=== PATIENT | female | born 1990 | race Caucasian/White ===

== ENCOUNTER 2022-12-10 20:33 | Outpatient (REF) | payer BC, SELFPAY ==
[2022-12-14 09:08] LABS: Age Gdln ACOG Testing Note (.); HPV Aptima Negative (Negative); IGP, Aptima HPV, rfx 16/18,45 Note (.)
== END 2022-12-10 20:34 | disposition home or self-care (01) ==
LOC: LAB 20:33
PROVIDERS: Visit Provider Physician Assistant
DX: Z01.419 Encounter for gynecological examination (general) (routine) without abnormal findings (principal); Z11.51 Encounter for screening for human papillomavirus (HPV); Z12.72 Encounter for screening for malignant neoplasm of vagina
CPT/HCPCS: 87624; G0145

== ENCOUNTER 2023-12-25 21:58 | Outpatient (REF) | payer OTHER, SELFPAY | END 2023-12-25 21:59 | disposition home or self-care (01) | LOC: LAB 21:58 | PROVIDERS: Visit Provider Physician Assistant | DX: Z01.419 Encounter for gynecological examination (general) (routine) without abnormal findings (principal) | CPT/HCPCS: 87624; 88175 ==

== ENCOUNTER 2024-09-01 12:06 | Emergency (ER) | payer OTHER, SELFPAY ==
[2024-09-01 12:15] VITALS: BP 113/75; PULSE 90; TEMP 36.6; O2SAT 99; BMI 29.8
--- NOTE | 2024-09-01 12:33 | ED_ITS ---
HPI - Abdominal Pain General Chief Complaint: Abdominal Pain Stated Complaint: ABDOMIN PAIN CHEST PAINS Time Seen by Provider: 09/01/24 12:27 Source: patient Mode of arrival: walk-in Limitations: no limitations History of Present Illness HPI narrative: This 34-year-old female presents to the emergency department chief complaint of multiple episodes of vomiting since yesterday and accompanied with abdominal pain cramping. She denies diarrhea. She does not report recent alcohol intake and does not remember what she ate last before the onset of her symptoms. She is 0 and denies any possibility of . Patient is currently taking tirzepatide and her last dose was 2 days ago. She is up to 15 mg a dose. She went to an outlying emergency department yesterday with similar symptoms and was treated symptomatically. She has had problems such as this off-and-on in the last year and at that time she was on Ozempic. Related Data Home Medications ?Medication ?Instructions ?Recorded ?Confirmed fluoxetine 20 mg capsule mg 09/01/24 metoclopramide HCl 10 mg tablet mg 09/01/24 omeprazole 40 mg capsule,delayed mg 09/01/24 release ondansetron 4 mg disintegrating mg 09/01/24 tablet tirzepatide (weight loss) 12.5 mg subcut 09/01/24 mg/0.5 mL subcutaneous pen injector (Zepbound) Previous Rx's ?Medication ?Instructions ?Recorded promethazine 25 mg rectal 25 mg FL Q6H PRN nausea and 09/01/24 suppository vomiting #12 ea Allergies Allergy/AdvReac Type Severity Reaction Status Date / Time Penicillins Allergy Severe Rash Verified 09/01/24 12:18 Review of Systems ROS Status of ROS 10 or more systems reviewed and unremark able except as noted in history and below Exam Narrative Exam Narrative: Patient is ill-appearing and is actively vomiting. Her vital signs are stable. There is no pallor or icterus. H EENT exam is normal to inspection. Neck is supple. Lung sounds are clear to auscultation bilaterally. Heart has an irregular rhythm with a controlled rate. Abdomen is soft with diffuse tenderness but without peritoneal signs. Extremities are warm and dry. Speech and mentation are clear and intact. There is no facial asymmetry and she moves all extremities actively. Constitutional Vital Signs, click to edit/add: Last Vital Signs Temp 98 F 09/01/24 12:15 Pulse 90 09/01/24 12:15 Resp 20 09/01/24 12:15 BP 113/75 09/01/24 12:15 Pulse Ox 99 09/01/24 12:15 Course Vital Signs Vital signs: Vital Signs Temperature 98 F 09/01/24 12:15 Pulse Rate 90 09/01/24 12:15 Respiratory Rate 20 09/01/24 12:15 Blood Pressure 113/75 09/01/24 12:15 Pulse Oximetry 99 09/01/24 12:15 Temperature 98 F 09/01/24 12:15 Pulse Rate 90 09/01/24 12:15 Respiratory Rate 20 09/01/24 12:15 Blood Pressure 113/75 09/01/24 12:15 Pulse Oximetry 99 09/01/24 12:15 MDM - Abdominal Pain MDM Narrative Medical decision making narrative: Patient's twelve-lead EKG is interpreted by me and shows sinus arrhythmia but I am concerned about possible atrial fibrillation. No ischemic changes noted. A second EKG was obtained a couple hours later and shows atrial fibrillation with a controlled rate. Lab work is fairly nondiagnostic. Kidney function and electrolytes within normal limits. Liver functions were not abnormal. Troponin was within normal limits also. Patient was treated with IV fluids and because her potassium level was low at 3 she was treated with 20 mEq of IV potassium chloride infusion and was also given 2 g of magnesium sulfate infusion. Following the completion of these infusions the patient has reverted to sinus rhythm with sinus arrhythmia on the monitor. She has Reglan at home that she is encouraged to use for nausea and is also prescribed promethazine suppository for nausea and vomiting. I have advised that she stop using there is appetite which may be causing her nausea and vomiting. She is advised outpatient follow-up with PCP and mergers and acquisitions associate of choice. Lab Data Labs: Lab Results 09/01/24 09/01/24 Range/Units 12:52 14:12 WBC 9.0 (4.0-11.0) 10^3/uL RBC 4.70 (4.20-5.40) 10^6/uL Hgb 13.3 (12.0-16.0) g/dL Hct 39.7 (36.0-48.0) % MCV 84.5 (81.0-99.0) fL MCH 28.3 (26.7-34.0) pg MCHC 33.5 (29.9-35.2) g/dL RDW 14.3 (11.0-15.0) % Plt Count 256 (150-450) 10^3/uL MPV 11.8 (9.5-13.5) fL Neut % (Auto) 74.4 (43.0-75.0) % Lymph % (Auto) 18.4 L (20.5-60.0) % [place] % (Auto) 6.6 (1.7-12.0) % Eos % (Auto) 0.0 L (0.9-7.0) % Baso % (Auto) 0.2 (0.2-2.0) % Neut # (Auto) 6.7 H (1.4-6.5) 10^3/uL Lymph # (Auto) 1.7 (1.2-3.8) 10^3/uL [place] # (Auto) 0.6 (0.3-0.8) 10^3/uL Eos # (Auto) 0.0 (0.0-0.7) 10^3/uL Baso # (Auto) 0.0 (0.0-0.1) 10^3/uL Abs Immat Gran (auto) 0.04 H (0.00-0.03) 10^3/uL Imm/Tot Granulo (auto) 0.4 (0.0-0.5) % Sodium 142 (136-145) mmol/L Potassium 3.0 L (3.5-5.1) mmol/L Chloride 104 (98-107) mmol/L Carbon Dioxide 22.2 (21.0-32.0) mmol/L Anion Gap 18.8 BUN 12.0 (7.0-18.0) mg/dL Creatinine 0.99 (0.55-1.02) mg/dL Est GFR ( Amer) >60 (>=60 mL/min/1.73m^2) Est GFR (Non-Af Amer) >60 (>=60 mL/min/1.73m^2) BUN/Creatinine Ratio 12.1 Glucose 95 (74-106) mg/dL Lactate 1.4 (0.4-2.0) mmol/L Calcium 9.2 (8.5-10.1) mg/dL Magnesium 2.1 (1.8-2.4) mg/dL Total Bilirubin 0.7 (0.2-1.0) mg/dL Direct Bilirubin 0.1 (0.0-0.2) mg/dL AST 10 L (15-37) U/L ALT 22 (14-59) U/L Alkaline Phosphatase 47 (46-116) U/L Troponin I High Sens <4.0 L 5.5 (4.0-51.3) pg/mL Total Protein 7.7 (6.4-8.2) g/dL Albumin 4.0 (3.4-5.0) g/dL Globulin 3.7 g/dL Albumin/Globulin Ratio 1.1 Lipase 26.0 (16.0-77.0) U/L Serum HCG, Qual Negative (NEGATIVE) Discharge Plan Discharge Chief Complaint: Abdominal Pain Clinical Impression: Nausea & vomiting Qualifiers: Vomiting type: unspecified Qualified Code(s): R11.2 - Nausea with vomiting, unspecified Abdominal pain Qualifiers: Abdominal location: generalized Qualified Code(s): R10.84 - Generalized abdominal pain Patient Disposition: Home, Self-Care Time of Disposition Decision: 17:47 Condition: Fair Mode of Transportation: Private Vehicle Prescriptions / Home Meds: New promethazine 25 mg suppository 25 mg FL Q6H PRN (Reason: nausea and vomiting) Qty: 12 0RF No Action omeprazole 40 mg capsule,delayed release(DR/EC) ondansetron 4 mg tablet,disintegrating fluoxetine 20 mg capsule metoclopramide HCl 10 mg tablet Zepbound 12.5 mg/0.5 mL pen injector SUBCUT Print Language: Uzbek Instructions: Acute Nausea and Vomiting (ED), Abdominal Pain (ED) Additional Instructions: Stop using tirzepatide. Follow-up with PCP and mergers and acquisitions associate of choice within a week's time. Return for worsening symptoms. Referrals: Sarah Yeager RN [Primary Care Provider] - 1 week
[2024-09-01] MEDS: FENTANYL CITRATE/PF 100 MCG/2 ML VIAL 50 MCG IV (12:43)
[2024-09-01] MEDS: ONDANSETRON PF 4 MG/2 ML VIAL IV (12:44)
[2024-09-01] MEDS: 0.9 % SODIUM CHLORIDE 1,000 ML 999 ML IV (12:44)
[2024-09-01 13:03] LABS: Basophils Percent Auto 0.2 % (0.2-2.0); Hematocrit 39.7 % (36.0-48.0); Hemoglobin 13.3 g/dL (12.0-16.0); Immature Granulocytes Abs Auto 0.04 10^3/uL (0.00-0.03); Immature Granulocytes Pct Auto 0.4 % (0.0-0.5); Lymphocytes Absolute Auto 1.7 10^3/uL (1.2-3.8); Lymphocytes Percent Auto 18.4 % (20.5-60.0); Mean Corpuscular HGB Conc 33.5 g/dL (29.9-35.2); Mean Corpuscular Hemoglobin 28.3 pg (26.7-34.0); Mean Corpuscular Volume 84.5 fL (81.0-99.0); Mean Platelet Volume 11.8 fL (9.5-13.5); Monocytes Absolute Auto 0.6 10^3/uL (0.3-0.8); Monocytes Percent Auto 6.6 % (1.7-12.0); Neutrophils Absolute Auto 6.7 10^3/uL (1.4-6.5); Neutrophils Percent Auto 74.4 % (43.0-75.0); Platelet Count 256 10^3/uL (150-450); Red Cell Distribution Width 14.3 % (11.0-15.0)
[2024-09-01 13:23] LABS: HCG Qualitative NEGATIVE (NEGATIVE); Internal Control Within Normal Limits
[2024-09-01 13:24] LABS: Alanine Aminotransferase 22 U/L (14-59); Albumin Globulin Ratio 1.1; Alkaline Phosphatase 47 U/L (46-116); Anion Gap 18.8; Aspartate Amino Transferase 10 U/L (15-37); BUN Creatinine Ratio 12.1; Bilirubin Direct 0.1 mg/dL (0.0-0.2); Bilirubin Total 0.7 mg/dL (0.2-1.0); Calcium 9.2 mg/dL (8.5-10.1); Carbon Dioxide 22.2 mmol/L (21.0-32.0); Chloride 104 mmol/L (98-107); Estimated GFR (African America >60 (>=60 mL/min/1.73m^2); Estimated GFR (Non-African Ame >60 (>=60 mL/min/1.73m^2); Globulin 3.7 g/dL; Glucose 95 mg/dL (74-106); Sodium 142 mmol/L (136-145); Total Protein 7.7 g/dL (6.4-8.2); Troponin I High Sensitivity <4.0 pg/mL (4.0-51.3)
[2024-09-01 13:26] LABS: Lactate/Lactic Acid 1.4 mmol/L (0.4-2.0)
[2024-09-01] MEDS: DIPHENHYDRAMINE HCL 50 MG/ML VIAL 25 MG IVP (13:37)
[2024-09-01] MEDS: PROCHLORPERAZINE 10 MG/2 ML VIAL 5 MG IV (13:38)
[2024-09-01] MEDS: 0.9 % SODIUM CHLORIDE 1,000 ML 100 ML IV (13:58)
--- NOTE | 2024-09-01 14:01 | ECG_ITS ---
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 Measurements Intervals [place] Rate: 87 P: 2 SD: 120 QRS: 69 QRSD: 90 T: 53 QT: 356 QTc: 400 Interpretive Statements 1100 Sinus rhythm 1108 Marked sinus arrhythmia 4068 Nonspecific [place]ave abnormality Abnormal ECG No previous ECG available for comparison Electronically Signed On 09-01-2024 19:30:29 EDT by ALIZE GILLIAM M.D.
[2024-09-01] MEDS: FENTANYL CITRATE/PF 100 MCG/2 ML VIAL 25 MCG IV (14:10)
[2024-09-01] MEDS: POTASSIUM CHLORIDE IN WATER 10 MEQ/100 ML PREMIX 100 MEQ IV ×2 (14:11→15:05)
--- NOTE | 2024-09-01 14:25 | ECG_ITS ---
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 Measurements Intervals [place] Rate: 87 P: -[id number] AK: -[id number] QRS: 74 QRSD: 96 T: 12 QT: 386 QTc: 431 Interpretive Statements sinus rhythm with sinus arrhythmia Nonspecific Twave abnormality abnormal ECG Compared to ECG 09/01/2024 12:14:37 No significant changes Electronically Signed On 09-01-2024 19:33:32 EDT by ALIZE GILLIAM M.D.
[2024-09-01 14:32] LABS: Troponin I High Sensitivity 5.5 pg/mL (4.0-51.3)
[2024-09-01] MEDS: PANTOPRAZOLE SODIUM 40 MG VIAL IV (15:41)
[2024-09-01] MEDS: lidocaine HCL 15 ML, MAG HYDROX/ALUMINUM HYD/SIMETH 30 ML, HYOSCYAMINE SULFATE 0.25 MG PO (15:41)
[2024-09-01 15:59] LABS: Magnesium 2.1 mg/dL (1.8-2.4)
[2024-09-01] MEDS: 0.9 % SODIUM CHLORIDE 1,000 ML 125 ML IV (16:21)
[2024-09-01] MEDS: MAGNESIUM SULFATE IN WATER 2 GM/50 ML PREMIX IV (16:22)
== END 2024-09-01 18:02 | disposition home or self-care (01) ==
PROVIDERS: Emergency Provider Emergency Medicine
DX: R10.84 Generalized abdominal pain (principal); R11.2 Nausea with vomiting, unspecified
CPT/HCPCS: 36415; 74176; 80053; 80076; 80307; 81001; 83605; 83690; 83735; 84484; 84703; 85025; 93005; 96361; 96365; 96366; 96368; 96375; 96376; 99285; J0780; J1200; J2405; J3010; J3475; J3480

== ENCOUNTER 2024-09-30 19:36 | Outpatient (REF) | payer OTHER, SELFPAY ==
--- OUTSIDE RECORDS SUMMARY | 2024-09-30 19:44 | XMS_ITS | CCD ---
Author Organization [facility] CliniSymd Care Team Providers Care Clinical Program Manager Name Role Phone JAYNA, DR OSBORN Attending Unavailable JAYNA, DR OSBORN Consulting Unavailable JAYNA, DR OSBORN Admitting Unavailable Cair Marx Unavailable Christie Hua Unavailable Shannon OLVERA Primary Care Physician [phone] MD Shannon Olvera Primary Care Provider ALEXUS Marx Attending Provider Cari Marx Attending Unavailable Cari Marx Admitting Unavailable Shannon Olvera Primary Care Unavailable TYRA CID Attending Unavailable Sarah Yeager Primary Care Physician [phone] MICA SANABRIA Attending Unavailable WESLEY YANG Attending Unavailable WESLEY YANG Attending Unavailable Shannon Olvera MD Primary Care Provider [phone] Unavailable Primary Care Provider Unavailabl e Unavailable Primary Care Provider Unavailabl e [facility] Attending Unavailable CASSIE HINOJOSA Attending Unavailable Sarah Yeager Attending Unavailable Sarah Yeager Attending Unavailable Sarah Yeager Attending Unavailable Sarah Yeager Admitting Unavailable Toy, MSN, BIBLICAL LANGUAGES PROFESSOR-IT SECURITY PROJECT MANAGER Sarah Pena Attending U Martina Marquez Attending Unavailable Toy, MSN, BIBLICAL LANGUAGES PROFESSOR-IT SECURITY PROJECT MANAGER Sarah Pena Attending U jenaro Yeager, MSN, BIBLICAL LANGUAGES PROFESSOR-IT SECURITY PROJECT MANAGER Sarah Pena Attending U jenaro Yeager, MSN, BIBLICAL LANGUAGES PROFESSOR-IT SECURITY PROJECT MANAGER Sarah Pena Admitting U KHURRAM Moreau Attending Unavailable KHURRAM STEPHENS Attending Unavailable KHURRAM STEPHENS Attending Unavailable Toy, MSN, BIBLICAL LANGUAGES PROFESSOR-IT SECURITY PROJECT MANAGER Sarah Pena Attending Apurva Yeager, MSN, BIBLICAL LANGUAGES PROFESSOR-AFSANEH Pena Attending Apurva Yeager, MSN, ZAFAR Pena Attending U jenaro Allergies Allergy Classification Reported Allergen(s) Allergy Type Date of Onset Reaction(s) Facility Penicillins (antibiotic) (1 source) Penicillins; Translations: [penicillins] Drug Allergy Weal (disorder) [facility] (5 sources) Penicillin; Translations: [Penicillin] Drug Allergy hives, Weal (disorder) [facility] (20 sources) Penicillins; Translations: [penicillins] Drug allergy 8 Weal (disorder), Hives [facility] (7 sources) Penicillin G sodium Propensity to adverse reactions 3 [facility] Work Phone: (2 sources) metFORMIN; Translations: [metFORMIN] Drug Allergy [facility] Repository Medications Current Medications Medication Drug Class(es) Dates Sig (Normalized) Sig (Original) 0.25 MG, 0.5 MG Dose 3 ML semaglutide 0.68 MG/ML Pen Injector [Ozempic] (1 source) Ozempic (0.25 or 0.5 MG/DOSE) 2 MG/3ML Subcutaneous for 28 Days Active 0.5 ML tirzepatide 10 MG/ML Auto-Injector [Zepbound] (2 sources) Start: 12-06-2023 inject 5 mg by subcutaneous injection every week Zepbound 5 mg/0.5 mL subcutaneous solution 5 mg, SubCutaneous, qWeek, # 4 EA, Refills(s) 0 Start Date: 12/06/23 Status: Ordered 0.5 ML tirzepatide 10 MG/ML Injection [Zepbound] (2 sources) Start: 12-06-2023 inject 5 mg by subcutaneous injection every week Zepbound 5 mg/0.5 mL subcutaneous solution 5 mg, SubCutaneous, qWeek, # 4 EA, Refills(s) 0 Start Date: 12/06/23 Status: Ordered 0.5 ML tirzepatide 5 MG/ML Auto-Injector [Zepbound] (1 source) Start: 11-05-2023 inject 2.5 mg by subcutaneous injection every week Zepbound 2.5 mg/0.5 mL subcutaneous solution 2.5 mg, SubCutaneous, qWeek, rotate injection sites, # 4 EA, Refills(s) 0, Pharmacy: [facility], 170, cm, 11/05/23 14:44:00 EDT, Height/Length Dosing, 104.3, kg, 11/05/23 14:44:00 EDT, Weight Dosing Start Date: 11/05/23 Status: Ordered 3 ML semaglutide 2.68 MG/ML Pen Injector [Ozempic] (3 sources) Start: 06-05-2023 inject 2 mg by subcutaneous injection every week Ozempic 8 mg/3 mL (2 mg dose) subcutaneous solution 2 mg, SubCutaneous, qWeek, # 3 EA, Refills(s) 1, Pharmacy: [facility], 170, cm, 05/27/23 7:44:00 EST, Height/Length Dosing, 98.6, kg, 05/27/23 7:44:00 EST, Weight Dosing Start Date: 06/05/23 Status: Ordered Start: 02-06-2023 inject 2 mg by subcu taneous injection every week Ozempic 8 mg/3 mL (2 mg dose) subcutaneous solution 2 mg, SubCutaneous, qWeek, # 3 EA, Refills(s) 0, Pharmacy: [facility], 170, cm, 10/31/22 14:42:00 EDT, Height/Length Dosing, 112, kg, 10/31/22 14:42:00 EDT, Weight Dosing Start Date: 02/06/23 Status: Ordered azithromycin 250 mg oral tablet (1 source) Macrolide Antimicrobial Start: 06-24-2022 Azithromycin 250 MG 2 tablet on the first day, then 1 tablet daily for 4 days Orally Once a day for 5 day(s) Jun, Active cephalexin 500 mg oral capsule (4 sources) Cephalosporin Antibacterial Start: 09-30-2024 End: 10-07-2024 take 1 capsule by mouth in the morning, then take 1 capsule by mouth in the evening, then take 1 capsule by mouth at bedtime cephalexin (Keflex) 500 MG capsule Indications: Left genital labial abscess Take 1 capsule (500 mg) by mouth in the morning and 1 capsule (500 mg) in the evening and 1 capsule (500 mg) before bedtime. Do all this for 7 days. 21 capsule 09/30/2024 10/07/2024 Active Start: 08-06-2023 End: 08-16-2023 take 1 capsule by mouth every twelve hours cephalexin 500 mg Cap 500 mg = 1 cap(s), Oral, q12hr, X 10 day(s), # 20 cap(s), Refills(s) 0, Pharmacy: [facility], 170, cm, 08/06/23 11:38:00 EDT, Height/Length Dosing, 100.1, kg, 08/06/23 11:38:00 EDT, Weight Dosing Start Date: 08/06/23 Stop Date: 08/16/23 Status: Ordered dicyclomine hydrochloride 10 mg oral capsule (2 sources) Anticholinergic Start: 2024 End: 09-05-2024 take 1 capsule by mouth every six hours as needed for muscle spasms dicyclomine (BENTYL) 10 MG capsule Take 1 capsule by mouth every 6 hours as needed (Bowel spasms) 20 capsule 2024 09/05/2024 Active Start: 2024 inject 1 dose by int ramuscular injection once 20 mg, IntraMUSCular, ONCE, 1 dose, On Sat08/31/24 at 1245 famotidine 20 mg oral tablet (1 source) Histamine-2 Receptor Antagonist Start: 2024 take 1 tablet by mouth in the morning, then take 1 tablet by mouth at bedtime famotidine (PEPCID) 20 mg tablet Indications: Acute vomiting Take 1 tablet (20 mg total) by mouth in the morning and 1 tablet (20 mg total) before bedtime. 30 tablet 2024 Active Start: 2024 take 1 tablet by earnest th in the morning, then take 1 tablet by mouth at bedtime famotidine (PEPCID) 20 mg tablet Indications: Acute vomiting Take 1 tablet (20 mg total) by mouth in the morning and 1 tablet (20 mg total) before bedtime. 30 tablet 2024 Active ferrous sulfate 140 mg extended release oral tablet (16 sources) Start: 06-26-2021 take 1 tablet by mouth once daily ferrous sulfate (as elemental iron) 45 mg oral tablet, extended release 45 mg = 1 tab(s), Oral, Daily, # 30 tab(s), Refills(s) 0 Start Date: 06/26/21 Status: Ordered FLUoxetine 20 mg oral capsule (20 sources) Serotonin Reuptake Inhibitor Start: 08-03-2024 take 1 capsule by mouth in the morning FLUoxetine (PROzac) 20 mg capsule Take 1 capsule (20 mg total) by mouth in the morning. 08/03/2024 Active Start: 11-10-2019 take 1 capsule by mo [facility] in the morning FLUoxetine (PROzac) 40 MG capsule Take 40 mg by mouth in the morning. 11/10/2019 Active Fluoxetine Activ e levonorgestrel 0.365674 mg/hr intrauterine system (20 sources) Progestin, Progestin-containing Intrauterine Device Start: 01-08-2024 Intrauterine, Daily, First dose on Sat01/08/24 at 1615 Start: 01-08-2024 Levonorgestrel intrauterine device Start: 05-04-2021 Mirena 52 mg i ntrauteral device 52 mg = 1 EA, IntraUteral, Once, X 1 dose(s), # 1 EA, Refills(s) 0 Start Date: 05/04/21 Status: Ordered Start: 10-20-2020 Levonorgestrel (Mirena, 52 MG,) 20 MCG/DAY intrauterine device 10/20/2020 Active metFORMIN hydrochloride 500 mg oral tablet (20 sources) Biguanide Start: 09-10-2019 take 1 tablet by mouth at mealtime metFORMIN (Glucophage) 500 MG tablet Take 500 mg by mouth in the morning. Take with meals. 09/10/2019 Active Start: 09-10-2019 take 1 tablet by earnest once daily at breakfast metFORMIN (GLUCOPHAGE) 500 mg tablet Take 1 tablet (500 mg total) by mouth daily with breakfast. 03/09/2024 Active metFORMIN HCl Ac tive metoclopramide 10 mg oral tablet (2 sources) Dopamine-2 Receptor Antagonist Start: 2024 take 1 tablet by mouth every six hours as needed for nausea metoclopramide (REGLAN) 10 MG tablet Take 1 tablet by mouth every 6 hours as needed (Nausea) 20 tablet 2024 Active Start: 2024 10 mg, IntraVE Nous, ONCE, 1 dose, On Sat08/31/24 at 1245, IV Push: Max 10 mg over 1-2 minutes. Multivitamins and Minerals (16 sources) Start: 08-24-2020 take 1 tablet by mouth once daily Multivitamins and Minerals 1 tab(s), Oral, Daily, Refill(s) 0 Start Date: 08/24/20 Status: Ordered omeprazole 20 mg delayed release oral capsule (20 sources) Proton Pump Inhibitor Start: 2024 End: 09-30-2024 take 2 capsules by mouth once daily omeprazole (PRILOSEC) 20 MG delayed release capsule Take 2 capsules by mouth Daily 60 capsule 2024 09/30/2024 Active Start: 08-10-2019 take 1 capsule by mo uth before mealtime omeprazole (PriLOSEC) [address] capsule Take 40 mg by mouth in the morning. Take before meals. 08/10/2019 Active Omeprazole Activ e ondansetron 4 mg oral tablet (6 sources) Serotonin-3 Receptor Antagonist Start: 2024 take 1 tablet by mouth every six hours as needed for nausea ondansetron (ZOFRAN) 4 MG tablet Take 1 tablet by mouth every 6 hours as needed for Nausea or Vomiting 20 tablet 2024 Active Start: 2024 ondansetron OD T (ZOFRAN ODT) 4 mg disintegrating tablet Indications: Acute vomiting Dissolve 1 tablet (4 mg total) on tongue every 8 (eight) hours as needed for nausea or vomiting. 20 tablet 2024 Active Start: 2024 End: 2024 4 mg, IntraVENous, ONCE, 1 d ose, On Sat08/31/24 at 1045 Start: 2024 End: 2024 ondansetron ODT (ZOFRAN ODT) disintegrating tablet 4 mg Start: 2024 End: 2024 take 4 mg by mouth once 4 mg, oral, Once, On 08/18 at 0915, For 1 dose Start: 03-02-2023 End: 2024 take 1 tablet by mouth every six hours as needed for nausea ondansetron (ZOFRAN) 4 MG tablet Take 1 tablet by mouth every 6 hours as needed for Nausea or Vomiting 10 tablet 03/02/2023 2024 Discontinued phentermine hydrochloride 37.5 mg oral tablet (8 sources) Sympathomimetic Amine Anorectic Start: 07-25-2023 phentermine 37.5 mg Tab 37.5 mg = 1 tab(s), Oral, Daily, 30 day supply DX E66.09 BMI 32.65, # 30 tab(s), Refills(s) 0, Pharmacy: [facility], 170, cm, 06/24/23 18:03:00 EST, Height/Length Dosing, 96.5, kg, 06/24/23 18:03:00 EST, Weight Dosing Start Date: 07/25/23 Status: Ordered Start: 06-24-2023 phentermine 37 .5 mg Tab 37.5 mg = 1 tab(s), Oral, Daily, 30 day supply DX E66.09 BMI 33.36, # 30 tab(s), Refills(s) 0, Pharmacy: [facility], 170, cm, 06/24/23 18:03:00 EST, Height/Length Dosing, 96.5, kg, 06/24/23 18:03:00 EST, Weight Dosing Start Date: 06/24/23 Status: Ordered Start: 05-27-2023 phentermine 37 .5 mg Tab 37.5 mg = 1 tab(s), Oral, Daily, 30 day supply DX E66.09 BMI 34.1, # 30 tab(s), Refills(s) 0, Pharmacy: [facility], 170, cm, 05/27/23 7:44:00 EST, Height/Length Dosing, 98.6, kg, 05/27/23 7:44:00 EST, Weight Dosing Start Date: 05/27/23 Status: Ordered Start: 04-29-2023 take 1 tablet by earnest th once daily phentermine 37.5 mg Tab 37.5 mg = 1 tab(s), Oral, Daily, 30 day supply, # 30 tab(s), Refills(s) 0, Pharmacy: [facility], 170, cm, 04/29/23 18:18:00 EST, Height/Length Dosing, 104.3, kg, 04/29/23 18:18:00 EST, Weight Dosing Start Date: 04/29/23 Status: Ordered 1 mg dose 1.5 ml semaglutide 1.34 mg/ml pen injector (1 source) Start: 10-31-2022 inject 1 mg by subcutaneous injection every week Ozempic 2 mg/1.5 mL (1 mg dose) subcutaneous solution 1 mg, SubCutaneous, qWeek, 2 EA, Refill(s) 0, [facility]/pharmacy #[id number], 170, cm, 10/31/22 14:42:00 EDT, Height/Length Dosing, 112, kg, 10/31/22 14:42:00 EDT, Weight Dosing Start Date: 10/31/22 Status: Ordered sulfamethoxazole 800 mg / trimethoprim 160 mg oral tablet (2 sources) Dihydrofolate Reductase Inhibitor Antibacterial, Sulfonamide Antimicrobial Start: 09-30-2024 End: 10-10-2024 take 1 tablet by mouth once in the morning, then take 1 tablet by mouth once at bedtime sulfamethoxazole- trimethoprim (Bactrim DS) 800-160 MG per tablet Indications: Left genital labial abscess Take 1 tablet by mouth in the morning and 1 tablet before bedtime. Do all this for 10 days. 20 tablet 09/30/2024 10/10/2024 Active divalproex sodium 500 mg delayed release oral tablet (20 sources) Mood Stabilizer, Anti-epileptic Agent Start: 10-10-2007 take 1 tablet by mouth in the morning Depakote 500 MG EC tablet Take 500 mg by mouth in the morning and 500 mg before bedtime. 10/10/2007 Active Depakote Active Completed/Discontinued Medications Medication Drug Class(es) Dates Sig (Normalized) Sig (Original) aluminum hydroxide 40 mg/ml / magnesium hydroxide 40 mg/ml / simethicone 4 mg/ml oral suspension (1 source) Start: 2024 End: 2024 take 1 dose by mouth once 30 mL, Oral, ONCE PRN, 1 dose, Starting on Sat08/31/24 at 1212, Until Sat08/31/24 at 1223, Indigestion diazePAM 2 mg oral tablet (1 source) Benzodiazepine Start: 10-08-2017 End: 10-11-2017 take 1 tablet by mouth three times daily Diazepam (Valium) 2 mg tablet Discontinued 2 MG PO Three times daily 02 19October 08, 2017 12:00am October 11, 2017 12:01am 1 ml ketorolac tromethamine 30 mg/ml cartridge (1 source) Nonsteroidal Anti-inflammatory Drug, Cyclooxygenase Inhibitor Start: 2024 End: 2024 30 mg, IntraVENous, ONCE, 1 dose, On Sat08/31/24 at 1045, Do not administer for more than 5 days. 1000 ml sodium chloride 9 mg/ml injection (1 source) Start: 2024 End: 2024 1,000 mL (9.59 mL/kg), IntraVENous, at 2,000 mL/hr, Administer over 0.5 Hours, ONCE, On Sat08/31/24 at 1045, For 1 dose Problems Active Problems Problem Classification Problem Date Documented Date Episodic/Chronic Abdominal pain (3 sources) Epigastric pain; Translations: [Epigastric pain] Onset: 03-02-2023 2024 Episodic Acute and chronic tonsillitis (3 sources) Tonsillitis 09-14-2022 Episodic Administrative/socia l admission (3 sources) Patient encounter status; Translations: [Persons encountering health services in other specified circumstances] Onset: 11-03-2023 Episodic Anxiety disorders (20 sources) Generalized anxiety disorder; Translations: [Generalized anxiety disorder] Onset: 08-21-2022 Chronic Contraceptive and procreative management (3 sources) Contraception status; Translations: [Encounter for removal and reinsertion of intrauterine contraceptive device] 01-08-2024 Episodic Epilepsy; convulsions (20 sources) Generalized epilepsy; Translations: [Other generalized epilepsy and epileptic syndromes, not intractable, without status epilepticus] Onset: 08-21-2022 Chronic Epilepsy; convulsions (2 sources) Seizure disorder 07-31-2013 Episodic Esophageal disorders (18 sources) Gastroesophageal reflux disease; Translations: [Gastroesophageal reflux disease without esophagitis] Onset: 04-28-2023 07-28-2020 Chronic Immunizations and screening for infectious disease (2 sources) Encounter for screening for human papillomavirus (HPV); Translations: [Vaccination given] Onset: 10-12-2021 Episodic Inflammatory diseases of female pelvic organs (2 sources) Abscess of labia; Translations: [Abscess of vulva] 09-30-2024 Episodic Menstrual disorders (17 sources) Secondary oligomenorrhea; Translations: [Secondary oligomenorrhea] Onset: 06-22-2023 11-11-2019 Chronic Miscellaneous mental health disorders (16 sources) Bruxism (teeth grinding) 06-26-2021 Chronic Nausea and vomiting (6 sources) Acute vomiting; Translations: [Vomiting, unspecified] Onset: 2024 2024 Episodic Other endocrine disorders (8 sources) Hypoglycemia; Translations: [Other hypoglycemia] Onset: 08-21-2022 Chronic Other endocrine disorders (16 sources) Hyperinsulinism 07-20-2020 Chronic Other female genital disorders (2 sources) Labial cyst; Translations: [Vulvar cyst] 09-30-2024 Episodic Other hematologic conditions (16 sources) Microcytosis 06-26-2021 Episodic Other non-traumatic joint disorders (1 source) Pain in left knee Episodic Other nutritional; endocrine; and metabolic disorders (17 sources) Obesity; Translations: [Other obesity due to excess calories] Onset: 08-22-2022 Chronic Other nutritional; endocrine; and metabolic disorders (6 sources) Obese class II; Translations: [Body mass index (BMI) 39.0-39.9, adult] Onset: 08-22-2022 Chronic Other nutritional; endocrine; and metabolic disorders (16 sources) Body mass index 30+ - obesity 08-22-2022 Chronic Other nutritional; endocrine; and metabolic disorders (4 sources) Obese class I; Translations: [Body mass index (BMI) 33.0-33.9, adult] Onset: 06-24-2023 Chronic Other nutritional; endocrine; and metabolic disorders (12 sources) Obesity caused by energy imbalance 08-06-2023 Chronic Other screening for suspected conditions (not mental disorders or infectious disease) (4 sources) Encounter for screening for malignant neoplasm of cervix; Translations: [ENC SCREENING MALIG NEOPLASM CERV] Onset: 10-09-2021 Episodic Other skin disorders (1 source) Non-scarring alopecia; Translations: [Nonscarring hair loss, unspecified] Onset: 04-29-2023 Episodic Other skin disorders (13 sources) Loss of hair 04-29-2023 Episodic Other upper respiratory disease (2 sources) Allergic rhinitis; Translations: [Allergic rhinitis, unspecified] Chronic Other upper respiratory disease (1 source) Allergic rhinitis, unspecified Chronic Other upper respiratory infections (11 sources) Acute pharyngitis, unspecified; Translations: [Acute pharyngitis] Onset: 08-06-2023 Episodic Otitis media and related conditions (1 source) Otitis media, unspecified, right ear Episodic Superficial injury; contusion (3 sources) Contusion of left knee, initial encounter; Translations: [Contusion of knee] Onset: 10-31-2022 Episodic Unclassified (17 sources) Patient encounter status 04-07-2019 Unclassified (1 source) Pain in left knee; Translations: [Pain in left knee] Onset: 10-01-2022 Viral infection (16 sources) Verruca plantaris 05-04-2021 Episodic Past or Other Problems Problem Classification Problem Date Documented Da te Episodic/Chronic Unclassified (14 sources) Cancer cervix screening status 10-31-2022 Viral infection (16 sources) Disease caused by 2019-nCoV Resolved: 10-29-2021 10-29-2021 Results Test Name Value Interpretation Reference Range Facility Provider Letteron 09-24-2024 Provider Letter Provider Letter September 24, 2024 NATALY GARCIA [address] [address] : 1990 Dear Nataly Garcia , We have been trying to reach you with no success. It is important that you return our call regarding your referral upon receiving this letter. Also, at the time of your call, please provide us with your current information. Thank you for your prompt attention to this matter. Sincerely, [facility] [phone] [facility] Ambulatory Visit Summaryon 0 09-09-2024 Ambulatory Visit Summary Ambulatory Visit Summary NATALY GARCIA :1990 Visit Date:09/09/2024 Ambulatory Visit Instructions Your Diagnosis Gastroparesis Overweight BMI 29.0-29.9,adult Your Care Team Attending Physician - Toy MSN, BIBLICAL LANGUAGES PROFESSOR-Sarah SHELBY Primary Care Physician - Toy MSN, BIBLICAL LANGUAGES PROFESSOR-Sarah SHELBY This Is Your Medications List [facility] Prescription (pen needles 31G x 3/16 , 5mm) divalproex sodium (Depakote DR 500 mg Tab-EC) ferrous sulfate (ferrous sulfate (as elemental iron) 45 mg oral tablet, extended release) fluoxetine (FLUoxetine 20 mg Cap) levonorgestrel (Mirena 52 mg intrauteral device) metformin (metformin 500 mg Tab) metoclopramide (metoclopramide 10 mg Tab) multivitamin with minerals (Multivitamins and Minerals) omeprazole (omeprazole 40 mg Cap-DR) Procedures Performed Colonoscopy (08/19/2020), EGD (esophagogastroduode noscopy) gastric outlet reduction (08/19/2020). Discharge Vitals Heart Rate (Peripheral) 108 Respiratory Rate 16 Blood Pressure 98/64 Height 170 cm Height 67 in Weight 84.7 kg Weight 186.731 lb BMI 29.31 What to do next Scheduled Follow-Up Appointments Saturday 2:40 PM EDT With: Toy DOBBINS, Sarah STEPHEN Where: [facility] [address] [place] [address]- You Need to Schedule the Following Appointments Follow Up with Toy DOBBINS, ZAFAR, Sarah Pena When: Only if needed Comments: work excuse for August 31- return on September 14 Where: [address] [place] [address] Medications What How Much When Why Instructions Changed metoclopramide (metoclopramide 10 mg Tab) 1 Tablets By Mouth Every 6 hours as needed for Nausea/Vomiting Pickup at [facility]/pharmacy #[id number] Unchanged divalproex sodium (Depakote DR 500 mg Tab-EC) 1 Tablets By Mouth 2 times a day Unchanged ferrous sulfate (ferrous sulfate (as elemental iron) 45 mg oral tablet, extended release) 1 Tablets By Mouth Every day Unchanged fluoxetine (FLUoxetine 20 mg Cap) See instructions TAKE 1 CAPSULE BY MOUTH EVERY DAY Unchanged levonorgestrel (Mirena 52 mg intrauteral device) 1 Each Intrauteral Once Duration: 1 Doses Unchanged metformin (metformin 500 mg Tab) 1 Tablets By Mouth 2 times a day Unchanged [facility] Prescription (pen needles 31G x 3/ 16 , 5mm) 1 Subcutaneous Every 7 days Hyperinsulinemia for use with pen Unchanged multivitamin with minerals (Multivitamins and Minerals) 1 Tablets By Mouth Every day Unchanged omeprazole (omeprazole 40 mg Cap-DR) 1 Capsules By Mouth Every day Pharmacy Information [facility]/pharmacy #[id number]: [address], [place] [phone] Allergies penicillins (Hives) Problems Ongoing - Any problem that you are currently receiving treatment for. Bruxism Chronic GERD Gastroparesis Generalized anxiety disorder Hair loss Hyperinsulinemia Microcytosis Overweight Plantar wart, left foot Secondary oligomenorrhea Tonic-clonic seizures Historical - Any problem that you are no longer receiving treatment for. COVID-19 virus infection Screening for cervical cancer Patient Survey You may receive a survey via text or e-mail asking about your office visit. Please share your experience with us by completing your survey. We appreciate your feedback and thank you for choosing us for your care. Education Materials Gastroparesis Gastroparesis is a condition in which food takes longer than normal to empty from the stomach. This condition is also known as delayed gastric emptying. It is usually a long-term (chronic) condition. There is no cure, but there are treatments and things that you can do at home to help relieve symptoms. Treating the underlying condition that causes gastroparesis can also help relieve symptoms. What are the causes? In many cases, the cause of this condition is not known. Possible causes include: ??? A hormone (endocrine) disorder, such as hypothyroidism or diabetes. ??? A nervous system disease, such as Parkinson's disease or multiple sclerosis. ??? Cancer, infection, or surgery that affects the stomach or vagus nerve. The vagus nerve runs from your chest, through your neck, and to the lower part of your brain. ??? A connective tissue disorder, such as scleroderma. ??? Certain medicines. What increases the risk? You are more likely to develop this condition if: ??? You have certain disorders or diseases. These may include: ? An endocrine disorder. ? An eating disorder. ? Amyloidosis. ? Scleroderma. ? Parkinson's disease. ? Multiple sclerosis. ? Cancer or infection of the stomach or the vagus nerve. ??? You have had surgery on your stomach or vagus nerve. ??? You take certain medicines. ??? You are female. What are the signs or symptoms? Symptoms of this condition include: ??? Feeling full after eating very little or a loss of (more content not included)... Normal [facility] Family Medicine Office/Clini c Noteon 09-09-2024 Family Medicine Office/Clinic Note Family Medicine Office/Clinic Note Chief Complaint The patient presents with persistent vomiting and chest pain post-medication change. HPI Staff ER followup: Hospital: [facility] Visit date: 09-01-24 Symptoms the patient presented with: N/V, Gastroparesis Symptom onset/injury onset: N/V Current concerns: Patient has concerns with energy level History of Present Illness The patient is a 34-year-old female presenting with ER follow-up for gastroparesis. Staff HPI has been reviewed with the patient. Over the past week, she has experienced intense vomiting and chest pain, particularly following medication administration. These symptoms led to medical evaluations at two hospitals, where her medication was adjusted. Treatment has included Reglan and promethazine suppositories which have been beneficial. An electrolyte imbalance, exacerbated by dehydration from severe vomiting, likely contributed to an episode of atrial fibrillation while in the ER. She received potassium supplementation, bringing some symptom relief. The persistence of symptoms has significantly impacted her physical work ability, and she reports a restricted diet as a result of her condition. The ER physician did advise to hold her Zepbound and she is not currently taking it at this time. Review of Systems PHQ Score Initial Depression Screen Score: 0 SCORE - Gastrointestinal: Reports vomiting and dietary restrictions. - Cardiovascular: Reports prior episodes of atrial fibrillation. - Musculoskeletal: Denies musculoskeletal discomfort beyond the inability to sustain activity due to fatigue. Physical Exam Vitals & Measurements HR: 108(Peripheral) RR: 16 BP: 98/64 SpO2: 99% HT: 67 in HT: 170 cm WT: 186.731 lb WT: 84.7 kg BMI: 29.31 Constitutional: Well-groomed, well-nourished, no signs of acute distress. HEENT: Head normocephalic, sclera is clear. Cardiothoracic: Heart rate and rhythm is regular strong, normal S1 and S2. Respiratory: Lung sounds are clear throughout, respirations regular nonlabored. Abdomen/GI: Abdomen soft nondistended. Musculoskeletal: Gait is steady, full range of motion. Integument: No rashes or lesions noted to the exposed skin. Psychiatric: Alert and oriented x 3, pleasant, no mood changes. Assessment/Plan 1. Gastroparesis (K31.84: Gastroparesis) Management of gastroparesis included medication adjustments following significant symptom exacerbation. Symptomatic relief was sought through the usage of medications like Reglan and electrolyte therapies. The patient is advised to continue dietary modifications and remain vigilant for symptoms warranting further evaluation. Was advised by her employer to have provider fill out FMLA papers for intermittent leave due to symptoms. Will have these completed and faxed within the next several days 2. Overweight (E66.3: Overweight) Calorie restriction along with routine aerobic exercises discussed in order to avoid hypertension, osteoarthritis, metabolic syndrome and/or worsening of chronic underlying disease states. Encouraged to limit sugary drinks, foods high in sodium, as well as alcohol. 3. BMI 29.0-29.9,adult (Z68.29: Body mass index [BMI] 29.0-29.9, adult) see #2 Orders: metoclopramide, 10 mg = 1 tab(s), Oral, q6hr, PRN Nausea/Vomiting, # 28 tab(s), Refills(s) 0, Pharmacy: [facility]/pharmacy #[id number], 170, cm, 09/09/24 12:01:00 EDT, Height/Length Dosing, 84.7, kg, 09/09/24 12:01:00 EDT, Weight Dosing This note was created by the assist of a speech-recognition program although the intention is to generate a document that actually reflects the content of the visit, no guarantees can be provided that every mistake has been identified and corrected by editing. Follow-up With When Contact Information Toy DOBBINS, BIBLICAL LANGUAGES PROFESSOR-IT SECURITY PROJECT MANAGERSarah Only if needed [address] [place] [phone] Additional Instructions: work excuse for August 31- return on September 14 Patient Education Gastroparesis Problem List/Past Medical History Ongoing Bruxism Chronic GERD Gastroparesis Generalized anxiety disorder Hair loss Hyperinsulinemia Microcytosis Overweight Plantar wart, left foot Secondary oligomenorrhea Tonic-clonic seizures Historical COVID-19 virus infection Screening for cervical cancer Procedure/Surgical History Colonoscopy (08/19/2020), EGD (esophagogastroduode noscopy) gastric outlet reduction (08/19/2020). Medications Depakote DR 500 mg Tab-EC, 500 mg= 1 tab(s), Oral, BID, 4 refills ferrous sulfate (as elemental iron) 45 mg oral tablet, extended release, 45 mg= 1 tab(s), Oral, Daily FLUoxetine 20 mg Cap, See Instructions metformin 500 mg Tab, 500 mg= 1 tab(s), Oral, BID, 4 refills metoclopramide 10 mg Tab, 10 mg= 1 tab(s), Oral, q6hr, PRN Mirena 52 mg intrauteral device, 52 mg= 1 EA, IntraUteral, Once Multivitamins and Minerals, 1 tab(s), Oral, Daily omeprazole 40 mg Cap-DR, 40 mg= 1 cap(s), Oral, Daily, 1 refills pen needles 31G x 3/16 , 5mm (more content not included)... Normal [facility] Comment on above: Result Comment: Elec tronically Signed By: Toy MSN, BIBLICAL LANGUAGES PROFESSOR- IT SECURITY PROJECT MANAGER, Sarah Pena\.br\Date and Time Signed: 09/09/24 14:27 EDT Provider Letteron 09-09-2024 Provider Letter Provider Letter September 09, 2024 [address] G[address]IA [address] [place] [id number] : 1990 To Whom It May Concern, Please excuse above patient from work. Date of Illness: From: 2024 To: 09/11/2024 May Return to Work On: 09/14/2024 Sincerely, [place] [id number] Normal [facility] CBC with Auto Differentialon 2024 Basophils (Bld) [#/Vol] 0 10*3/uL [employer] Basophils/100 WBC (Bld) 0 % 0 - 2 % [employer] [email or web address] Eosinophils (Bld) [#/Vol] 0 10*3/uL [employer] [email or web address] Eosinophils/100 WBC (Bld) 0 % 0 - 4 % [employer] Erythrocyte distribution width (RBC) [Ratio] 15.2 % High 11.5 - 14.9 % [employer] Hematocrit (Bld) [Volume fraction] 41.1 % 36 - 46 % [employer] Hemoglobin (Bld) [Mass/Vol] 13.6 g/dL 12.0 - 16.0 g/dL [facility] [employer] Interpretation and review of laboratory results Abnormal [facility] Lymphocytes/100 WBC (Bld) 11 % Low 24 - 44 % [facility] Lymphocytes/100 WBC (Bld) 0.9 % Low [facility] MCH (RBC) [Entitic mass] 28.2 pg 26 - 34 pg [facility] MCHC (RBC) [Mass/Vol] 33 g/dL 31 - 37 g/dL B on [facility] MCV (RBC) [Entitic vol] 85.4 fL 80 - 100 fL [facility] Monocytes/100 WBC (Bld) 3 % 1 - 7 % [facility] Monocytes/100 WBC (Bld) 0.2 % [facility] Neutrophils/100 WBC (Bld) 86 % High 36 - 66 % [facility] Platelet mean volume (Bld) [Entitic vol] 9.7 fL 6.0 - 12.0 fL [facility] Platelets (Bld) [#/Vol] 224 10*3/uL [facility] RBC (Bld) [#/Vol] 4.82 10*6/uL 4.0 - 5.2 m/uL [facility] Segmented neutrophils/100 WBC (Bld) 7.1 % [facility] WBC other (Bld) [#/Vol] 8.2 [facility] CBC with Diffon 2024 Abs. Basophil 0.00 k/uL Normal 0.0-0.2 [facility] Comment on above: Performed By: #### C DP, FT4, CP, HCG, LIP, TSH #### [facility] [address] [facility] [place] [address] [employer]: Duane Pearl DO Abs.Neutrophil (Seg) 7.10 k/uL Normal 1.3-9.1 [facility] Comment on above: Performed By: #### C DP, FT4, CP, HCG, LIP, TSH #### [facility] [address] [facility] [place] [place] [address] [employer]: Duane Pearl DO Basophils/100 WBC (Bld) 0 % Normal 0-2 [facility] Comment on above: Performed By: #### C DP, FT4, CP, HCG, LIP, TSH #### [facility] [address] [place] [address] [employer]: Duane Pearl DO Eosinophils (Bld) [#/Vol] 0.00 10*3/uL Normal 0.0-0.4 [facility] Comment on above: Performed By: #### C DP, FT4, CP, HCG, LIP, TSH #### [facility] [place] [address] [employer]: Duane Pearl DO Eosinophils/100 WBC (Bld) 0 % Normal 0-4 [facility] Comment on above: Performed By: #### C DP, FT4, CP, HCG, LIP, TSH #### [facility] [address] [place] [id number] [employer]: Duane Pearl DO Erythrocyte distribution width (RBC) [Ratio] 15.2 % High 11.5-14.9 [facility] Comment on above: Performed By: #### C DP, FT4, CP, HCG, LIP, TSH #### [facility] [address] [place] [address] [employer]: Duane Pearl DO Hematocrit (Bld) [Volume fraction] 41.1 % Normal 36-46 [facility] Comment on above: Performed By: #### C DP, FT4, CP, HCG, LIP, TSH #### [facility] [address] [place] [address] [employer]: Duane Pearl DO Hemoglobin (Bld) [Mass/Vol] 13.6 g/dL Normal 12.0-16.0 [facility] Comment on above: Performed By: #### C DP, FT4, CP, HCG, LIP, TSH #### [facility] [address] [place] [address] [employer]: Duane Pearl DO Lymphocytes (Bld) [#/Vol] 0.90 10*3/uL Low 1.0-4.8 [facility] Comment on above: Performed By: #### C DP, FT4, CP, HCG, LIP, TSH #### [facility] [place] [address] [employer]: Duane Pearl DO Lymphocytes/100 WBC (Bld) 11 % Low 24-44 [facility] Comment on above: Performed By: #### C DP, FT4, CP, HCG, LIP, TSH #### [facility] [address] [place] [address]. [place] [address] [employer]: Duane Pearl DO MCH (RBC) [Entitic mass] 28.2 pg Normal 26-34 [facility] Comment on above: Performed By: #### C DP, FT4, CP, HCG, LIP, TSH #### [facility] [place] [address] [employer]: Duane Pearl DO MCHC (RBC) [Mass/Vol] 33.0 g/dL Normal 31-37 [facility] Comment on above: Performed By: #### C DP, FT4, CP, HCG, LIP, TSH #### [facility] [place] [address] [employer]: Duane Pearl DO MCV (RBC) [Entitic vol] 85.4 fL Normal 80-100 [facility] Comment on above: Performed By: #### C DP, FT4, CP, HCG, LIP, TSH #### [facility] [place] [address] [employer]: Duane Pearl DO Monocytes (Bld) [#/Vol] 0.20 10*3/uL Normal 0.1-1.3 [facility] Comment on above: Performed By: #### C DP, FT4, CP, HCG, LIP, TSH #### [facility] [address] [facility] [place] [address] [employer]: Duane Pearl DO Monocytes/100 WBC (Bld) 3 % Normal 1-7 [facility] Comment on above: Performed By: #### C DP, FT4, CP, HCG, LIP, TSH #### [facility] [place] [address] [employer]: Duane Pearl DO Neutrophil (Seg) 86 % High 36-66 [facility] Comment on above: Performed By: #### C DP, FT4, CP, HCG, LIP, TSH #### [facility] [address] [place] [address] [employer]: Duane Pearl DO Platelet mean volume (Bld) [Entitic vol] 9.7 fL Normal 6.0-12.0 [facility] Comment on above: Performed By: #### C DP, FT4, CP, HCG, LIP, TSH #### [facility] [address] [place] [address] [employer]: Duane Pearl DO Platelets (Bld) [#/Vol] 224 10*3/uL Normal 150-450 [facility] Comment on above: Performed By: #### C DP, FT4, CP, HCG, LIP, TSH #### [facility] [address] [place] [address] [employer]: Duane Pearl DO RBC (Bld) [#/Vol] 4.82 10*6/uL Normal 4.0-5.2 [facility] Comment on above: Performed By: #### C DP, FT4, CP, HCG, LIP, TSH #### [facility] [address] [facility] [place] [address] [employer]: Duane Pearl DO WBC (Bld) [#/Vol] 8.2 10*3/uL Normal 3.5-11.0 [facility] Comment on above: Performed By: #### C DP, FT4, CP, HCG, LIP, TSH #### [facility] [address] [place] [address] [employer]: Duane Pearl DO Comp Metabolic Profon 2024 Albumin [Mass/Vol] 4.7 g/dL Normal 3.5-5.2 [facility] Comment on above: Performed By: #### C DP, FT4, CP, HCG, LIP, TSH #### [facility] [address] [place] [address] [employer]: Duane Pearl DO Alkaline Phos 49 U/L Normal 35-104 [facility] Comment on above: Performed By: #### C DP, FT4, CP, HCG, LIP, TSH #### [facility] [place] [address] [employer]: Duane Pearl DO ALT [Catalytic activity/Vol] 12 U/L Normal 10-35 [facility] Comment on above: Performed By: #### C DP, FT4, CP, HCG, LIP, TSH #### [facility] [address] [place] [address] [employer]: Duane Pearl DO Anion gap [Moles/Vol] 13 mmol/L Normal 9-16 [facility] Comment on above: Performed By: #### C DP, FT4, CP, HCG, LIP, TSH #### [facility] [place] [address] [employer]: Duane Pearl DO AST [Catalytic activity/Vol] 14 U/L Normal 10-35 [facility] Comment on above: Performed By: #### C DP, FT4, CP, HCG, LIP, TSH #### [facility] [address] [place] [address] [employer]: Duane Pearl DO Bilirubin [Mass/Vol] 0.4 mg/dL Normal 0.0-1.2 [facility] Comment on above: Performed By: #### C DP, FT4, CP, HCG, LIP, TSH #### [facility] [address] [place] [address] [employer]: Duane Pearl DO Calcium [Mass/Vol] 9.5 mg/dL Normal 8.6-10.4 [facility] Comment on above: Performed By: #### C DP, FT4, CP, HCG, LIP, TSH #### [facility] [place] [address] [employer]: Duane Pearl DO Chloride [Moles/Vol] 100 mmol/L Normal 98-107 [facility] Comment on above: Performed By: #### C DP, FT4, CP, HCG, LIP, TSH #### [facility] [place] [address] [employer]: Duane Pearl DO CO2 [Moles/Vol] 23 mmol/L Normal 20-31 [facility] Comment on above: Performed By: #### C DP, FT4, CP, HCG, LIP, TSH #### [facility] [place] [address] [employer]: Duane Pearl DO Creatinine [Mass/Vol] 0.6 mg/dL Low 0.7-1.2 [facility] Comment on above: Performed By: #### C DP, FT4, CP, HCG, LIP, TSH #### [facility] [address] [facility] [place] [place] [address] [employer]: Duane Pearl DO GFR/1.73 sq M.predicted among non-blacks MDRD (S/P/Bld) [Vol rate/Area] mL/min/{1.73_m2} Normal >60 [facility] Comment on above: Result Comment: These results are not intended for use in patients <18 years of age. eGFR results are calculated without a race factor using the 2020 CKD-EPI equation. Careful clinical correlation is recommended, particularly when comparing to results calculated using previous equations. The CKD-EPI equation is less accurate in patients with extremes of muscle mass, extra-renal metabolism of creatine, excessive creatine ingestion, or following therapy that affects renal tubular secretion. Performed By: #### C DP, FT4, CP, HCG, LIP, TSH #### [facility] [address] [place] [address]. [place] [address] [employer]: Duane Pearl DO Glucose [Mass/Vol] 110 mg/dL High 74-99 [facility] Comment on above: Performed By: #### C DP, FT4, CP, HCG, LIP, TSH #### [facility] [address] [place] [address]. [place] [address] [employer]: Duane Pearl DO Potassium [Moles/Vol] 3.8 mmol/L Normal 3.7-5.3 [facility] Comment on above: Performed By: #### C DP, FT4, CP, HCG, LIP, TSH #### [facility] [place] [place] [address] [employer]: Duane Pearl DO Protein [Mass/Vol] 7.8 g/dL Normal 6.6-8.7 [facility] Comment on above: Performed By: #### C DP, FT4, CP, HCG, LIP, TSH #### [facility] [address] [place] [address]. [place] [address] [employer]: Duane Pearl DO Sodium [Moles/Vol] 136 mmol/L Normal 136-145 [facility] Comment on above: Performed By: #### C DP, FT4, CP, HCG, LIP, TSH #### [facility] [address] [place] [address] [employer]: Duane Pearl DO Urea nitrogen [Mass/Vol] 6 mg/dL Normal 6-20 [facility] Comment on above: Performed By: #### C DP, FT4, CP, HCG, LIP, TSH #### [facility] [address] [place] [address] [employer]: Duane Peral DO Comprehensive Metabolic Pane vernon 2024 Albumin [Mass/Vol] 4.7 g/dL 3.5 - 5.2 g/dL [facility] ALP [Catalytic activity/Vol] 49 U/L 35 - 104 U/L [facility] ALT [Catalytic activity/Vol] 12 U/L 10 - 35 U/L [facility] Anion gap [Moles/Vol] 13 mmol/L 9 - 16 mmol/L [facility] AST [Catalytic activity/Vol] 14 U/L 10 - 35 U/L [facility] Bilirubin [Mass/Vol] 0.4 mg/dL 0.0 - 1 .2 mg/dL [facility] Calcium [Mass/Vol] 9.5 mg/dL 8.6 - 10. 4 mg/dL [facility] Chloride [Moles/Vol] 100 mmol/L 98 - 10 7 mmol/L [facility] CO2 [Moles/Vol] 23 mmol/L 20 - 31 mmol/L [facility] Creatinine [Mass/Vol] 0.6 mg/dL Low 0.7 - 1.2 mg/dL [facility] Est, Glom Filt Rate - PINF [facility] Comment on above: These results are not intended for use in patients <18 years of age. eGFR results are calculated without a race factor using the 2020 CKD-EPI equation. Careful clinical correlation is recommended, particularly when comparing to results calculated using previous equations. The CKD-EPI equation is less accurate in patients with extremes of muscle mass, extra-renal metabolism of creatine, excessive creatine ingestion, or following therapy that affects renal tubular secretion. Glucose [Mass/Vol] 110 mg/dL High 74 - 99 mg/dL [facility] Interpretation and review of laboratory results Abnormal [facility] Potassium [Moles/Vol] 3.8 mmol/L 3.7 - 5.3 mmol/L [facility] Protein [Mass/Vol] 7.8 g/dL 6.6 - 8.7 g/dL [facility] Sodium [Moles/Vol] 136 mmol/L 136 - 145 mmol/L [facility] Urea nitrogen [Mass/Vol] 6 mg/dL 6 - 20 mg/dL [facility] HCG Qualitative, Serumon HCG ( test) Ql Negative NEGATIVE [facility] Comment on above: Specimens with hCG l evels near the threshold of the test (25 mIU/mL) may give a negative or indeterminate result. In such cases, another test should be performed with a new specimen in 48-72 hours. If early is suspected clinically in this setting, correlation with quantitative serum b-hCG level is suggested. [facility] HCG Screen, Bloodon 09-01-19 25 HCG Screen, Blood Negative Normal NEG [facility] Comment on above: Result Comment: Spec imens with hCG levels near the threshold of the test (25 mIU/mL) may give a negative or indeterminate result. In such cases, another test should be performed with a new specimen in 48-72 hours. If early is suspected clinically in this setting, correlation with quantitative serum b-hCG level is suggested. Performed By: #### C DP, FT4, CP, HCG, LIP, TSH #### [facility] [address] [place] [address] [employer]: Duane Pearl DO Lipaseon 2024 Lipase [Catalytic activity/Vol] 26 U/L 13 - 60 U/L [facility] Lipase [Catalytic activity/Vol] 26 U/L Normal 13-60 [facility] Comment on above: Performed By: #### C DP, FT4, CP, HCG, LIP, TSH #### [facility] [address] [place] [address] [employer]: Duane Pearl DO No Panel Informationon 08-31 [facility] T4, Freeon 2024 Free T4 [Mass/Vol] 1.1 ng/dL 0.9 - 1.7 ng/dL [facility] TSHon 2024 TSH Qn 1.79 m[IU]/L [facility] Thyroid Stim. Horm.on 2024 Thyroid Stim. Horm. 1.79 uIU/mL Normal 0.27-4.20 [facility] Comment on above: Performed By: #### C DP, FT4, CP, HCG, LIP, TSH #### [facility] [address] [place] [address] [employer]: Duane Pearl DO Thyroxine, Freeon 2024 Thyroxine, Free 1.1 ng/dL Normal 0.9-1.7 [facility] Comment on above: Performed By: #### C DP, FT4, CP, HCG, LIP, TSH #### [facility] [address] [place] [address] [employer]: Duane Pearl DO US GALLBLADDER RUQon 025 US GALLBLADDER RUQ EXAMINATION: RIGHT UPPER QUADRANT ULTRASOUND 2024 11:04 am COMPARISON: None. HISTORY: ORDERING SYSTEM PROVIDED HISTORY: Pain TECHNOLOGIST PROVIDED HISTORY: Pain FINDINGS: LIVER: The liver is normal in size and echotexture. There is no ductal dilatation or mass. BILIARY SYSTEM: The gallbladder is within normal limits without evidence of cholelithiases. The gallbladder wall is within normal limits. The common bile duct measures 3 mm. RIGHT KIDNEY: The right kidney is unremarkable measuring 13.3 cm. There is no renal mass or hydronephrosis. PANCREAS: Visualized portions of the pancreas are unremarkable. OTHER: No evidence of right upper quadrant ascites. IMPRESSION: 1. No acute abnormality. Interpreted by: Tahir Donis MD Signed by: Tahir Donis MD 08/31/24 Final result Normal [facility] US Gallbladderon 2024 1. No acute abnormality. [facility] CONSOLIDATED EXAMINATION: RIGHT UPPER QUADRANT ULTRASOUND 2024 11:04 am COMPARISON: None. HISTORY: ORDERING SYSTEM PROVIDED HISTORY: Pain TECHNOLOGIST PROVIDED HISTORY: Pain FINDINGS: LIVER: The liver is normal in size and echotexture. There is no ductal dilatation or mass. BILIARY SYSTEM: The gallbladder is within normal limits without evidence of cholelithiases. The gallbladder wall is within normal limits. The common bile duct measures 3 mm. RIGHT KIDNEY: The right kidney is unremarkable measuring 13.3 cm. There is no renal mass or hydronephrosis. PANCREAS: Visualized portions of the pancreas are unremarkable. OTHER: No evidence of right upper quadrant ascites. [facility] CONSOL[facility] Tahir Donis MD - 2024 EXAMINATION: RIGHT UPPER QUADRANT ULTRASOUND 2024 11:04 am COMPARISON: None. HISTORY: ORDERING SYSTEM PROVIDED HISTORY: Pain TECHNOLOGIST PROVIDED HISTORY: Pain FINDINGS: LIVER: The liver is normal in size and echotexture. There is no ductal dilatation or mass. BILIARY SYSTEM: The gallbladder is within normal limits without evidence of cholelithiases. The gallbladder wall is within normal limits. The common bile duct measures 3 mm. RIGHT KIDNEY: The right kidney is unremarkable measuring 13.3 cm. There is no renal mass or hydronephrosis. PANCREAS: Visualized portions of the pancreas are unremarkable. OTHER: No evidence of right upper quadrant ascites. IMPRESSION: 1. No acute abnormality. [facility] Radiology Study observation (narrative) [facility] US GallbladderOrdered By: Maximus Donis on 2024 [facility] Work Phone: Ambulatory Visit Summaryon 0 06-05-2024 Ambulatory Visit Summary Ambulatory Visit Summary NATALY GARCIA :1990 Visit Date:06/05/2024 Ambulatory Visit Instructions Your Diagnosis Tonic-clonic seizures Generalized anxiety disorder Class 1 obesity due to excess calories in adult BMI 34.0-34.9,adult Your Care Team Attending Physician - Toy DOBBINS, Sarah STEPHEN Primary Care Physician - ZAFAR Zuleta Tammy L. This Is Your Medications List Contact prescribing physician if questions or concerns Misc Prescription (pen needles 31G x 3/16 , 5mm) divalproex sodium (Depakote DR 500 mg Tab-EC) ferrous sulfate (ferrous sulfate (as elemental iron) 45 mg oral tablet, extended release) levonorgestrel (Mirena 52 mg intrauteral device) metformin (metformin 500 mg Tab) multivitamin with minerals (Multivitamins and Minerals) omeprazole (omeprazole 40 mg Cap-DR) tirzepatide (Zepbound 5 mg/0.5 mL subcutaneous solution) Procedures Performed Colonoscopy (08/19/2020), EGD (esophagogastroduode noscopy) gastric outlet reduction (08/19/2020). Discharge Vitals Temperature (Temporal Artery) 36.4 ???C Heart Rate (Peripheral) 92 Respiratory Rate 18 Blood Pressure 104/68 Height 170 cm Height 67 in Weight 100.7 kg Weight 222.005 lb BMI 34.84 What to do next Scheduled Follow-Up Appointments Saturday 2:40 PM EDT With: Toy DOBBINS, Sarah STEPHEN Where: [facility] [address] [place] [address]- You Need to Schedule the Following Appointments Follow Up with ZAFAR Zuleta Tammy L. When: In 6 months Comments: chronic care Where: [address] [place] [id number] Medications What How Much When Why Instructions Unchanged divalproex sodium (Depakote DR 500 mg Tab-EC) 1 Tablets By Mouth 2 times a day Contact prescribing physician if questions or concerns Unchanged ferrous sulfate (ferrous sulfate (as elemental iron) 45 mg oral tablet, extended release) 1 Tablets By Mouth Every day Contact prescribing physician if questions or concerns Unchanged levonorgestrel (Mirena 52 mg intrauteral device) 1 Each Intrauteral Once Duration: 1 Doses Contact prescribing physician if questions or concerns Unchanged metformin (metformin 500 mg Tab) 1 Tablets By Mouth 2 times a day Contact prescribing physician if questions or concerns Unchanged Misc Prescription (pen needles 31G x 3/ 16 , 5mm) 1 Subcutaneous Every 7 days Hyperinsulinemia for use with pen Contact prescribing physician if questions or concerns Unchanged multivitamin with minerals (Multivitamins and Minerals) 1 Tablets By Mouth Every day Contact prescribing physician if questions or concerns Unchanged omeprazole (omeprazole 40 mg Cap-DR) 1 Capsules By Mouth Every day Contact prescribing physician if questions or concerns Unchanged tirzepatide (Zepbound 5 mg/ 0.5 mL subcutaneous solution) 5 Milligram Subcutaneous Every week Hyperinsulinemia Class 2 obesity due to excess calories in adult Contact prescribing physician if questions or concerns Allergies penicillins (Hives) Problems Ongoing - Any problem that you are currently receiving treatment for. BMI 34.0-34.9,adult Bruxism Chronic GERD Class 1 obesity due to excess calories in adult Generalized anxiety disorder Hair loss Hyperinsulinemia Microcytosis Plantar wart, left foot Secondary oligomenorrhea Tonic-clonic seizures Historical - Any problem that you are no longer receiving treatment for. COVID-19 virus infection Screening for cervical cancer Patient Survey You may receive a survey via text or e-mail asking about your office visit. Please share your experience with us by completing your survey. We appreciate your feedback and thank you for choosing us for your care. Education Materials Managing Anxiety, Adult After being diagnosed with anxiety, you may be relieved to know why you have felt or behaved a certain way. You may also feel overwhelmed about the treatment ahead and what it will mean for your life. With care and support, you can manage your anxiety. How to manage lifestyle changes Understanding the difference between stress and anxiety Although stress can play a role in anxiety, it is not the same as anxiety. Stress is your body's reaction to life changes and events, both good and bad. Stress is often caused by something external, such as a deadline, test, or competition. It normally goes away after the event has ended and will last just a few hours. But, stress can be ongoing and can lead to more than just stress. Anxiety is caused by something internal, such as imagining a terrible outcome or worrying that something will go wrong that will greatly upset you. Anxiety often does not go away even after the event is over, and it can become a long-term (chronic) worry. Lowering stress and anxiety Talk with your health care provider or a counselor to learn more ab (more content not included)... Normal [facility] CBC w/ Auto Diffon 5 Basophils/100 WBC (Bld) 0.4 % Normal 0.0-2.0 [facility] Comment on above: Performed By: #### 2 [id number] #### [facility] [address] [place] [id number] Basophils/Leukocytes Auto (Bld) [Pure # fraction] 0.0 E9/L Normal 0.0-0.2 [facility] Comment on above: Performed By: #### 2 [id number] #### [facility] [address] [place] [address] Eosinophils (Bld) [#/Vol] 0.2 E9/L Normal 0.0-0.5 [facility] Comment on above: Performed By: #### 2 [id number] #### [facility] [address] [place] [address] Eosinophils/100 WBC (Bld) 1.9 % Normal 0.0-8.0 [facility] Comment on above: Performed By: #### 2 [id number] #### [facility] [address] [place] [address] Erythrocyte distribution width (RBC) [Ratio] 15.3 % High 10.9-14.2 [facility] Comment on above: Performed By: #### 2 [id number] #### [facility] [address] [place] [address] Hematocrit (Bld) [Volume fraction] 37.5 % Normal 34.0-46.0 [facility] Comment on above: Performed By: #### 2 [id number] #### [facility] [address] [place] [address] Hemoglobin (Bld) [Mass/Vol] 12.5 g/dL Normal 12.0-16.0 [facility] Comment on above: Performed By: #### 2 [id number] #### [facility] [address] [place] [address] Lymphocytes (Bld) [#/Vol] 2.9 E9/L Normal 1.0-4.0 [facility] Comment on above: Performed By: #### 2 [id number] #### [facility] [address] [place] [address] Lymphocytes/100 WBC (Bld) 27.7 % Normal 14.0-50.0 [facility] Comment on above: Performed By: #### 2 [id number] #### [facility] [address] [place] [address] MCH (RBC) [Entitic mass] 28.1 pg Normal 27.0-34.0 [facility] Comment on above: Performed By: #### 2 [id number] #### [facility] [address] [place] [address] MCHC (RBC) [Mass/Vol] 33.4 g/dL Normal 31.4-36.0 [facility] Comment on above: Performed By: #### 2 [id number] #### [facility] [address] [place] [address] MCV (RBC) [Entitic vol] 84.0 fL Normal 80.0-100.0 [facility] Comment on above: Performed By: #### 2 [id number] #### [facility] [address] [place] [address] Monocytes (Bld) [#/Vol] 0.7 E9/L Normal 0.2-1.0 [facility] Comment on above: Performed By: #### 2 [id number] #### [facility] [address] [place] [address] Neutrophils (Bld) [#/Vol] 6.6 E9/L Normal 2.0-7.5 [facility] Comment on above: Performed By: #### 2 [id number] #### [facility] [address] [place] [address] Neutrophils/100 WBC (Bld) 63.5 % Normal 36.0-75.0 [facility] Comment on above: Performed By: #### 2 [id number] #### [facility] [address] [place] [address] Platelet mean volume (Bld) [Entitic vol] 10.0 fL Normal 6.4-10.8 [facility] Comment on above: Performed By: #### 2 [id number] #### [facility] [address] [place] [address] Platelets (Bld) [#/Vol] 257.0 E9/L Normal 150.0-500.0 [facility] Comment on above: Performed By: #### 2 [id number] #### [facility] [address] [place] [address] RBC (Bld) [#/Vol] 4.5 E12/L Normal 4.3-5.9 [facility] Comment on above: Performed By: #### 2 [id number] #### [facility] [address] [place] [address] WBC corrected for nucl RBC Auto (Bld) [#/Vol] 10.3 E9/L Normal 4.0-11.0 [facility] Comment on above: Performed By: #### 2 [id number] #### [facility] [address] [place] [address] CHEMISTRYOrdered By: SYSTEM SYSTEM on 06-05-2024 25-hydroxyvitamin D3 [Mass/Vol] 26.9 ng/mL Low 30.0 - 100.0 ng/mL [facility] Albumin [Mass/Vol] 4.6 g/dL Normal 3.3 - 5.0 gm/dL [facility] Albumin/Globulin [Mass ratio] 1.6 {ratio} Normal 1.1 - 2.2 [facility] ALP [Catalytic activity/Vol] 44 [iU]/d Normal 21 - 98 Int._Unit/L [facility] ALT No additional P-5'-P [Catalytic activity/Vol] 11 [iU]/d Normal 6 - 46 Int._Unit/L [facility] Anion gap [Moles/Vol] 11 mmol/L Normal 6 - 16 mEq/L R [facility] AST [Catalytic activity/Vol] 13 [iU]/d Normal 5 - 43 Int._Unit/L [facility] Bilirubin [Mass/Vol] 0.4 mg/dL Normal 0.0 - 1 .1 mg/dL [facility] Calcium [Mass/Vol] 9.6 mg/dL Normal 8.9 - 11. 1 mg/dL [facility] Chloride [Moles/Vol] 101 mmol/L Normal 101 - 1 11 mmol/L [facility] Cholesterol [Mass/Vol] 126 mg/dL Normal 120 - 200 mg/dL [facility] Cholesterol in HDL [Mass/Vol] 46 mg/dL Invalid Interpretation Code [facility] Comment on above: Result Comment: '>= 60 LOW RISK' '<= 40 HIGH RISK' Cholesterol in LDL [Mass/Vol] 76 mg/dL Normal <=129mg/dL [facility] Cholesterol in VLDL [Mass/Vol] 15 mg/dL Normal 7 - 40 mg/dL [facility] CO2 [Moles/Vol] 27 mmol/L Normal 21 - 31 mmol/L [facility] Creatinine [Mass/Vol] 0.6 mg/dL Normal 0.5 - 1.3 mg/dL [facility] eGFR 119 mL/min/1.73 m2 Normal >=59mL/mi n/1 .73 m2 [facility] Globulin (S) [Mass/Vol] 2.8 g/dL Normal 1.4 - 4.0 gm/dL [facility] Glucose [Mass/Vol] 82 mg/dL Normal 55 - 199 mg/dL [facility] Potassium [Moles/Vol] 3.6 mmol/L Normal 3.5 - 5.3 mmol/L [facility] Protein [Mass/Vol] 7.4 g/dL Normal 6.0 - 7.8 gm/dL [facility] Sodium [Moles/Vol] 135 mmol/L Normal 135 - 145 mmol/L [facility] Triglyceride [Mass/Vol] 73 mg/dL Normal <=149mg/dL [facility] Urea nitrogen [Mass/Vol] 8 mg/dL Normal 5 - 21 mg/dL [facility] Urea nitrogen/Creatinine [Mass ratio] 13 mg/mg Normal 10 - 20 [facility] Valpro Acid Lvl 50 microgram/mL Normal 50 - 99 mcg/mL [facility] CMPon 06-05-2024 Albumin [Mass/Vol] 4.6 g/dL Normal 3.3-5.0 [facility] Comment on above: Performed By: #### 2 [id number] #### [facility] [address] [place] [address] Albumin/Globulin (S) [Mass conc ratio] 1.6 Normal 1.1-2.2 [facility] Comment on above: Performed By: #### 2 [id number] #### [facility] [address] [place] [address] ALP [Catalytic activity/Vol] 44 Int._Unit/L Normal 21-98 [facility] Comment on above: Performed By: #### 2 [id number] #### [facility] [address] [place] [address] ALT No additional P-5'-P [Catalytic activity/Vol] 11 Int._Unit/L Normal 6-46 [facility] Comment on above: Performed By: #### 2 [id number] #### [facility] [address] [place] [address] Anion gap [Moles/Vol] 11 mmol/L Normal 6-16 [facility] Comment on above: Performed By: #### 2 [id number] #### [facility] [address] [place] [address] AST [Catalytic activity/Vol] 13 Int._Unit/L Normal 5-43 [facility] Comment on above: Performed By: #### 2 [id number] #### [facility] [address] [place] [address] Bilirubin [Mass/Vol] 0.4 mg/dL Normal 0.0-1.1 [facility] Comment on above: Performed By: #### 2 [id number] #### [facility] [address] [place] [address] Calcium [Mass/Vol] 9.6 mg/dL Normal 8.9-11.1 [facility] Comment on above: Performed By: #### 2 [id number] #### [facility] [address] [place] [address] Chloride [Moles/Vol] 101 mmol/L Normal 101-111 [facility] Comment on above: Performed By: #### 2 [id number] #### [facility] [address] [place] [address] CO2 [Moles/Vol] 27 mmol/L Normal 21-31 [facility] Comment on above: Performed By: #### 2 [id number] #### [facility] [address] [place] [address] Creatinine [Mass/Vol] 0.6 mg/dL Normal 0.5-1.3 [facility] Comment on above: Performed By: #### 2 [id number] #### [facility] [address] [place] [address] Globulin (S) [Mass/Vol] 2.8 g/dL Normal 1.4-4.0 [facility] Comment on above: Performed By: #### 2 [id number] #### [facility] [address] [place] [address] Glucose [Mass/Vol] 82 mg/dL Normal 55-199 [facility] Comment on above: Performed By: #### 2 [id number] #### [facility] [address] [place] [address] Potassium [Moles/Vol] 3.6 mmol/L Normal 3.5-5.3 [facility] Comment on above: Performed By: #### 2 [id number] #### [facility] [address] [place] [address] Protein [Mass/Vol] 7.4 g/dL Normal 6.0-7.8 [facility] Comment on above: Performed By: #### 2 [id number] #### [facility] [address] [place] [address] Sodium [Moles/Vol] 135 mmol/L Normal 135-145 [facility] Comment on above: Performed By: #### 2 [id number] #### [facility] [address] [place] [address] Urea nitrogen [Mass/Vol] 8 mg/dL Normal 5-21 [facility] Comment on above: Performed By: #### 2 [id number] #### [facility] [address] [place] [address] Urea nitrogen/Creatinine [Mass ratio] 13 No Units Normal - [facility] Comment on above: Performed By: #### 2 [id number] #### [facility] [address] [place] [address] Family Medicine Office/Clini c Noteon 06-05-2024 Family Medicine Office/Clinic Note Family Medicine Office/Clinic Note Chief Complaint Management of tonic-clonic seizures and generalized anxiety. HPI Staff C/O: frequent illnesses Symptoms: has been sick 15-20 days every month since December 2023 OTC: IV fluids, immunity gummy bid, elderberry History of Present Illness 33 Years old Female here for HPI staff / Chief Complaint confirmed with the patient Screening: Colon Cancer screenin08/19/2020 with a _ year f/u recommended; this patient does NOT have family history of colon cancer Breast cancer screening: _ ; this patient does NOT have a family history of breast cancer Pap smear: _ DEXA: NA Labs: 05/27/2023 List of Providers weight management: Desirae Rosales [facility] Cr/eGFR: eGFR: >60 (05/27/23 16:13:00) Creatinine: 0.7 mg/dL (05/27/23 16:13:00) A1c: Hgb A1C %: 5.3 % (08/23/22 10:26:00) TSH: TSH: 2.26 mcIU/mL (05/27/23 16:13:00) Vit D: No qualifying data available. LDL: LDL Direct: 73 mg/dL (08/23/22 10:26:00) Lipids: Chol: 145 mg/dL (08/23/22 10:26:00) HDL: 46 mg/dL (08/23/22 10:26:00) LDL Direct: 73 mg/dL (08/23/22 10:26:00) Tri mg/dL (08/23/22 10:26:00) VLDL: 28 mg/dL (08/23/22 10:26:00) She reported taking her prescribed medications including Depakote, iron supplements, Metformin, and Omeprazole as directed. The patient confirmed cessation of fluoxetine after consulting with her mother, a nurse, and claims no current need for antidepressant therapy as she feels stable. The seizures are controlled at the current medication dosage without any recent breakthrough events. A comprehensive check of her medication levels and possible anemia was discussed during bloodwork assessments. The patient has been experiencing heightened stress levels, but she assures that adjustments at her new job and her supportive network have contributed positively. There was no indication of worsening in her psychiatric symptoms since stopping fluoxetine. Review of Systems PHQ Score Initial Depression Screen Score: 0 SCORE - General: Reports feeling exhausted. - Respiratory: Denies difficulty breathing. - Ear, Nose, Mouth, Throat: none, nasal congestion - Gastrointestinal: denies nausea and vomiting - Neurological: Reports no breakthrough seizures. Physical Exam Vitals & Measurements T: 36.4 ???C(Temporal Artery) HR: 92(Peripheral) RR: 18 BP: 104/68 SpO2: 98% HT: 67 in HT: 170 cm WT: 100.7 kg WT: 222.005 lb BMI: 34.84 Constitutional: Well-groomed, well-nourished, no signs of acute distress. HEENT: Head normocephalic, sclera is clear. Cardiothoracic: Heart rate and rhythm is regular strong, normal S1 and S2. No murmurs, rubs, or bruits auscultated. Respiratory: Lung sounds are clear throughout, respirations regular nonlabored Abdomen/GI: Abdomen soft nondistended. Musculoskeletal: Gait is steady, full range of motion. Integument: No rashes or lesions noted to the exposed skin. Psychiatric: Alert and oriented x 3, pleasant, no mood changes. Assessment/Plan 1. Tonic-clonic seizures (G40.409: Other generalized epilepsy and epileptic syndromes, not intractable, without status epilepticus) Seizures are well-managed on the current dose of Depakote with no breakthrough occurrences. Recommended ongoing adherence to medication. Blood levels will be periodically checked to ensure therapeutic levels are maintained. Educated on seizure safety precautions and care. Ordered: Lab Specimen Collect [id number] 2. Generalized anxiety disorder (F41.1: Generalized anxiety disorder) Discussed cessation of fluoxetine, noted stable mood without current occurrences of excessive anxiety. Emphasized the importance of stress management strategies and potential follow-up for medication reassessment if symptoms recur. Ordered: Lab Specimen Collect [id number] 3. Class 1 obesity due to excess calories in adult (E66.09: Other obesity due to excess calories) Calorie restriction along with routine aerobic exercises discussed in order to avoid hypertension, osteoarthritis, metabolic syndrome and/or worsening of chronic underlying disease states. Encouraged to limit sugary drinks, foods high in sodium, as well as alcohol. 4. BMI 34.0-34.9,adult (Z68.34: Body mass index [BMI] 34.0-34.9, adult) see #3 Orders: fluoxetine, 40 mg = 1 cap(s), Oral, Daily, # 90 cap(s), Refills(s) 4, Pharmacy: [facility], 170, cm, 12/24/23 11:58:00 EDT, Height/Length Dosing, 104.6, kg, 12/24/23 11:58:00 EDT, Weight Dosing This note was created by the assist of a speech-recognition program although the intention is to generate a document that actually reflects the content of the visit, no guarantees can be provided that every mistake has been identified and corrected by editing. Follow-up With When Contact Information Toy DOBBINS, Sarah STEPHEN In [address] [place] [phone] Additional Instructions: chronic care Patient Education Managing Anxiety, Adult Seizure, Adult Problem List/Past Medic (more content not included)... Normal [facility] Comment on above: Result Comment: Elec tronically Signed By: Toy DOBBINS, Sarah CHANDLER CNP\.br\Date and Time Signed: 06/05/24 15:42 EST HEMATOLOGYOrdered By: SYSTEM SYSTEM on 06-05-2024 Basophils/100 WBC (Bld) 0.4 % Normal 0.0 - 2.0 % [facility] Basophils/Leukocytes Auto (Bld) [Pure # fraction] 0.0 E9/L Normal 0.0 - 0.2 E9/L [facility] Eosinophils (Bld) [#/Vol] 0.2 E9/L Normal 0.0 - 0.5 E9/L [facility] Eosinophils/100 WBC (Bld) 1.9 % Normal 0.0 - 8.0 % [facility] Erythrocyte distribution width (RBC) [Ratio] 15.3 % High 10.9 - 14.2 % [facility] Hematocrit (Bld) [Volume fraction] 37.5 % Normal 34.0 - 46.0 % [facility] Hemoglobin (Bld) [Mass/Vol] 12.5 g/dL Normal 12.0 - 16.0 gm/dL [facility] Lymphocytes (Bld) [#/Vol] 2.9 E9/L Normal 1.0 - 4.0 E9/L [facility] Lymphocytes/100 WBC (Bld) 27.7 % Normal 14.0 - 50.0 % [facility] MCH (RBC) [Entitic mass] 28.1 pg Normal 27.0 - 34.0 pg [facility] MCHC (RBC) [Mass/Vol] 33.4 g/dL Normal 31.4 - 36.0 gm/dL [facility] MCV (RBC) [Entitic vol] 84.0 fL Normal 80.0 - 100.0 fL [facility] Monocytes (Bld) [#/Vol] 0.7 E9/L Normal 0.2 - 1.0 E9/L [facility] Monocytes/100 WBC (Bld) 6.5 % Normal 4.0 - 14.0 % [facility] Neutrophils (Bld) [#/Vol] 6.6 E9/L Normal 2.0 - 7.5 E9/L [facility] Neutrophils/100 WBC (Bld) 63.5 % Normal 36.0 - 75.0 % [facility] Platelet mean volume (Bld) [Entitic vol] 10.0 fL Normal 6.4 - 10.8 fL [facility] Platelets (Bld) [#/Vol] 257.0 E9/L Normal 150.0 - 500.0 E9/L [facility] RBC (Bld) [#/Vol] 4.5 E12/L Normal 4.3 - 5.9 E12/L [facility] WBC corrected for nucl RBC Auto (Bld) [#/Vol] 10.3 E9/L Normal 4.0 - 11.0 E9/L [facility] Lipid Panelon 06-05-2024 Cholesterol [Mass/Vol] 126 mg/dL Normal 120-200 [facility] Comment on above: Performed By: #### 2 [id number] #### [facility] [address] [place] [address] Cholesterol in HDL [Mass/Vol] 46 mg/dL Invalid Interpretation Code [facility] Comment on above: Result Comment: '>= 60 LOW RISK' '<= 40 HIGH RISK' Performed By: #### 2 [id number] #### [facility] [address] [place] [address] Cholesterol in LDL [Mass/Vol] 76 mg/dL Normal <=129 [facility] Comment on above: Performed By: #### 2 [id number] #### [facility] [address] [place] [address] Cholesterol in VLDL [Mass/Vol] 15 mg/dL Normal 7-40 [facility] Comment on above: Performed By: #### 2 [id number] #### [facility] [address] [place] [address] Triglyceride [Mass/Vol] 73 mg/dL Normal <=149 [facility] Comment on above: Performed By: #### 2 [id number] #### [facility] [address] [place] [address] Valproic Acidon 06-05-2024 Valpro Acid Lvl 50 microgram/mL Normal 50-99 [facility] Comment on above: Performed By: #### [id number] #### [facility] [address] [place] [address] Vitamin D 25 Hydroxyon 06-05 25-hydroxyvitamin D3 [Mass/Vol] 26.9 ng/mL Low 30.0-100.0 [facility] Comment on above: Performed By: #### [id number] #### [facility] [address] [place] [address] eGFRon 06-05-2024 eGFR 119 mL/min/1.73 m2 Normal >=59 [facility] Comment on above: Performed By: #### 1 [id number] #### [facility] [address] [place] [address] Ambulatory Visit Summaryon 05-31-2023 Ambulatory Visit Summary Ambulatory Visit Summary NATALY GARCIA :1990 Visit Date:03/31/2024 Ambulatory Visit Instructions Your Diagnosis CAP (community acquired pneumonia) Non-smoker BMI 35.0-35.9,adult Exogenous obesity Your Care Team Attending Physician - KHURRAM STEPHENS CNP Primary Care Physician - Toy MSN, BIBLICAL LANGUAGES PROFESSOR-IT SECURITY PROJECT MANAGER, Sarah Pena This Is Your Medications List Misc Prescription (pen needles 31G x 3/16 , 5mm) divalproex sodium (Depakote DR 500 mg Tab-EC) doxycycline (doxycycline hyclate 100 mg Tab) ferrous sulfate (ferrous sulfate (as elemental iron) 45 mg oral tablet, extended release) fluoxetine (FLUoxetine 40 mg Cap) levonorgestrel (Mirena 52 mg intrauteral device) metformin (metformin 500 mg Tab) multivitamin with minerals (Multivitamins and Minerals) omeprazole (omeprazole 40 mg Cap-DR) tirzepatide (Zepbound 5 mg/0.5 mL subcutaneous solution) Procedures Performed Colonoscopy (08/19/2020), EGD (esophagogastroduode noscopy) gastric outlet reduction (08/19/2020). Discharge Vitals Temperature (Oral) 36.7 ???C Heart Rate (Peripheral) 88 Respiratory Rate 20 Blood Pressure 118/76 Height 170.0 cm Height 67 in Weight 101.8 kg Weight 224.43 lb BMI 35.22 Medications What How Much When Why Instructions New doxycycline (doxycycline hyclate 100 mg Tab) 1 Tablets By Mouth Every 12 hours CAP (community acquired pneumonia) Duration: 10 Days Pickup at [facility]/pharmacy #[id number] Unchanged divalproex sodium (Depakote DR 500 mg Tab-EC) 1 Tablets By Mouth 2 times a day Unchanged ferrous sulfate (ferrous sulfate (as elemental iron) 45 mg oral tablet, extended release) 1 Tablets By Mouth Every day Unchanged fluoxetine (FLUoxetine 40 mg Cap) 1 Capsules By Mouth Every day Unchanged levonorgestrel (Mirena 52 mg intrauteral device) 1 Each Intrauteral Once Duration: 1 Doses Unchanged metformin (metformin 500 mg Tab) 1 Tablets By Mouth 2 times a day Unchanged Misc Prescription (pen needles 31G x 3/ 16 , 5mm) 1 Subcutaneous Every 7 days Hyperinsulinemia for use with pen Unchanged multivitamin with minerals (Multivitamins and Minerals) 1 Tablets By Mouth Every day Unchanged omeprazole (omeprazole 40 mg Cap-DR) 1 Capsules By Mouth Every day Unchanged tirzepatide (Zepbound 5 mg/ 0.5 mL subcutaneous solution) 5 Milligram Subcutaneous Every week Hyperinsulinemia Class 2 obesity due to excess calories in adult Pharmacy Information [facility]/pharmacy #[id number]: [address], [place] [id number] [phone] Medications and Immunizations Administered Given human papillomavirus vaccine, influenza, unspecified formulation, SARSCoV2 mRNA(tozinamer-franco- sucros) vac, Allergies penicillins (Hives) Problems Ongoing - Any problem that you are currently receiving treatment for. Bruxism Chronic GERD Class 2 obesity due to excess calories in adult Encounter for weight management Generalized anxiety disorder Hair loss Hyperinsulinemia Medication monitoring encounter Microcytosis Plantar wart, left foot Secondary oligomenorrhea Tonic-clonic seizures Historical - Any problem that you are no longer receiving treatment for. COVID-19 virus infection Screening for cervical cancer Patient Survey You may receive a survey via text or e-mail asking about your office visit. Please share your experience with us by completing your survey. We appreciate your feedback and thank you for choosing us for your care. 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 History of Present Illness 33 year old patient of Shanti Yeager CNP presents today for an acute visit for wet cough, body aches, shortness of breath, and sweats since last . 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 She reports she has been taking OTC delsym with no effect. She reports she started coughing up yellow- green mucus today. She denies headache, nasal congestion, ear pain, and sore throat. Review of Systems PHQ Score Initial Depression Screen Score: 0 SCORE Constitutional: no fever, no chills, no sweats, no weakness Skin: no Jaundice, no rash, no lesions, nopetechiae ENMT: no ear pain, no sore throat, no congestion, no hoarseness Respiratory: no shortness of breath, moderate cough, no orthopnea, no wheezing Cardiovascular: no chest pain, no palpitations, no edema Musculoskeletal: no back pain, no trauma Neurologic: no headache, no dizziness, no numbness, no weakness Psychiatric: no sleeping problems, no irritability, no mood swings/depression. Additional ROS info: Except as noted in the above Review of Systems and in the History of Present Illness all other systems have been reviewed and are negative or noncontributory. Physical Exam Vitals & Measurements T: 36.7 ???C(Oral) HR: 88(Peripheral) RR: 20 BP: 118/76 SpO2: 100% HT: 67 in HT: 170.0 cm WT: 101.8 kg WT: 224.43 lb BMI: 35.22 General: alert, no acute distress ENMT: TM's clear, oral mucosa moist, no pharyngeal erythema or exudate Cardiovascular: regular rate and rhythm, normal peripheral perfusion Respiratory: Lungs Diminished in the posterior bases, respirations non labored Extremities: no deformity, no trauma Neurological: oriented x 4, LOC appropriate for age speech normal Assessment/Plan 1. CAP (community acquired pneumonia) (J18.9: Pneumonia, unspecified organism) POC COVID & Influenza - negative in the office. Increase fluids Note completed for employer to RTW on Start doxycycline 100 mg one tablet po BID x 10 days Ordered: benzonatate, 100 mg = 1 cap(s), Oral, TID, X 10 day(s), # 30 cap(s), Refills(s) 0, Pharmacy: [facility]/pharmacy #[id number], 170, cm, 03/31/24 13:52:00 EST, Height/Length Dosing, 101.8, kg, 03/31/24 13:52:00 EST, Weight Dosing doxycycline, 100 mg = 1 tab(s), Oral, q12hr, X 10 day(s), # 20 tab(s), Refills(s) 0, Pharmacy: [facility]/pharmacy #[id number], 170, cm, 03/31/24 13:52:00 EST, Height/Length Dosing, 101.8, kg, 03/31/24 13:52:00 EST, Weight Dosing 2. Non-smoker (Z78.9: Other specified health status) Encouraged to continue is a non-smoker 3. BMI 35.0-35.9,adult (Z68.35: Body mass index [BMI] 35.0-35.9, adult) The standard range for ages 18 and older is >=18.5 and < 25 kg/m2. Your BMI today was above this range, this falls in the overweight to obese category and there are medical benefits to weight loss. We can offer counselling, referral, and/or medical support in addressing this problem. Your BMI and weight management will be followed at subsequent visits. 4. Exogenous obesity (E66.09: Other obesity due to excess calories) The standard range for ages 18 and older is >=18.5 and < 25 kg/m2. Your BMI today was above this range, this falls in the overweight to obese category and there are medical benefits to weight loss. We can offer counselling, referral, and/or medical support in addressing this problem. Your BMI and weight management will be followed at subsequent visits. Follow-up No qualifying data available Problem List/Past Medical History Ongoing Bruxism Chronic GERD Class 2 obesity due to excess calories in adult Encounter for weight management Generalized anxiety disorder Hair loss Hyperinsulinemia Medication monitoring encounter Microcytosis Plantar wart, left foot Secondary oligomenorrhea Tonic-clonic seizures Historical COVID-19 virus infection Screening for cervical cancer Procedure/Surgical History Colonoscopy (08/19/2020), EGD (esophagogastroduode noscopy) gastric outlet reduction (08/19/2020). Medications Depakote DR 500 mg Tab-EC, 500 mg= 1 tab(s), Oral, BID, 4 refills doxycycline hyclate 100 mg Tab, 100 mg= 1 tab(s), Oral, q12hr ferrous sulfate (as elemental iron) 45 mg oral tablet, extended release, 45 mg= 1 tab(s), Oral, Daily FLUoxetine 40 mg Cap, 40 mg= 1 cap(s), Oral, Daily, 4 refills metformin 500 (more content not included)... Normal [facility] Comment on above: Result Comment: Elec tronically Signed By: KHURRAM STEPHENS CNP\Date and Time Signed: 03/31/24 14:18 EST Provider Letteron 03-31-2024 Provider Letter Provider Letter March 31, 2024 NATALY GARCIA [address] [place] [address] : 1990 To Whom It May Concern, Please excuse above patient from work due to medical Date of Illness: From: _03-31-24 To: _04-01-24 May Return to Work On: 04-02-24 Restrictions: _ Comments: _ Sincerely, [facility] [address] [place] [address] [facility] HCG ( test) Ql (U)O rdered By: Laurie Simmons on 01-08-2024 Interpretation and review of laboratory results Normal [facility] Healthcare Preg Test, Ur Negative [facility] Health care [facility] IUD Insertionon 01-08-2024 Vianney Valverde LPN 01/08/2024 4:41 PM IUD Insertion Date/Time: 01/08/2024 4:32 PM Performed by: Wesley Yang DO Authorized by: Wesley Yang DO Consent: Consent obtained: Written Consent given by: Patient Procedure risks and benefits discussed: yes Patient questions answered: yes Patient agrees, verbalizes understanding, and wants to proceed: yes Educational handouts given: yes Instructions and paperwork completed: yes [place] protocol: Patient states understanding of procedure being performed: yes Relevant documents present and verified: yes Test results available and properly labeled: yes Imaging studies available: yes Required blood products, implants, devices, and special equipment available: yes Procedure: Pelvic exam performed: yes Negative GC/chlamydia test: no Negative urine test: yes Negative serum test: no Cervix cleaned and prepped: yes Speculum placed in vagina: yes Tenaculum applied to cervix: yes Uterus sounded: yes IUD inserted with no complications: yes IUD type: Mirena Strings trimmed: yes Post-procedure: Patient tolerated procedure well: yes Patient will follow up after next period: no Comments: IUD Insertion: Patient presents today for an IUD Insertion. Patient is having a Mirena placed and written consent was obtained. Patient was placed in the dorsal lithotomy position with feet in stirrups. A sterile speculum ws placed into the vagina and the cervix was visualized. Cervix was cleansed with betadine and the anterior lip was grasped with ring forceps. Uterus was then gently sounded. New IUD device was gently advanced through the endocervix, toward te uterine fundus. The IUD was then deployed as device was gently removed from the uterus. The IUD strings were cut to the length from external os. All instruments were removed from the vagina. Post-procedure instructions given. All of patients questions were answered and she expressed understanding. Advised to call interim with any questions or concerns. Follow Up: Patient is to return to the office in 4 weeks for a string check. [facility] IUD Removalon 01-08-2024 Vianney Valverde LPN 01/08/2024 4:41 PM IUD Removal Date/Time: 01/08/2024 4:32 PM Performed by: Wesley Yang DO Authorized by: Wesley Yang DO Consent: Consent obtained: Written Consent given by: Patient Procedure risks and benefits discussed: yes Patient questions answered: yes Patient agrees, verbalizes understanding, and wants to proceed: yes Educational handouts given: yes Instructions and paperwork completed: yes [place] protocol: Patient states understanding of procedure being performed: yes Relevant documents present and verified: yes Test results available and properly labeled: yes Imaging studies available: yes Required blood products, implants, devices, and special equipment available: yes Site marked: yes Procedure: Removed with no complications: yes Removal due to mechanical complications of IUD: no Removal due to infection and inflammatory reaction: no Comments: IUD Removal: Patient presents today for removal of IUD. Written consent was obtained and patient was placed in dorsal lithotomy position with feet in stirrups. A sterile speculum was inserted into the vagina and the cervix was visualized. The IUD strings were grasped gently with forceps and the IUD was removed in its entirety without difficulty. The IUD was shown to the patient then properly discarded. 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 Per chart review, no documentation of discussion of concerns related to PHQ9. Patient answered several days when asked if she had thoughts that she would be better off or hurting herself. This has been referred on to [facility] for most appropriate follow up due to the severity of thoughts. Normal [facility] Ambulatory Visit Summaryon 0 12-24-2023 Ambulatory Visit Summary Ambulatory Visit Summary NATALY GARCIA :1990 Visit Date:12/24/2023 Ambulatory Visit Instructions Your Diagnosis Vomiting in adult BMI 36.0-36.9,adult Class 1 obesity due to excess calories in adult Nonsmoker Your Care Team Attending Physician - KHURRAM STEPHENS CNP Primary Care Physician - Toy DOBBINS, Sarah STEPHEN This Is Your Medications List [facility] Prescription (pen needles 31G x 3/16 , 5mm) divalproex sodium (Depakote DR 500 mg Tab-EC) ferrous sulfate (ferrous sulfate (as elemental iron) 45 mg oral tablet, extended release) fluoxetine (FLUoxetine 40 mg Cap) levonorgestrel (Mirena 52 mg intrauteral device) metformin (metformin 500 mg Tab) multivitamin with minerals (Multivitamins and Minerals) omeprazole (omeprazole 40 mg Cap-DR) tirzepatide (Zepbound 5 mg/0.5 mL subcutaneous solution) Procedures Performed Colonoscopy (08/19/2020), EGD (esophagogastroduode noscopy) gastric outlet reduction (08/19/2020). Discharge Vitals Temperature (Oral) 36.8 ?C Heart Rate (Peripheral) 86 Respiratory Rate 16 Blood Pressure 124/80 Height 170 cm Height 67 in Weight 104.6 kg Weight 230.12 lb BMI 36.19 What to do next Scheduled Follow-Up Appointments Saturday 5:40 PM EDT With: Toy DOBBINS, Sarah STEPHEN Where: [place] [address] [place] [address] 2023 3:20 PM EDT With: KHURRAM STEPHENS CNP Where: [facility] Medicine [place] [id number]- Medications What How Much When Why Instructions Unchanged divalproex sodium (Depakote DR 500 mg Tab-EC) 1 Tablets By Mouth 2 times a day Unchanged ferrous sulfate (ferrous sulfate (as elemental iron) 45 mg oral tablet, extended release) 1 Tablets By Mouth Every day Unchanged fluoxetine (FLUoxetine 40 mg Cap) 1 Capsules By Mouth Every day Unchanged levonorgestrel (Mirena 52 mg intrauteral device) 1 Each Intrauteral Once Duration: 1 Doses Unchanged metformin (metformin 500 mg Tab) 1 Tablets By Mouth 2 times a day Unchanged Misc Prescription (pen needles 31G x 3/ 16 , 5mm) 1 Subcutaneous Every 7 days Hyperinsulinemia for use with pen Unchanged multivitamin with minerals (Multivitamins and Minerals) 1 Tablets By Mouth Every day Unchanged omeprazole (omeprazole 40 mg Cap-DR) 1 Capsules By Mouth Every day Unchanged tirzepatide (Zepbound 5 mg/ 0.5 mL subcutaneous solution) 5 Milligram Subcutaneous Every week Hyperinsulinemia Class 2 obesity due to excess calories in adult Allergies penicillins (Hives) Problems Ongoing - Any problem that you are currently receiving treatment for. Bruxism Chronic GERD Class 2 obesity due to excess calories in adult Encounter for weight management Generalized anxiety disorder Hair loss Hyperinsulinemia Medication monitoring encounter Microcytosis Plantar wart, left foot Secondary oligomenorrhea Tonic-clonic seizures Historical - Any problem that you are no longer receiving treatment for. COVID-19 virus infection Screening for cervical cancer Patient Survey You may receive a survey via text or e-mail asking about your office visit. Please share your experience with us by completing your survey. We appreciate your feedback and thank you for choosing us for your care. Normal [facility] Family Medicine Office/Clini c Noteon 12-24-2023 Family Medicine Office/Clinic Note Family Medicine Office/Clinic Note HPI Staff Nataly is a 33 year old female presenting with throwing up and chills Having a lot more stress at work and bad anxiety to where she's having attacks the fluoxetine is not working for her. Darion: 18 phq: 4 phq9: 13 C/O: Duration: early saturday Body aches: no Chills: yes Fatigue: yes Cough: no Sore throat: no Fever: yes yesterday Headache: no Nasal congestion: no Loss of taste: no Loss of smell: no Eye itching/watering: no Sneezing: no SOB: no Known Exposure: no I have reviewed and verified the staff HPI to be accurate for this encounter. History of Present Illness 33 year old patient of AFSANEH Fernandez, presents today for an acute visit for evaluation of chills & vomiting x 2 days. She is afebrile today at 36.8 C. She reports she has not eaten anything since yesterday morning and it was a bowl of oatmeal. She states the only thing she has had today is water and yes she has been able to keep that down. She states she vomited three times yesterday. She reports she ate [place] food on Saturday and she is not sure if she got food poisoning or not. She has tried Pepto Bismol and that did not help yesterday. She called off work yesterday and today and her employer requires a note for her to RTW. Review of Systems PHQ Score Initial Depression Screen Score: 4 SCORE Detailed Depression Screen Score: 9 Total Depression Screen Score: 13 Constitutional: no fever, no chills, no sweats, no weakness Skin: no Jaundice, no rash, no lesions, nopetechiae Respiratory: no shortness of breath, no cough, no orthopnea, no wheezing Cardiovascular: no chest pain, no palpitations, no edema Gastrointestinal: no nausea, mild vomiting, no diarrhea, no GI bleeding Musculoskeletal: no back pain, no trauma Neurologic: no headache, no dizziness, no numbness, no weakness Psychiatric: no sleeping problems, no irritability, no mood swings/depression. Additional ROS info: Except as noted in the above Review of Systems and in the History of Present Illness all other systems have been reviewed and are negative or noncontributory. Physical Exam Vitals & Measurements T: 36.8 ?C(Oral) HR: 86(Peripheral) RR: 16 BP: 124/80 SpO2: 100% HT: 67 in HT: 170 cm WT: 104.6 kg WT: 230.12 lb BMI: 36.19 General: alert, no acute distress Skin: warm, dry Head: no trauma, normocephalic Neck: Trachea midline, no adenopathy, no tenderness Eye: normal conjunctiva, sclera clear Cardiovascular: regular rate and rhythm, normal peripheral perfusion Respiratory: Lungs CTA, respirations non labored Gastrointestinal: soft, non distended, no tenderness, no guarding. Neurological: oriented x 4, LOC appropriate for age speech normal Psychiatric: cooperative, affect appropriate for age, normal judgement, normal psychiatric thoughts. Assessment/Plan 1. Vomiting in adult (R11.10: Vomiting, unspecified) Discussed with patient vomiting is a symptom and not a diagnosis Explained to patient to start with soft foods Encouraged to maintain hydration f/u if no improvement in 24 hours Ordered: ondansetron, 4 mg = 1 tab(s), Oral, q8hr, PRN Nausea/Vomiting, X 3 day(s), # 9 tab(s), Refills(s) 0, Pharmacy: [facility]/pharmacy #[id number], 170, cm, 12/24/23 11:58:00 EDT, Height/Length Dosing, 104.6, kg, 12/24/23 11:58:00 EDT, Weight Dosing 2. BMI 36.0-36.9,adult (Z68.36: Body mass index [BMI] 36.0-36.9, adult) The standard range for ages 18 and older is >=18.5 and < 25 kg/m2. Your BMI today was above this range, this falls in the overweight to obese category and there are medical benefits to weight loss. We can offer counselling, referral, and/or medical support in addressing this problem. Your BMI and weight management will be followed at subsequent visits. 3. Class 1 obesity due to excess calories in adult (E66.09: Other obesity due to excess calories) The standard range for ages 18 and older is >=18.5 and < 25 kg/m2. Your BMI today was above this range, this falls in the overweight to obese category and there are medical benefits to weight loss. We can offer counselling, referral, and/or medical support in addressing this problem. Your BMI and weight management will be followed at subsequent visits. 4. Nonsmoker (Z78.9: Other specified health status) Encouraged to continue as a non-smoker Encouraged patient to f/u with provider regarding anxiety and stress Follow-up No qualifying data available Patient Education Nausea and Vomiting, Adult, [id number]-hp-[id number] Problem List/Past Medical History Ongoing Bruxism Chronic GERD Class 2 obesity due to excess calories in adult Encounter for weight management Generalized anxiety disorder Hair loss Hyperinsulinemia Medication monitoring encounter Microcytosis Plantar wart, left foot Secondary oligomenorrhea Tonic-clonic seizures Historical COVID-19 virus infection Screening for cervical cancer Procedure/Surgical History Colonoscopy (08/19/2020), EGD ( (more content not included)... [facility] Comment on above: Result Comment: Elec tronically Signed By: KHURRAM STEPHENS CNP\vini\Date and Time Signed: 12/24/23 15:04 EDT Provider Letteron 12-24-2023 Provider Letter Provider Letter December 24, 2023 NATALY GARCIA [address] [place] [id number] : 1990 To Whom It May Concern, Please excuse above patient from work, due to medical Date of Illness: From: 12-23-23 To: 12-25-23 May Return to Work On:12-26-23 Restrictions: _ Comments: _NONE Sincerely, [facility] [address] [place] [address] [facility] Family Medicine Office/Clini c Noteon 12-08-2023 Family Medicine Office/Clinic Note Family Medicine Office/Clinic Note HPI Staff Presents today for weight management. Initial Previous weight: 229.46 lb Today weight: 234.74 lb Medication: Zepbound Diet: Making healthier choices Exercise: No changesnot as much as she was Appetite Changes? Sleeping well:Yes, 6-8 hours Chest pain: Denies Tremors: Denies Headaches: Denies Heart fluttering: Denies Blurred Vision: Denies Concerns/ Issues: none Follow up for Mental Health: want to discuss increasing Fluoxetine Time of diagnosis: Years Psychology or FM managed: Family Medicine Counseling: No Depression: Yes Anxiety: Yes Sleeping pattern: 6 Mood swings: yes Generally feeling happy: no Medication adherence: yes takes medication as prescribed Side effects: None Suicidal Thoughts: None History of Present Illness a 33-year-old female presenting today for weight loss. Age of onset of wt gain? 11 years old Highest wt ever? 278 Lowest wt? 150 Rate of wt gain (years, months)? years Stress present (marriage, , job)? job What have you tried in the past to help you lose wt? diet programs, excessive exercise, fad dieting, diet pills (OTC) What motivates you now? want to feel better about myself, and have the energy What is your goal weight? under 200 Family history of obesity/thyroid cancer? obesity yes Nutrition Dietary recall in 24 hours? steak 6 oz, sweet potato, protein shake, chicken teriyaki, Braydon, oat milk latte sugar free syrup Food quality? mix of home cook and fast food Influences of others? No Designated eating area? No DO you eat in front of the TV? yes Patterns defined, mealtimes, snack vs grazing? snack or graze Physical activity Any in the past? running, elliptical, weight training, yoga, Current level of activity, sedentary? Low Favorite past time activity? walking Activities able to stick to? elliptical, weight training Barriers? hip and knee pain Social Smoking? No Alcohol consumption? rarely Illicit Drugs? 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 No Sleep #of hours? 6 Schedule? 11-12a to 4-5a Interruptions? No History of BERYL/snoring? No Daytime somnolence? yes Nocturnal eating? No She is concerned about her weight gain. She has gained 5.28 pounds on measurement. She is interested in trying all treatment measures to manage her weight. She is currently using 2.5 mg of Zepbound with no side effects. She reports experiencing significant stress due to work-related stress. She notes that her emotional state is characterized by several factors. Her emotional state fluctuates, with good and bad days being more challenging than others. Review of Systems PHQ Score Initial Depression Screen Score: 2 SCORE Negative as stated in the HPI. Physical Exam Vitals & Measurements T: 36.2 ?C(Temporal Artery) HR: 94(Peripheral) RR: 14 BP: 100/66 SpO2: 97% HT: 67 in HT: 170 cm WT: 106.7 kg WT: 234.74 lb BMI: 36.92 Constitutional: Well-groomed, well-nourished, no signs of acute distress. HEENT: Head normocephalic, sclera is clear. Cardiothoracic: Heart rate and rhythm is regular strong, normal S1 and S2. No murmurs, rubs, or bruits auscultated. No peripheral edema, peripheral pulses +2 Respiratory: Lung sounds are clear throughout, respirations regular nonlabored. Abdomen/GI: Abdomen soft nondistended. Musculoskeletal: Gait is steady, full range of motion. Integument: No rashes or lesions noted to the exposed skin. Psychiatric: Alert and oriented x 3, pleasant, no mood changes. Waist circumference measures 110 cm. Assessment/Plan 1. Generalized anxiety disorder (F41.1: Generalized anxiety disorder) We did review her fluoxetine. She did have concerns she is at the max dose, and was experiencing some increase anxiety. DARION score at this visit was at 12, but she has got a lot of stressors going on right now. We did discuss about her stress with her job. We are hoping that letting her get back into the swing of things with work would hopefully that would actually help with the anxiety. Counseling was discussed, but declined at this time. 2. Hyperinsulinemia (E16.1: Other hypoglycemia) She has a known history of hyperinsulinemia. She has been on metformin just once a day. We are going to trial twice a day 500 mg to see if that would help even with the weight loss. 3. Encounter for weight management (Z76.89: Persons encountering health services in other specified circumstances) She is concerned about her weight gain. She has gained 5.28 pounds on measurement. I have waist circumference of 110 cm and she was 118.5 at the last visit. We did discuss the importance of nutrition and the nutrition packet was given to her based on the food measurements, portion control label reading, healthier eating habits, healthier food substitutions and cravings as well as pamphlet on foods high in fiber protein and good carbs. We are going to increase the Zepbound to 5 mg. I gave her a paper prescri (more content not included)... Normal [facility] Comment on above: Result Comment: Elec tronically Signed By: Toy DOBBINS, BIBLICAL LANGUAGES PROFESSOR- Sarah SHELBY\.br\Date and Time Signed: 12/08/23 11:03 EDT\.br\Electronically Co-Signed By: Sofía Davalos\.br\Date and Time Co-Signed: 12/06/23 19:27 EDT Ambulatory Visit Summaryon 0 12-06-2023 Ambulatory Visit Summary Ambulatory Visit Summary NATALY GARCIA :1990 Visit Date:12/06/2023 Ambulatory Visit Instructions Your Diagnosis Generalized anxiety disorder Hyperinsulinemia Encounter for weight management Class 2 obesity due to excess calories in adult BMI 36.0-36.9,adult Your Care Team Attending Physician - ZAFAR Zuleta Tammy L. Primary Care Physician - Toy DOBBINS, Sarah STEPHEN This Is Your Medications List metformin (metformin 500 mg Tab) tirzepatide (Zepbound 5 mg/0.5 mL subcutaneous solution) Contact prescribing physician if questions or concerns Misc Prescription (pen needles 31G x 3/16 , 5mm) divalproex sodium (Depakote DR 500 mg Tab-EC) ferrous sulfate (ferrous sulfate (as elemental iron) 45 mg oral tablet, extended release) fluoxetine (FLUoxetine 40 mg Cap) levonorgestrel (Mirena 52 mg intrauteral device) multivitamin with minerals (Multivitamins and Minerals) omeprazole (omeprazole 40 mg Cap-DR) Procedures Performed Colonoscopy (08/19/2020), EGD (esophagogastroduode noscopy) gastric outlet reduction (08/19/2020). Discharge Vitals Temperature (Temporal Artery) 36.2 ?C Heart Rate (Peripheral) 94 Respiratory Rate 14 Blood Pressure 100/66 Height 170 cm Height 67 in Weight 106.7 kg Weight 234.74 lb BMI 36.92 What to do next Scheduled Follow-Up Appointments Saturday 5:40 PM EDT With: Toy DOBBINS, Sarah STEPHEN Where: [facility] [place] Normal [facility] Ambulatory Visit Summaryon 0 11-05-2023 Ambulatory Visit Summary NATALY GARCIA :1990 Visit Date:11/05/2023 Ambulatory Visit Instructions Your Diagnosis Encounter for weight management Hyperinsulinemia Class 2 obesity due to excess calories in adult BMI 36.0-36.9,adult Your Care Team Attending Physician - Toy DOBBINS, Sarah STEPHEN Primary Care Physician - Toy MSN, Sarah STPEHEN L. This Is Your Medications List Contact prescribing physician if questions or concerns Misc Prescription (pen needles 31G x 3/16 , 5mm) divalproex sodium (Depakote DR 500 mg Tab-EC) ferrous sulfate (ferrous sulfate (as elemental iron) 45 mg oral tablet, extended release) fluoxetine (FLUoxetine 40 mg Cap) levonorgestrel (Mirena 52 mg intrauteral device) metformin (metformin 500 mg Tab) multivitamin with minerals (Multivitamins and Minerals) omeprazole (omeprazole 40 mg Cap-DR) Procedures Performed Colonoscopy (08/19/2020), EGD (esophagogastroduode noscopy) gastric outlet reduction (08/19/2020). Discharge Vitals Temperature (Temporal Artery) 36.6 ?C Heart Rate (Peripheral) 98 Respiratory Rate 14 Blood Pressure 112/70 Height 170 cm Height 67 in Weight 104.3 kg Weight 229.46 lb BMI 36.09 What to do next Scheduled Follow-Up Appointments Saturday 3:00 PM EDT With: Toy DOBBINS, BIBLICAL LANGUAGES PROFESSOR-IT SECURITY PROJECT MANAGERSarah Where: [facility] [place] Normal [facility] Family Medicine Office/Clini c Noteon 11-05-2023 Family Medicine Office/Clinic Note HPI Staff wants to discuss Zepbound for weight loss will need a PA History of Present Illness a 33-year-old female presenting today questioning Zepbound for weight loss. The patient expresses interest in initiating Zepbound for weight loss management and she believes it can also help with her type 2 diabetes issues. She discontinued Ozempic on 05/2023 because her insurance does not cover this medication. She lost 50 pounds prior to initiating any medication. She talked to her insurance company regarding Zepbound and she requests a prior authorization for weight loss. She reports experiencing insulin-related issues. She monitors her waist circumference and maintains a regular exercise routine, attending the gym 4 to 5 days a week. She denies experiencing chest pain or palpitations. Review of Systems Negative as stated in the HPI. Physical Exam Vitals & Measurements T: 36.6 ?C(Temporal Artery) HR: 98(Peripheral) RR: 14 BP: 112/70 SpO2: 99% HT: 67 in HT: 170 cm WT: 104.3 kg WT: 229.46 lb BMI: 36.09 Vitals: The waist circumference is 119.5 cm. Constitutional: Well-groomed, well-nourished, no signs of acute distress. HEENT: Head normocephalic, sclera is clear. Cardiothoracic: Heart rate and rhythm is regular strong, normal S1 and S2. No murmurs, rubs, or bruits auscultated. No peripheral edema, peripheral pulses +2 Respiratory: Lung sounds are clear throughout, respirations regular nonlabored. Abdomen/GI: Abdomen soft nondistended. Musculoskeletal: Gait is steady, full range of motion. Integument: No rashes or lesions noted to the exposed skin. Psychiatric: Alert and oriented x 3, pleasant, no mood changes. Assessment/Plan 1. Encounter for weight management (Z76.89: Persons encountering health services in other specified circumstances) She has already talked to her insurance company if they will cover Zepbound with a prior authorization for weight loss, we will send that through. If approved, we will go ahead and send in the medication. We remind her that this is her responsibility, and we cannot do this for her. She has already started her weight loss journey on her own. She has been exercising and monitoring her nutrition. She is working with her mother as well and they are working together. Education was provided on root causes, weight control, portion size, setting up the goals as well as getting back to the basics. Will follow up in 1 month 2. Hyperinsulinemia (E16.1: Other hypoglycemia) She is currently on metformin. She is also hoping that the Zepbound will help with this. 3. Class 2 obesity due to excess calories in adult (E66.09: Other obesity due to excess calories) Calorie restriction along with routine aerobic exercises discussed in order to avoid hypertension, osteoarthritis, metabolic syndrome and/or worsening of chronic underlying disease states. Encouraged to limit sugary drinks, foods high in sodium, as well as alcohol. Ordered: tirzepatide, 2.5 mg, SubCutaneous, qWeek, rotate injection sites, # 4 EA, Refills(s) 0, Pharmacy: [facility], 170, cm, 11/05/23 14:44:00 EDT, Height/Length Dosing, 104.3, kg, 11/05/23 14:44:00 EDT, Weight Dosing 4. BMI 36.0-36.9,adult (Z68.36: Body mass index [BMI] 36.0-36.9, adult) See number 3. Ordered: tirzepatide, 2.5 mg, SubCutaneous, qWeek, rotate injection sites, # 4 EA, Refills(s) 0, Pharmacy: [facility], 170, cm, 11/05/23 14:44:00 EDT, Height/Length Dosing, 104.3, kg, 11/05/23 14:44:00 EDT, Weight Dosing Documentation services were performed after the patient or guardian consented to allow [employer] to record this visit. PAM copy center specialist and provider reviewed before signing. PAM: Madhu Zaldivar. This note was created by the assist of a speech-recognition program although the intention is to generate a document that actually reflects the content of the visit, no guarantees can be provided that every mistake has been identified and corrected by editing. Portions of this record may have been created with voice recognition artificial intelligence software, specifically [employer], [employer] and or [employer]. Substitutions may have occurred due to the inherent limitations of voice recognition and artificial intelligence software. Follow-up With When Contact Information Toy DOBBINS, Sarah STEPHEN In [address] [place] [phone] Additional Instructions: weight loss, 40 minute initial Patient Education Exercising to Lose Weight Mediterranean Diet Problem List/Past Medical History Ongoing BMI 36.0-36.9,adult Bruxism Chronic GERD Class 2 obesity due to excess calories in adult Encounter for weight management Generalized anxiety disorder Hair loss Hyperinsulinemia Medication monitoring encounter Microcytosis Plantar wart, left foot Secondary oligomenorrhea Tonic-clonic seizures Historical COVID-19 virus infection Screening for cervical can (more content not included)... Normal [facility] Comment on above: Result Comment: Elec tronically Signed By: Toy DOBBINS, Sarah CHANDLER CNP\.br\Date and Time Signed: 11/05/23 19:45 EDT\.br\Electronically Co-Signed By: Gera Landers\.br\Date and Time Co-Signed: 11/05/23 16:51 EDT Patient Educationon 11-05-19 24 Patient Education Nutrition Mediterranean Diet A Mediterranean diet refers to food and lifestyle choices that are based on the traditions of countries located on the [place] Sea. It focuses on eating more fruits, vegetables, whole grains, beans, nuts, seeds, and heart-healthy fats, and eating less dairy, meat, eggs, and processed foods with added sugar, salt, and fat. This way of eating has been shown to help prevent certain conditions and improve outcomes for people who have chronic diseases, like kidney disease and heart disease. What are tips for following this plan? Reading food labels ? Check the serving size of packaged foods. For foods such as rice and pasta, the serving size refers to the amount of cooked product, not dry. ? Check the total fat in packaged foods. Avoid foods that have saturated fat or trans fats. ? Check the ingredient list for added sugars, such as corn syrup. Shopping ? Buy a variety of foods that offer a balanced diet, including: ? Fresh fruits and vegetables (produce). ? Grains, beans, nuts, and seeds. Some of these may be available in unpackaged forms or large amounts (in bulk). ? Fresh seafood. ? Poultry and eggs. ? Low-fat dairy products. ? Buy whole ingredients instead of prepackaged foods. ? Buy fresh fruits and vegetables in-season from local farmers markets. ? Buy plain frozen fruits and vegetables. ? If you do not have access to quality fresh seafood, buy precooked frozen shrimp or canned fish, such as tuna, salmon, or sardines. ? Stock your pantry so you always have certain foods on hand, such as olive oil, canned tuna, canned tomatoes, rice, pasta, and beans. Cooking ? Cook foods with extra-virgin olive oil instead of using butter or other vegetable oils. ? Have meat as a side dish, and have vegetables or grains as your main dish. This means having meat in small portions or adding small amounts of meat to foods like pasta or stew. ? Use beans or vegetables instead of meat in common dishes like chili or lasagna. ? [place] with different cooking methods. Try roasting, broiling, steaming, and saut?ing vegetables. ? Add frozen vegetables to soups, stews, pasta, or rice. ? Add nuts or seeds for added healthy fats and plant protein at each meal. You can add these to yogurt, salads, or vegetable dishes. ? Marinate fish or vegetables using olive oil, lemon juice, garlic, and fresh herbs. Meal planning ? Plan to eat one vegetarian meal one day each week. Try to work up to two vegetarian meals, if possible. ? Eat seafood two or more times a week. ? Have healthy snacks readily available, such as: ? Vegetable sticks with hummus. ? Azerbaijani yogurt. ? Fruit and nut trail mix. ? Eat balanced meals throughout the week. This includes: ? Fruit: 2?3 servings a day. ? Vegetables: 4?5 servings a day. ? Low-fat dairy: 2 servings a day. ? Fish, poultry, or lean meat: 1 serving a day. ? Beans and legumes: 2 or more servings a week. ? Nuts and seeds: 1?2 servings a day. ? Whole grains: 6?8 servings a day. ? Extra-virgin olive oil: 3?4 servings a day. ? Limit red meat and sweets to only a few servings a month. Lifestyle ? Cook and eat meals together with your family, when possible. ? Drink enough fluid to keep your urine pale yellow. ? Be physically active every day. This includes: ? Aerobic exercise like running or swimming. ? Leisure activities like gardening, walking, or housework. ? Get 7?8 hours of sleep each night. ? If recommended by your health care provider, drink red wine in moderation. This means 1 glass a day for non women and 2 glasses a day for men. A glass of wine equals 5 oz (150 mL). What foods should I eat? Fruits Apples. Apricots. Avocado. Berries. Bananas. Cherries. Dates. Figs. Grapes. Adams. Melon. Oranges. Peaches. Plums. Pomegranate. Vegetables Artichokes. Beets. Broccoli. Cabbage. Carrots. Eggplant. Green beans. Chard. Kale. Spinach. Onions. Leeks. Peas. Squash. Tomatoes. Peppers. Radishes. Grains Whole-grain pasta. Brown rice. Bulgur wheat. Polenta. Couscous. Whole-wheat bread. Oatmeal. Quinoa. Meats and other proteins Beans. Almonds. [place] seeds. [place] nuts. Peanuts. Cod. [place]. Scallops. Shrimp. Tuna. Tilapia. Clams. Oysters. Eggs. Poultry without skin. Dairy Low-fat milk. Cheese. Azerbaijani yogurt. Fats and oils Extra-virgin olive oil. Avocado oil. Grapeseed oil. Beverages Water. Red wine. Herbal tea. Sweets and desserts Azerbaijani yogurt with honey. Baked apples. Poached pears. [place]by mix. Seasonings and condiments Basil. Cilantro. Coriander. Cumin. Mint. Parsley. Willy. Dunia. Tarragon. Garlic. Oregano. Thyme. Pepper. Balsamic vinegar. Tahini. Hummus. Tomato sauce. Olives. Mushrooms. The items listed above may not be a complete list of foods and beverages you can eat. Contact a dietitian for more information. What foods should I limit? This is a list o (more content not included)... Normal [facility] Family Medicine Office/Clini c Noteon 11-04-2023 Family Medicine Office/Clinic Note Chief Complaint C/o cyst on mid back, painful HPI Staff C/O: abscess Onset: x1 week Location: mid back Symptoms: painful OTC: acne carbon lamp cleaner History of Present Illness I have reviewed staff HPI and it is correct. Nataly Garcia is a 33-year-old female here for concerns regarding a cyst on her back that is painful, has been there for approximately 1 week. The patient has been using acne cleanser with minimal relief. The patient denies any systemic symptoms such as fever, nausea, vomiting, chills, or diarrhea. She also denies any known allergy to latex. The patient experiences recurrent lesions on the inner aspect of her labia, particularly near the clitoris, approximately once a month. These lesions are not associated with her menstrual cycle. She utilizes a large packet of gauze pads for symptomatic relief. A few days ago, she underwent a shave procedure, during which the lesion has significantly reduced in size. Patient has no questions or concerns at this time. Review of Systems PHQ Score Initial Depression Screen Score: 0 SCORE All negative except as noted in the HPI. Physical Exam Vitals & Measurements T: 36.6 ?C(Oral) HR: 78(Peripheral) RR: 18 BP: 116/64 SpO2: 99% HT: 67 in HT: 170 cm WT: 102.7 kg WT: 225.94 lb BMI: 35.54 General: obese female, well hydrated, in no acute distress Lungs: Normal respiratory effort and clear to auscultation Cardio: Regular rate and rhythm, normal S1 and S2, no murmur, no rub Neurologic: Grossly normal Lymph Nodes: No cervical adenopathy, nodes normal Mental Status: Alert and oriented x3. Normal mood and affect Skin: quarter sized raised area on the posterior thorax. Warm, fluctuant, tender to palpation. No open areas or active drainage Pelvic Exam: Vulva: normal appearance, normal hair distribution, small 3 mm mass on the right labia majora, no erythema to the skin or tenderness to palpation Urethra: normal, no masses, non-tender, no discharge. Bladder: normal, non-tender, non-distended. Procedure I&D Onset of lesion? 1 week Indication? infected lesion Consent signed? yes Site: posterior thorax Size: quarter Procedure: I&D Instrument used: # 11 blade Anesthesia: 1% lidocaine with epinephrine , 1.5 mL Wound prep: Iodine Wound dressing: non-stick telfa Follow up if needed Additional Comments or Instructions: Keep area covered for the next 48 hours. Area will continue to drain. Encouraged to change dressing every 12-24 hours. Wash area gently. Encouraged to contact office if area does not improve. Assessment/Plan 1. Abscess of back, except buttock (L02.212: Cutaneous abscess of back [any part, except buttock]) Educated on wound care. 2. Furuncle of labia majora (N76.4: Abscess of vulva) The patient was informed that the presence of sebaceous glands on the inner labia could potentially lead to folliculitis due to shaving or waxing in the area. Encouraged warm compresses 3. Dysesthesia (R20.8: Other disturbances of skin sensation) Indication for procedure 4. BMI 35.0-35.9,adult (Z68.35: Body mass index [BMI] 35.0-35.9, adult) The standard range for ages 18 and older is >=18.5 and < 25 kg/m2. Your BMI today was above this range, this falls in the overweight to obese category and there are medical benefits to weight loss. We can offer counselling, referral, and/or medical support in addressing this problem. Your BMI and weight management will be followed at subsequent visits. 5. Class 2 obesity due to excess calories in adult (E66.09: Other obesity due to excess calories) See above Patient verbalized understanding and is agreeable to plan and course of treatment. This documentation was completed by voice-activated device and software. Inaccuracies compared to the original dictation of this provider are possible although this document has been overread and corrected. Portions of this record may have been created with voice recognition artificial intelligence software, specifically [employer], [employer] and or [employer]. Substitutions may have occurred due to the inherent limitations of voice recognition and artificial intelligence software. ATTESTATION: This note has been generated by [employer] and edited by Deanne Che/Pasted by: Michael Johnson, Quality Systems Program Manager. Follow-up With When Contact Information Martina Harrison PA-C Only if needed [address] [place] [phone] Additional Instructions: Only if needed Problem List/Past Medical History Ongoing Acute URI BMI 34.0-34.9,adult BMI 35.0-35.9,adult Bruxism Chronic GERD Class 1 obesity due to excess calories in adult Class 2 obesity due to excess calories in adult Generalized anxiety disorder Hair loss Hyperinsulinemia Medication monitoring encounter Microcytosis Plantar wart, left foot Secondary oligomenorrhea Tonic-clonic seizures Historical COVID-19 virus infection Screening for cervical cancer Procedure/Mejia (more content not included)... Normal [facility] Comment on above: Result Comment: Elec tronically Signed By: Martina Harrison PA-C\.br\Date and Time Signed: 11/04/23 08:54 EDT\.br\Electronically Co-Signed By: Michael Johnson\.br\Date and Time Co-Signed: 10/22/23 18:11 EDT Consent for Procedure/Surger yon 10-23-2023 Consent for Procedure/Surgery [id number] #[id number] [facility] Ambulatory Visit Summaryon 0 6-04-2024 Ambulatory Visit Summary NATALY GARCIA :1990 Visit Date:10/22/2023 Ambulatory Visit Instructions Your Diagnosis BMI 35.0-35.9,adult Class 2 obesity due to excess calories in adult Your Care Team Attending Physician - Hunter LANDAVERDE, Martina Lopes Primary Care Physician - Toy MSN, BIBLICAL LANGUAGES PROFESSOR-IT SECURITY PROJECT MANAGER, Sarah Pena This Is Your Medications List Misc Prescription (pen needles 31G x 3/16 , 5mm) divalproex sodium (Depakote DR 500 mg Tab-EC) ferrous sulfate (ferrous sulfate (as elemental iron) 45 mg oral tablet, extended release) fluoxetine (FLUoxetine 40 mg Cap) levonorgestrel (Mirena 52 mg intrauteral device) metformin (metformin 500 mg Tab) multivitamin with minerals (Multivitamins and Minerals) omeprazole (omeprazole 40 mg Cap-DR) phentermine (phentermine 37.5 mg Tab) Procedures Performed Colonoscopy (08/19/2020), EGD (esophagogastroduode noscopy) gastric outlet reduction (08/19/2020). Discharge Vitals Temperature (Oral) 36.6 ?C Heart Rate (Peripheral) 78 Respiratory Rate 18 Blood Pressure 116/64 Height 170 cm Height 67 in Weight 102.7 kg Weight 225.94 lb BMI 35.54 Medications What How Much When Why Instructions Unchanged divalproex sodium (Depakote DR 500 mg Tab-EC) 1 Tablets By Mouth 2 times a day Unchanged ferrous sulfate (ferrous sulfate (as elemental iron) 45 mg oral tablet, extended release) 1 Tablets By Mouth Every day Unchanged fluoxetine (FLUoxetine 40 mg Cap) 1 Capsules By Mouth Every day Unchanged levonorgestrel (Mirena 52 mg intrauteral device) 1 Each Intrauteral Once Duration: 1 Doses Unchanged metformin (metformin 500 mg Tab) 1 Tablets By Mouth Every day Unchanged Misc Prescription (pen needles 31G x 3/ 16 , 5mm) 1 Subcutaneous Every 7 days Hyperinsulinemia for use with pen Unchanged multivitamin with minerals (Multivitamins and Minerals) 1 Tablets By Mouth Every day Unchanged omeprazole (omeprazole 40 mg Cap-DR) 1 Capsules By Mouth Every day Unchanged phentermine (phentermine 37.5 mg Tab) 1 Tablets By Mouth Every day BMI 32.0-32.9,adult 30 day supply DX E66.09 BMI 32.65 Allergies penicillins (Hives) Problems Ongoing - Any problem that you are currently receiving treatment for. Acute URI BMI 34.0-34.9,adult BMI 35.0-35.9,adult Bruxism Chronic GERD Class 1 obesity due to excess calories in adult Class 2 obesity due to excess calories in adult Generalized anxiety disorder Hair loss Hyperinsulinemia Medication monitoring encounter Microcytosis Plantar wart, left foot Secondary oligomenorrhea Tonic-clonic seizures Historical - Any problem that you are no longer receiving treatment for. COVID-19 virus infection Screening for cervical cancer Patient Survey You may receive a survey via text or e-mail asking about your office visit. Please share your experience with us by completing your survey. We appreciate your feedback and thank you for choosing us for your care. Normal [facility] CHEMISTRYOrdered By: SYSTEM SYSTEM on 05-27-2023 Albumin [Mass/Vol] 4.0 g/dL Normal 3.3 - 5.0 gm/dL [facility] Albumin/Globulin [Mass ratio] 1.4 {ratio} Normal 1.1 - 2.2 [facility] Alk Phos 45 [iU]/d Normal 21 - 98 Int._Unit/L [facility] ALT 11 [iU]/d Normal 6 - 46 Int._Unit/L [facility] Anion gap [Moles/Vol] 11 mmol/L Normal 6 - 16 mEq/L R emisol Chem AST 10 [iU]/d Normal 5 - 43 Int._Unit/L [facility] Bili Total 0.4 mg/dL Normal 0.0 - 1.1 mg/dL [facility] Calcium [Mass/Vol] 9.2 mg/dL Normal 8.9 - 11. 1 mg/dL [facility] Chloride [Moles/Vol] 103 mmol/L Normal 101 - 1 11 mmol/L [facility] CO2 [Moles/Vol] 26 mmol/L Normal 21 - 31 mmol/L [facility] Creatinine [Mass/Vol] 0.7 mg/dL Normal 0.5 - 1.3 mg/dL [facility] eGFR mL/min/1.73 m2 Normal >=59mL/min/1 .73 m2 [facility] Globulin (S) [Mass/Vol] 2.9 g/dL Normal 1.4 - 4.0 gm/dL [facility] Glucose [Mass/Vol] 83 mg/dL Normal 55 - 199 mg/dL [facility] Potassium [Moles/Vol] 3.8 mmol/L Normal 3.5 - 5.3 mmol/L [facility] Protein [Mass/Vol] 6.9 g/dL Normal 6.0 - 7.8 gm/dL [facility] Sodium [Moles/Vol] 136 mmol/L Normal 135 - 145 mmol/L [facility] TSH Qn 2.26 m[IU]/L Normal 0.34 - 5.60 mcIU/mL [facility] Urea nitrogen [Mass/Vol] 5 mg/dL Normal 5 - 21 mg/dL [facility] Urea nitrogen/Creatinine [Mass ratio] 7 mg/mg Low 10 - 20 [facility] Valpro Acid Lvl 51 microgram/mL Normal 50 - 99 mcg/mL [facility] HEMATOLOGYOrdered By: SYSTEM SYSTEM on 05-27-2023 Basophils/100 WBC (Bld) 0.4 % Normal 0.0 - 2.0 % [facility] Basophils/Leukocytes Auto (Bld) [Pure # fraction] 0.0 E9/L Normal 0.0 - 0.2 E9/L [facility] Eosinophils/100 WBC (Bld) 1.0 % Normal 0.0 - 8.0 % [facility] Eosinophils/Leukocyte s Auto (Bld) [Pure # fraction] 0.1 E9/L Normal 0.0 - 0.5 E9/L [facility] Lymphocytes/100 WBC (Bld) 25.0 % Normal 14.0 - 50.0 % [facility] Lymphocytes/Leukocyte s Auto (Bld) [Pure # fraction] 2.6 E9/L Normal 1.0 - 4.0 E9/L [facility] Monocytes/100 WBC (Bld) 6.4 % Normal 4.0 - 14.0 % [facility] Monocytes/Leukocytes Auto (Bld) [Pure # fraction] 0.7 E9/L Normal 0.2 - 1.0 E9/L [facility] Neutrophils/100 WBC (Bld) 67.2 % Normal 36.0 - 75.0 % [facility] Neutrophils/Leukocyte s Auto (Bld) [Pure # fraction] 6.9 E9/L Normal 2.0 - 7.5 E9/L [facility] HEMATOLOGYOrdered By: Jennifer Gaines on 05-27-2023 Erythrocyte distribution width (RBC) [Ratio] 16.6 % High 10.9 - 14.2 % [facility] Hematocrit (Bld) [Volume fraction] 37.4 % Normal 34.0 - 46.0 % [facility] Hemoglobin (Bld) [Mass/Vol] 12.4 g/dL Normal 12.0 - 16.0 gm/dL [facility] MCH (RBC) [Entitic mass] 26.6 pg Low 27.0 - 34.0 pg [facility] MCHC (RBC) [Mass/Vol] 33.1 g/dL Normal 31.4 - 36.0 gm/dL [facility] MCV (RBC) [Entitic vol] 80.4 fL Normal 80.0 - 100.0 fL [facility] Platelet mean volume (Bld) [Entitic vol] 9.2 fL Normal 6.4 - 10.8 fL [facility] Platelets (Bld) [#/Vol] 262.0 E9/L Normal 150.0 - 500.0 E9/L [facility] RBC (Bld) [#/Vol] 4.6 E12/L Normal 4.3 - 5.9 E12/L [facility] WBC corrected for nucl RBC Auto (Bld) [#/Vol] 10.3 E9/L Normal 4.0 - 11.0 E9/L [facility] Basic Metabolic Profon 03-02 Anion gap [Moles/Vol] 12 mmol/L Normal 9-17 [facility] Comment on above: Performed By: #### C DP, HCG, LIVP, LIP, BMP #### [facility] [address] [place] [address] [employer]: Rolando Burns MD Calcium [Mass/Vol] 9.8 mg/dL Normal 8.6-10.4 [facility] Comment on above: Performed By: #### C DP, HCG, LIVP, LIP, BMP #### [facility] [address] [place] [address] [employer]: Rolando Burns MD Chloride [Moles/Vol] 101 mmol/L Normal 98-107 [facility] Comment on above: Performed By: #### C DP, HCG, LIVP, LIP, BMP #### [facility] [address] [place] [address] [employer]: Rolando Burns MD CO2 [Moles/Vol] 25 mmol/L Normal 20-31 [facility] Comment on above: Performed By: #### C DP, HCG, LIVP, LIP, BMP #### [facility] [address] [place] [address] [employer]: Rolando Burns MD Creatinine [Mass/Vol] 0.5 mg/dL Normal 0.5-0.9 [facility] Comment on above: Performed By: #### C DP, HCG, LIVP, LIP, BMP #### [facility] [address] [place] [address] [employer]: Rolando Burns MD GFR/1.73 sq M.predicted among non-blacks MDRD (S/P/Bld) [Vol rate/Area] mL/min/{1.73_m2} Normal >60 [facility] Comment on above: Result Comment: These results are not intended for use in patients <18 years of age. eGFR results are calculated without a race factor using the 2020 CKD-EPI equation. Careful clinical correlation is recommended, particularly when comparing to results calculated using previous equations. The CKD-EPI equation is less accurate in patients with extremes of muscle mass, extra-renal metabolism of creatine, excessive creatine ingestion, or following therapy that affects renal tubular secretion. Performed By: #### C DP, HCG, LIVP, LIP, BMP #### [facility] [address] [place] [address] [id number] [employer]: Rolando Burns MD Glucose [Mass/Vol] 113 mg/dL High 70-99 [facility] Comment on above: Performed By: #### C DP, HCG, LIVP, LIP, BMP #### [facility] [address] [place] [address] [employer]: Rolando Burns MD Potassium [Moles/Vol] 3.8 mmol/L Normal 3.7-5.3 [facility] Comment on above: Performed By: #### C DP, HCG, LIVP, LIP, BMP #### [facility] [address] [place] [address] [employer]: Rolando Burns MD Sodium [Moles/Vol] 138 mmol/L Normal 135-144 [facility] Comment on above: Performed By: #### C DP, HCG, LIVP, LIP, BMP #### [facility] [address] [place] [address] [employer]: Rolando Burns MD Urea nitrogen [Mass/Vol] 8 mg/dL Normal 6-20 [facility] Comment on above: Performed By: #### C DP, HCG, LIVP, LIP, BMP #### [facility] [address] [place] [address] [employer]: Rolando Burns MD CBC with Diffon 03-02-2023 Abs. Basophil 0.00 k/uL Normal 0.0-0.2 [facility] Comment on above: Performed By: #### C DP, HCG, LIVP, LIP, BMP #### [facility] [address] [place] [address] [employer]: Rolando Burns MD Abs.Neutrophil (Seg) 11.50 k/uL High 1.8-7.7 [facility] Comment on above: Performed By: #### C DP, HCG, LIVP, LIP, BMP #### [facility] [address] [place] [address] [employer]: Rolando Burns MD Basophils/100 WBC (Bld) 0 % Normal 0-2 [facility] Comment on above: Performed By: #### C DP, HCG, LIVP, LIP, BMP #### [facility] [address] [place] [address] [employer]: Rolando Burns MD Eosinophils (Bld) [#/Vol] 0.00 10*3/uL Normal 0.0-0.4 [facility] Comment on above: Performed By: #### C DP, HCG, LIVP, LIP, BMP #### [facility] [address] [place] [address] [employer]: Rolando Burns MD Eosinophils/100 WBC (Bld) 0 % Low 1-4 [facility] Comment on above: Performed By: #### C DP, HCG, LIVP, LIP, BMP #### [facility] [address] [place] [address] [employer]: Rolando Burns MD Erythrocyte distribution width (RBC) [Ratio] 16.3 % High 12.5-15.4 [facility] Comment on above: Performed By: #### C DP, HCG, LIVP, LIP, BMP #### [facility] [address] [place] [address] [employer]: Rolando Burns MD Hematocrit (Bld) [Volume fraction] 39.0 % Normal 36-46 [facility] Comment on above: Performed By: #### C DP, HCG, LIVP, LIP, BMP #### [facility] [address] [place] [address] [employer]: Rolando Burns MD Hemoglobin (Bld) [Mass/Vol] 13.0 g/dL Normal 12.0-16.0 [facility] Comment on above: Performed By: #### C DP, HCG, LIVP, LIP, BMP #### [facility] [address] [place] [address] [employer]: Rolando Burns MD Lymphocytes (Bld) [#/Vol] 1.40 10*3/uL Normal 1.0-4.8 [facility] Comment on above: Performed By: #### C DP, HCG, LIVP, LIP, BMP #### [facility] [address] [place] [address] [employer]: Rolando Burns MD Lymphocytes/100 WBC (Bld) 11 % Low 24-44 [facility] Comment on above: Performed By: #### C DP, HCG, LIVP, LIP, BMP #### [facility] [address] [place] [address] [employer]: Rolando Burns MD MCH (RBC) [Entitic mass] 26.6 pg Normal 26-34 [facility] Comment on above: Performed By: #### C DP, HCG, LIVP, LIP, BMP #### [facility] [address] [place] [address] [employer]: Rolando Burns MD MCHC (RBC) [Mass/Vol] 33.3 g/dL Normal 31-37 [facility] Comment on above: Performed By: #### C DP, HCG, LIVP, LIP, BMP #### [facility] [address] [place] [address] [employer]: Rolando Burns MD MCV (RBC) [Entitic vol] 80.1 fL Normal 80-100 [facility] Comment on above: Performed By: #### C DP, HCG, LIVP, LIP, BMP #### [facility] [address] [place] [address] [employer]: Rolando Burns MD Monocytes (Bld) [#/Vol] 0.40 10*3/uL Normal 0.1-1.2 [facility] Comment on above: Performed By: #### C DP, HCG, LIVP, LIP, BMP #### [facility] [address] [place] [address] [employer]: Rolando Burns MD Monocytes/100 WBC (Bld) 3 % Normal 2-11 [facility] Comment on above: Performed By: #### C DP, HCG, LIVP, LIP, BMP #### [facility] [address] [place] [address] [employer]: Rolando Burns MD Neutrophil (Seg) 86 % High 36-66 [facility] Comment on above: Performed By: #### C DP, HCG, LIVP, LIP, BMP #### [facility] [address] [place] [address] [employer]: Rolando Burns MD Platelet mean volume (Bld) [Entitic vol] 8.5 fL Normal 6.0-12.0 [facility] Comment on above: Performed By: #### C DP, HCG, LIVP, LIP, BMP #### [facility] [address] [place] [address] [employer]: Rolando Burns MD Platelets (Bld) [#/Vol] 308 10*3/uL Normal 140-450 [facility] Comment on above: Performed By: #### C DP, HCG, LIVP, LIP, BMP #### [facility] [address] [place] [address] [employer]: Rolando Burns MD RBC (Bld) [#/Vol] 4.86 10*6/uL Normal 4.0-5.2 [facility] Comment on above: Performed By: #### C DP, HCG, LIVP, LIP, BMP #### [facility] [address] [place] [address] [employer]: Rolando Burns MD WBC (Bld) [#/Vol] 13.4 10*3/uL High 3.5-11.0 [facility] Comment on above: Performed By: #### C DP, HCG, LIVP, LIP, BMP #### [facility] [address] [place] [address] [employer]: Rolando Burns MD CT ABDOMEN PELVIS WO CONTRAS Ton 03-02-2023 CT ABDOMEN PELVIS WO CONTRAST EXAMINATION: CT OF THE ABDOMEN AND PELVIS WITHOUT CONTRAST 03/02/2023 3:36 pm TECHNIQUE: CT of the abdomen and pelvis was performed without the administration of intravenous contrast. Multiplanar reformatted images are provided for review. Automated exposure control, iterative reconstruction, and/or weight based adjustment of the mA/kV was utilized to reduce the radiation dose to as low as reasonably achievable. COMPARISON: None. HISTORY: ORDERING SYSTEM PROVIDED HISTORY: upper abd pain TECHNOLOGIST PROVIDED HISTORY: upper abd pain Decision Support Exception - unselect if not a suspected or confirmed emergency medical condition->Emergency Medical Condition (MA) Is the patient ?->No Reason for Exam: Pt c/o upper abdominal pain since midnight. No acute trauma, no surgery. FINDINGS: Lower Chest: No acute abnormality. Liver: Normal. Gallbladder and Bile Ducts: Normal. Spleen: Normal. Adrenal Glands: Normal. Pancreas: Normal. Genitourinary: No acute abnormality. No urinary stones or hydronephrosis. Appropriately positioned IUD in the fundal endometrium. Lobulated posterior uterine contour may relate to underlying fibroid Bowel: Normal caliber bowel. Normal appendix. No significant diverticular disease. Vasculature: Normal. Bones and Soft Tissues: No acute abnormality. Retroperitoneum/Mese ntery: No intraperitoneal free air, ascites or fluid collection. No lymphadenopathy in the abdomen or pelvis. IMPRESSION: No acute abnormality in the abdomen or pelvis. Interpreted by: Dileep Frias DO Signed by: Dileep Frias DO 03/02/23 Final result Normal [facility] Drug Scr, Abuse, Uron 2022 Fentanyl, Urine Negative Normal NEG [facility] Comment on above: Result Comment: (Positive cutoff 5 ng/ml) Performed By: #### D AU #### [email or web address] [address] [place] [id number] [employer]: Steve Malloy MD [facility] [address] [place], [place] [id number] [employer]: Rolando Burns MD Amphetamine(s),Ur Negative Normal NEG [facility] Comment on above: Result Comment: (Positive cutoff 1000 ng/mL) Performed By: #### D AU #### [email or web address] [address] [place] [address] [employer]: Steve Malloy MD [facility] [address] [place] [address] [employer]: Rolando Burns MD Barbiturate(s),Ur Negative Normal NEG [facility] Comment on above: Result Comment: (Positive cutoff 200 ng/mL) Performed By: #### D AU #### [email or web address] [address] [place] [address] [employer]: Steve Malloy MD [facility] [address] [place] [address] [employer]: Rolando Burns MD Benzodiazepine(s) Negative Normal NEG [facility] Comment on above: Result Comment: (Positive cutoff 200 ng/mL) Performed By: #### D AU #### [email or web address] [address] [place] [id number] [employer]: Steve Malloy MD [facility] [address] [place] [address] [employer]: Rolando Burns MD Cannabinoid(s),Ur Negative Normal NEG [facility] Comment on above: Result Comment: (Positive cutoff 50 ng/mL) Performed By: #### D AU #### [facility] [address] [place] [address] [employer]: Steve Malloy MD [facility] [address] [place] [address] [employer]: Rolando Burns MD Cocaine Metabolite Negative Normal NEG [facility] Comment on above: Result Comment: (Positive cutoff 300 ng/mL) Performed By: #### D AU #### [facility] [employer] [address] [place] [address] [employer]: Steve Malloy MD [facility] [address] [place] [address] [employer]: Rolando Burns MD Interpretive Info Assay provides medical screening only. The absence of expected drug(s) and/or Normal [facility] Comment on above: Result Comment: meta bolite(s) may indicate diluted or adulterated urine, limitations of testing or timing of collection. Testing for legal purposes should be confirmed by another method. To request confirmation of test result, please call the lab within 7 days of sample submission. Performed By: #### D AU #### [facility] [employer] [address] [place] [address] [employer]: Steve Malloy MD [facility] [address] [place] [address] [employer]: Rolando Burns MD Methadone Ql (U) Negative Normal NEG [facility] Comment on above: Result Comment: (Positive cutoff 300 ng/mL) Performed By: #### D AU #### [facility] [employer] [address] [place] [address] [employer]: Steve Malloy MD [facility] [address] [place] [address] [phone] [employer]: Rolando Burns MD Opiate(s), Ur Negative Normal NEG [facility] Comment on above: Result Comment: (Positive cutoff 300 ng/mL) Performed By: #### D AU #### [facility] [id number] [place] [address] [employer]: Steve Malloy MD [facility] [address] [place] [address] [employer]: Rolando Burns MD Oxycodone, Urine Negative Normal NEG [facility] Comment on above: Result Comment: (Positive cutoff 100 ng/mL) Performed By: #### D AU #### [address] [address] [employer]: Steve Malloy MD [facility] [address] [place] [address] [employer]: Rolando Burns MD Phencyclidine, Ur Negative Normal NEG [facility] Comment on above: Result Comment: (Positive cutoff 25 ng/mL) Performed By: #### D AU #### [address] [address] [employer]: Steve Malloy MD [facility] [address] [place] [address] [employer]: Rolando Burns MD HCG Screen, Bloodon 03-02-20 23 HCG Screen, Blood Negative Normal NEG [facility] Comment on above: Result Comment: Spec imens with hCG levels near the threshold of the test (25 mIU/mL) may give a negative or indeterminate result. In such cases, another test should be performed with a new specimen in 48-72 hours. If early is suspected clinically in this setting, correlation with quantitative serum b-hCG level is suggested. [email or web address] has confirmed the use of plasma for this test. This has not been cleared or approved by the U.S. Food and Drug Administration. The FDA has determined that such clearance is not necessary. Performed By: #### C DP, HCG, LIVP, LIP, BMP #### [facility] [address] [place] [address] [employer]: Rolando Burns MD Lipaseon 03-02-2023 Lipase [Catalytic activity/Vol] 67 U/L High 13-60 [facility] Comment on above: Performed By: #### C DP, HCG, LIVP, LIP, BMP #### [facility] [address] [place] [address] [employer]: Rolando Burns MD Liver Profileon 03-02-2023 Albumin [Mass/Vol] 4.7 g/dL Normal 3.5-5.2 [facility] Comment on above: Performed By: #### C DP, HCG, LIVP, LIP, BMP #### [facility] [address] [place] [address] [employer]: Rolando Burns MD Albumin/Glob Ratio 1.4 Normal 1.0-2.5 [facility] Comment on above: Performed By: #### C DP, HCG, LIVP, LIP, BMP #### [facility] [address] [place] [address] [employer]: Rolando Burns MD Alkaline Phos 69 U/L Normal 35-104 [facility] Comment on above: Performed By: #### C DP, HCG, LIVP, LIP, BMP #### [facility] [address] [place] [address] [employer]: Rolando Burns MD ALT [Catalytic activity/Vol] 13 U/L Normal 5-33 [facility] Comment on above: Performed By: #### C DP, HCG, LIVP, LIP, BMP #### [facility] [address] [place] [address] [employer]: Rolando Burns MD AST [Catalytic activity/Vol] 11 U/L Normal <32 [facility] Comment on above: Performed By: #### C DP, HCG, LIVP, LIP, BMP #### [facility] [address] [place] [address] [employer]: Rolando Burns MD Bilirubin [Mass/Vol] 0.5 mg/dL Normal 0.3-1.2 [facility] Comment on above: Performed By: #### C DP, HCG, LIVP, LIP, BMP #### [facility] [address] [place] [address] [employer]: Rolando Burns MD Bilirubin, Indirect 0.4 mg/dL Normal 0.0-1.0 [facility] Comment on above: Performed By: #### C DP, HCG, LIVP, LIP, BMP #### [facility] [address] [place] [address] [employer]: Rolando Burns MD Bilirubin.indirect [Mass/Vol] 0.1 mg/dL Normal <0.3 [facility] Comment on above: Performed By: #### C DP, HCG, LIVP, LIP, BMP #### [facility] [address] [place] [address] [employer]: Rolando Burns MD Protein [Mass/Vol] 8.1 g/dL Normal 6.4-8.3 [facility] Comment on above: Performed By: #### C DP, HCG, LIVP, LIP, BMP #### [facility] [address] [place] [address] [employer]: Rolando Burns MD Urinalysis, Routineon 2022 Bilirubin, SemiQt,Ur Negative Normal NEG [facility] Comment on above: Performed By: #### Apurva SCOTT UA #### [facility] [address] [place] [address] [employer]: Rolando Burns MD Blood, Urine Negative Normal NEG [facility] Comment on above: Performed By: #### U MICAO, UA #### [facility] [address] [place] [address] [employer]: Rolando Burns MD Clarity (U) Clear Normal CLEAR [facility] Comment on above: Performed By: #### U ANDREIO, UA #### [facility] [address] [place] [address] [employer]: Rolando Burns MD Color (U) Yellow Normal YEL [facility] Comment on above: Performed By: #### U ANDREIO, UA #### [facility] [address] [place] [address] [employer]: Rolando Burns MD Glucose Ql (U) Negative Normal NEG [facility] Comment on above: Performed By: #### U TYLER, UA #### [facility] [address] [place] [address] [employer]: Rolando Burns MD Ketones Ql (U) LARGE Abnormal NEG [facility] Comment on above: Performed By: #### U TYLER, UA #### [facility] [address] [place] [address] [employer]: Rolando Burns MD Leukocyte esterase Test strip Ql (U) Negative Normal NEG [facility] Comment on above: Performed By: #### U TYLER, UA #### [facility] [address] [place] [address] [employer]: Rolando Burns MD Nitrite,Ur Negative Normal NEG [facility] Comment on above: Performed By: #### U TYLER, UA #### [facility] [address] [place] [id number] [employer]: Rolando Burns MD PH,Ur >=9.0 Normal 5.0-8.0 [facility] Comment on above: Performed By: #### U ANDREIO, UA #### [facility] [address] [place] [address] [employer]: Rolando Burns MD Protein Ql (U) Negative Abnormal NEG [facility] Comment on above: Performed By: #### U ANDREIO, UA #### [facility] [address] [place] [address] [employer]: Rolando Burns MD Spec. [place],Ur 1.020 Normal 1.005-1.030 [facility] Comment on above: Performed By: #### U TYLER, UA #### [facility] [address] [place] [address] [employer]: Rolando Burns MD Urobilinogen,Ur Normal Normal 0.0-1.0 [facility] Comment on above: Performed By: #### U TYLER, UA #### [facility] [address] [place] [address] [employer]: Rolando Burns MD Urinalysis,Microon 3 Bacteria None Normal NONE [facility] Comment on above: Performed By: #### U TYLER, UA #### [facility] [address] [place] [address] [employer]: Rolando Burns MD Epithelial cells LM Ql (Urine sed) 2 TO 5 Normal 0-5 [facility] Comment on above: Performed By: #### U ANDREIO, UA #### [facility] [address] [place] [address] [employer]: Rolando Burns MD Mucus Strands 2+ Normal [facility] Comment on above: Performed By: #### U ANDREIO, UA #### [facility] [address] [place] [address] [employer]: Rolando Burns MD Other Observations Utilizing a urinalysis as the only screening method to exclude a potential Abnormal NREQ [facility] Comment on above: Result Comment: urop athogen can be unreliable in many patient populations. Rapid screening tests are less sensitive than culture and if UTI is a clinical possibility, culture should be considered despite a negative urinalysis. Performed By: #### U MICAO, UA #### [facility] [address] [place], [place] [id number] [employer]: Rolando Burns MD Urine RBC's 0 TO 2 Normal 0-2 [facility] Comment on above: Performed By: #### U MICAO, UA #### [facility] [address] [place], [place] [id number] [employer]: Rolando Burns MD Urine WBC's 2 TO 5 Normal 0-5 [facility] Comment on above: Performed By: #### U MICAO, UA #### [facility] [address] [place], [place] [id number] [employer]: Rolando Burns MD XR knee LT 4V*on 10-01-2022 XR knee LT 4V* [facility] [place] [address] XRay Report Signed Patient: Nataly Garcia MR#: [id number] : 1990 Acct:[id number] Age/Sex: 32 / F ADM Date: 10/01/22 Loc: XDUCLY Room: Type: [facility] Attending Dr: Cari VAUGHAN Copies to: ALEXUS Castellanos Ordering Provider: ALEXUS Castellanos Date of Service: 10/01/22 XR/XR knee LT 4V*: Acute pain of left knee 4 views left knee plain film COMPARISON: None HISTORY: Acute left knee pain ACUTE FINDINGS: None DEGENERATIVE CHANGE: Unremarkable SOFT TISSUE FINDINGS: Unremarkable JOINT EFFUSION: None POSTOP CHANGES: None BONE MINERALIZATION: Adequate XR/XR knee LT 4V* IMPRESSION: Unremarkable exam Impression dictated by: Ilia Crandall M.D.10/01/2022 5:59 PM Dictation Location: [place] [address] Transcribed By: [facility] 10/01/221758 Dictated By: Ilia Crandall DO 10/01/221708 Signed By: 10/01/221758 Normal [facility] XR knee LT 4V* [facility] [employer] Other XR knee LT 4V* [facility] [employer] Other XR knee LT 4V* [address] [place] [address] [employer] Other XR knee LT 4V* [place] [address] No [facility] [employer] Other XR knee LT 4V* XRay Report [employer] Other XR knee LT 4V* Signed [employer] Other XR knee LT 4V* Patient: Nataly Garcia MR#: [id number] [place] [employer] Other XR knee LT 4V* : 1990 Acct:[id number] [employer] Other XR knee LT 4V* Age/Sex: 32 / F ADM Date: 10/01/22 [employer] Other XR knee LT 4V* Loc: XDUCLY [facility]: [facility] [employer] Other XR knee LT 4V* Attending Dr: Cari VAUGHAN [employer] Other XR knee LT 4V* Copies to: ALEXUS Castellanos [employer] Other XR knee LT 4V* Ordering Provider: ALEXUS Castellanos [employer] Other XR knee LT 4V* Date of Service: 10/01/22 [employer] Other XR knee LT 4V* XR/XR knee LT 4V*: Acute pain of left knee [employer] Other XR knee LT 4V* 4 views left knee plain film [employer] Other XR knee LT 4V* COMPARISON: None [facility] [employer] Other XR knee LT 4V* HISTORY: Acute left knee pain [employer] Other XR knee LT 4V* ACUTE FINDINGS: None [employer] Other XR knee LT 4V* DEGENERATIVE CHANGE: Unremarkable [employer] Other XR knee LT 4V* SOFT TISSUE FINDINGS: Unremarkable [employer] Other XR knee LT 4V* JOINT EFFUSION: None [employer] Other XR knee LT 4V* POSTOP CHANGES: None [employer] Other XR knee LT 4V* BONE MINERALIZATION: Adequate [employer] Other XR knee LT 4V* XR/XR knee LT 4V* [employer] Other XR knee LT 4V* IMPRESSION: Unremarkable exam [employer] Other XR knee LT 4V* Impression dictated by: Ilia Crandall M.D.10/01/2022 5:59 PM [employer] Other XR knee LT 4V* Dictation Location: [place] [address] [employer] Other XR knee LT 4V* Transcribed By: YASIR 10/01/22 1759 [employer] Other XR knee LT 4V* Dictated By: Ilia Crandall DO 10/01/22 1709 [employer] Other XR knee LT 4V* Signed By: [employer] Other XR knee LT 4V* 10/01/22 3630 [employer] Other CHEMISTRYOrdered By: SYSTEM SYSTEM on 08-23-2022 Albumin [Mass/Vol] 3.9 g/dL Normal 3.3 - 5.0 gm/dL [facility] Albumin/Globulin [Mass ratio] 1.0 {ratio} Low 1.1 - 2.2 [facility] ALP [Catalytic activity/Vol] 58 [iU]/d Normal 21 - 98 Int._Unit/L [facility] ALT No additional P-5'-P [Catalytic activity/Vol] 17 [iU]/d Normal 6 - 46 Int._Unit/L [facility] Anion gap [Moles/Vol] 13 mmol/L Normal 6 - 16 mEq/L [facility] AST [Catalytic activity/Vol] 15 [iU]/d Normal 5 - 43 Int._Unit/L [facility] Bilirubin [Mass/Vol] 0.7 mg/dL Normal 0.0 - 1 .1 mg/dL [facility] Calcium [Mass/Vol] 9.2 mg/dL Normal 8.9 - 11. 1 mg/dL [facility] Chloride [Moles/Vol] 100 mmol/L Low 101 - 1 11 mmol/L [facility] Cholesterol [Mass/Vol] 145 mg/dL Normal 120 - 200 mg/dL [facility] Cholesterol in HDL [Mass/Vol] 46 mg/dL Invalid Interpretation Code [facility] Cholesterol in LDL [Mass/Vol] 73 mg/dL Normal <=129mg/dL [facility] Cholesterol in VLDL [Mass/Vol] 28 mg/dL Normal 7 - 40 mg/dL [facility] CO2 [Moles/Vol] 25 mmol/L Normal 21 - 31 mmol/L [facility] Cobalamin (Vitamin B12) [Mass/Vol] 418 pg/mL Normal 50 - 1500 pg/mL [facility] Creatinine [Mass/Vol] 0.7 mg/dL Normal 0.5 - 1.3 mg/dL [facility] GFR/1.73 sq M.predicted among blacks MDRD (S/P/Bld) [Vol rate/Area] mL/min/1.73 m2 Normal >=59mL/min/1 .73 m2 [facility] Chem S GFR/1.73 sq M.predicted among non-blacks MDRD (S/P/Bld) [Vol rate/Area] mL/min/1.73 m2 Normal >=59mL/min/1 .73 m2 [facility] S Globulin (S) [Mass/Vol] 3.7 g/dL Normal 1.4 - 4.0 gm/dL [facility] Glucose [Mass/Vol] 97 mg/dL Normal 55 - 199 mg/dL [facility] Magnesium [Mass/Vol] 2.0 mg/dL Normal 1.3 - 2 .4 mg/dL [facility] Potassium [Moles/Vol] 4.4 mmol/L Normal 3.5 - 5.3 mmol/L [facility] Protein [Mass/Vol] 7.6 g/dL Normal 6.0 - 7.8 gm/dL [facility] Sodium [Moles/Vol] 134 mmol/L Low 135 - 145 mmol/L [facility] Triglyceride [Mass/Vol] 141 mg/dL Normal <=149mg/dL [facility] Urea nitrogen [Mass/Vol] 7 mg/dL Normal 5 - 21 mg/dL [facility] Urea nitrogen/Creatinine [Mass ratio] 10 mg/mg Normal 10 - 20 [facility] Valproate [Moles/Vol] 49 microgram/mL Low 50 - 99 mcg/mL [facility] CHEMISTRYOrdered By: Salo Wolfe on 08-23-2022 HbA1c (Bld) [Mass fraction] 5.3 % Normal <=5.9% [facility] HEMATOLOGYOrdered By: Quinton Hughes on 08-23-2022 Erythrocyte distribution width (RBC) [Ratio] 16.5 % High 10.9 - 14.2 % [facility] Hematocrit (Bld) [Volume fraction] 36.6 % Normal 34.0 - 46.0 % [facility] Hemoglobin (Bld) [Mass/Vol] 12.1 g/dL Normal 12.0 - 16.0 gm/dL [facility] MCH (RBC) [Entitic mass] 25.9 pg Low 27.0 - 34.0 pg [facility] MCHC (RBC) [Mass/Vol] 33.0 g/dL Normal 31.4 - 36.0 gm/dL [facility] MCV (RBC) [Entitic vol] 78.6 fL Low 80.0 - 100.0 fL [facility] Platelet mean volume (Bld) [Entitic vol] 9.4 fL Normal 6.4 - 10.8 fL [facility] Platelets (Bld) [#/Vol] 287.0 E9/L Normal 150.0 - 500.0 E9/L [facility] RBC (Bld) [#/Vol] 4.7 E12/L Normal 4.3 - 5.9 E12/L [facility] WBC corrected for nucl RBC Auto (Bld) [#/Vol] 11.3 E9/L High 4.0 - 11.0 E9/L [facility] [employer] 08-10-2022 S. pyogenes Org specific cx Ql (Throat) Negative [employer] Other Quick Strep [employer] Other Quick Strepon 06-24-2022 S. pyogenes Org specific cx Ql (Throat) Negative [employer] Other [place] Strep [employer] Other PAP ACOG PANEL 2: 30 to 65on 10-13-2021 . . Normal [facility] Comment on above: Result Comment: Perf ormed at: BA Performed By: #### [id number] #### [facility] [address] [place] [address] Dr. Juanita Leone Age Gdln ACOG Testing 30-65 Normal [facility] Comment on above: Performed By: #### [id number] #### [facility] [address] [place] [address] [address] Juanita Leone DIAGNOSIS: Comment Normal [facility] Comment on above: Result Comment: NEGA TIVE FOR INTRAEPITHELIAL LESION OR MALIGNANCY. Performed at: BA Performed By: #### [id number] #### [facility] [address] [place] [address] Dr. Juanita Leone HPV Aptima Negative Normal Negative [facility] Comment on above: Result Comment: This nucleic acid amplification test detects fourteen high-risk HPV types (16,18,31,33,35,39,45,51,52,56,58,59,66,68) without differentiation. Performed at: =G Performed By: #### [id number] #### [facility] [address] [place] [address] Dr. Juanita Leone Methodology: Comment Normal [facility] Comment on above: Result Comment: This liquid based ThinPrep(R) pap test was screened with the use of an image guided system. Performed at: WB Performed By: #### [id number] #### [facility] [address] [place] [address] Dr. Juanita Leone Note: Comment Normal [facility] Comment on above: Result Comment: The Pap smear is a screening test designed to aid in the detection of premalignant and malignant conditions of the uterine cervix. It is not a diagnostic procedure and should not be used as the sole means of detecting cervical cancer. Both false-positive and false-negative reports do occur. . Performed at: WB Performed By: #### [id number] #### [facility] [address] [place] [address] Dr. Juanita Leone Performed by: Comment Normal [facility] Comment on above: Result Comment: Mallika Mckeon, Senior Client Advisor (ASCP) Performed at: BA Performed By: #### [id number] #### [facility] [address] [place] [address] Dr. Juanita Leone Specimen adequacy: Comment Normal [facility] Comment on above: Result Comment: Sati sfactory for evaluation. Endocervical and/or squamous metaplastic cells (endocervical component) are present. Performed at: BA Performed By: #### [id number] #### [facility] [address] [place] [address] Dr. Juanita Leone Vital Signs Date Time Vital Sign Value Performing Clinician Facility 09-30-2024 15:02-0400 Body height 170.2 cm Rosa Sauceda NP Work Phone: [facility] 09-30-2024 15:02-0400 Body mass index (BMI) [Ratio] 31.95 kg/m2 Rosa Marsly WINDOW TRIMMER Work Phone: [facility] 09-30-2024 15:02-0400 Body weight 92.53 kg Rosa Marsly WINDOW TRIMMER Work Phone: [facility] 09-30-2024 15:02-0400 Diastolic blood pressure 76 mm[Hg] Rosa Marsly WINDOW TRIMMER Work Phone: [facility] 09-30-2024 15:02-0400 Systolic blood pressure 118 mm[Hg] Rosa Johnsonerly WINDOW TRIMMER Work Phone: [facility] 2024 10:05-0400 Body height 170.2 cm [facility] 2024 10:05-0400 Body mass index (BMI) [Ratio] 36.02 kg/m2 Cassie Hinojosa MD [facility] 2024 10:05-0400 Body temperature 97.3 [degF] Cassie Hinojosa MD [facility] 2024 10:05-0400 Body weight 104.33 kg Cassie Hinojosa MD [facility] 2024 10:05-0400 Diastolic blood pressure 56 mm[Hg] Cassie Hinojosa MD [facility] 2024 10:05-0400 Heart rate 104 /min Cassie Hinojosa MD [facility] 2024 10:05-0400 Respiratory rate 20 /min Cassie [facility]inojosa MD [email or web address] 2024 10:05-0400 SaO2% (BldA) [Mass fraction] 100 % Cassie Hinojosa MD Work Phone: [facility] 2024 10:05-0400 Systolic blood pressure 104 mm[Hg] Cassie Hinojosa MD Work Phone: [facility] 2024 08:55-0400 Body temperature 97.5 [degF] Ascencion Bruss PA-C [facility]24 08:55-0400 Diastolic blood pressure 69 mm[Hg] Ascencion Bruss PA-C [facility] 2024 08:55-0400 Heart rate 105 /min Ascencion Bruss PA-C [facility] 2024 08:55-0400 Respiratory rate 18 /min Ascencion Bruss PA-C Work Phone: [facility] [employer] 2024 08:55-0400 SaO2% (BldA) [Mass fraction] 100 % Ascencion Bruss PA-C Work Phone[facility] 2024 08:55-0400 Systolic blood pressure 119 mm[Hg] Ascencion Bruss PA-C Work Phone: [facility] [employer] 06-05-2024 14:37-0500 Blood Pressure Location Sarah Yeager [facility] 06-05-2024 14:37-0500 Body temperature 97.52 [degF] Sarah Yeager [facility] 06-05-2024 14:37-0500 Diastolic blood pressure 68 mm[Hg] Sarah Yeager [facility] 06-05-2024 14:37-0500 Heart rate 92 /min Sarah Contrerasant [facility] 06-05-2024 14:37-0500 Respiratory rate 18 /min Sarah Yeager [facility] 06-05-2024 14:37-0500 SaO2% (BldA) [Mass fraction] 98 % Sarah Yeager [facility] 06-05-2024 14:37-0500 Systolic blood pressure 104 mm[Hg] Sarah Yeager [facility] 02-05-2024 15:18-0400 Body mass index (BMI) [Ratio] 36.67 kg/m2 Wesley Celia DO Work Phone: [facility] 02-05-2024 15:18-0400 Body weight 106.2 kg Wesley Celia DO Work Phone: [facility] 02-05-2024 15:18-0400 Diastolic blood pressure 64 mm[Hg] Wesley Celia DO Work Phone: [facility] 02-05-2024 15:18-0400 Systolic blood pressure 110 mm[Hg] Wesley Celia DO Work Phone: [facility] 01-08-2024 16:02-0400 Body height 170.2 cm Wesley Celia DO Work Phone: [facility] 01-08-2024 16:02-0400 Body mass index (BMI) [Ratio] 37.75 kg/m2 Wesley Celia DO Work Phone: [facility] 01-08-2024 16:02-0400 Body weight 109.32 kg Wesley Celia DO Work Phone: [facility] 01-08-2024 16:02-0400 Diastolic blood pressure 72 mm[Hg] Wesley Celia DO Work Phone: [facility] 01-08-2024 16:02-0400 Systolic blood pressure 118 mm[Hg] Wesley Celia DO Work Phone: [facility] 12-06-2023 15:01-0400 Body temperature 97.16 [degF] Sarah Toy [facility] 12-06-2023 15:01-0400 Diastolic blood pressure 66 mm[Hg] Sarah Toy [facility] 12-06-2023 15:01-0400 Heart rate 94 /min Sarah Toy [facility] 12-06-2023 15:01-0400 Respiratory rate 14 /min Sarah Toy [facility] 12-06-2023 15:01-0400 SaO2% (BldA) [Mass fraction] 97 % Sarah Toy [facility] 12-06-2023 15:01-0400 Systolic blood pressure 100 mm[Hg] Sarah Toy [facility] 11-05-2023 14:37-0400 Blood Pressure Location Sarah Toy [facility] 11-05-2023 14:37-0400 Body temperature 97.88 [degF] Sarah Toy [facility] 11-05-2023 14:37-0400 Diastolic blood pressure 70 mm[Hg] Sarah Toy [facility] 11-05-2023 14:37-0400 Heart rate 98 /min Sarah Toy [facility] 11-05-2023 14:37-0400 Respiratory rate 14 /min Sarah Toy [facility] 11-05-2023 14:37-0400 SaO2% (BldA) [Mass fraction] 99 % Sarah Toy [facility] 11-05-2023 14:37-0400 Systolic blood pressure 112 mm[Hg] Sarah Toy [facility] 10-22-2023 15:05-0400 Blood Pressure Location Martinaapril MedinaHarrison [facility] 10-22-2023 15:05-0400 Body temperature 97.88 [degF] Martina Harrison [facility] 10-22-2023 15:05-0400 Diastolic blood pressure 64 mm[Hg] Martina Harrison [facility] 10-22-2023 15:05-0400 Heart rate 78 /min Martina Harrison [facility] 10-22-2023 15:05-0400 Respiratory rate 18 /min Martina Harrison [facility] 10-22-2023 15:05-0400 SaO2% (BldA) [Mass fraction] 99 % Martinaapril MedinaHarrison [facility] 10-22-2023 15:05-0400 Systolic blood pressure 116 mm[Hg] Martina Harrison [facility] 08-06-2023 11:57-0400 Body temperature 98.06 [degF] Sarah Toy [facility] 08-06-2023 11:32-0400 Diastolic blood pressure 70 mm[Hg] Sarah Toy [facility] 08-06-2023 11:32-0400 Heart rate 110 /min Sarah Toy [facility] 08-06-2023 11:32-0400 SaO2% (BldA) [Mass fraction] 100 % Sarah Toy [facility] 08-06-2023 11:32-0400 Systolic blood pressure 110 mm[Hg] Sarah Toy [facility] 06-24-2023 17:57-0500 Blood Pressure Location Christopher BROWN [facility] 06-24-2023 17:57-0500 Diastolic blood pressure 74 mm[Hg] Christopher BROWN [facility] 06-24-2023 17:57-0500 Heart rate 96 /min Christopher BROWN [facility] 06-24-2023 17:57-0500 Respiratory rate 16 /min Christopher BROWN [facility] 06-24-2023 17:57-0500 SaO2% (BldA) [Mass fraction] 99 % Christopher BROWN [facility] 06-24-2023 17:57-0500 Systolic blood pressure 112 mm[Hg] Christopher BROWN [facility] 04-29-2023 18:12-0500 Blood Pressure Location Shannon BROWN [facility] 04-29-2023 18:12-0500 Diastolic blood pressure 60 mm[Hg] Shannon BROWN [facility] 04-29-2023 18:12-0500 Heart rate 98 /min Shannon BROWN [facility] 04-29-2023 18:12-0500 Respiratory rate 16 /min ShannonMirametrix [facility] 04-29-2023 18:12-0500 SaO2% (BldA) [Mass fraction] 98 % ShannonMirametrix [facility] 04-29-2023 18:12-0500 Systolic blood pressure 100 mm[Hg] Shannon Flumes [facility] 10-31-2022 14:37-0400 Blood Pressure Location [employer] [facility] 10-31-2022 14:37-0400 Body temperature 97.7 [degF] [employer] [facility] 10-31-2022 14:37-0400 Diastolic blood pressure 72 mm[Hg] ShannonMirametrix [facility] 10-31-2022 14:37-0400 Heart rate 98 /min ShannonMirametrix [facility] 10-31-2022 14:37-0400 Respiratory rate 16 /min [employer] [facility] 10-31-2022 14:37-0400 SaO2% (BldA) [Mass fraction] 95 % [employer]Mir[employer] [facility] 10-31-2022 14:37-0400 Systolic blood pressure 126 mm[Hg] [employer] [facility] 10-01-2022 17:15-0400 Body height 170.18 cm Cari Marx Other [employer] Other 10-01-2022 17:15-0400 Body mass index (BMI) [Ratio] 39.78 kg/m2 Cari Marx Other [employer] Other 10-01-2022 17:15-0400 Body temperature 98.3 [degF] Cari Marx Other [employer] Other 10-01-2022 17:15-0400 Body weight 115.21 kg Cari Marx Other [employer] Other 10-01-2022 17:15-0400 Respiratory rate 18 /min Cari Marx Other [employer] Other 10-01-2022 17:15-0400 SaO2% (BldA) [Mass fraction] 97 % Cari Marx Other [employer] Other 08-22-2022 15:37-0400 Blood Pressure Location [employer] [facility] 08-22-2022 15:37-0400 Body temperature 96.98 [degF] [employer] [facility] 08-22-2022 15:37-0400 Diastolic blood pressure 78 mm[Hg] [employer] [facility] 08-22-2022 15:37-0400 Heart rate 69 /min [employer] [facility] 08-22-2022 15:37-0400 Respiratory rate 16 /min [employer] 08-22-2022 15:37-0400 SaO2% (BldA) [Mass fraction] 97 % [employer] [facility] 08-22-2022 15:37-0400 Systolic blood pressure 108 mm[Hg] Shannon OLVERA [facility] 08-10-2022 10:05-0400 Body height 170.18 cm Christie Hua Other [employer] Other 08-10-2022 10:05-0400 Body mass index (BMI) [Ratio] 38.84 kg/m2 Christie Hua Other [employer] Other 08-10-2022 10:05-0400 Body temperature 96.6 [degF] Christie Hua Other [employer] Other 08-10-2022 10:05-0400 Body weight 112.49 kg Christie Hua Other [employer] Other 08-10-2022 10:05-0400 Respiratory rate 18 /min Christie Hua Other [employer] Other 08-10-2022 10:05-0400 SaO2% (BldA) [Mass fraction] 98 % Christie Hua Other [employer] Other 06-24-2022 14:50-0500 Body height 170.18 cm Cari Marx Other [employer] Other 06-24-2022 14:50-0500 Body mass index (BMI) [Ratio] 39.62 kg/m2 Cari Marx Other [employer] Other 06-24-2022 14:50-0500 Body temperature 98.1 [degF] Cari Marx Other [employer] Other 06-24-2022 14:50-0500 Body weight 114.76 kg Cari Marx Other [employer] Other 06-24-2022 14:50-0500 Respiratory rate 18 /min Cari Marx Other [employer] Other 06-24-2022 14:50-0500 SaO2% (BldA) [Mass fraction] 95 % Cari Marx Other [employer] Other Encounters Encounter Date Encounter Type Care Provider Facility Start: 11-23-2024 ambulatory MU, [employer] PROFESSOR-[employer] SECURITY PROJECT MANAGER Sarah Yeager Facility: [facility] Start: 09-30-2024 End: 09-30-2024 Office outpatient visit 25 minutes Rosa Sauceda NP Work Phone: [facility] Comment on above: Left genital labial abscess (Primary Dx); Labial cyst Start: 09-30-2024 End: 09-30-2024 Bamboo flowsheet Rosa Sauceda WINDOW TRIMMER Work Phone: [facility] Start: 09-30-2024 End: 09-30-2024 Bamboo flowsheet Rosa Sauceda WINDOW TRIMMER Work Phone: [facility] Start: 09-09-2024 End: 09-09-2024 ambulatory [facility] Start: 09-08-2024 ambulatory Sarah Yeager Facilit y: [facility] Start: 2024 End: 2024 Emergency department patient visit Cassie Hinojosa MD Work Phone: [facility] Comment on above: Abdominal pain, epig astric (Primary Dx); Nausea and vomiting, unspecified vomiting type Start: 2024 End: 2024 Patient encounter procedure Ascencion Escobedo PA-C Work Phone: [facility] Comment on above: Acute vomiting (Prim torin Dx) Start: 2024 End: 2024 ambulatory [facility] Start: 06-05-2024 End: 06-05-2024 Lab Drop off Sarah Yeager [facility] Start: 06-05-2024 End: 06-05-2024 ambulatory Sarah Yeager Facility:[facility] Start: 06-05-2024 End: 06-05-2024 Patient encounter procedure Sarah Yeager [facility] [place] Start: 03-31-2024 End: 03-31-2024 ambulatory KHURRAM STEPHENS [facility] Start: 02-05-2024 End: 02-05-2024 Office outpatient visit 10 minutes Wesley Celia DO Work Phone: [facility] Comment on above: Encounter for routin e checking of intrauterine contraceptive device (IUD) Start: 02-05-2024 End: 02-05-2024 ambulatory WESLEY CELIA Not Available Start: 02-05-2024 End: 02-05-2024 Bamboo flowsheet Wesley Celia DO Work Phone: [facility] Start: 02-05-2024 End: 02-05-2024 Bamboo flowsheet Wesley Celia DO Work Phone: [facility] Start: 01-08-2024 End: 01-08-2024 ambulatory WESLEY CELIA Not Available Start: 01-08-2024 End: 01-08-2024 flow sheet Wesley Celia DO Work Phone: [facility] Comment on above: Encounter for IUD re moval and reinsertion Start: 01-02-2024 ambulatory KHURRAM STEPHENS Facili ty:[facility] [place] Start: 01-01-2024 End: 01-01-2024 ambulatory MSN, BIBLICAL LANGUAGES PROFESSOR-IT SECURITY PROJECT MANAGER Sarah Yeager Facility: [facility] Start: 01-01-2024 End: 01-01-2024 Patient encounter procedure Sraah Yeager [facility] [place] Start: 12-25-2023 End: 12-25-2023 ambulatory MICA SANABRIA Not Available Start: 12-24-2023 End: 12-24-2023 ambulatory KHURRAMCassia STEPHENS Facility:[facility] Start: 12-23-2023 ambulatory MSN, BIBL[employer] LANGUAGES PROFESSOR-IT SECURITY PROJECT MANAGER Sarah Yeager Facility:[facility] Start: 12-06-2023 End: 12-06-2023 ambulatory MSN, B[employer]ANGU[employer] PROFESSOR-IT SECURITY PROJECT MANAGER Sarah Yeager Facility: [facility] Start: 12-06-2023 End: 12-06-2023 Patient encounter procedure Sarah Yeager [facility] Start: 11-05-2023 End: 11-05-2023 ambulatory MSN, B[employer]ANG[employer] PROFESSOR-IT SECURITY PROJECT MANAGER Sarah Yeager Facility: [facility] Start: 11-05-2023 End: 11-05-2023 Patient encounter procedure Sarah Yeager [facility] [place] Start: 10-22-2023 End: 10-22-2023 ambulatory Martina Harrison Facility: [facility] Start: 10-22-2023 End: 10-22-2023 Patient encounter procedure Martina Harrison [facility] Start: 09-11-2023 End: 09-11-2023 Patient encounter procedure Sarah Yeager [facility] [place] Start: 08-14-2023 End: 08-14-2023 Patient encounter procedure Sarah Yeager [facility] Start: 08-06-2023 End: 08-06-2023 Patient encounter procedure Sarah Becky Yeager [facility] Start: 06-24-2023 End: 06-24-2023 Patient encounter procedure Arvin OLVERA [facility] Start: 05-27-2023 End: 05-27-2023 Patient encounter procedure Shannon OLVERA [facility] Start: 04-29-2023 End: 04-29-2023 Patient encounter procedure Shannon OLVERA [facility] Start: 03-02-2023 End: 03-02-2023 [facility] Start: 10-31-2022 End: 10-31-2022 Patient encounter procedure Shannon OLVERA [facility] Start: 10-01-2022 End: 10-01-2022 ambulatory Cari Marx Facility:[facility] Start: 10-01-2022 End: 10-01-2022 Patient encounter procedure MD Shannon Olvera Work Phone: [facility] Work Phone: Start: 10-01-2022 End: 10-01-2022 ambulatory MD Shannon Olvera Work Phone: [facility] Work Phone: Start: 10-01-2022 Office outpatient vi sit 15 minutes Cari Marx [facility] Start: 08-23-2022 End: 08-23-2022 Patient encounter procedure Shannon OLVERA [facility] Start: 08-22-2022 End: 08-22-2022 Patient encounter procedure Shannon OLVERA [facility] [place] Start: 08-10-2022 End: 08-10-2022 ambulatory Christie Hua Other [employer] Other Start: 08-10-2022 Office outpatient vi sit 25 minutes Christie Hua [facility] Start: 06-24-2022 End: 06-24-2022 ambulatory Cari Araseli Other [employer] Other Start: 06-24-2022 Office outpatient ne w 20 minutes Caribailey Marx [facility] Start: 10-09-2021 End: 10-09-[address] IRENA DORANTES Facility: Procedures Date Procedure Procedure Detail Performing Clinician Start: 2024 Comprehensive metabolic panel Cassie pozo MD Work Phone: Start: 2024 Us abdominal real time w/image limited Cassie Hinojosa MD Work Phone: Start: 01-08-2024 IUD INSERTION Wesley Celia DO Work Phone: Start: 01-08-2024 IUD REMOVAL Wesley Celia DO Work Phone: Start: 01-08-2024 Urine test visual color cmprsn meths Wesley Celia DO Work Phone: Start: 12-25-2023 Microscopic observation [Identifier] in Cervix by Cyto stain Rosa Sauceda NP Work Phone: Start: 12-25-2023 Cytp cerv/vag auto thin layer prep mnl screen Mica CHANG Work Phone: Start: 10-01-2022 Radiologic examination of knee MD Shannon Olvera Work Phone: Start: 08-19-2020 Colonoscopy Shannon OLVERA Start: 08-19-2020 Esophagogastroduodenoscopy gastric outlet reduction Shannon OLVERA Plan of Treatment Date Care Activity Detail Author Start: 12-24-2028 Screening for malign ant neoplasm of cervix [facility] Start: 01-18-2025 Influenza vaccination Influenza Vacc ine [facility] Start: 12-29-2024 End: 12-29-2024 Patient encounter procedure 12/29/2024 8:30 AM EDT Office Visit [facility] [address] [place] [phone] Wesley Yang DO [address] [place] [address] [facility] Start: 09-30-2024 End: 09-30-2024 Patient encounter procedure 09/30/2024 3:00 PM EDT Office Visit [facility] [address] [place] [phone] Rosa Sauceda, WINDOW TRIMMER [address] [place] [phone] Arrived [facility] Comment on above: Arrived Start: 09-30-2024 End: 09-30-2025 Aerobic culture Aerobic culture Microbiology Routine Labial cyst Expected: 09/30/2024 (Approximate), Expires: 09/30/2025 [facility] Work Phone: Comment on above: Expected: 09/30/2024 (Approximate), Expires: 09/30/2025 Start: 09-30-2024 End: 09-30-2025 Anaerobic culture Anaerobic culture Microbiology Routine Labial cyst Expected: 09/30/2024 (Approximate), Expires: 09/30/2025 [facility] Comment on above: Expected: 09/30/2024 (Approximate), Expires: 09/30/2025 Start: 07-19-2024 HPV vaccine (3 - 3-d ose SCDM series) HPV vaccine (3 - 3-dose SCDM series) [facility] Start: 02-05-2024 End: 02-05-2024 Patient encounter procedure [facility] Comment on above: Arrived Start: 01-19-2024 Influenza vaccination Influenza Vacc ine (#1) [facility] Start: 09-01-2023 Diabetes screen Diabetes screen [facility] Start: 12-24-2021 DTaP,Tdap and Td Vaccines (6 - Td or Tdap) DTaP,Tdap and Td Vaccines (6 - Td or Tdap) [facility] Start: 12-24-2021 DTaP/Tdap/Td vaccine (6 - Td or Tdap) DTaP/Tdap/Td vaccine (6 - Td or Tdap) [facility] Start: 2018 Screening for malign ant neoplasm of cervix [facility] Start: 2009 Screening for malign ant neoplasm of cervix Pap Smear [facility] Start: 2006 Adult BMI Screening Adult BMI Screen ing [facility] Start: 2006 Hepatitis C screening Hepatitis C sc reen [facility] Start: 09-01-2003 HIV screening HIV screen [facility] Start: 2001 Varicella vaccine (1 of 2 - 13+ 2-dose series) Varicella vaccine (1 of 2 - 13+ 2-dose series) [facility] Start: 2000 Depression Screen Depression Screen [facility] Start: 2000 Depression Screening Depression Scre ening [facility] Start: 2000 Tobacco Screening Tobacco Screening [facility] Start: 1992 Polio vaccine (4 of 4 - 4-dose series) Polio vaccine (4 of 4 - 4-dose series) [facility] End: 2024 Urinalysis with Reflex to Culture Urinalysis with Reflex to Culture Lab Routine One Time for 1 Occurrences starting 2024 until 2024 [facility] Comment on above: One Time for 1 Occur rences starting 2024 until 2024 Immunizations Immunization Date Immunization Notes Care Provider Angelique garza 04-15-2024 HPV, unspecified formulation Sarahyimi Yeager [facility] 01-20-2024 HPV, unspecified formulation Sarah Yeager [facility] 01-20-2024 SARS-CoV-2 mRNA (inytmnjkxrs-iczo-fqsi ose) vaccine Sarah Yeager [facility] 01-20-2024 influenza virus vaccine, unspecified formulation Wesleycassia Yang Work Phone: [facility] 04-12-2023 canakinumab Shannon Flumes [facility] Comment on above: Result Comment: Covi d-19, mRNA, LNP-S, PF, franco-sucrose, 30mcg/0.3 [facility] 03-22-2023 influenza virus vaccine, unspecified formulation So Protect Me [facility] 03-22-2023 influenza, unspecifi ed formulation Sarah Yeager [facility] 08-22-2022 COVID-19, mRNA, LNP- S, bivalent, PF, 50 mcg/0.5 mL dose So Protect Me [facility] 04-08-2021 SARS-CoV-2 (COVID-19 ) mRNA BNT-162b2 vax So Protect Me [facility] Comment on above: Result Comment: [facility] 03-28-2021 influenza virus vaccine, unspecified formulation So Protect Me [facility] Comment on above: Result Comment: [facility] 10-05-2020 SARS-CoV-2 (COVID-19 ) mRNA-1273 vaccine So Protect Me [facility] 08-26-2020 SARS-CoV-2 (COVID-19 ) mRNA BNT-162b2 vax So Protect Me [facility] 04-14-2014 influenza virus vaccine, unspecified formulation So [facility] Me [facility] 04-30-2013 influenza virus vaccine, unspecified formulation [facility] 12-25-2011 tetanus toxoid, reduced diphtheria toxoid, and acellular pertussis vaccine, adsorbed So Protect Me [facility] Comment on above: Early/Late Reason: N Med Order 02-06-2001 hepatitis B vaccine, pediatric or pediatric/adolescent dosage [employer] [facility] 10-03-2000 hepatitis B vaccine, pediatric or pediatric/adolescent dosage [employer] [facility] 07-30-2000 hepatitis B vaccine, pediatric or pediatric/adolescent dosage [employer] [facility] 07-30-2000 measles, mumps and rubella virus vaccine [employer] [facility] 07-23-1990 DTaP, unspecified formulation [employer] [facility] 07-23-1990 poliovirus vaccine, unspecified formulation [employer] [facility] 12-18-1989 Hib, unspecified formulation [employer] [facility] 12-18-1989 measles, mumps and rubella virus vaccine [employer] [facility] 01-23-1989 poliovirus vaccine, unspecified formulation Shannon OLVERA [facility] 1990 poliovirus vaccine, unspecified formulation Shannon OLVERA [facility] Christoph Joy NEGATED: Highlighted row has not occurred!07-20-2020 influenza virus vaccine, unspecified formulation Shannon OLVERA [facility] Payers Date Payer Category Payer Managed Care Other (unspecified) [facility] [id number] 2023 Private Health Insurance [id number] 2023 Unknown [id number] 2022 [employer] [id number] 2022 Self-pay [id number] 1988 Unknown [id number] 2.16.840.1.294674.3.579. 2.593 1988 Unknown [id number] 2.16.840.1.118567.3.579. 2.177 1988 Unknown [id number] 2.16.840.1.344224.3.579. 2.1259 1988 Unknown [id number] 2.16.840.1.774909.3.579. 2.1259 1988 Unknown [id number] 2.16.840.1.627839.3.579. 2.1259 1988 Unknown [id number] 2.16.840.1.497604.3.579. 2.1286 1988 Unknown [id number] 2.16.840.1.968712.3.579. 2.176 1988 Unknown [id number] 2.16.840.1.750648.3.579. 2.727 1988 Unknown [id number] 2.16.840.1.877182.3.579. 2. 1988 Unknown [id number] 2.16.840.1.568401.3.579. 2 1988 Unknown [id number] 2.16.840.1.968831.3.579. 2 1988 Unknown [id number] 2.16.840.1.091620.3.579. 2.72 1988 Unknown [id number] 2.16.840.1.121990.3.579. 2 1988 Unknown [id number] 2.16.840.1.112550.3.579. 2.727 1988 Unknown [id number] 2.16840.1.377913.3.579. 2 1988 Unknown [id number] 2.16.840.1.501643.3.579. 2.72 1988 Unknown [id number] 2.16.840.1.709883.3.579. 2.72 1988 Unknown [id number] 2.16.840.1.389116.3.579. 272 1988 Unknown [id number] 2.16.840.1.975681.3.579. 2.72 1988 Unknown [id number] 2.16.840.1.750598.3.579. 2.727 1961 Medicare [id number] Unknown Regular Auto/Liability [id number] Unknown [id number] 2.16.840.1.086018.3.579. 2.531 Social History Date Type Detail Facility Start: 12-25-2023 End: 2024 Sex Assigned At [facility] Start: 08-22-2022 End: 10-13-2022 Tobacco smoking status Never smoked tobacco (finding) [facility] Tobacco smoking status Never [facility] Start: 1990 Sex Assigned At Female F [facility] Start: 10-13-2022 End: 03-02-2023 Tobacco use and exposure Smokeless tobacco non-user [facility] Start: 01-08-2024 End: 09-30-2024 Alcoholic beverage intake Current drinker of alcohol (finding) [facility] Start: 12-25-2023 End: 2024 History of Social function [employer] Start: 12-07-2022 Alcohol Comment 1-2 drinks les s than monthly in the past year [facility] Start: 12-09-2022 Gender identity Identifies as female gender (finding) [facility] Start: 12-25-2023 Sexual orientation Bisexual (finding ) [facility] Tobacco smoking stat [facility] Tobacco smoking consumption unknown [facility] Start: 1988 Sex assigned at Not on file P [facility] Start: 03-02-2023 End: 2024 Sex Female (finding) [facility] Start: 03-02-2023 Alcoholic beverage intake Ex-drinker (finding) [employer] How often to you hav e a drink containing alcohol? Never [employer] Medical Equipment Procedure Code Equipment Code Equipment Origin al Text Equipment Identifier Dates pen needles 31G x 3/16 , 5mm, 1, SubCutaneous, q7day, 50 EA, 1, for use with pen, [id number], Supply, 170, cm, 08/22/22 15:42:00 EDT, Height/Length Dosing, 113, kg, 08/22/22 15:42:00 EDT, Weight Dosing Start: 08-24-2022 pen needles 31G x 3/16 , 5mm, 1, SubCutaneous, q7day, 50 EA, 1, for use with pen, [id number], Supply, 170, cm, 08/22/22 15:42:00 EDT, Height/Length Dosing, 113, kg, 08/22/22 15:42:00 EDT, Weight Dosing Start: 08-24-2022 pen needles 31G x 3/16 , 5mm, 1, SubCutaneous, q7day, 50 EA, 1, for use with pen, [id number], Supply, 170, cm, 08/22/22 15:42:00 EDT, Height/Length Dosing, 113, kg, 08/22/22 15:42:00 EDT, Weight Dosing Start: 08-24-2022 pen needles 31G x 3/16 , 5mm, 1, SubCutaneous, q7day, 50 EA, 1, for use with pen, [id number], Supply, 170, cm, 08/22/22 15:42:00 EDT, Height/Length Dosing, 113, kg, 08/22/22 15:42:00 EDT, Weight Dosing Start: 08-24-2022 pen needles 31G x 3/16 , 5mm, 1, SubCutaneous, q7day, 50 EA, 1, for use with pen, [id number], Supply, 170, cm, 08/22/22 15:42:00 EDT, Height/Length Dosing, 113, kg, 08/22/22 15:42:00 EDT, Weight Dosing Start: 08-24-2022 pen needles 31G x 3/16 , 5mm, 1, SubCutaneous, q7day, 50 EA, 1, for use with pen, [id number], Supply, 170, cm, 08/22/22 15:42:00 EDT, Height/Length Dosing, 113, kg, 08/22/22 15:42:00 EDT, Weight Dosing Start: 08-24-2022 pen needles 31G x 3/16 , 5mm, 1, SubCutaneous, q7day, 50 EA, 1, for use with pen, [id number], Supply, 170, cm, 08/22/22 15:42:00 EDT, Height/Length Dosing, 113, kg, 08/22/22 15:42:00 EDT, Weight Dosing Start: 08-24-2022 pen needles 31G x 3/16 , 5mm, 1, SubCutaneous, q7day, 50 EA, 1, for use with pen, [id number], Supply, 170, cm, 08/22/22 15:42:00 EDT, Height/Length Dosing, 113, kg, 08/22/22 15:42:00 EDT, Weight Dosing Start: 08-24-2022 pen needles 31G x 3/16 , 5mm, 1, SubCutaneous, q7day, 50 EA, 1, for use with pen, [id number], Supply, 170, cm, 08/22/22 15:42:00 EDT, Height/Length Dosing, 113, kg, 08/22/22 15:42:00 EDT, Weight Dosing Start: 08-24-2022 pen needles 31G x 3/16 , 5mm, 1, SubCutaneous, q7day, 50 EA, 1, for use with pen, [id number], Supply, 170, cm, 08/22/22 15:42:00 EDT, Height/Length Dosing, 113, kg, 08/22/22 15:42:00 EDT, Weight Dosing Start: 08-24-2022 pen needles 31G x 3/16 , 5mm, 1, SubCutaneous, q7day, 50 EA, 1, for use with pen, [id number], Supply, 170, cm, 08/22/22 15:42:00 EDT, Height/Length Dosing, 113, kg, 08/22/22 15:42:00 EDT, Weight Dosing Start: 08-24-2022 pen needles 31G x 3/16 , 5mm, 1, SubCutaneous, q7day, 50 EA, 1, for use with pen, [id number], Supply, 170, cm, 08/22/22 15:42:00 EDT, Height/Length Dosing, 113, kg, 08/22/22 15:42:00 EDT, Weight Dosing Start: 08-24-2022 pen needles 31G x 3/16 , 5mm, 1, SubCutaneous, q7day, 50 EA, 1, for use with pen, [id number], Supply, 170, cm, 08/22/22 15:42:00 EDT, Height/Length Dosing, 113, kg, 08/22/22 15:42:00 EDT, Weight Dosing Start: 08-24-2022 pen needles 31G x 3/16 , 5mm, 1, SubCutaneous, q7day, 50 EA, 1, for use with pen, [id number], Supply, 170, cm, 08/22/22 15:42:00 EDT, Height/Length Dosing, 113, kg, 08/22/22 15:42:00 EDT, Weight Dosing Start: 08-24-2022 Functional Status Date Assessment Result Facility 06-05-2024 Functional Status N/A [facility] 12-06-2023 Functional Status N/A [facility] 11-05-2023 Functional Status N/A [facility] 10-22-2023 Functional Status N/A [facility] 08-06-2023 Functional Status N/A [facility] 06-24-2023 Functional Status N/A [facility] 04-29-2023 Functional Status N/A [facility] 10-31-2022 Functional Status N/A [facility] 08-22-2022 Functional Status N/A [facility] [place] Clinical Notes 06-24-2022 to 09-30-2024 Rosa Sauceda NP - 09/30/2024 3:00 PM Constantin Escobedo PA-C - 2024 8:50 AM Valentino Valverde LPN - 02/05/2024 3:10 PM Valentino Valverde LPN - 01/08/2024 3:30 PM EDT Note Date & Type Note Facility 09-30-2024 History of Present illness Narrative Images from the original note were not included. Reason for Appointment: Patient ID: Nataly Garcia is a 34 y.o. female who presents for Cyst (Cyst on left inside part of patients inner labia. Patient states cyst has been there for 5 weeks. ) Patient presents today for Acute Visit. MEDICATIONS Current Outpatient Medications Medication Instructions Depakote 500 mg, Oral, 2 times daily FLUoxetine (PROZAC) 40 mg, Oral, Daily Levonorgestrel (Mirena, 52 MG,) 20 MCG/DAY intrauterine device metFORMIN (GLUCOPHAGE) 500 mg, Oral, Daily with breakfast omeprazole (PRILOSEC) 40 mg, Oral, Daily before breakfast ALLERGIES Allergies Allergen Reactions Penicillin G Sodium Penicillins Hives Other Reaction(s): Hives, Unknown Other Reaction(s): Hives PROBLEMS Active Ambulatory Problems Diagnosis Date Noted No Active Ambulatory Problems Resolved Ambulatory Problems Diagnosis Date Noted No Resolved Ambulatory Problems Past Medical History: Diagnosis Date Epilepsy Manic depression (CMS/HCC) Pre-diabetes Seizure (CMS/HCC) HISTORY PAST MEDICAL HISTORY SOCIAL HISTORY Past Medical History: Diagnosis Date Epilepsy Manic depression (CMS/HCC) Pre-diabetes Seizure (CMS/HCC) Social History Tobacco Use Smoking status: Never Smokeless tobacco: Never Substance Use Topics Alcohol use: Yes Comment: 1-2 drinks less than monthly in the past year Drug use: Not on file FAMILY HISTORY Family History Problem Relation Name Age of Onset Mental illness Mother Hypertension Father Diabetes Father SURGICAL HISTORY Past Surgical History: Procedure Laterality Date PAP SMEAR 09/08/2020 normal REVIEW OF SYSTEMS Review of Systems: Review of Systems Constitutional: Negative. HENT: Negative. Eyes: Negative. Respiratory: Negative. Cardiovascular: Negative. Gastrointestinal: Negative. Genitourinary: Negative. Musculoskeletal: Negative. Skin: Negative. Complaints of left labial cyst. Reports history of abscess that have drained in the past on her own. Neurological: Negative. All other systems reviewed and are negative. Hematological: Negative. Endocrine: Negative. Allergic/Immunologic: Negative. OBJECTIVE Objective: Physical Exam Constitutional: Appearance: Normal appearance. She is well-developed. Genitourinary: Genitourinary Comments: Left labial abscess 1 cm x 0.5 cm. Area anesthetized with 1% lidocaine and patient tolerated well. Using an 11 blade scalpel a small incision is made and copious amount of purulent discharge is noted. Culture was obtained. Cardiovascular: Rate and Rhythm: Normal rate and regular rhythm. Pulmonary: Effort: Pulmonary effort is normal. Breath sounds: Normal breath sounds. Abdominal: General: Bowel sounds are normal. There is no distension. Palpations: Abdomen is soft. Tenderness: There is no abdominal tenderness. There is no guarding or rebound. Musculoskeletal: General: No swelling. Normal range of motion. Right lower leg: No edema. Left lower leg: No edema. Neurological: Mental Status: She is alert and oriented to person, place, and time. Skin: General: Skin is warm and dry. Psychiatric: Mood and Affect: Mood normal. Behavior: Behavior normal. Vitals and nursing note reviewed. Exam conducted with a tack coverer present. Vitals: Estimated body mass index is 31.95 kg/m as calculated from the following: Height as of this encounter: 5' 7 . Weight as of this encounter: 204 lb. BP: 118/76 No LMP recorded. Patient has had an implant. ASSESSMENT & PLAN ICD-10-CM 1. Labial cyst N90.7 Aerobic culture Anaerobic culture Aerobic culture Anaerobic culture Patient presents with left labial abscess that was incised and drained today without incident. Patient states relief she will continue with Epsom salt soaks twice per day and will start on Bactrim Keflex. She will notify our office with any further symptoms or concerns. Documented by Rosa Sauceda NP on behalf of: Rosa Sauceda NP documented in this encounter [facility] 09-09-2024 Note Patient Education Gastroenterology Gastroparesis Gastroparesis is a condition in which food takes longer than normal to empty from the stomach. This condition is also known as delayed gastric emptying. It is usually a long-term (chronic) condition. There is no cure, but there are treatments and things that you can do at home to help relieve symptoms. Treating the underlying condition that causes gastroparesis can also help relieve symptoms. What are the causes? In many cases, the cause of this condition is not known. Possible causes include: ??? A hormone (endocrine) disorder, such as hypothyroidism or diabetes. ??? A nervous system disease, such as Parkinson's disease or multiple sclerosis. ??? Cancer, infection, or surgery that affects the stomach or vagus nerve. The vagus nerve runs from your chest, through your neck, and to the lower part of your brain. ??? A connective tissue disorder, such as scleroderma. ??? Certain medicines. What increases the risk? You are more likely to develop this condition if: ??? You have certain disorders or diseases. These may include: ? An endocrine disorder. ? An eating disorder. ? Amyloidosis. ? Scleroderma. ? Parkinson's disease. ? Multiple sclerosis. ? Cancer or infection of the stomach or the vagus nerve. ??? You have had surgery on your stomach or vagus nerve. ??? You take certain medicines. ??? You are female. What are the signs or symptoms? Symptoms of this condition include: ??? Feeling full after eating very little or a loss of appetite. ??? Nausea, vomiting, or heartburn. ??? Bloating of your abdomen. ??? Inconsistent blood sugar (glucose) levels on blood tests. ??? Unexplained weight loss. ??? Acid from the stomach coming up into the esophagus (gastroesophageal reflux). ??? Sudden tightening (spasm) of the stomach, which can be painful. Symptoms may come and go. Some people may not notice any symptoms. How is this diagnosed? This condition is diagnosed with tests, such as: ??? Tests that check how long it takes food to move through the stomach and intestines. These tests include: ? Upper gastrointestinal (GI) series. For this test, you drink a liquid that shows up well on X-rays, and then X-rays are taken of your intestines. ? Gastric emptying scintigraphy. For this test, you eat food that contains a small amount of radioactive material, and then scans are taken. ? Wireless capsule GI monitoring system. For this test, you swallow a pill (capsule) that records information about how foods and fluid move through your stomach. ??? Gastric manometry. For this test, a tube is passed down your throat and into your stomach to measure electrical and muscular activity. ??? Endoscopy. For this test, a long, thin tube with a camera and light on the end is passed down your throat and into your stomach to check for problems in your stomach lining. ??? Ultrasound. This test uses sound waves to create images of the inside of your body. This can help rule out gallbladder disease or pancreatitis as a cause of your symptoms. How is this treated? There is no cure for this condition, but treatment and home care may relieve symptoms. Treatment may include: ??? Treating the underlying cause. ??? Managing your symptoms by making changes to your diet and exercise habits. ??? Taking medicines to control nausea and vomiting and to stimulate stomach muscles. ??? Getting food through a feeding tube in the hospital. This may be done in severe cases. ??? Having surgery to insert a device called a gastric electrical stimulator into your body. This device helps improve stomach emptying and control nausea and vomiting. Follow these instructions at home: ??? Take vxar-ygv-hcerrsf and prescription medicines only as told by your health care provider. ??? Follow instructions from your health care provider about eating or drinking restrictions. Your health care provider may recommend that you: ? Eat smaller meals more often. ? Eat low-fat foods. ? Eat low-fiber forms of high-fiber foods. For example, eat cooked vegetables instead of raw vegetables. ? Have only liquid foods instead of solid foods. Liquid foods are easier to digest. ??? Drink enough fluid to keep your urine pale yellow. ??? Exercise as often as told by your health care provider. ??? Keep all follow-up visits. This is important. Contact a health care provider if you: ??? Notice that your symptoms do not improve with treatment. ??? Have new symptoms. Get help right away if you: ??? Have severe pain in your abdomen that does not improve with treatment. ??? Have nausea that is severe or does not go away. ??? Vomit every time you drink fluids. Summary ??? Gastroparesis is a long-term (chronic) condition in which food takes longer than normal to empty from the stomach. ??? Symptoms include nausea, vomiting, heartburn, bloating of your abdomen, and loss of appetite. (more content not included)... [facility] 2024 History of Present illness Narrative Subjective: Patient ID: Nataly Garcia is a 34 y.o. female. Chief Complaint Patient presents with Vomiting Sx started last night. 34-year-old female presents with 1 day history of epigastric pain, nausea, vomiting. Patient states the pain is persistent located just above the belly button, states pain does not radiate through to the back, reports pain 8/10. Patient denies any known chronic GI conditions other than GERD for which she used to take omeprazole, states she has not take this in 6 months. Denies any fever, sweats, chills. Denies any blood in the vomit, denies any change in bowel habits The following portions of the patient's history were reviewed and updated as appropriate: allergies, current medications, past family history, past medical history, past social history, past surgical history and problem list. Review of Systems Constitutional: Negative for chills and fever. Respiratory: Negative for cough and shortness of breath. Cardiovascular: Negative for chest pain. Gastrointestinal: Positive for abdominal pain, nausea and vomiting. Negative for diarrhea. Psychiatric/Behavioral: Negative. No past medical history on file. No past surgical history on file. No family history on file. Allergies Allergen Reactions Penicillins Current Outpatient Medications on File Prior to Visit Medication Sig Dispense Refill divalproex (DEPAKOTE) 500 mg EC tablet Take 1 tablet (500 mg total) by mouth in the morning and 1 tablet (500 mg total) before bedtime. FLUoxetine (PROzac) 20 mg capsule Take 1 capsule (20 mg total) by mouth in the morning. levonorgestreL (MIRENA) 21 mcg/24hr (up to 8 yrs) 52 mg IUD 1 each by intrauterine route in the morning. metFORMIN (GLUCOPHAGE) 500 mg tablet Take 1 tablet (500 mg total) by mouth daily with breakfast. omeprazole (PriLOSEC) 40 mg capsule Take 1 capsule (40 mg total) by mouth every morning before breakfast. No current facility-administered medications on file prior to visit. Objective: Vitals: 08/31/24 0855 BP: 119/69 Pulse: 105 Resp: 18 Temp: 36.4 C (97.5 F) TempSrc: Temporal SpO2: 100% Patient's last menstrual period was 08/18/2024 (within days). The patient was not asked if she was . There is no height or weight on file to calculate BMI. No height and weight on file for this encounter. Physical Exam Vitals reviewed. Constitutional: General: She is not in acute distress. Appearance: She is not ill-appearing, toxic-appearing or diaphoretic. Comments: Uncomfortable appearing, laying on inside HENT: Nose: Nose normal. Mouth/Throat: Mouth: Mucous membranes are moist. Comments: No trismus, handling secretions well. Eyes: Pupils: Pupils are equal, round, and reactive to light. Cardiovascular: Rate and Rhythm: Normal rate and regular rhythm. Pulses: Normal pulses. Heart sounds: Normal heart sounds. Pulmonary: Effort: Pulmonary effort is normal. No respiratory distress. Breath sounds: Normal breath sounds. No stridor. No wheezing or rhonchi. Comments: No adventitious lung sounds noted, moving air well in all lung burdick, speaking in complete sentences, no signs of consolidation or respiratory distress. Abdominal: Tenderness: There is abdominal tenderness in the epigastric area. Comments: Mild tenderness to epigastric region, no focal peritoneal signs otherwise. Musculoskeletal: General: Normal range of motion. Cervical back: Neck supple. Lymphadenopathy: Cervical: No cervical adenopathy. Skin: General: Skin is warm. Capillary Refill: Capillary refill takes less than 2 seconds. Neurological: General: No focal deficit present. Mental Status: She is alert. Psychiatric: Mood and Affect: Mood normal. Assessment/Plan: Given sudden onset of persistent epigastric pain and vomiting recommended that patient proceed to emergency department for further evaluation/treatment, patient aware we can not definitively rule out acute process here in the urgent care given limited diagnostic capabilities. Patient verbalized understanding and agreed, declined need for emergency transport, left with steady gait stable vitals. Risks of not pursuing immediate emergency room care discussed. Labs for this visit: No results found for any previous visit. There are no diagnoses linked to this encounter. Orders Placed or Reconciled This Encounter Medications divalproex (DEPAKOTE) 500 mg EC tablet Sig: Take 1 tablet (500 mg total) by mouth in the morning and 1 tablet (500 mg total) before bedtime. FLUoxetine (PROzac) 20 mg capsule Sig: Take 1 capsule (20 mg total) by mouth in the morning. levonorgestreL (MIRENA) 21 mcg/24hr (up to 8 yrs) 52 mg IUD Si each by intrauterine route in the morning. metFORMIN (GLUCOPHAGE) 500 mg tablet Sig: Take 1 tablet (500 mg total) by mouth daily with breakfast. omeprazole (PriLOSEC) 40 mg capsule Sig: Take 1 capsule (40 mg total) by mouth every morning before breakfast. There are no Patient Instructions on file for this visit. This note is dictated with the use of M*Modal.Please note that this dictation was completed with computer voice recognition software. Quite often unanticipated grammatical, syntax, homophones, and other interpretive errors are inadvertently transcribed by the computer software. Please disregard these errors. Please excuse any errors that have escaped final proofreading. I personally discussed test results with patient/parent. Education handout and discharge papers given. Paperwork explained. Denies questions or concerns. Discussed that follow up care is usually required after a visit to the Urgent care. It is your responsibility to contact your primary care provider for follow up. If symptoms are not improving, worsening, or concerning symptoms of illness develop, follow up with your primary care provider or go to the nearest Emergency Department for further care immediately. Ascencion Escobedo PA-C 08/31/24 0958 documented in this encounter [facility] [employer] 06-05-2024 Hospital Discharge instructions Patient Education 06/05/2024 06:34:58 Managing Anxiety, Adult Managing Anxiety, Adult After being diagnosed with anxiety, you may be relieved to know why you have felt or behaved a certain way. You may also feel overwhelmed about the treatment ahead and what it will mean for your life. With care and support, you can manage your anxiety. How to manage lifestyle changes Understanding the difference between stress and anxiety Although stress can play a role in anxiety, it is not the same as anxiety. Stress is your body's reaction to life changes and events, both good and bad. Stress is often caused by something external, such as a deadline, test, or competition. It normally goes away after the event has ended and will last just a few hours. But, stress can be ongoing and can lead to more than just stress. Anxiety is caused by something internal, such as imagining a terrible outcome or worrying that something will go wrong that will greatly upset you. Anxiety often does not go away even after the event is over, and it can become a long-term (chronic) worry. Lowering stress and anxiety Talk with your health care provider or a counselor to learn more about lowering anxiety and stress. They may suggest tension-reduction techniques, such as: Music. Spend time creating or listening to music that you enjoy and that inspires you. Mindfulness-based meditation. Practice being aware of your normal breaths while not trying to control your breathing. It can be done while sitting or walking. Centering prayer. Focus on a word, phrase, or sacred image that means something to you and brings you peace. Deep breathing. Expand your stomach and inhale slowly through your nose. Hold your breath for 3 5 seconds. Then breathe out slowly, letting your stomach muscles relax. Self-talk. Learn to notice and spot thought patterns that lead to anxiety reactions. Change those patterns to thoughts that feel peaceful. Muscle relaxation. Take time to tense muscles and then relax them. Choose a tension-reduction technique that fits your lifestyle and personality. These techniques take time and practice. Set aside 5 15 minutes a day to do them. Specialized therapists can offer counseling and training in these techniques. The training to help with anxiety may be covered by some insurance plans. Other things you can do to manage stress and anxiety include: Keeping a stress diary. This can help you learn what triggers your reaction and then learn ways to manage your response. Thinking about how you react to certain situations. You may not be able to control everything, but you can control your response. Making time for activities that help you relax and not feeling guilty about spending your time in this way. Doing visual imagery. This involves imagining or creating mental pictures to help you relax. Practicing yoga. Through yoga poses, you can lower tension and relax. Medicines Medicines for anxiety include: Antidepressant medicines. These are usually prescribed for long-term daily control. Anti-anxiety medicines. These may be added in severe cases, especially when panic attacks occur. When used together, medicines, psychotherapy, and tension-reduction techniques may be the most effective treatment. Relationships Relationships can play a big part in helping you recover. Spend more time connecting with trusted friends and family members. Think about going to couples counseling if you have a partner, taking family education classes, or going to family therapy. Therapy can help you and others better understand your anxiety. How to recognize changes in your anxiety Everyone responds differently to treatment for anxiety. Recovery from anxiety happens when symptoms lessen and stop interfering with your daily life at home or work. This may mean that you will start to: Have better concentration and focus. Worry will interfere less in your daily thinking. Sleep better. Be less irritable. Have more energy. Have improved memory. Try to recognize when your condition is getting worse. Contact your provider if your symptoms interfere with home or work and you feel like your condition is not improving. Follow these instructions at home: Activity Exercise. Adults should: ?Exercise for at least 150 minutes each week. The exercise should increase your heart rate and make you sweat (moderate-intensity exercise). ?Do strengthening exercises at least twice a week. Get the right amount and quality of sleep. Most adults need 7 9 hours of sleep each night. Lifestyle Eat a healthy diet that includes plenty of vegetables, fruits, whole grains, low-fat dairy products, and lean protein. ?Do not eat a lot of foods that are high in fats, added sugars, or salt (sodium). Make choices that simplify your life. Do not use any products that contain nicotine or tobacco. These products include cigarettes, chewing tobacco, and vaping devices, such as e-cigarettes. If you need help quitting, ask your provider. Avoid caffeine, alcohol, and certain jzjh-kpz-oisbilm cold medicines. These may make you feel worse. Ask your pharmacist which medicines to avoid. General instructions Take pprq-slv-roauigy and prescription medicines only as told by your provider. Keep all follow-up visits. This is to make sure you are managing your anxiety well or if you need more support. Where to find support You can get help and support from: Self-help groups. Online and community organizations. A trusted spiritual leader. Couples counseling. Family education classes. Family therapy. Where to find more information You may find that joining a support group helps you deal with your anxiety. The following sources can help you find counselors or support groups near you: Mental Health [place]: mentalhealth[place].net Anxiety and Depression Association of [place] (ADAA): adaa.org National [employer] [employer] Mental [employer]ness (MICHELLE): michelle.org Contact a health care provider if: You have a hard time staying focused or finishing tasks. You spend many hours a day feeling worried about everyday life. You are very tired because you cannot stop worrying. You start to have headaches or often feel tense. You have chronic nausea or diarrhea. Get help right away if: Your heart feels like it is racing. You have shortness of breath. You have thoughts of hurting yourself or others. Get help right away if you feel like you may hurt yourself or others, or have thoughts about taking your own life. Go to your nearest emergency room or: Call 911. Call the National Suicide Prevention Lifeline at or 485. This is open 24 hours a day. Text the Crisis Text Line at 500029. This information is not intended to replace advice given to you by your health care provider. Make sure you discuss any questions you have with your health care provider. Document Revised: 02/12/2023 Document Reviewed: 08/27/2021 [employer] Patient Education 2023 [employer]. 06/05/2024 06:34:57 Seizure, Adult Seizure, Adult A seizure is a sudden burst of abnormal electrical and chemical activity in the brain. Seizures usually last from 30 seconds to 2 minutes. The abnormal activity temporarily interrupts normal brain function. Many types of seizures can affect adults. A seizure can cause many different symptoms depending on where in the brain it starts. What are the causes? Common causes of this condition include: Fever or infection. Brain injury, head trauma, bleeding in the brain, or a brain tumor. Low levels of blood sugar or salt (sodium). Kidney problems or liver problems. Metabolic disorders or other conditions that are passed from parent to child (are inherited). Reaction to a substance, such as a drug or a medicine, or suddenly stopping the use of a substance (withdrawal). A stroke. Developmental disorders such as autism spectrum disorder or cerebral palsy. In some cases, the cause of a seizure may not be known. Some people who have a seizure never have another one. A person who has repeated seizures over time without a clear cause has a condition called epilepsy. What increases the risk? You are more likely to develop this condition if: You have a family history of epilepsy. You have had a tonic clonic seizure before. This type of seizure causes tightening (contraction) of the muscles of the whole body and loss of consciousness. You have a history of head trauma, lack of oxygen at , or strokes. What are the signs or symptoms? There are many different types of seizures. The symptoms vary depending on the type of seizure you have. Symptoms occur during the seizure. They may also occur before a seizure (aura) and after a seizure (postictal). Symptoms may include the following: Symptoms during a seizure Uncontrollable shaking (convulsions) with fast, jerky movements of muscles. Stiffening of the body. Breathing problems. Confusion, staring, or unresponsiveness. Head nodding, eye blinking or fluttering, or rapid eye movements. Drooling, grunting, or making clicking sounds with your mouth. Loss of bladder control and bowel control. Symptoms before a seizure Fear or anxiety. Nausea. Vertigo. This is a feeling like: ?You are moving when you are not. ?Your surroundings are moving when they are not. Caity camejo. This is a feeling of having seen or heard something before. Odd tastes or smells. Changes in vision, such as seeing flashing lights or spots. Symptoms after a seizure Confusion. Sleepiness. Headache. Sore muscles. How is this diagnosed? This condition may be diagnosed based on: A description of your symptoms. Video of your seizures can be helpful. Your medical history. A physical exam. You may also have tests, including: Blood tests. CT scan. MRI. Electroencephalogram (EEG). This test measures electrical activity in the brain. An EEG can predict whether seizures will return. A spinal tap, also called a lumbar puncture. This is the removal and testing of fluid that surrounds the brain and spinal cord. How is this treated? Most seizures will stop on their own in less than 5 minutes, and no treatment is needed. Seizures that last longer than 5 minutes will usually need treatment. Seizures may be treated with: Medicines given through an IV. Avoiding known triggers, such as medicines that you take for another condition. Medicines to control seizures or prevent future seizures (antiepileptics), if epilepsy caused your seizures. Medical devices to prevent and control seizures. Surgery to stop seizures or to reduce how often seizures happen, if you have epilepsy that does not respond to medicines. A diet low in carbohydrates and high in fat (ketogenic diet). Follow these instructions at home: Medicines Take znsv-svr-wcgjqrl and prescription medicines only as told by your health care provider. Avoid any substances that may prevent your medicine from working properly, such as alcohol. Activity Follow instructions about activities, such as driving or swimming, that would be dangerous if you had another seizure. Wait until your health care provider says it is safe to do them. If you live in the [place] check with your local department of motor vehicles (DMV) to find out about local driving laws. Each state has specific rules about when you can legally drive again. Get enough rest. Lack of sleep can make seizures more likely to occur. Educating others Teach friends and family what to do if you have a seizure. They should: ?Help you get down to the ground, to prevent a fall. ?Cushion your head and move items away from your body. ?Loosen any tight clothing around your neck. ?Turn you on your side. If you vomit, this helps keep your airway clear. ?Know whether or not you need emergency care. ?Stay with you until you recover. Also, tell them what not to do if you have a seizure. Tell them: ?They should not hold you down. Holding you down will not stop the seizure. ?They should not put anything in your mouth. General instructions Avoid anything that has ever triggered a seizure for you. Keep a seizure diary. Record what you remember about each seizure, especially anything that might have triggered it. Keep all follow-up visits. This is important. Contact a health care provider if: You have another seizure or seizures. Call each time you have a seizure. Your seizure pattern changes. You continue to have seizures with treatment. You have symptoms of an infection or illness. Either of these might increase your risk of having a seizure. You are unable to take your medicine. Get help right away if: You have: ?A seizure that does not stop after 5 minutes. ?Several seizures in a row without a complete recovery between seizures. ?A seizure that makes it harder to breathe. ?A seizure that leaves you unable to speak or use a part of your body. You do not wake up right away after a seizure. You injure yourself during a seizure. You have confusion or pain right after a seizure. These symptoms may represent a serious problem that is an emergency. Do not wait to see if the symptoms will go away. Get medical help right away. Call your local emergency services (911 in the [place] Do not drive yourself to the hospital. Summary Seizures are caused by abnormal electrical and chemical activity in the brain. The activity disrupts normal brain function and can cause various symptoms. Seizures have many causes, including illness, head injuries, low levels of blood sugar or salt, and certain conditions. Most seizures will stop on their own in less than 5 minutes. Seizures that last longer than 5 minutes are a medical emergency and need treatment right away. Many medicines are used to treat seizures. Take gcwb-ica-zvlalvq and prescription medicines only as told by your health care provider. This information is not intended to replace advice given to you by your health care provider. Make sure you discuss any questions you have with your health care provider. Document Revised: 11/11/2020 Document Reviewed: 11/11/2020 Stream[employer] Patient Education 2022 [employer]. Follow Up Care 05/10/2024 13:51:39 With:Toy DOBBINS, BIBLICAL LANGUAGES PROFESSOR-IT SECURITY PROJECT MANAGER, Sarah Pena Address: [address] [place] [id number] When:Within 6 Month(s) Comments:chronic care [facility] [place] 06-05-2024 Note Patient Education Mental and Behavioral Health Managing Anxiety, Adult After being diagnosed with anxiety, you may be relieved to know why you have felt or behaved a certain way. You may also feel overwhelmed about the treatment ahead and what it will mean for your life. With care and support, you can manage your anxiety. How to manage lifestyle changes Understanding the difference between stress and anxiety Although stress can play a role in anxiety, it is not the same as anxiety. Stress is your body's reaction to life changes and events, both good and bad. Stress is often caused by something external, such as a deadline, test, or competition. It normally goes away after the event has ended and will last just a few hours. But, stress can be ongoing and can lead to more than just stress. Anxiety is caused by something internal, such as imagining a terrible outcome or worrying that something will go wrong that will greatly upset you. Anxiety often does not go away even after the event is over, and it can become a long-term (chronic) worry. Lowering stress and anxiety Talk with your health care provider or a counselor to learn more about lowering anxiety and stress. They may suggest tension-reduction techniques, such as: ??? Music. Spend time creating or listening to music that you enjoy and that inspires you. ??? Mindfulness-based meditation. Practice being aware of your normal breaths while not trying to control your breathing. It can be done while sitting or walking. ??? Centering prayer. Focus on a word, phrase, or sacred image that means something to you and brings you peace. ??? Deep breathing. Expand your stomach and inhale slowly through your nose. Hold your breath for 3?5 seconds. Then breathe out slowly, letting your stomach muscles relax. ??? Self-talk. Learn to notice and spot thought patterns that lead to anxiety reactions. Change those patterns to thoughts that feel peaceful. ??? Muscle relaxation. Take time to tense muscles and then relax them. Choose a tension-reduction technique that fits your lifestyle and personality. These techniques take time and practice. Set aside 5?15 minutes a day to do them. Specialized therapists can offer counseling and training in these techniques. The training to help with anxiety may be covered by some insurance plans. Other things you can do to manage stress and anxiety include: ??? Keeping a stress diary. This can help you learn what triggers your reaction and then learn ways to manage your response. ??? Thinking about how you react to certain situations. You may not be able to control everything, but you can control your response. ??? Making time for activities that help you relax and not feeling guilty about spending your time in this way. ??? Doing visual imagery. This involves imagining or creating mental pictures to help you relax. ??? Practicing yoga. Through yoga poses, you can lower tension and relax. Medicines Medicines for anxiety include: ??? Antidepressant medicines. These are usually prescribed for long-term daily control. ??? Anti-anxiety medicines. These may be added in severe cases, especially when panic attacks occur. When used together, medicines, psychotherapy, and tension-reduction techniques may be the most effective treatment. Relationships Relationships can play a big part in helping you recover. Spend more time connecting with trusted friends and family members. Think about going to couples counseling if you have a partner, taking family education classes, or going to family therapy. Therapy can help you and others better understand your anxiety. How to recognize changes in your anxiety Everyone responds differently to treatment for anxiety. Recovery from anxiety happens when symptoms lessen and stop interfering with your daily life at home or work. This may mean that you will start to: ??? Have better concentration and focus. Worry will interfere less in your daily thinking. ??? Sleep better. ??? Be less irritable. ??? Have more energy. ??? Have improved memory. Try to recognize when your condition is getting worse. Contact your provider if your symptoms interfere with home or work and you feel like your condition is not improving. Follow these instructions at home: Activity ??? Exercise. Adults should: ? Exercise for at least 150 minutes each week. The exercise should increase your heart rate and make you sweat (moderate-intensity exercise). ? Do strengthening exercises at least twice a week. ??? Get the right amount and quality of sleep. Most adults need 7?9 hours of sleep each night. Lifestyle ??? Eat a healthy diet that includes plenty of vegetables, fruits, whole grains, low-fat dairy products, and lean protein. ? Do not eat a lot of foods that are high in fats, added sugars, or salt (sodium). ??? Make choices that simplify your life. ??? Do not use any products (more content not included)... [facility] 02-05-2024 History of Present illness Narrative Reason for Appointment: Patient ID: Nataly Garcia is a 33 y.o. female who presents for Contraception (String check) Patient presents today for String Check Follow Up appointment. MEDICATIONS Current Outpatient Medications Medication Instructions Depakote 500 mg, Oral, 2 times daily FLUoxetine (PROZAC) 40 mg, Oral, Daily Levonorgestrel (Mirena, 52 MG,) 20 MCG/DAY intrauterine device metFORMIN (GLUCOPHAGE) 500 mg, Oral, Daily with breakfast omeprazole (PRILOSEC) 40 mg, Oral, Daily before breakfast ALLERGIES Allergies Allergen Reactions Penicillin G Sodium Penicillins Other Reaction(s): Hives, Unknown PROBLEMS Active Ambulatory Problems Diagnosis Date Noted No Active Ambulatory Problems Resolved Ambulatory Problems Diagnosis Date Noted No Resolved Ambulatory Problems Past Medical History: Diagnosis Date Epilepsy (CMS/HCC) Manic depression (CMS/HCC) Pre-diabetes Seizure (CMS/HCC) HISTORY PAST MEDICAL HISTORY SOCIAL HISTORY Past Medical History: Diagnosis Date Epilepsy (CMS/HCC) Manic depression (CMS/HCC) Pre-diabetes Seizure (CMS/HCC) Social History Tobacco Use Smoking status: Never Smokeless tobacco: Never Substance Use Topics Alcohol use: Yes Comment: 1-2 drinks less than monthly in the past year Drug use: Not on file FAMILY HISTORY Family History Problem Relation Name Age of Onset Mental illness Mother Hypertension Father Diabetes Father SURGICAL HISTORY Past Surgical History: Procedure Laterality Date PAP SMEAR 09/08/2020 normal REVIEW OF SYSTEMS Review of Systems: Review of Systems Constitutional: Negative. HENT: Negative. Eyes: Negative. Respiratory: Negative. Cardiovascular: Negative. Gastrointestinal: Negative. Genitourinary: Negative. Musculoskeletal: Negative. Skin: Negative. Neurological: Negative. All other systems reviewed and are negative. Hematological: Negative. Endocrine: Negative. Allergic/Immunologic: Negative. OBJECTIVE Objective: Physical Exam Constitutional: Appearance: Normal appearance. She is well-developed. Genitourinary: Vulva normal. Cardiovascular: Rate and Rhythm: Normal rate and regular rhythm. Pulmonary: Effort: Pulmonary effort is normal. Breath sounds: Normal breath sounds. Abdominal: General: Bowel sounds are normal. There is no distension. Palpations: Abdomen is soft. Tenderness: There is no abdominal tenderness. There is no guarding or rebound. Musculoskeletal: General: No swelling. Normal range of motion. Right lower leg: No edema. Left lower leg: No edema. Neurological: Mental Status: She is alert and oriented to person, place, and time. Skin: General: Skin is warm and dry. Psychiatric: Mood and Affect: Mood normal. Behavior: Behavior normal. Vitals and nursing note reviewed. Exam conducted with a tack coverer present. Vitals: Estimated body mass index is 36.67 kg/m as calculated from the following: Height as of 01/08/24: 5' 7 . Weight as of this encounter: 234 lb 1.9 oz. BP: 110/64 Patient's last menstrual period was 02/05/2024. ASSESSMENT & PLAN ICD-10-CM 1. Encounter for routine checking of intrauterine contraceptive device (IUD) Z30.431 IUD String Check: Patient is doing well but has some complaints of bleeding and cramping following IUD placement. Patient presents today for IUD string check. Strings were visualized and are noted to be intact. Follow Up: Patient is to return to the office for annual exam unless needed otherwise. Documented by Vianney Valverde LPN on behalf of: Wesley Yang DO documented in this encounter [facility] 01-08-2024 History of Present illness Narrative Associated Order(s): IUD Removal; IUD Insertion Post-Procedure Diagnose(s): Encounter for IUD removal and reinsertion Reason for Appointment: Patient ID: Nataly Garcia is a 33 y.o. female who presents for Contraception Patient presents today for a IUD Insertion and IUD Removal appointment. MEDICATIONS Current Outpatient Medications Medication Instructions Depakote 500 mg, Oral, 2 times daily FLUoxetine (PROZAC) 40 mg, Oral, Daily Levonorgestrel (Mirena, 52 MG,) 20 MCG/DAY intrauterine device metFORMIN (GLUCOPHAGE) 500 mg, Oral, Daily with breakfast omeprazole (PRILOSEC) 40 mg, Oral, Daily before breakfast ALLERGIES Allergies Allergen Reactions Penicillin G Sodium Penicillins Other Reaction(s): Hives, Unknown SURGICAL HISTORY Past Surgical History: Procedure Laterality Date PAP SMEAR 09/08/2020 normal REVIEW OF SYSTEMS Review of Systems: Review of Systems Constitutional: Negative. HENT: Negative. Eyes: Negative. Respiratory: Negative. Cardiovascular: Negative. Gastrointestinal: Negative. Genitourinary: Negative. Musculoskeletal: Negative. Skin: Negative. Neurological: Negative. All other systems reviewed and are negative. Hematological: Negative. Endocrine: Negative. Allergic/Immunologic: Negative. OBJECTIVE Objective: Physical Exam Constitutional: Appearance: Normal appearance. She is well-developed. Genitourinary: Vulva normal. Cardiovascular: Rate and Rhythm: Normal rate and regular rhythm. Pulmonary: Effort: Pulmonary effort is normal. Breath sounds: Normal breath sounds. Abdominal: General: Bowel sounds are normal. There is no distension. Palpations: Abdomen is soft. Tenderness: There is no abdominal tenderness. There is no guarding or rebound. Musculoskeletal: General: No swelling. Normal range of motion. Right lower leg: No edema. Left lower leg: No edema. Neurological: Mental Status: She is alert and oriented to person, place, and time. Skin: General: Skin is warm and dry. Psychiatric: Mood and Affect: Mood normal. Behavior: Behavior normal. Vitals and nursing note reviewed. Exam conducted with a tack coverer present. Vitals: Estimated body mass index is 37.75 kg/m as calculated from the following: Height as of this encounter: 5' 7 . Weight as of this encounter: 241 lb. BP: 118/72 No LMP recorded. Patient has had an implant. ASSESSMENT & PLAN Assessment/Plan Encounter Diagnosis: ICD-10-CM 1. Encounter for IUD removal and reinsertion Z30.433 Levonorgestrel intrauterine device POC , urine IUD Removal Date/Time: 01/08/2024 4:32 PM Performed by: Wesley Yang DO Authorized by: Wesley Yang DO Consent: Consent obtained: Written Consent given by: Patient Procedure risks and benefits discussed: yes Patient questions answered: yes Patient agrees, verbalizes understanding, and wants to proceed: yes Educational handouts given: yes Instructions and paperwork completed: yes [place] protocol: Patient states understanding of procedure being performed: yes Relevant documents present and verified: yes Test results available and properly labeled: yes Imaging studies available: yes Required blood products, implants, devices, and special equipment available: yes Site marked: yes Procedure: Removed with no complications: yes Removal due to mechanical complications of IUD: no Removal due to infection and inflammatory reaction: no Comments: IUD Removal: Patient presents today for removal of IUD. Written consent was obtained and patient was placed in dorsal lithotomy position with feet in stirrups. A sterile speculum was inserted into the vagina and the cervix was visualized. The IUD strings were grasped gently with forceps and the IUD was removed in its entirety without difficulty. The IUD was shown to the patient then properly discarded. Follow Up: Patient is to return to the office for annual exam unless needed otherwise IUD Insertion Date/Time: 01/08/2024 4:32 PM Performed by: Wesley Yang DO Authorized by: Wesley Yang DO Consent: Consent obtained: Written Consent given by: Patient Procedure risks and benefits discussed: yes Patient questions answered: yes Patient agrees, verbalizes understanding, and wants to proceed: yes Educational handouts given: yes Instructions and paperwork completed: yes [place] protocol: Patient states understanding of procedure being performed: yes Relevant documents present and verified: yes Test results available and properly labeled: yes Imaging studies available: yes Required blood products, implants, devices, and special equipment available: yes Procedure: Pelvic exam performed: yes Negative GC/chlamydia test: no Negative urine test: yes Negative serum test: no Cervix cleaned and prepped: yes Speculum placed in vagina: yes Tenaculum applied to cervix: yes Uterus sounded: yes IUD inserted with no complications: yes IUD type: Mirena Strings trimmed: yes Post-procedure: Patient tolerated procedure well: yes Patient will follow up after next period: no Comments: IUD Insertion: Patient presents today for an IUD Insertion. Patient is having a Mirena placed and written consent was obtained. Patient was placed in the dorsal lithotomy position with feet in stirrups. A sterile speculum ws placed into the vagina and the cervix was visualized. Cervix was cleansed with betadine and the anterior lip was grasped with ring forceps. Uterus was then gently sounded. New IUD device was gently advanced through the endocervix, toward te uterine fundus. The IUD was then deployed as device was gently removed from the uterus. The IUD strings were cut to the length from external os. All instruments were removed from the vagina. Post-procedure instructions given. All of patients questions were answered and she expressed understanding. Advised to call interim with any questions or concerns. Follow Up: Patient is to return to the office in 4 weeks for a string check. Documented by Vianney Valverde LPN on behalf of: Wesley Yang DO documented in this encounter [facility] 12-24-2023 Note Patient Education Gastroenterology Nausea and Vomiting, Adult Nausea is feeling that you have an upset stomach and that you are about to vomit. Vomiting is when food in your stomach forcefully comes out of your mouth. Vomiting can make you feel weak. If you vomit, or if you are not able to drink enough fluids, you may not have enough water in your body (get dehydrated). If you do not have enough water in your body, you may: ? Feel tired. ? Feel thirsty. ? Have a dry mouth. ? Have cracked lips. ? Pee (urinate) less often. Older adults and people with other diseases or a weak body defense system (immune system) are at higher risk for not having enough water in the body. If you feel like you may vomit or you vomit, it is important to follow instructions from your doctor about how to take care of yourself. Follow these instructions at home: Watch your symptoms for any changes. Tell your doctor about them. Eating and drinking ? Take an ORS (oral rehydration solution). This is a drink that is sold at pharmacies and stores. ? Drink clear fluids in small amounts as you are able, such as: ? Water. ? Ice chips. ? Fruit juice that has water added (diluted fruit juice). ? Low-calorie sports drinks. ? Eat bland, mkfz-qu-jxwxed foods in small amounts as you are able, such as: ? Bananas. ? Applesauce. ? Rice. ? Low-fat (lean) meats. ? [place]. ? Crackers. ? Avoid drinking fluids that have a lot of sugar or caffeine in them. This includes energy drinks, sports drinks, and soda. ? Avoid alcohol. ? Avoid spicy or fatty foods. General instructions ? Take darv-pez-eqgbucx and prescription medicines only as told by your doctor. ? Drink enough fluid to keep your pee (urine) pale yellow. ? Wash your hands often with soap and water for at least 20 seconds. If you cannot use soap and water, use hand marketing consultant. ? Make sure that everyone in your home washes their hands well and often. ? Rest at home until you feel better. ? Watch your condition for any changes. ? Take slow and deep breaths when you feel like you may vomit. ? Keep all follow-up visits. Contact a doctor if: ? Your symptoms get worse. ? You have new symptoms. ? You have a fever. ? You cannot drink fluids without vomiting. ? You feel like you may vomit for more than 2 days. ? You feel light-headed or dizzy. ? You have a headache. ? You have muscle cramps. ? You have a rash. ? You have pain while peeing. Get help right away if: ? You have pain in your chest, neck, arm, or jaw. ? You feel very weak or you faint. ? You vomit again and again. ? You have vomit that is bright red or looks like black coffee grounds. ? You have bloody or black poop (stools) or poop that looks like tar. ? You have a very bad headache, a stiff neck, or both. ? You have very bad pain, cramping, or bloating in your belly (abdomen). ? You have trouble breathing. ? You are breathing very quickly. ? Your heart is beating very quickly. ? Your skin feels cold and clammy. ? You feel confused. ? You have signs of losing too much water in your body, such as: ? Dark pee, very little pee, or no pee. ? Cracked lips. ? Dry mouth. ? Sunken eyes. ? Sleepiness. ? Weakness. These symptoms may be an emergency. Get help right away. Call 911. ? Do not wait to see if the symptoms will go away. ? Do not drive yourself to the hospital. Summary ? Nausea is feeling that you have an upset stomach and that you are about to vomit. Vomiting is when food in your stomach comes out of your mouth. ? Follow instructions from your doctor about eating and drinking. ? Take zasx-ncd-hotwgze and prescription medicines only as told by your doctor. ? Contact your doctor if your symptoms get worse or you have new symptoms. ? Keep all follow-up visits. This information is not intended to replace advice given to you by your health care provider. Make sure you discuss any questions you have with your health care provider. Document Revised: 11/10/2021 Document Reviewed: 11/10/2021 Stream[employer] Patient Education ? 2022 [employer]. [facility] 12-04-2023 Hospital Discharge instructions Patient Education 12/04/2023 18:33:18 Managing Anxiety, Adult Managing Anxiety, Adult After being diagnosed with anxiety, you may be relieved to know why you have felt or behaved a certain way. You may also feel overwhelmed about the treatment ahead and what it will mean for your life. With care and support, you can manage this condition. How to manage lifestyle changes Managing stress and anxiety Stress is your body's reaction to life changes and events, both good and bad. Most stress will last just a few hours, but stress can be ongoing and can lead to more than just stress. Although stress can play a major role in anxiety, it is not the same as anxiety. Stress is usually caused by something external, such as a deadline, test, or competition. Stress normally passes after the triggering event has ended. Anxiety is caused by something internal, such as imagining a terrible outcome or worrying that something will go wrong that will devastate you. Anxiety often does not go away even after the triggering event is over, and it can become long-term (chronic) worry. It is important to understand the differences between stress and anxiety and to manage your stress effectively so that it does not lead to an anxious response. Talk with your health care provider or a counselor to learn more about reducing anxiety and stress. He or she may suggest tension reduction techniques, such as: Music therapy. Spend time creating or listening to music that you enjoy and that inspires you. Mindfulness-based meditation. Practice being aware of your normal breaths while not trying to control your breathing. It can be done while sitting or walking. Centering prayer. This involves focusing on a word, phrase, or sacred image that means something to you and brings you peace. Deep breathing. To do this, expand your stomach and inhale slowly through your nose. Hold your breath for 3 5 seconds. Then exhale slowly, letting your stomach muscles relax. Self-talk. Learn to notice and identify thought patterns that lead to anxiety reactions and change those patterns to thoughts that feel peaceful. Muscle relaxation. Taking time to tense muscles and then relax them. Choose a tension reduction technique that fits your lifestyle and personality. These techniques take time and practice. Set aside 5 15 minutes a day to do them. Therapists can offer counseling and training in these techniques. The training to help with anxiety may be covered by some insurance plans. Other things you can do to manage stress and anxiety include: Keeping a stress diary. This can help you learn what triggers your reaction and then learn ways to manage your response. Thinking about how you react to certain situations. You may not be able to control everything, but you can control your response. Making time for activities that help you relax and not feeling guilty about spending your time in this way. Doing visual imagery. This involves imagining or creating mental pictures to help you relax. Practicing yoga. Through yoga poses, you can lower tension and promote relaxation. Medicines Medicines can help ease symptoms. Medicines for anxiety include: Antidepressant medicines. These are usually prescribed for long-term daily control. Anti-anxiety medicines. These may be added in severe cases, especially when panic attacks occur. Medicines will be prescribed by a health care provider. When used together, medicines, psychotherapy, and tension reduction techniques may be the most effective treatment. Relationships Relationships can play a big part in helping you recover. Try to spend more time connecting with trusted friends and family members. Consider going to couples counseling if you have a partner, taking family education classes, or going to family therapy. Therapy can help you and others better understand your condition. How to recognize changes in your anxiety Everyone responds differently to treatment for anxiety. Recovery from anxiety happens when symptoms decrease and stop interfering with your daily activities at home or work. This may mean that you will start to: Have better concentration and focus. Worry will interfere less in your daily thinking. Sleep better. Be less irritable. Have more energy. Have improved memory. It is also important to recognize when your condition is getting worse. Contact your health care provider if your symptoms interfere with home or work and you feel like your condition is not improving. Follow these instructions at home: Activity Exercise. Adults should do the following: ?Exercise for at least 150 minutes each week. The exercise should increase your heart rate and make you sweat (moderate-intensity exercise). ?Strengthening exercises at least twice a week. Get the right amount and quality of sleep. Most adults need 7 9 hours of sleep each night. Lifestyle Eat a healthy diet that includes plenty of vegetables, fruits, whole grains, low-fat dairy products, and lean protein. ?Do not eat a lot of foods that are high in fats, added sugars, or salt (sodium). Make choices that simplify your life. Do not use any products that contain nicotine or tobacco. These products include cigarettes, chewing tobacco, and vaping devices, such as e-cigarettes. If you need help quitting, ask your health care provider. Avoid caffeine, alcohol, and certain cyhs-hvx-dlcoelb cold medicines. These may make you feel worse. Ask your pharmacist which medicines to avoid. General instructions Take vdsu-gmq-waduwof and prescription medicines only as told by your health care provider. Keep all follow-up visits. This is important. Where to find support You can get help and support from these sources: Self-help groups. Online and community organizations. A trusted spiritual leader. Couples counseling. Family education classes. Family therapy. Where to find more information You may find that joining a support group helps you deal with your anxiety. The following sources can help you locate counselors or support groups near you: Mental Health [place]: www.mentalhealthamerica.net Anxiety and Depression Association of [place] (ADAA): www.adaa.org National [place] on Mental Illness (MICHELLE): www.michelle.org Contact a health care provider if: You have a hard time staying focused or finishing daily tasks. You spend many hours a day feeling worried about everyday life. You become exhausted by worry. You start to have headaches or frequently feel tense. You develop chronic nausea or diarrhea. Get help right away if: You have a racing heart and shortness of breath. You have thoughts of hurting yourself or others. If you ever feel like you may hurt yourself or others, or have thoughts about taking your own life, get help right away. Go to your nearest emergency department or: Call your local emergency services (889 in the [place] Call a suicide crisis helpline, such as the National Suicide Prevention Lifeline at or 497 in the [place] This is open 24 hours a day in the [place] Text the Crisis Text Line at 973058 (in the [place] Summary Taking steps to learn and use tension reduction techniques can help calm you and help prevent triggering an anxiety reaction. When used together, medicines, psychotherapy, and tension reduction techniques may be the most effective treatment. Family, friends, and partners can play a big part in supporting you. This information is not intended to replace advice given to you by your health care provider. Make sure you discuss any questions you have with your health care provider. Document Revised: 11/29/2021 Document Reviewed: 08/27/2021 Stream[employer] Patient Education 2022 [employer]. 12/04/2023 18:33:16 Exercising to Lose Weight Exercising to Lose Weight Getting regular exercise is important for everyone. It is especially important if you are overweight. Being overweight increases your risk of heart disease, stroke, diabetes, high blood pressure, and several types of cancer. Exercising, and reducing the calories you consume, can help you lose weight and improve fitness and health. Exercise can be moderate or vigorous intensity. To lose weight, most people need to do a certain amount of moderate or vigorous-intensity exercise each week. How can exercise affect me? You lose weight when you exercise enough to burn more calories than you eat. Exercise also reduces body fat and builds muscle. The more muscle you have, the more calories you burn. Exercise also: Improves mood. Reduces stress and tension. Improves your overall fitness, flexibility, and endurance. Increases bone strength. Moderate-intensity exercise Moderate-intensity exercise is any activity that gets you moving enough to burn at least three times more energy (calories) than if you were sitting. Examples of moderate exercise include: Walking a mile in 15 minutes. Doing light yard work. Biking at an easy pace. Most people should get at least 150 minutes of moderate-intensity exercise a week to maintain their body weight. Vigorous-intensity exercise Vigorous-intensity exercise is any activity that gets you moving enough to burn at least six times more calories than if you were sitting. When you exercise at this intensity, you should be working hard enough that you are not able to carry on a conversation. Examples of vigorous exercise include: Running. Playing a team sport, such as football, basketball, and soccer. Jumping rope. Most people should get at least 75 minutes a week of vigorous exercise to maintain their body weight. What actions can I take to lose weight? The amount of exercise you need to lose weight depends on: Your age. The type of exercise. Any health conditions you have. Your overall physical ability. Talk to your health care provider about how much exercise you need and what types of activities are safe for you. Nutrition Make changes to your diet as told by your health care provider or diet and dairy nutritionist (dietitian). This may include: ?Eating fewer calories. ?Eating more protein. ?Eating less unhealthy fats. ?Eating a diet that includes fresh fruits and vegetables, whole grains, low-fat dairy products, and lean protein. ?Avoiding foods with added fat, salt, and sugar. Drink plenty of water while you exercise to prevent dehydration or heat stroke. Activity Choose an activity that you enjoy and set realistic goals. Your health care provider can help you make an exercise plan that works for you. Exercise at a moderate or vigorous intensity most days of the week. ?The intensity of exercise may vary from person to person. You can tell how intense a workout is for you by paying attention to your breathing and heartbeat. Most people will notice their breathing and heartbeat get faster with more intense exercise. Do resistance training twice each week, such as: ?Push-ups. ?Sit-ups. ?Lifting weights. ?Using resistance bands. Getting short amounts of exercise can be just as helpful as long, structured periods of exercise. If you have trouble finding time to exercise, try doing these things as part of your daily routine: ?Get up, stretch, and walk around every 30 minutes throughout the day. ?Go for a walk during your lunch break. ?Park your car farther away from your destination. ?If you take public transportation, get off one stop early and walk the rest of the way. ?Make phone calls while standing up and walking around. ?Take the stairs instead of elevators or escalators. Wear comfortable clothes and shoes with good support. Do not exercise so much that you hurt yourself, feel dizzy, or get very short of breath. Where to find more information [place]. Department of Health and Human Services: www.hhs.gov Centers for Disease Control and Prevention: www.cdc.gov Contact a health care provider: Before starting a new exercise program. If you have questions or concerns about your weight. If you have a medical problem that keeps you from exercising. Get help right away if: You have any of the following while exercising: ?Injury. ?Dizziness. ?Difficulty breathing or shortness of breath that does not go away when you stop exercising. ?Chest pain. ?Rapid heartbeat. These symptoms may represent a serious problem that is an emergency. Do not wait to see if the symptoms will go away. Get medical help right away. Call your local emergency services (911 in the [place] Do not drive yourself to the hospital. Summary Getting regular exercise is especially important if you are overweight. Being overweight increases your risk of heart disease, stroke, diabetes, high blood pressure, and several types of cancer. Losing weight happens when you burn more calories than you eat. Reducing the amount of calories you eat, and getting regular moderate or vigorous exercise each week, helps you lose weight. This information is not intended to replace advice given to you by your health care provider. Make sure you discuss any questions you have with your health care provider. Document Revised: 07/02/2021 Document Reviewed: 07/02/2021 Stream5 Patient Education 2022 [employer]. 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 You may also feel overwhelmed about the treatment ahead and what it will mean for your life. With care and support, you can manage this condition. How to manage lifestyle changes Managing stress and anxiety Stress is your body's reaction to life changes and events, both good and bad. Most stress will last just a few hours, but stress can be ongoing and can lead to more than just stress. Although stress can play a major role in anxiety, it is not the same as anxiety. Stress is usually caused by something external, such as a deadline, test, or competition. Stress normally passes after the triggering event has ended. Anxiety is caused by something internal, such as imagining a terrible outcome or worrying that something will go wrong that will devastate you. Anxiety often does not go away even after the triggering event is over, and it can become long-term (chronic) worry. It is important to understand the differences between stress and anxiety and to manage your stress effectively so that it does not lead to an anxious response. Talk with your health care provider or a counselor to learn more about reducing anxiety and stress. He or she may suggest tension reduction techniques, such as: ? Music therapy. Spend time creating or listening to music that you enjoy and that inspires you. ? Mindfulness-based meditation. Practice being aware of your normal breaths while not trying to control your breathing. It can be done while sitting or walking. ? Centering prayer. This involves focusing on a word, phrase, or sacred image that means something to you and brings you peace. ? Deep breathing. To do this, expand your stomach and inhale slowly through your nose. Hold your breath for 3?5 seconds. Then exhale slowly, letting your stomach muscles relax. ? Self-talk. Learn to notice and identify thought patterns that lead to anxiety reactions and change those patterns to thoughts that feel peaceful. ? Muscle relaxation. Taking time to tense muscles and then relax them. Choose a tension reduction technique that fits your lifestyle and personality. These techniques take time and practice. Set aside 5?15 minutes a day to do them. Therapists can offer counseling and training in these techniques. The training to help with anxiety may be covered by some insurance plans. Other things you can do to manage stress and anxiety include: ? Keeping a stress diary. This can help you learn what triggers your reaction and then learn ways to manage your response. ? Thinking about how you react to certain situations. You may not be able to control everything, but you can control your response. ? Making time for activities that help you relax and not feeling guilty about spending your time in this way. ? Doing visual imagery. This involves imagining or creating mental pictures to help you relax. ? Practicing yoga. Through yoga poses, you can lower tension and promote relaxation. Medicines Medicines can help ease symptoms. Medicines for anxiety include: ? Antidepressant medicines. These are usually prescribed for long-term daily control. ? Anti-anxiety medicines. These may be added in severe cases, especially when panic attacks occur. Medicines will be prescribed by a health care provider. When used together, medicines, psychotherapy, and tension reduction techniques may be the most effective treatment. Relationships Relationships can play a big part in helping you recover. Try to spend more time connecting with trusted friends and family members. ? Consider going to couples counseling if you have a partner, taking family education classes, or going to family therapy. ? Therapy can help you and others better understand your condition. How to recognize changes in your anxiety Everyone responds differently to treatment for anxiety. Recovery from anxiety happens when symptoms decrease and stop interfering with your daily activities at home or work. This may mean that you will start to: ? Have better concentration and focus. Worry will interfere less in your daily thinking. ? Sleep better. ? Be less irritable. ? Have more energy. ? Have improved memory. It is also important to recognize when your condition is getting worse. Contact your health care provider if your symptoms interfere with home or work and you feel like your condition is not improving. Follow these instructions at home: Activity ? Exercise. Adults should do the following: ? Exercise for at least 150 minutes each week. The exercise should increase your heart rate and make you sweat (moderate-intensity exercise). ? Strengthening exercises at least twice a week. ? Get the right amount and quality of sleep. Most adults need 7?9 hours of sleep each night. Lifestyle (Inserted Image. Michelle (more content not included)... [facility] 11-05-2023 Hospital Discharge instructions Patient Education 11/05/2023 15:02:08 Exercising to Lose Weight Exercising to Lose Weight Getting regular exercise is important for everyone. It is especially important if you are overweight. Being overweight increases your risk of heart disease, stroke, diabetes, high blood pressure, and several types of cancer. Exercising, and reducing the calories you consume, can help you lose weight and improve fitness and health. Exercise can be moderate or vigorous intensity. To lose weight, most people need to do a certain amount of moderate or vigorous-intensity exercise each week. How can exercise affect me? You lose weight when you exercise enough to burn more calories than you eat. Exercise also reduces body fat and builds muscle. The more muscle you have, the more calories you burn. Exercise also: Improves mood. Reduces stress and tension. Improves your overall fitness, flexibility, and endurance. Increases bone strength. Moderate-intensity exercise Moderate-intensity exercise is any activity that gets you moving enough to burn at least three times more energy (calories) than if you were sitting. Examples of moderate exercise include: Walking a mile in 15 minutes. Doing light yard work. Biking at an easy pace. Most people should get at least 150 minutes of moderate-intensity exercise a week to maintain their body weight. Vigorous-intensity exercise Vigorous-intensity exercise is any activity that gets you moving enough to burn at least six times more calories than if you were sitting. When you exercise at this intensity, you should be working hard enough that you are not able to carry on a conversation. Examples of vigorous exercise include: Running. Playing a team sport, such as football, basketball, and soccer. Jumping rope. Most people should get at least 75 minutes a week of vigorous exercise to maintain their body weight. What actions can I take to lose weight? The amount of exercise you need to lose weight depends on: Your age. The type of exercise. Any health conditions you have. Your overall physical ability. Talk to your health care provider about how much exercise you need and what types of activities are safe for you. Nutrition Make changes to your diet as told by your health care provider or diet and dairy nutritionist (dietitian). This may include: ?Eating fewer calories. ?Eating more protein. ?Eating less unhealthy fats. ?Eating a diet that includes fresh fruits and vegetables, whole grains, low-fat dairy products, and lean protein. ?Avoiding foods with added fat, salt, and sugar. Drink plenty of water while you exercise to prevent dehydration or heat stroke. Activity Choose an activity that you enjoy and set realistic goals. Your health care provider can help you make an exercise plan that works for you. Exercise at a moderate or vigorous intensity most days of the week. ?The intensity of exercise may vary from person to person. You can tell how intense a workout is for you by paying attention to your breathing and heartbeat. Most people will notice their breathing and heartbeat get faster with more intense exercise. Do resistance training twice each week, such as: ?Push-ups. ?Sit-ups. ?Lifting weights. ?Using resistance bands. Getting short amounts of exercise can be just as helpful as long, structured periods of exercise. If you have trouble finding time to exercise, try doing these things as part of your daily routine: ?Get up, stretch, and walk around every 30 minutes throughout the day. ?Go for a walk during your lunch break. ?Park your car farther away from your destination. ?If you take public transportation, get off one stop early and walk the rest of the way. ?Make phone calls while standing up and walking around. ?Take the stairs instead of elevators or escalators. Wear comfortable clothes and shoes with good support. Do not exercise so much that you hurt yourself, feel dizzy, or get very short of breath. Where to find more information U.S. Department of Health and Human Services: www.hhs.gov Centers for Disease Control and Prevention: www.cdc.gov Contact a health care provider: Before starting a new exercise program. If you have questions or concerns about your weight. If you have a medical problem that keeps you from exercising. Get help right away if: You have any of the following while exercising: ?Injury. ?Dizziness. ?Difficulty breathing or shortness of breath that does not go away when you stop exercising. ?Chest pain. ?Rapid heartbeat. These symptoms may represent a serious problem that is an emergency. Do not wait to see if the symptoms will go away. Get medical help right away. Call your local emergency services (911 in the [place] Do not drive yourself to the hospital. Summary Getting regular exercise is especially important if you are overweight. Being overweight increases your risk of heart disease, stroke, diabetes, high blood pressure, and several types of cancer. Losing weight happens when you burn more calories than you eat. Reducing the amount of calories you eat, and getting regular moderate or vigorous exercise each week, helps you lose weight. This information is not intended to replace advice given to you by your health care provider. Make sure you discuss any questions you have with your health care provider. Document Revised: 07/02/2021 Document Reviewed: 07/02/2021 Stream5 Patient Education 2022 [employer]. 11/05/2023 15:02:07 Mediterranean Diet Mediterranean Diet A Mediterranean diet refers to food and lifestyle choices that are based on the traditions of countries located on the [place] Sea. It focuses on eating more fruits, vegetables, whole grains, beans, nuts, seeds, and heart-healthy fats, and eating less dairy, meat, eggs, and processed foods with added sugar, salt, and fat. This way of eating has been shown to help prevent certain conditions and improve outcomes for people who have chronic diseases, like kidney disease and heart disease. What are tips for following this plan? Reading food labels Check the serving size of packaged foods. For foods such as rice and pasta, the serving size refers to the amount of cooked product, not dry. Check the total fat in packaged foods. Avoid foods that have saturated fat or trans fats. Check the ingredient list for added sugars, such as corn syrup. Shopping Buy a variety of foods that offer a balanced diet, including: ?Fresh fruits and vegetables (produce). ?Grains, beans, nuts, and seeds. Some of these may be available in unpackaged forms or large amounts (in bulk). ?Fresh seafood. ?Poultry and eggs. ?Low-fat dairy products. Buy whole ingredients instead of prepackaged foods. Buy fresh fruits and vegetables in-season from local farmers markets. Buy plain frozen fruits and vegetables. If you do not have access to quality fresh seafood, buy precooked frozen shrimp or canned fish, such as tuna, salmon, or sardines. Stock your pantry so you always have certain foods on hand, such as olive oil, canned tuna, canned tomatoes, rice, pasta, and beans. Cooking Cook foods with extra-virgin olive oil instead of using butter or other vegetable oils. Have meat as a side dish, and have vegetables or grains as your main dish. This means having meat in small portions or adding small amounts of meat to foods like pasta or stew. Use beans or vegetables instead of meat in common dishes like chili or lasagna. [place] with different cooking methods. Try roasting, broiling, steaming, and saut ing vegetables. Add frozen vegetables to soups, stews, pasta, or rice. Add nuts or seeds for added healthy fats and plant protein at each meal. You can add these to yogurt, salads, or vegetable dishes. Marinate fish or vegetables using olive oil, lemon juice, garlic, and fresh herbs. Meal planning Plan to eat one vegetarian meal one day each week. Try to work up to two vegetarian meals, if possible. Eat seafood two or more times a week. Have healthy snacks readily available, such as: ?Vegetable sticks with hummus. ?[place]ijani yogurt. ?Fruit and nut trail mix. Eat balanced meals throughout the week. This includes: ?Fruit: 2 3 servings a day. ?Vegetables: 4 5 servings a day. ?Low-fat dairy: 2 servings a day. ?Fish, poultry, or lean meat: 1 serving a day. ?Beans and legumes: 2 or more servings a week. ?Nuts and seeds: 1 2 servings a day. ?Whole grains: 6 8 servings a day. ?Extra-virgin olive oil: 3 4 servings a day. Limit red meat and sweets to only a few servings a month. Lifestyle Cook and eat meals together with your family, when possible. Drink enough fluid to keep your urine pale yellow. Be physically active every day. This includes: ?Aerobic exercise like running or swimming. ?Leisure activities like gardening, walking, or housework. Get 7 8 hours of sleep each night. If recommended by your health care provider, drink red wine in moderation. This means 1 glass a day for non women and 2 glasses a day for men. A glass of wine equals 5 oz (150 mL). What foods should I eat? Fruits Apples. Apricots. Avocado. Berries. Bananas. Cherries. Dates. Figs. Grapes. Adams. Melon. Oranges. Peaches. Plums. Pomegranate. Vegetables Artichokes. Beets. Broccoli. Cabbage. Carrots. Eggplant. Green beans. Chard. Kale. Spinach. Onions. Leeks. Peas. Squash. Tomatoes. Peppers. Radishes. Grains Whole-grain pasta. Brown rice. Bulgur wheat. Polenta. Couscous. Whole-wheat bread. Oatmeal. Quinoa. Meats and other proteins Beans. Almonds. [place] seeds. [place] nuts. Peanuts. Cod. [place]. Scallops. Shrimp. Tuna. Tilapia. Clams. Oysters. Eggs. Poultry without skin. Dairy Low-fat milk. Cheese. [place]ijani yogurt. Fats and oils Extra-virgin olive oil. Avocado oil. Grapeseed oil. Beverages Water. Red wine. Herbal tea. Sweets and desserts [place]ani yogurt with honey. Baked apples. Poached pears. [place] mix. Seasonings and condiments Basil. Cilantro. Coriander. Cumin. Mint. Parsley. Willy. Dunia. Tarragon. Garlic. Oregano. Thyme. Pepper. Balsamic vinegar. Tahini. Hummus. Tomato sauce. Olives. Mushrooms. The items listed above may not be a complete list of foods and beverages you can eat. Contact a dietitian for more information. What foods should I limit? This is a list of foods that should be eaten rarely or only on special occasions. Fruits Fruit canned in syrup. Vegetables Deep-fried potatoes (azeri fries). Grains Prepackaged pasta or rice dishes. Prepackaged cereal with added sugar. Prepackaged snacks with added sugar. Meats and other proteins Beef. Pork. [place]. Poultry with skin. Hot dogs. Dub[place]. Dairy Ice cream. Sour cream. Whole milk. Fats and oils Butter. Canola oil. Vegetable oil. Beef fat (tallow). Lard. Beverages Juice. Sugar-sweetened soft drinks. Beer. Liquor and spirits. Sweets and desserts Cookies. Cakes. Pies. Candy. Seasonings and condiments Mayonnaise. Pre-made sauces and marinades. The items listed above may not be a complete list of foods and beverages you should limit. Contact a dietitian for more information. Summary The Mediterranean diet includes both food and lifestyle choices. Eat a variety of fresh fruits and vegetables, beans, nuts, seeds, and whole grains. Limit the amount of red meat and sweets that you eat. If recommended by your health care provider, drink red wine in moderation. This means 1 glass a day for non women and 2 glasses a day for men. A glass of wine equals 5 oz (150 mL). This information is not intended to replace advice given to you by your health care provider. Make sure you discuss any questions you have with your health care provider. Document Revised: 06/10/2020 Document Reviewed: 04/07/2020 [employer] Patient Education 2022 [employer]. Follow Up Care 10/30/2023 12:05:25 With:Toy DOBBINS, BIBLICAL LANGUAGES PROFESSOR-AFSANEH, Sarah Pena Address: [address] [place] [phone] When:Within 1 Month(s) Comments:weight loss, 40 minute initial [facility] [place] 08-06-2023 Hospital Discharge instructions Patient Education 08/06/2023 20:49:59 Pharyngitis Pharyngitis Pharyngitis is inflammation of the throat (pharynx). It is a very common cause of sore throat. Pharyngitis can be caused by a bacteria, but it is usually caused by a virus. Most cases of pharyngitis get better on their own without treatment. What are the causes? This condition may be caused by: Infection by viruses (viral). Viral pharyngitis spreads easily from person to person (is contagious) through coughing, sneezing, and sharing of personal items or utensils such as cups, forks, spoons, and toothbrushes. Infection by bacteria (bacterial). Bacterial pharyngitis may be spread by touching the nose or face after coming in contact with the bacteria, or through close contact, such as kissing. Allergies. Allergies can cause buildup of mucus in the throat (post-nasal drip), leading to inflammation and irritation. Allergies can also cause blocked nasal passages, forcing breathing through the mouth, which dries and irritates the throat. What increases the risk? You are more likely to develop this condition if: You are 5 24 years old. You are exposed to crowded environments such as daycare, school, or dormitory living. You live in a cold climate. You have a weakened disease-fighting (immune) system. What are the signs or symptoms? Symptoms of this condition vary by the cause. Common symptoms of this condition include: Sore throat. Fatigue. Low-grade fever. Stuffy nose (nasal congestion) and cough. Headache. Other symptoms may include: Glands in the neck (lymph nodes) that are swollen. Skin rashes. Plaque-like film on the throat or tonsils. This is often a symptom of bacterial pharyngitis. Vomiting. Red, itchy eyes (conjunctivitis). Loss of appetite. Joint pain and muscle aches. Enlarged tonsils. How is this diagnosed? This condition may be diagnosed based on your medical history and a physical exam. Your health care provider will ask you questions about your illness and your symptoms. A swab of your throat may be done to check for bacteria (rapid strep test). Other lab tests may also be done, depending on the suspected cause, but these are rare. How is this treated? Many times, treatment is not needed for this condition. Pharyngitis usually gets better in 3 4 days without treatment. Bacterial pharyngitis may be treated with antibiotic medicines. Follow these instructions at home: Medicines Take pbxy-zya-zcwttlp and prescription medicines only as told by your health care provider. If you were prescribed an antibiotic medicine, take it as told by your health care provider. Do not stop taking the antibiotic even if you start to feel better. Use throat sprays to soothe your throat as told by your health care provider. Children can get pharyngitis. Do not give your child aspirin because of the association with Gianluca's syndrome. Managing pain To help with pain, try: Sipping warm liquids, such as broth, herbal tea, or warm water. Eating or drinking cold or frozen liquids, such as frozen ice pops. Gargling with a mixture of salt and water 3 4 times a day or as needed. To make salt water, completely dissolve 1 tsp (3 6 g) of salt in 1 cup (237 mL) of warm water. Sucking on hard candy or throat lozenges. Putting a cool-mist humidifier in your bedroom at night to moisten the air. Sitting in the bathroom with the door closed for 5 10 minutes while you run hot water in the shower. General instructions Do not use any products that contain nicotine or tobacco. These products include cigarettes, chewing tobacco, and vaping devices, such as e-cigarettes. If you need help quitting, ask your health care provider. Rest as told by your health care provider. Drink enough fluid to keep your urine pale yellow. How is this prevented? To help prevent becoming infected or spreading infection: Wash your hands often with soap and water for at least 20 seconds. If soap and water are not available, use hand marketing consultant. Do not touch your eyes, nose, or mouth with unwashed hands, and wash hands after touching these areas. Do not share cups or eating utensils. Avoid close contact with people who are sick. Contact a health care provider if: You have large, tender lumps in your neck. You have a rash. You cough up green, yellow-brown, or bloody mucus. Get help right away if: Your neck becomes stiff. You drool or are unable to swallow liquids. You cannot drink or take medicines without vomiting. You have severe pain that does not go away, even after you take medicine. You have trouble breathing, and it is not caused by a stuffy nose. You have new pain and swelling in your joints such as the knees, ankles, wrists, or elbows. These symptoms may represent a serious problem that is an emergency. Do not wait to see if the symptoms will go away. Get medical help right away. Call your local emergency services (911 in the [place] Do not drive yourself to the hospital. Summary Pharyngitis is redness, pain, and swelling (inflammation) of the throat (pharynx). While pharyngitis can be caused by a bacteria, the most common causes are viral. Most cases of pharyngitis get better on their own without treatment. Bacterial pharyngitis is treated with antibiotic medicines. This information is not intended to replace advice given to you by your health care provider. Make sure you discuss any questions you have with your health care provider. Document Revised: 08/02/2021 Document Reviewed: 08/02/2021 [employer] Patient Education 2022 [employer] 08/06/2023 20:49:53 Upper Respiratory Infection, Adult Upper Respiratory Infection, Adult An upper respiratory infection (URI) is a common viral infection of the nose, throat, and upper air passages that lead to the lungs. The most common type of URI is the common cold. URIs usually get better on their own, without medical treatment. What are the causes? A URI is caused by a virus. You may catch a virus by: Breathing in droplets from an infected person's cough or sneeze. Touching something that has been exposed to the virus (is contaminated) and then touching your mouth, nose, or eyes. What increases the risk? You are more likely to get a URI if: You are very young or very old. You have close contact with others, such as at work, school, or a health care facility. You smoke. You have long-term (chronic) heart or lung disease. You have a weakened disease-fighting system (immune system). You have nasal allergies or asthma. You are experiencing a lot of stress. You have poor nutrition. What are the signs or symptoms? A URI usually involves some of the following symptoms: Runny or stuffy (congested) nose. Cough. Sneezing. Sore throat. Headache. Fatigue. Fever. Loss of appetite. Pain in your forehead, behind your eyes, and over your cheekbones (sinus pain). Muscle aches. Redness or irritation of the eyes. Pressure in the ears or face. How is this diagnosed? This condition may be diagnosed based on your medical history and symptoms, and a physical exam. Your health care provider may use a swab to take a mucus sample from your nose (nasal swab). This sample can be tested to determine what virus is causing the illness. How is this treated? URIs usually get better on their own within 7 10 days. Medicines cannot cure URIs, but your health care provider may recommend certain medicines to help relieve symptoms, such as: Zwrj-fdx-gqpprwk cold medicines. Cough suppressants. Coughing is a type of defense against infection that helps to clear the respiratory system, so take these medicines only as recommended by your health care provider. Fever-reducing medicines. Follow these instructions at home: Activity Rest as needed. If you have a fever, stay home from work or school until your fever is gone or until your health care provider says your URI cannot spread to other people (is no longer contagious). Your health care provider may have you wear a face mask to prevent your infection from spreading. Relieving symptoms Gargle with a mixture of salt and water 3 4 times a day or as needed. To make salt water, completely dissolve 1 tsp (3 6 g) of salt in 1 cup (237 mL) of warm water. Use a cool-mist humidifier to add moisture to the air. This can help you breathe more easily. Eating and drinking Drink enough fluid to keep your urine pale yellow. Eat soups and other clear broths. General instructions Take rltm-jha-kayzxgd and prescription medicines only as told by your health care provider. These include cold medicines, fever reducers, and cough suppressants. Do not use any products that contain nicotine or tobacco. These products include cigarettes, chewing tobacco, and vaping devices, such as e-cigarettes. If you need help quitting, ask your health care provider. Stay away from secondhand smoke. Stay up to date on all immunizations, including the yearly (annual) flu vaccine. Keep all follow-up visits. This is important. How to prevent the spread of infection to others URIs can be contagious. To prevent the infection from spreading: Wash your hands with soap and water for at least 20 seconds. If soap and water are not available, use hand marketing consultant. Avoid touching your mouth, face, eyes, or nose. Cough or sneeze into a tissue or your sleeve or elbow instead of into your hand or into the air. Contact a health care provider if: You are getting worse instead of better. You have a fever or chills. Your mucus is brown or red. You have yellow or brown discharge coming from your nose. You have pain in your face, especially when you bend forward. You have swollen neck glands. You have pain while swallowing. You have white areas in the back of your throat. Get help right away if: You have shortness of breath that gets worse. You have severe or persistent: ?Headache. ?Ear pain. ?Sinus pain. ?Chest pain. You have chronic lung disease along with any of the following: ?Making high-pitched whistling sounds when you breathe, most often when you breathe out (wheezing). ?Prolonged cough (more than 14 days). ?Coughing up blood. ?A change in your usual mucus. You have a stiff neck. You have changes in your: ?Vision. ?Hearing. ?Thinking. ?Mood. These symptoms may be an emergency. Get help right away. Call 911. Do not wait to see if the symptoms will go away. Do not drive yourself to the hospital. Summary An upper respiratory infection (URI) is a common infection of the nose, throat, and upper air passages that lead to the lungs. A URI is caused by a virus. URIs usually get better on their own within 7 10 days. Medicines cannot cure URIs, but your health care provider may recommend certain medicines to help relieve symptoms. This information is not intended to replace advice given to you by your health care provider. Make sure you discuss any questions you have with your health care provider. Document Revised: 12/06/2021 Document Reviewed: 12/06/2021 [employer] Patient Education 2022 [employer]. Follow Up Care 08/06/2023 09:11:55 With:Toy DOBBINS, BIBLICAL LANGUAGES PROFESSOR-IT SECURITY PROJECT MANAGER, Sarah Pena Address: [address] [place] [id number] When: only if needed Comments[facility] Discharge instructions Patient Education 06/22/2023 13:54:58 Epilepsy Epilepsy Epilepsy is a condition in which a person has repeated seizures over time. A seizure is a sudden burst of abnormal electrical and chemical activity in the brain. Seizures can cause a change in attention, behavior, or ability to remain awake and alert (altered mental status). Epilepsy increases a person's risk of falls, accidents, and injury. It can also lead to: Depression. Poor memory. Sudden unexplained in epilepsy (SUDEP). This is rare, and its cause is not known. Most people with epilepsy lead normal lives. What are the causes? This condition may be caused by: A head injury or injury that happens at . A high fever during childhood. A stroke. Bleeding into or around the brain. Certain medicines and drugs. Having too little oxygen for a long period of time. Abnormal brain development. Certain conditions. These may include: ?Brain infection. ?Brain tumor. ?Conditions that are passed from parent to child (are hereditary). Many times, the cause of this condition is not known. What are the signs or symptoms? Symptoms of a seizure vary greatly from person to person. They may include: Uncontrollable shaking (convulsions) with fast, jerking movements of the arms or legs. Stiffening of the body. Breathing problems. Confusion, staring, or unresponsiveness. Head nodding, eye blinking or fluttering, or rapid eye movements. Drooling, grunting, or making clicking sounds with your mouth. Loss of bladder control and bowel control. Some people have symptoms right before a seizure happens (aura) and right after a seizure happens. Symptoms of an aura include: Fear or anxiety. Nausea. Vertigo. This is a feeling like: ?You are moving when you are not. ?Your surroundings are moving when they are not. Caity camejo. This is a feeling of having seen or heard something before. Odd tastes or smells. Changes in vision, such as seeing flashing lights or spots. Symptoms that follow a seizure include: Confusion. Sleepiness. Headache. Sore muscles. How is this diagnosed? This condition is diagnosed based on: Your symptoms. Your medical history. A physical exam. A neurological exam. This includes checking your strength, reflexes, coordination, and sensations. Tests. These may include: ?A painless test that records your brain waves (electroencephalogram, orEEG). ?MRI. ?CT scan. ?A test of your spinal fluid (lumbar puncture, or spinal tap). ?Blood tests to check for signs of infection or abnormal blood chemistry. How is this treated? Treatment can control seizures. Some types of epilepsy will need lifelong treatment, and some types go away in time. This condition may be treated with: Medicines to control seizures and prevent future seizures. A vagus nerve stimulator. This is a device that is implanted in the chest. The device sends electrical impulses to the vagus nerve and to the brain to prevent seizures. This treatment may be recommended if medicines do not help. Brain surgery. There are several kinds of surgeries that may be done to stop seizures from happening or to reduce how often seizures happen. Blood tests. You may need to have blood tests regularly to check that you are getting the right amount of medicine. The ketogenic diet. This diet involves foods that are low in carbohydrates and high in fat. When this condition has been diagnosed, it is important to begin treatment as soon as possible. For some people, epilepsy goes away in time. Follow these instructions at home: Medicines Take vlhj-kgf-yngjaaf and prescription medicines only as told by your health care provider. Avoid any substances that may prevent your medicine from working properly, such as alcohol. Activity Get enough rest. Lack of sleep can make seizures more likely to happen. Follow instructions from your health care provider about driving, swimming, and doing any other activities that would be dangerous if you had a seizure. If you live in the [place] check with your local department of [employer] ([employer]) to find out about local driving laws. Each state has specific rules about when you can legally start driving again. Educating others Teach friends and family what to do if you have a seizure. They should: ?Help you get down to the ground to prevent a fall. ?Cushion your head and body. ?Loosen any tight clothing around your neck. ?Turn you on your side. If vomiting occurs, this helps keep your airway clear. ?Not hold you down. Holding you down will not stop the seizure. ?Not put anything in your mouth. ?Stay with you until you recover. ?Know whether or not you need emergency care. General instructions Avoid anything that has ever triggered a seizure for you. Keep a seizure diary. Record what you remember about each seizure, especially anything that might have triggered the seizure. Keep all follow-up visits. This is important. Where to find more information Epilepsy Foundation: epilepsy.com International League Against Epilepsy: ilae.org Contact a health care provider if: Your seizure pattern changes. You continue to have seizures with treatment. You have symptoms of an infection or illness. Either of these might increase your risk of having a seizure. You are unable to take your medicine. Get help right away if: You have: ?A seizure that does not stop after 5 minutes. ?Several seizures in a row without a complete recovery between seizures. ?A seizure that makes it harder to breathe. ?A seizure that leaves you unable to speak or use a part of your body. You did not wake up right away after a seizure. You injure yourself during a seizure. You have confusion or pain right after a seizure. These symptoms may represent a serious problem that is an emergency. Do not wait to see if the symptoms will go away. Get medical help right away. Call your local emergency services (500 in the [place] Do not drive yourself to the hospital. If you ever feel like you may hurt yourself or others, or have thoughts about taking your own life, get help right away. Go to your nearest emergency department or: Call your local emergency services (834 in the [place] Call a suicide crisis helpline, such as the National Suicide Prevention Lifeline at or 283 in the [place] This is open 24 hours a day in the [place] Text the Crisis Text Line at 965574 (in the [place] Summary Epilepsy is a condition in which a person has repeated seizures over time. Some types of epilepsy will need lifelong treatment, and some types go away in time. Seizures can cause many symptoms, such as brief staring and uncontrollable shaking or fast movements of the arms or legs. Treatment can control seizures. Take xiun-ssl-uismknh and prescription medicines only as told by your health care provider. Follow instructions from your health care provider about driving, swimming, and doing any other activities that would be dangerous if you had a seizure. Teach friends and family what to do if you have a seizure. This information is not intended to replace advice given to you by your health care provider. Make sure you discuss any questions you have with your health care provider. Document Revised: 11/29/2021 Document Reviewed: 11/07/2020 [employer] Patient Education 2022 [employer] Follow Up Care 05/27/2023 11:49:32 With:Arvin OLVERA MD, FAM Address: When: only if needed [facility] [place] 04-29-2023 Hospital Discharge instructions Patient Education 04/29/2023 21:56:03 Preventing Hypoglycemia Preventing Hypoglycemia Hypoglycemia occurs when the level of sugar (glucose) in the blood is too low. Hypoglycemia can happen in people who do or do not have diabetes (diabetes mellitus). It can develop quickly, and it can be a medical emergency. For most people with diabetes, a blood glucose level below 70 mg/dL (3.9 mmol/L) is considered hypoglycemia. Glucose is a type of sugar that provides the body's main source of energy. Certain hormones (insulin and glucagon) control the level of glucose in the blood. Insulin lowers blood glucose, and glucagon increases blood glucose. Hypoglycemia can result from having too much insulin in the bloodstream, or from not eating enough food that contains glucose. Your risk for hypoglycemia is higher: If you take insulin or diabetes medicines to help lower your blood glucose or to help your body make more insulin. If you skip or delay a meal or snack. If you are ill. During and after exercise. You can prevent hypoglycemia by working with your health care provider to adjust your meal plan as needed and by taking other precautions. How can hypoglycemia affect me? Mild symptoms Mild hypoglycemia may not cause any symptoms. If you do have symptoms, they may include: Hunger. Sweating and feeling clammy. Dizziness or feeling light-headed. Sleepiness or restless sleep. Nausea. Increased heart rate. Headache. Blurry vision. Mood changes, including irritability or anxiety. Tingling or numbness around the mouth, lips, or tongue. If mild hypoglycemia is not recognized and treated, it can quickly become moderate or severe hypoglycemia. Moderate symptoms Moderate hypoglycemia can cause: Confusion and poor judgment. Behavior changes. Weakness. Irregular heartbeat. A change in coordination. Severe symptoms Severe hypoglycemia is a medical emergency. It can cause: Fainting. Seizures. Loss of consciousness (coma). . What nutrition changes can be made? Work with your health care provider or dietitian to make a healthy meal plan that is right for you. Follow your meal plan carefully. Eat meals at regular times. If recommended by your health care provider, have snacks between meals. Donot skip or delay meals or snacks. You can be at risk for hypoglycemia if you are not getting enough carbohydrates. What lifestyle changes can be made? Work closely with your health care provider to manage your blood glucose. Make sure you know: ?Your goal blood glucose levels. ?How and when to check your blood glucose. ?The symptoms of hypoglycemia. It is important to treat hypoglycemia right away to keep it from becoming severe. Do not drink alcohol on an empty stomach. When you are ill, check your blood glucose more often than usual. Make a sick day plan in advance with your health care provider. Follow this plan whenever you cannot eat or drink normally. Always check your blood glucose before, during, and after exercise. How is this treated? This condition can often be treated by immediately eating or drinking something that contains sugar with 15 grams of fast-acting carbohydrate, such as: 4 oz (120 mL) of fruit juice. 4 oz (120 mL) of regular soda (not diet soda). Several pieces of hard candy. Check food labels to find out how many pieces to eat for 15 grams. 1 Tbsp (15 mL) of sugar or honey. 4 glucose tablets. 1 tube of glucose gel. Treating hypoglycemia if you have diabetes If you are alert and able to swallow safely, follow the 15:15 rule: Take 15 grams of a fast-acting carbohydrate. Talk with your health care provider about how much you should take. Fast-acting options include: ?Glucose tablets (take 4 tablets). ?Several pieces of hard candy. Check food labels to find out how many pieces to eat for 15 grams. ?4 oz (120 mL) of fruit juice. ?4 oz (120 mL) of regular soda (not diet soda). ?1 Tbsp (15 mL) of sugar or honey. ?1 tube of glucose gel. Check your blood glucose 15 minutes after you take the carbohydrate. If the repeat blood glucose level is still at or below 70 mg/dL (3.9 mmol/L), take 15 grams of a carbohydrate again. If your blood glucose level does not increase above 70 mg/dL (3.9 mmol/L) after 3 tries, seek emergency medical care. After your blood glucose level returns to normal, eat a meal or a snack within 1 hour. Treating severe hypoglycemia Severe hypoglycemia is when your blood glucose level is below 54 mg/dL (3 mmol/L). Severe hypoglycemia is a medical emergency. Get medical help right away. If you have severe hypoglycemia and you cannot eat or drink, you may need glucagon. A family member or close friend should learn how to check your blood glucose and how to give you glucagon. Ask your health care provider if you need to have an emergency glucagon kit available. Severe hypoglycemia may need to be treated in a hospital. The treatment may include getting glucose through an IV. You may also need treatment for the cause of your hypoglycemia. Where to find more information [employer]: www.diabetes.org National [place] of Diabetes and Digestive and Kidney Diseases: www.niddk.nih.gov Association of Diabetes Care & Education Specialists: www.diabeteseducator.org Contact a health care provider if: You have problems keeping your blood glucose in your target range. You have frequent episodes of hypoglycemia. Get help right away if: You continue to have hypoglycemia symptoms after eating or drinking something containing glucose. Your blood glucose level is below 54 mg/dL (3 mmol/L). You faint. You have a seizure. These symptoms may represent a serious problem that is an emergency. Do not wait to see if the symptoms will go away. Get medical help right away. Call your local emergency services (911 in the [place] Do not drive yourself to the hospital. Summary Know the symptoms of hypoglycemia and when you are at risk for it, such as during exercise or when you are sick. Check your blood glucose often when you are at risk for hypoglycemia. Hypoglycemia can develop quickly, and it can be dangerous if it is not treated right away. If you have a history of severe hypoglycemia, make sure your family or a close friend knows how to use your glucagon kit. Make sure you know how to treat hypoglycemia. Keep a fast-acting carbohydrate option available when you may be at risk for hypoglycemia. This information is not intended to replace advice given to you by your health care provider. Make sure you discuss any questions you have with your health care provider. Document Revised: 04/06/2021 Document Reviewed: 04/06/2021 Stream[employer] Patient Education 2022 [employer]. Follow Up Care 10/31/2022 15:27:38 With:ROSELYN RUIZ FAAFP, GILBERT Pedraza Address: When: Unknown Comments:see provider darrel [facility] [place] 10-31-2022 Hospital Discharge instructions Patient Education 10/31/2022 15:28:49 Contusion Contusion A contusion is a deep bruise. Contusions are the result of a blunt injury to tissues and muscle fibers under the skin. The injury causes bleeding under the skin. The skin overlying the contusion may turn blue, purple, or yellow. Minor injuries will give you a painless contusion, but more severe injuries cause contusions that may stay painful and swollen for a few weeks. Follow these instructions at home: Pay attention to any changes in your symptoms. Let your health care provider know about them. Take these actions to relieve your pain. Managing pain, stiffness, and swelling Use resting, icing, applying pressure (compression), and raising (elevating) the injured area. This is often called the RICE strategy. ?Rest the injured area. Return to your normal activities as told by your health care provider. Ask your health care provider what activities are safe for you. ?If directed, put ice on the injured area: ?Put ice in a plastic bag. ?Place a towel between your skin and the bag. ?Leave the ice on for 20 minutes, 2 3 times per day. ?If directed, apply light compression to the injured area using an elastic bandage. Make sure the bandage is not wrapped too tightly. Remove and reapply the bandage as directed by your health care provider. ?If possible, raise (elevate) the injured area above the level of your heart while you are sitting or lying down. General instructions Take jwfw-twc-nboocad and prescription medicines only as told by your health care provider. Keep all follow-up visits as told by your health care provider. This is important. Contact a health care provider if: Your symptoms do not improve after several days of treatment. Your symptoms get worse. You have difficulty moving the injured area. Get help right away if: You have severe pain. You have numbness in a hand or foot. Your hand or foot turns pale or cold. Summary A contusion is a deep bruise. Contusions are the result of a blunt injury to tissues and muscle fibers under the skin. It is treated with rest, ice, compression, and elevation. You may be given tohx-rab-shgzwrv medicines for pain. Contact a health care provider if your symptoms do not improve, or get worse. Get help right away if you have severe pain, have numbness, or the area turns pale or cold. This information is not intended to replace advice given to you by your health care provider. Make sure you discuss any questions you have with your health care provider. Document Revised: 03/20/2022 Document Reviewed: 03/01/2022 Stream[employer] Patient Education 2022 [employer]. Follow Up Care 10/25/2022 11:37:19 With:ROSELYN RUIZ FAAFP, GILBERT Pedraza Address: When: Unknown Comments:see o [facility] [place] 10-01-2022 Evaluation note Encounter Date Diagnosis Assessment Notes September, Acute pain of left knee (ICD-10 - M25.562) September, Contusion of left knee, initial encounter (ICD-10 - S80.02XA) Drink plenty fluids, get plenty of rest. Wear your knee brace for comfort and compression. Ice and elevate your knee 2-3 times a day. Take Tylenol or ibuprofen as needed for pain and swelling. Follow-up with your family physician if no improvement in 5 to 7 days September, Other Contusion material was printed [employer] Other 04-06-2023 Evaluation + Plan note Diagnostic Tests Pending * Insulin Level Total 08/23/22 [facility]04-05-2023 Hospital Discharge instructions Patient Education 08/22/2022 16:25:08 Hypoglycemia Hypoglycemia Hypoglycemia occurs when the level of sugar (glucose) in the blood is too low. Hypoglycemia can happen in people who do or do not have diabetes. It can develop quickly, and it can be a medical emergency. For most people with diabetes, a blood glucose level below 70 mg/dL (3.9 mmol/L) is considered hypoglycemia. Glucose is a type of sugar that provides the body's main source of energy. Certain hormones (insulin and glucagon) control the level of glucose in the blood. Insulin lowers blood glucose, and glucagon raises blood glucose. Hypoglycemia can result from having too much insulin in the bloodstream, or from not eating enough food that contains glucose. You may also have reactive hypoglycemia, which happens within 4 hours after eating a meal. What are the causes? Hypoglycemia occurs most often in people who have diabetes and may be caused by: Diabetes medicine. Not eating enough, or not eating often enough. Increased physical activity. Drinking alcohol on an empty stomach. If you do not have diabetes, hypoglycemia may be caused by: A tumor in the pancreas. Not eating enough, or not eating for long periods at a time (fasting). A severe infection or illness. Certain medicines. What increases the risk? Hypoglycemia is more likely to develop in: People who have diabetes and take medicines to lower blood glucose. People who abuse alcohol. People who have a severe illness. What are the signs or symptoms? Mild symptoms Mild hypoglycemia may not cause any symptoms. If you do have symptoms, they may include: Hunger. Anxiety. Sweating and feeling clammy. Dizziness or feeling light-headed. Sleepiness. Nausea. Increased heart rate. Headache. Blurry vision. Irritability. Tingling or numbness around the mouth, lips, or tongue. A change in coordination. Restless sleep. Moderate symptoms Moderate hypoglycemia can cause: Mental confusion and poor judgment. Behavior changes. Weakness. Irregular heartbeat. Severe symptoms Severe hypoglycemia is a medical emergency. It can cause: Fainting. Seizures. Loss of consciousness (coma). . How is this diagnosed? Hypoglycemia is diagnosed with a blood test to measure your blood glucose level. This blood test isdone while you are having symptoms. Your health care provider may also do a physical exam and review your medical history. How is this treated? This condition can often be treated by immediately eating or drinking something that contains sugar, such as: Fruit juice, 4 6 oz (120 150 mL). Regular soda (not diet soda), 4 6 oz (120 150 mL). Low-fat milk, 4 oz (120 mL). Several pieces of hard candy. Sugar or honey, 1 Tbsp (15 mL). Treating hypoglycemia if you have diabetes If you are alert and able to swallow safely, follow the 15:15 rule: Take 15 grams of a rapid-acting carbohydrate. Talk with your health care provider about how much you should take. Rapid-acting options include: ?Glucose pills (take 15 grams). ?6 8 pieces of hard candy. ?4 6 oz (120 150 mL) of fruit juice. ?4 6 oz (120 150 mL) of regular (not diet) soda. ?1 Tbsp (15 mL) honey or sugar. Check your blood glucose 15 minutes after you take the carbohydrate. If the repeat blood glucose level is still at or below 70 mg/dL (3.9 mmol/L), take 15 grams of a carbohydrate again. If your blood glucose level does not increase above 70 mg/dL (3.9 mmol/L) after 3 tries, seek emergency medical care. After your blood glucose level returns to normal, eat a meal or a snack within 1 hour. Treating severe hypoglycemia Severe hypoglycemia is when your blood glucose level is at or below 54 mg/dL (3 mmol/L). Severe hypoglycemia is a medical emergency. Get medical help right away. If you have severe hypoglycemia and you cannot eat or drink, you may need an injection of glucagon.A family member or close friend should learn how to check your blood glucose and how to give you a glucagon injection. Ask your health care provider if you need to have an emergency glucagon injection kit available. Severe hypoglycemia may need to be treated in a hospital. The treatment may include getting glucosethrough an IV. You may also need treatment for the cause of your hypoglycemia. Follow these instructions at home: General instructions Take tytg-swj-kzeeitk and prescription medicines only as told by your health care provider. Monitor your blood glucose as told by your health care provider. Limit alcohol intake to no more than 1 drink a day for non women and 2 drinks a day for men. One drink equals 12 oz of beer (355 mL), 5 oz of wine (148 mL), or 1 oz of hard liquor (44 mL). Keep all follow-up visits as told by your health care provider. This is important. If you have diabetes: Always have a rapid-acting carbohydrate snack with you to treat low blood glucose. Follow your diabetes management plan as directed. Make sure you: ?Know the symptoms of hypoglycemia. It is important to treat it right away to prevent it from becoming severe. ?Take your medicines as directed. ?Follow your exercise plan. ?Follow your meal plan. Eat on time, and do not skip meals. ?Check your blood glucose as often as directed. Always check before and after exercise. ?Follow your sick day plan whenever you cannot eat or drink normally. Make this plan in advance with your health care provider. Share your diabetes management plan with people in your workplace, school, and household. Check your urine for ketones when you are ill and as told by your health care provider. Carry a medical alert card or wear medical alert jewelry. Contact a health care provider if: You have problems keeping your blood glucose in your target range. You have frequent episodes of hypoglycemia. Get help right away if: You continue to have hypoglycemia symptoms after eating or drinking something containing glucose. Your blood glucose is at or below 54 mg/dL (3 mmol/L). You have a seizure. You faint. These symptoms may represent a serious problem that is an emergency. Do not wait to see if the symptoms will go away. Get medical help right away. Call your local emergency services (911 in the [place] Summary Hypoglycemia occurs when the level of sugar (glucose) in the blood is too low. Hypoglycemia can happen in people who do or do not have diabetes. It can develop quickly, and it can be a medical emergency. Make sure you know the symptoms of hypoglycemia and how to treat it. Always have a rapid-acting carbohydrate snack with you to treat low blood sugar. This information is not intended to replace advice given to you by your health care provider. Make sure you discuss any questions you have with your health care provider. Document Released: 05/06/2006 Document Revised: 10/27/2018 Document Reviewed: 06/08/2016 Stream5 Patient Education 2020 [employer]. Follow Up Care 08/01/2022 11:27:21 With:ROSELYN PARDOFP, Shannon J, FAM Address: When: Unknown Comments:telephone result to patient [facility] [place] 04-05-2023 Evaluation + Plan note Future Scheduled Tests Laboratory* HgbA1c 08/22/22 * Insulin Level Total 08/22/22 * CBC w/ Indices 08/22/22 * Comprehensive Metabolic Panel 08/22/22 * Lipid Panel 08/22/22 * Magnesium Level 08/22/22 * Valproic Acid Level 08/22/22 * Vitamin B12 Level 08/22/22 [facility] [place] 03-24-2023 Evaluation note* Encounter Date Diagnosis Assessment Notes Treatment Notes Treatment Clinical Notes Jul, Sore throat (ICD-10 - J02.9) Jul, Allergic rhinitis, unspecified seasonality, unspecified trigger (ICD-10 - J30.9) Rapid Strep test negative today in office. Discussed diagnosis with patient. Advised to use OTC Flonase and Cetirizine as directed. Supportive care as directed, increase fluids and rest, Tylenol/Motrin as directed, cool mist humidifier, throat lozenges. Patient to follow up with PCP if symptoms persist or worsen despite treatment. Immediate eval for SOB, difficulty, chest pain, fevers that do not break with antipyretic or any other concerning symptoms as reviewed on patient education handout. Patient verbalizes understanding and is agreeable to treatment plan. Patient left in stable condition [employer] Other 02-05-2023 Evaluation note* Encounter Date Diagnosis Assessment Notes Treatment Notes Treatment Clinical Notes Jun, Sore throat (ICD-10 - J02.9) Jun, Right otitis media, unspecified otitis media type (ICD-10 - H66.91) Middle ear infection: adult home care material was printed Drink plenty fluids, get plenty of rest. Take Tylenol or Motrin as needed for aches pains or fevers. Take the Zithromax as prescribed until gone. Follow-up with your family physician if no improvement in 2 to 3 days. [employer] Other Evaluation + Plan note Future Appointments Appointment Date:04/29/2023 06:20:00 PM Scheduled Provider:Shannon OLVERA MD, FAAFP Location:[facility] Appointment Type:[facility] [place] Evaluation + Plan note Future Appointments Appointment Date:08/14/2023 06:00:00 PM Scheduled Provider:ZAFAR Zuleta Tammy L. Location:[facility] Appointment Type: Open Diagnostic Tests Pending * Insulin Level Total 04/29/23 * Comprehensive Metabolic Panel 04/29/23 * TSH With T4fr Reflex 04/29/23 * CBC w/ Auto Diff 04/29/23 * Valproic Acid Level 04/29/23 [facility] [place] Evaluation + Plan note Future Appointments Appointment Date:06/25/2023 06:00:00 PM Scheduled Provider:Arvin OLVERA MD Location:[facility] Appointment Type: Open Appointment Date:08/14/2023 06:00:00 PM Scheduled Provider:ZAFAR Zuleta Tammy L. Location:[facility] Appointment Type: Open Diagnostic Tests Pending * Insulin Level Total [facility]23 [facility] Future Appointments Appointment Date:08/14/2023 06:00:00 PM Scheduled Provider:ZAFAR Zuleta Tammy L. Location:[facility] Appointment Type:[facility] [place] Evaluation + Plan note Future Appointments Appointment Date:12/06/2023 03:00:00 PM Scheduled Provider:ZAFAR Zuleta Tammy L. Location:[facility] Appointment Type:[facility] [place] Evaluation + Plan note Future Appointments Appointment Date:01/01/2024 05:40:00 PM Scheduled Provider:ZAFAR Zuleta Tammy L. Location:[facility] Appointment Type:[facility] [place] Evaluation + Plan note Future Appointments Appointment Date:11/23/2024 02:40:00 PM Scheduled Provider:Toy DOBBINS, NATACHA-AFSANEH, Sarah Pena Location:[facility] [place] Appointment Type: Open [facility] [place] Evalugupvz noteNo assessment information available [facility] Work Phone: Evaluation note* Diagnosis Encounter for IUD removal and reinsertion documented in this encounter [facility]* Diagnosis Encounter for routine checking of intrauterine contraceptive device (IUD) documented in this encounter [facility] HealthcareEvaluation [facility]* Diagnosis Acute vomiting- Primary [facility] Diagnosis Abdominal pain, epigastric- Primary Nausea and vomiting, unspecified vomiting type documented in this encounter [facility] [facility] Diagnosis Left genital labial abscess- Primary Labial cyst Other specified noninflammatory disorder of vulva and perineum documented in this encounter [facility] Narrative - Reported* Type Description Date Medical History Esophageal reflux Medical History epilepsy Medical History Depression Medical History anxiety [employer] Other Hospital course Narrative No data available for this section [facility] [place] [facility] Discharge instructions No [facility] for this [facility] Attachments The following attachments cannot be sent through Care Everywhere. * Nausea and Vomiting (German) * Abdominal Pain (German) documented in this encounterBon [employer] [facility]ructions[facility] note No data available for this section [facility] [place] Summary Purpose Family History No Family History Records FoundNo Family History Records FoundNo Family History Records Found No data available for this section No data available for this section No data available for this section No data available for this section No data available for this section No data available for this section No data available for this section No data available for this section No data available for this section No data available for this section No data available for this section No Family History Records Found No data available for this section No data available for this section No Family History Records FoundNo Family History Records FoundNo Family History Records FoundNo Family History Records FoundNo Family History Records FoundNo Family History Records FoundNo Family History Records FoundNo Family History Records FoundNo Family History Records Found Advance Directives Advance Directive Response Recorded Date/ Time Advance Directives No October 08 8 4:56pm Additional Source Comments INFORMATION SOURCE (unrecogn ized section and content) DATE CREATED AUTHOR 10/13/2021 [facility] DATE CREATED AUTHOR AUTHOR'S ORGANIZ ATION 12/27/2022 [facility] DATE CREATED AUTHOR AUTHOR'S ORGANIZ ATION 03/04/2023 [facility] DATE CREATED AUTHOR AUTHOR'S ORGANIZ ATION 02/08/2024 [facility] EPIC DATE CREATED AUTHOR AUTHOR'S ORGANIZ ATION 06/08/2024 [facility] DATE CREATED AUTHOR AUTHOR'S ORGANIZ ATION 2024 [facility] DATE CREATED AUTHOR AUTHOR'S ORGANIZ ATION 2024 [facility] DATE CREATED AUTHOR AUTHOR'S ORGANIZ ATION 09/11/2024 [facility] DATE CREATED AUTHOR AUTHOR'S ORGANIZ ATION 09/26/2024 [facility] REASON FOR VISIT (unrecogniz ed section and content) Reason Comments Contraception Reason Comments Contraception String check Reason Comments Vomiting Sx started last nigh t. Reason Comments Abdominal Pain Vomiting Reason Comments Cyst Cyst on left inside part of patients inner labia. Patient states cyst has been there for 5 weeks. Patient Care team informatio n (unrecognized section and content) Team Status: Active Member Role Status Dates Shannon Olvera MD Primary Care Provider Active Team Status: Inactive Member Role Status Dates Shannon Olvera MD Primary Care Provider Active Cari Marx NP-C Attending Provider Active Clinical Program Manager Relationship Specialty Start Date End Date Shannon Olvera MD [address] [place] [address] PCP - General 12/09/22 Clinical Program Manager Relationship Specialty Start Date End Date Shannon Olvera MD [address] [place] [address] PCP - General 12/09/22 Clinical Program Manager Relationship Specialty Start Date End Date Shannon Olvera MD [address] [place] [address] PCP - General 12/09/22 Clinical Program Manager Relationship Specialty Start Date End Date Shannon Olvera MD [address] [place] [address] PCP - General 12/09/22 Goals (unrecognized section and content) Goals may be documented in a n alternate section Ordered Prescriptions (unrec ognized section and content) Prescription Sig Dispense Quantity Refills Last Filled Start Date End Date ondansetron (ZOFRAN) 4 MG tablet Take 1 tablet by mouth every 6 hours as needed for Nausea or Vomiting 20 tablet 2024 omeprazole (PRILOSEC) 20 MG delayed release capsule Take 2 capsules by mouth Daily 60 capsule 2024 metoclopramide (REGLAN) 10 MG tablet Take 1 tablet by mouth every 6 hours as needed (Nausea) 20 tablet 2024 dicyclomine (BENTYL) 10 MG capsule Take 1 capsule by mouth every 6 hours as needed (Bowel spasms) 20 capsule 2024 5 Scheduled Active and Recently Administ ered Medications (unrecognized section and content) Medication Order 08/29/2024 08/30/2024 2024 dicyclomine (BENTYL) injection 20 mg (COMPLETED) 20 mg, IntraMUSCular, ONCE, 1 dose, On Sat08/31/24 at 1245 1244 (Given - Provid er: Rosy Galo RN) ketorolac (TORADOL) injection 30 mg (COMPLETED) 30 mg, IntraVENous, ONCE, 1 dose, On Sat08/31/24 at 1045, Do not administer for more than 5 days. 1139 (Given - Provid er: Katrina Hay RN) metoclopramide (REGLAN) injection 10 mg (COMPLETED) 10 mg, IntraVENous, ONCE, 1 dose, On Sat08/31/24 at 1245, IV Push: Max 10 mg over 1-2 minutes. 1245 (Given - Provid er: Rosy Galo RN) ondansetron (ZOFRAN) injection 4 mg (COMPLETED) 4 mg, IntraVENous, ONCE, 1 dose, On Sat08/31/24 at 1045 1139 (Given - Provid er: Katrina Hay RN) sodium chloride 0.9 % bolus 1,000 mL (COMPLETED) 1,000 mL (9.59 mL/kg), IntraVENous, at 2,000 mL/hr, Administer over 0.5 Hours, ONCE, On Sat08/31/24 at 1045, For 1 dose 1138 (New Bag - Prov ider: Katrina Hay RN)1239 (Stopped - Provider: Katrina Hay RN) PRN Medication Order 08/29/2024 08/30/2024 2024 aluminum & magnesium hydroxide-simethicone (MAALOX PLUS) 200-200-20 MG/5ML suspension 30 mL (COMPLETED) 30 mL, Oral, ONCE PRN, 1 dose, Starting on Sat08/31/24 at 1212, Until Sat08/31/24 at 1223, Indigestion 1223 (Given - Provid er: Katrina Hay RN) FOR RECORDS PERTAINING TO PATIENTS WHO ARE OR HAVE BEEN ENROLLED IN A CHEMICAL DEPENDENCY/SUBSTANCEABUSE PROGRAM, SOME INFORMATION MAY BE OMITTED. This clinical summary was aggregated from multiple sources. Caution should be exercised in using it in the provision of clinical care. This summary normalizes information from multiple sources, and as a consequence, information in this document may materially change the coding, format and clinical context of patient data. In addition, data may be omitted in some cases. CLINICAL DECISIONS SHOULD BE BASED ON THE PRIMARY CLINICAL RECORDS. [employer] provides no warranty or guarantee of the accuracy or completeness of information in this document.
== END 2024-09-30 19:37 | disposition home or self-care (01) ==
LOC: LAB 19:36
PROVIDERS: Visit Provider Nurse Practitioner Family
DX: N90.7 Vulvar cyst (principal)
CPT/HCPCS: 87070; 87075

== ENCOUNTER 2024-12-29 11:46 | Outpatient (REF) | payer OTHER, SELFPAY ==
--- OUTSIDE RECORDS SUMMARY | 2024-12-29 08:30 | XMS_ITS | Encounter Summary ---
Author Organization [facility] Address [address] [place] [address] Care Team Providers Care Electrical Maintenance Engineer Name Role Phone Shannon Olvera MD Primary Care Provider Reason for Visit * Reason Comments Gynecologic Exam Encounter Details Date Type Department Care Team ([facility] st Contact Info) Description 12/29/2024 8:30 AM EDT Office Visit [facility] [address] [facility] [place] [phone] Wesley Yang DO [address] [facility] [place] [address] Well woman exam with routine gynecological exam Social History Tobacco Use Types Packs/Day Years Used Date Smoking Tobacco: Never Smokeless Tobacco: Never Tobacco Cessation:Counseling Given: Not Answered Alcohol Use Standard Drinks/Week Comments Yes 0 (1 standard drink = 0.6 oz pure alcohol) 1-2 drinks less than monthly in the past year Comments No Sex and Gender Information Value Date Recorded Sex Assigned at Female 12/09/2022 5:58 PM EDT Legal Sex Female 8:24 PM EDT Gender Identity Female 12/09/2022 5:58 PM EDT Sexual Orientation Bisexual 12/25/2023 2: 04 PM EDT documented as of this encounter Last Filed Vital Signs Vital Sign Reading Time Taken Comments Blood Pressure 98/68 12/29/2024 8:38 AM EDT Pulse - - Temperature - - Respiratory Rate - - Oxygen Saturation - - Inhaled Oxygen Concentration - - Weight 97.5 kg (215 lb) 12/29/2024 8:38 AM EDT Height 170.2 cm (5' 7 ) 12/29/2024 8:38 AM EDT Body Mass Index 33.67 12/29/2024 8:38 AM EDT documented in this encounter Plan of Treatment Upcoming Encounters Date Type Department Care Team (Late st Contact Info) Description 01/05/2026 4:00 PM EDT Procedure Visit [facility] [address] [facility] [place] [phone] Wesley Yang DO [address] [facility] [place] [address] Scheduled Orders Name Type Priority Associated Diagnoses Orde r Schedule Pap Smear Pathology and Cytology Routine Well woman exam with routine gynecological exam Ordered: 12/29/2024 HPV DNA probe, amplified Microbiology Routine Well woman exam with routine gynecological exam Ordered: 12/29/2024 documented as of this encounter Visit Diagnoses Diagnosis Well woman exam with routine gynecological exam Routine gynecological examination documented in this encounter Care Teams Electrical Maintenance Engineer Relationship Specialty Start Date End Date Shannon Olvera MD [address] [place], [place] [phone] PCP - General 12/09/22 documented as of this encounter
--- OUTSIDE RECORDS SUMMARY | 2024-12-29 11:50 | XMS_ITS | Encounter Summary ---
Author Organization [facility] Address [address] [facility] [place] [address] Care Team Providers Care Seasonal Retail Merchandiser Name Role Phone Shannon Olvera MD Primary Care Provider [phone] Encounter Details Date Type Department Care Team (Late Contact Info) Description 10/13/2022 Abstract [facility] [address] [place] [address] [place] [address] [address] Jose Gore MD [address] [facility] [place] [address] Social History Tobacco Use Types Packs/Day Years Used Date Smoking Tobacco: Never Smokeless Tobacco: Never Tobacco Cessation:Counseling Given: Not Answered Alcohol Use Standard Drinks/Week Comments Yes 0 (1 standard drink = 0.6 oz pur e alcohol) Comments Unknown Sex and Gender Information Value Date Recorded Sex Assigned at Female 12/09/2022 5:58 PM EDT Legal Sex Female 8:24 PM EDT Gender Identity Female 12/09/2022 5:58 PM EDT Sexual Orientation Bisexual 12/25/2023 2: 04 PM EDT documented as of this encounter Plan of Treatment Upcoming Encounters Date Type Department Care Team (Late Contact Info) Description 01/05/2026 4:00 PM EDT Procedure Visit [facility] [address] [facility] [place] [phone] Wesley Yang DO [address] [facility] [place] [address] documented as of this encounter Visit Diagnoses Not on filedocumented in this encounter Care Teams Seasonal Retail Merchandiser Relationship Specialty Start Date End Date Shannon Olvera MD [address] [place] [address] PCP - General 12/09/22 documented as of this encounter
--- OUTSIDE RECORDS SUMMARY | 2024-12-29 11:50 | XMS_ITS | Clinical Summary ---
Author Organization [facility] tem Address [id number] [address] [place] [address] Care Team Providers Care Electrical Line Mechanic Name Role Phone Unavailable Primary Care Provider Unavailabl e Allergies Active Allergy Reactions Criticality Noted Date Comments Penicillins 2024 Medications divalproex (DEPAKOTE) 500 mg EC tablet Take 1 tablet (500 mg total) by mouth in the morning and 1 tablet (500 mg total) before bedtime. 03/12/20 24 Active FLUoxetine (PROzac) 20 mg capsule Take 1 capsule (20 mg total) by mouth in the morning. 08/04/19 Active levonorgestreL (MIRENA) 21 mcg/24hr (up to 8 yrs) 52 mg IUD 1 each by intrauterine route in the morning. 01/08/20 24 Active metFORMIN (GLUCOPHAGE) 500 mg tablet Take 1 tablet (500 mg total) by mouth daily with breakfast. 03/09/20 24 Active omeprazole (PriLOSEC) 40 mg capsule Take 1 capsule (40 mg total) by mouth every morning before breakfast. 03/05/20 24 Active ondansetron ODT (ZOFRAN ODT) 4 mg disintegrating tabletIndications: Acute vomiting Dissolve 1 tablet (4 mg total) on tongue every 8 (eight) hours as needed for nausea or vomiting. 20 tablet 09/01/19 25 Active famotidine (PEPCID) 20 mg tabletIndications: Acute vomiting Take 1 tablet (20 mg total) by mouth in the morning and 1 tablet (20 mg total) before bedtime. 30 tablet 09/01/19 25 Active Social History Tobacco Use Types Packs/Day Years Used Date Smoking Tobacco: Never Assessed Comments No Sex and Gender Information Value Date Recorded Sex Assigned at Not on file Legal Sex Female 8:36 AM EDT Gender Identity Not on file Sexual Orientation Not on file Last Filed Vital Signs Vital Sign Reading Time Taken Comments Blood Pressure 119/69 2024 8:55 AM EDT Pulse 105 2024 8:55 AM EDT Temperature 36.4 C (97.5 F) 2024 8:55 AM EDT Respiratory Rate 18 2024 8:55 AM EDT Oxygen Saturation 100% 2024 8:55 AM EDT Inhaled Oxygen Concentration - - Weight - - Height - - Body Mass Index - - Plan of Treatment Health Maintenance Due Date Last Done Comments Depression Screening 2000 Tobacco Screening 2000 Adult BMI Screening 2006 Pap Smear 2009 DTaP,Tdap and Td Vaccines (6 - Td or Tdap) 12/24/2021 12/25/2011, 07/23/1990, 04/10/1989, Additional history exists Influenza Vaccine 01/18/2025 01/20/2024, , 03/28/2021, Additional history exists COVID-19 Vaccine Completed 01/20/2024, , 08/22/2022, Additional history exists Medical Devices Not on file [place] [address] [place] [address]
--- OUTSIDE RECORDS SUMMARY | 2024-12-29 11:50 | XMS_ITS | Encounter Summary ---
Author Organization [facility] Address [address] [facility] [place] [address] Care Team Providers Care Human Factors Specialist Name Role Phone Shannon Olvera MD Primary Care Provider [phone] Encounter Details Date Type Department Care Team (Late Contact Info) Description 12/07/2022 Abstract [facility] [address] [facility] [place] [phone] Mica Mei PA [address] [facility] [address] [place], [facility] Social History Tobacco Use Types Packs/Day Years Used Date Smoking Tobacco: Never Smokeless Tobacco: Never Tobacco Cessation:Counseling Given: Not Answered Alcohol Use Standard Drinks/Week Comments Yes 0 (1 standard drink = 0.6 oz pure alcohol) 1-2 drinks less than monthly in the past year Comments Unknown Sex and Gender Information Value Date Recorded Sex Assigned at Female 12/09/2022 5:58 PM EDT Legal Sex Female 8:24 PM EDT Gender Identity Female 12/09/2022 5:58 PM EDT Sexual Orientation Bisexual 12/25/2023 2: 04 PM EDT COVID-19 Exposure Response Date Recorded In the last 10 days, have yo u been in contact with someone who was confirmed or suspected to have Coronavirus/COVID-19? No / Unsure 12/09/2022 6:15 PM EDT documented as of this encounter Plan of Treatment Upcoming Encounters Date Type Department Care Team ([facility] Contact Info) Description 01/05/2026 4:00 PM EDT Procedure Visit [facility] [address] [place] [address] Wesley Yang, [address] [facility] [place] [address] documented as of this encounter Visit Diagnoses Not on filedocumented in this encounter Care Teams Human Factors Specialist Relationship Specialty Start Date End Date Shannon Olvera MD [address] [place] [address] PCP - General 12/09/22 documented as of this encounter
--- OUTSIDE RECORDS SUMMARY | 2024-12-29 11:50 | XMS_ITS | Encounter Summary ---
Author Organization [facility] Address [address] [place] [address] Care Team Providers Care Client Delivery Specialist Name Role Phone Shannon Olvera MD Primary Care Provider [phone] Encounter Details Date Type Department Care Team (Latest Contact Info) Description 12/22/2024 Travel Social History Tobacco Use Types Packs/Day Years Used Date Smoking Tobacco: Never Smokeless Tobacco: Never Alcohol Use Standard Drinks/Week Comments Yes 0 [...] 01/05/2026 4:00 PM EDT Procedure Visit [facility] [address] [place] [phone] Wesley Yang DO [address] [facility] [place] [address] documented as of this encounter Visit Diagnoses Not on filedocumented in this encounter Care Teams Client Delivery Specialist Relationship Specialty Start Date End Date Shannon Olvera MD [address] [place] [address] PCP - General 12/09/22 documented as of this encounter
--- OUTSIDE RECORDS SUMMARY | 2024-12-29 11:50 | XMS_ITS | Encounter Summary ---
Author Organization [facility] Address [address] [facility] [place] [id number] Care Team Providers Care Bead Machine Operator Name Role Phone Shannon Olvera MD Primary Care Provider Encounter Details Date Type Department Care Team (Late Contact Info) Description 01/09/2024 Abstract [facility] [address] [facility] [place] [address] Wesley Yang DO [address] [place], [facility]11 Social History Tobacco Use Types Packs/Day Years [...] PM EDT Procedure Visit [facility] CASTILLO [address] [place] [address] Wesley Yang DO [address] [place], [place] [id number] documented as of this encounter Visit Diagnoses Not on filedocumented in this encounter Care Teams Bead Machine Operator Relationship Specialty Start Date End Date Shannon Olvera MD [address] [place] [address] PCP - General 12/09/22 documented as of this encounter
--- OUTSIDE RECORDS SUMMARY | 2024-12-29 11:50 | XMS_ITS | Clinical Summary ---
Author Organization [facility] Address [address] [facility], [address] [place] [address] Care Team Providers Care Jackscrew Worker Name Role Phone Unavailable Primary Care Provider Unavailabl e Allergies Active Allergy Reactions Criticality Noted Date Comments Penicillins 03/02/2023 Medications dicyclomine (BENTYL) 10 MG capsule Take 1 capsule by mouth every 6 hours as needed (Bowel spasms) 20 capsule 2024 Active metoclopramide (REGLAN) 10 MG tablet Take 1 tablet by mouth every 6 hours as needed (Nausea) 20 tablet 2024 Active omeprazole (PRILOSEC) 20 MG delayed release capsule Take 2 capsules by mouth Daily 60 capsule 2024 Active ondansetron (ZOFRAN) 4 MG tablet Take 1 tablet by mouth every 6 hours as needed for Nausea or Vomiting 20 tablet 2024 Active Social History Tobacco Use Types Packs/Day Years Used Date Smoking Tobacco: Never Smokeless Tobacco: Never Tobacco Cessation:Counseling Given: Not Answered Alcohol Use Standard Drinks/Week Comments Not Currently 0 (1 standard drink = 0.6 oz pur e alcohol) AUDIT-C Answer Date Recorded Q1: How often do you have a drink containing alcohol? Never 2024 Q2: How many drinks containi ng alcohol do you have on a typical day when you are drinking? Patient does not drink Q3: How often do you have si x or more drinks on one occasion? Never 2024 Interpersonal Safety Domain Source: IP Abuse Scr eening Answer Date Recorded Physical abuse Denies 2024 Verbal abuse Denies 2024 Emotional abuse Denies 2024 Financial abuse Not on file 2024 Sexual abuse Not on file 2024 Comments No Sex and Gender Information Value Date Recorded Sex Assigned at Not on file Legal Sex Female 2:36 PM EDT Gender Identity Not on file Sexual Orientation Not on file Last Filed Vital Signs Vital Sign Reading Time Taken Comments Blood Pressure 104/56 2024 10:05 AM EDT Pulse 104 2024 10:05 AM EDT Temperature 36.3 C (97.3 F) 2024 10:05 AM EDT Respiratory Rate 20 2024 10:05 AM EDT Oxygen Saturation 100% 2024 10:05 AM EDT Inhaled Oxygen Concentration - - Weight 104.3 kg (230 lb) 2024 10:05 AM EDT Height 170.2 cm (5' 7 ) 2024 10:05 AM EDT Body Mass Index 36.02 2024 10:05 AM EDT Plan of Treatment Health Maintenance Due Date Last Done Comments Polio vaccine (4 of 4 - 4-dose series) 1992 07/23/1990, 01/23/1989, 1988 Depression Screen 2000 Varicella vaccine (1 of 2 - 13+ 2-dose series) 2001 HIV screen 09/01/2003 Hepatitis C screen 2006 Pap smear 2009 Cervical cancer screen 2018 HPV (without or with Pap) 2018 DTaP/Tdap/Td vaccine (6 - Td or Tdap) 12/24/2021 12/25/2011, 07/23/1990, 04/10/1989, Additional history exists Diabetes screen 09/01/2023 Flu vaccine (#1) 12/18/2024 01/20/2024, 07/2022, 03/28/2021, Additional history exists Hib vaccine Completed 12/18/1989 Hepatitis B vaccine Completed 02/06/2001, 10/03/2000, 07/30/2000 Meningococcal (ACWY) vaccine Aged Out 01/22/2007 No longer eligible based on patient's age to complete this topic COVID-19 Vaccine Completed 01/20/2024, , 08/22/2022, Additional history exists HPV vaccine Completed 04/15/2024, 06/2023, 01/20/2024 Hepatitis A vaccine Aged Out No longe r eligible based on patient's age to complete this topic Meningococcal B vaccine Aged Out No l onger eligible based on patient's age to complete this topic Pneumococcal 0-49 years Vaccine Aged Out No longer eligible based on patient's age to complete this topic Insurance [facility]
--- OUTSIDE RECORDS SUMMARY | 2024-12-29 11:50 | XMS_ITS | Clinical Summary ---
Author Organization [facility] Address [address] [place] [address] Care Team Providers Care Clinical Applications Specialist Name Role Phone Shannon Olvera MD Primary Care Provider [phone] Allergies Active Allergy Reactions Criticality Noted Date Comments Penicillin G Sodium 12/06/2022 Penicillins Hives 10/08/2017 Other Reaction(s): Hives, Unknown Other Reaction(s): Hives Medications Depakote 500 MG EC tablet Take 500 mg by mouth in the morning and 500 mg before bedtime. 8 Active FLUoxetine (PROzac) 40 MG capsule Take 40 mg by mouth in the morning. 0 Active metFORMIN (Glucophage) 500 MG tablet Take 500 mg by mouth in the morning and 500 mg before bedtime. 0 Active Levonorgestrel (Mirena, 52 MG,) 20 MCG/DAY intrauterine device 1 Active omeprazole (PriLOSEC) [address] capsule Take 40 mg by mouth in the morning. Take before meals. 0 Active Hospital, Clinic, or Other Facility Administered Medication Ordered Dose Route Frequency Start Date End Date Status Levonorgestrel intrauterine deviceIndications:Encounter for IUD removal and reinsertion IU Daily 01/08/2024 Active Encounters Date Type Department Care Team Description 12/29/2024 8:30 AM EDT Office Visit [facility]IME CASTILLO [address] [facility] [place] [address] Wesley Yang, DO Well woman exam with routine gynecological exam 12/29/2024 Bamboo flowsheet [facility] [address] [place] [address] [place] [phone] Wesley Yang DO 12/22/2024 Travel 09/30/2024 3:00 PM EDT Office Visit [facility] CASTILL[facility] [address] [place] [address] [place] [address] Rosa Sauceda NP Left genital labial abscess (Primary Dx); Labial cyst 09/30/2024 Bamboo flowsheet [facility] [address] [place] [address] [place] [address] Rosa Sauceda, SILVINA from Last 3 Months Family History Medical History Relation Name Comments Diabetes Father Hypertension Father Mental illness Mother Relation Name Status Comments Father Alive Mother Alive Social History Tobacco Use Types Packs/Day Years [...] Orientation Bisexual 12/25/2023 2: 04 PM EDT Last Filed Vital Signs Vital Sign Reading Time Taken Comments Blood Pressure 98/68 12/29/2024 8:38 AM EDT Pulse - - Temperature - - Respiratory Rate - - Oxygen Saturation - - Inhaled Oxygen Concentration - - Weight 97.5 kg (215 lb) 12/29/2024 8:38 AM EDT Height 170.2 cm (5' 7 ) 12/29/2024 8:38 AM EDT Body Mass Index 33.67 12/29/2024 8:38 AM EDT Plan of Treatment Upcoming Encounters Date Type Department Care Team (Late st Contact Info) Description 01/05/2026 4:00 PM EDT Procedure Visit [facility] CASTILLO [address] [place] [address] [place] [phone] Wesley Yang, DO [address] [place] [address] [place] [address] Health Maintenance Due Date Last Done Comments Influenza Vaccine (#1) 2025 4, 03/22/2023, 03/28/2021, Additional history exists Cervical Cancer Screening 12/24/2028 HPV/Cotest 12/24/2028 Pap Smear 12/24/2028 12/25/2023 Procedures Procedure Name Priority Date/Time Associated Diagnosis Comments PAP SMEAR Routine 12/25/2023 12:00 AM EDT from Last 3 Months or Most Recently Relevant to Health Maintenance Results * (ABNORMAL) Pap Smear (12/25/2023 12:00 AM EDT) Swab Cervical swab / Unknown us [facility]TOLOGY ORDERABLES Final Re sult EXTERNAL LAB from Last 3 Months or Most Recently Relevant to Health Maintenance Insurance [facility] Care Teams Clinical Applications Specialist Relationship Specialty Start Date End Date Shannon Olvera MD [address] [place] [address] PCP - General 12/09/22
--- OUTSIDE RECORDS SUMMARY | 2024-12-29 11:50 | XMS_ITS | Encounter Summary ---
Author Organization [facility] Address [address] [place] [facility] [place] [id number] Care Team Providers Care Stamp Classifier Name Role Phone Shannon Olvera MD Primary Care Provider [phone] Encounter Details Date Type Department Care Team (Late Contact Info) Description 12/29/2024 Bamboo flowsheet N[facility] CASTILLO [address] [place] [address] Wesley Yang DO [address] [place], [place] [address] Social History Tobacco Use Types Packs/Day Years [...] PM EDT Procedure Visit N[facility]ligio CASTILLO [address] [place] [address] Wesley Yang DO [address] [place], [facility]11 documented as of this encounter Visit Diagnoses Not on filedocumented in this encounter Care Teams Stamp Classifier Relationship Specialty Start Date End Date Shannon Olevra MD [address] [place], [place] [phone] PCP - General 12/09/22 documented as of this encounter
== END 2024-12-29 11:47 | disposition home or self-care (01) ==
LOC: LAB 11:46
PROVIDERS: Visit Provider Obstetrics & Gynecology
DX: Z01.419 Encounter for gynecological examination (general) (routine) without abnormal findings (principal)
CPT/HCPCS: 87624; 88175

== ENCOUNTER 2025-02-11 21:39 | Emergency (ER) | payer OTHER, SELFPAY ==
--- OUTSIDE RECORDS SUMMARY | 2025-02-11 21:47 | XMS_ITS | Clinical Summary ---
Author Organization [facility] tem Address [id number] [address] [place] [address] Care Team Providers Care Lead Pourer Name Role Phone Unavailable Primary Care Provider [...] exists Medical Devices Not on file Insurance [place] [address]
--- OUTSIDE RECORDS SUMMARY | 2025-02-11 21:48 | XMS_ITS | CCD ---
Author Organization [facility] Care Team Providers Care Ticket Marker Name Role Phone DR IRENA DORANTES Attending Unavailable JAYNA, DR OSBORN Consulting Unavailable JAYNA, DR OSBORN Admitting Unavailable Cari Marx Unavailable Christie Hua Unavailable Shannon OLVERA Primary Care Physician MD Shannon Olvera Primary Care Provider [phone] ALEXUS Marx Attending Provider Cari Marx Attending Unavailable Cari Marx Admitting Unavailable Shannon Olvera Primary Care Unavailable TYRA CID Attending Unavailable Toy, Sarah L. Primary Care Physician [phone] Shannon Olvera MD Primary Care Provider Unavailable Primary Care Provider Unavailabl e Unavailable Primary Care Provider Unavailabl ASCENCION Ford Attending Unavailable CASSIE HINOJOSA Attending Unavailable Toy Sarah LSang Attending Unavailable Toy Sarah LSang Attending Unavailable Toy, Sarah LSang Attending Unavailable Toy, Sarah L. Admitting Unavailable ANGELOAFSANEH KHURRAM A Attending Unavailabl e ANGELO COLLAR SETTER KHURRAM A Attending Unavailabl e ANGELO COLLAR SETTER KHURRAM A Attending Unavailabl e Toy, Sarah L. Attending Unavailable Toy, Sarah L. Attending Unavailable Toy, Sarah L. Attending Unavailable Toy, Sarah L. Attending Unavailable Toy, Sarah L. Admitting Unavailable Toy, Sarah L. Attending Unavailable FERNIE SAUCEDA Attending Unavailable WESLEY YANG Attending Unavailable WESLEY YANG Attending Unavailable WESLEY YANG Attending Unavailable Allergies Allergy Classification Reported Allergen(s) Allergy Type Date of Onset Reaction(s) Facility Penicillins (antibiotic) (1 source) Penicillins; Translations: [penicillins] Drug Allergy Weal (disorder) [facility] (6 sources) Penicillin; Translations: [Penicillin] Drug Allergy hives, Weal (disorder) [facility] (20 sources) Penicillins; Translations: [penicillins] Drug allergy 8 Weal (disorder), Hives [facility] (11 sources) Penicillin G sodium Propensity to adverse reactions 3 [facility] Work Phone: (2 sources) metFORMIN; Translations: [metFORMIN] Drug Allergy [facility] Repository Medications Current Medications Medication Drug Class(es) [...] sites, # 4 EA, Refills(s) 0, Pharmacy: [facility], 170, cm, 11/05/23 14:44:00 EDT, [...] day(s), # 20 cap(s), Refills(s) 0, Pharmacy: [facility], 170, cm, 08/06/23 11:38:00 EDT, Height/Length [...] sulfate 140 mg extended release oral tablet (17 sources) Start: 06-26-2021 take 1 tablet by mouth once daily ferrous sulfate (as elemental iron) 45 mg oral tablet, extended release 45 mg = 1 tab(s), Oral, Daily, # 30 tab(s), Refills(s) 0 Start Date: 06/26/21 Status: Ordered Quantity: 30.0 Unit: tab(s) Repeat number: 1 FLUoxetine 20 mg oral capsule (20 sources) Serotonin Reuptake Inhibitor Start: 07-29-2024 take 1 capsule by mouth in the morning FLUoxetine (PROzac) 20 mg capsule Take 1 capsule (20 mg total) by mouth in the morning. 08/03/2024 Active Start: 11-10-2019 take 1 capsule by mo [facility] in the morning FLUoxetine (PROzac) 40 MG capsule Take 40 mg by mouth in the morning. 11/10/2019 Active Fluoxetine Activ e levonorgestrel 0.966617 mg/hr intrauterine system (20 sources) Progestin, Progestin-containing Intrauterine Device Start: 01-08-2024 Intrauterine, Daily, First dose on Sat01/08/24 at 1615 Start: 01-08-2024 Levonorgestrel intrauterine device Start: 05-04-2021 Mirena 52 mg i ntrauteral device 52 mg = 1 EA, IntraUteral, Once, X 1 dose(s), # 1 EA, Refills(s) 0 Start Date: 05/04/21 Status: Ordered Quantity: 1.0 Unit: EA Repeat number: 1 Start: 10-20-2020 Levonorgestrel (Mirena, 52 MG,) 20 MCG/DAY intrauterine device 10/20/2020 Active metFORMIN hydrochloride 500 mg oral tablet (20 sources) Biguanide Start: 09-10-2019 take 1 tablet by mouth in the morning metFORMIN (Glucophage) 500 MG tablet Take 500 mg by mouth in the morning and 500 mg before bedtime. 09/10/2019 Active Start: 09-10-2019 take 1 tablet by earnest once daily at breakfast metFORMIN (GLUCOPHAGE) 500 mg tablet Take 1 tablet (500 mg total) by mouth daily with breakfast. 03/09/2024 Active metFORMIN HCl Ac tive metoclopramide 10 mg oral tablet (3 sources) Dopamine-2 Receptor Antagonist Start: 09-09-2024 take 1 tablet by mouth every six hours as needed for nausea metoclopramide 10 mg Tab 10 mg = 1 tab(s), Oral, q6hr, PRN Nausea/Vomiting, # 28 tab(s), Refills(s) 0, Pharmacy: [facility]/pharmacy #[id number], 170, cm, 09/09/24 12:01:00 EDT, Height/Length Dosing, 84.7, kg, 09/09/24 12:01:00 EDT, Weight Dosing Start Date: 09/09/24 Status: Ordered Quantity: 28.0 Unit: tab(s) Repeat number: 1 Start: 2024 take 1 tablet by earnest th every six hours as needed for nausea metoclopramide (REGLAN) 10 MG tablet Take 1 tablet by mouth every 6 hours as needed (Nausea) 20 tablet 2024 Active Start: 2024 10 mg, IntraVE Nous, ONCE, 1 dose, On Sat08/31/24 at 1245, IV Push: Max 10 mg over 1-2 minutes. Multivitamins and Minerals (17 sources) Start: 08-24-2020 take 1 tablet by mouth once daily Multivitamins and Minerals 1 tab(s), Oral, Daily, Refill(s) 0 Start Date: 08/24/20 Status: Ordered Repeat number: 1 Start: 08-24-2020 take 1 tablet by earnest th once daily Multivitamins and Minerals 1 tab(s), [...] 32.65, # 30 tab(s), Refills(s) 0, Pharmacy: [facility], 170, cm, 06/24/23 18:03:00 EST, Height/Length Dosing, 96.5, kg, 06/24/23 18:03:00 EST, Weight Dosing Start Date: 07/25/23 Status: Ordered Start: 06-24-2023 phentermine 37 .5 mg Tab 37.5 mg = 1 tab(s), Oral, Daily, 30 day supply DX E66.09 BMI 33.36, # 30 tab(s), Refills(s) 0, Pharmacy: [facility], 170, cm, 06/24/23 18:03:00 EST, Height/Length Dosing, 96.5, kg, 06/24/23 18:03:00 EST, Weight Dosing Start Date: 06/24/23 Status: Ordered Start: 05-27-2023 phentermine 37 .5 mg Tab 37.5 mg = 1 tab(s), Oral, Daily, 30 day supply DX E66.09 BMI 34.1, # 30 tab(s), Refills(s) 0, Pharmacy: [facility] 1155, 170, cm, 05/27/23 7:44:00 EST, Height/Length Dosing, 98.6, kg, 05/27/23 7:44:00 EST, Weight Dosing Start Date: 05/27/23 Status: Ordered Start: 04-29-2023 take 1 tablet by earnest th once daily phentermine 37.5 mg Tab 37.5 mg = 1 tab(s), Oral, Daily, 30 day supply, # 30 tab(s), Refills(s) 0, Pharmacy: [facility] 1155, 170, cm, 04/29/23 18:18:00 EST, Height/Length Dosing, 104.3, kg, 04/29/23 18:18:00 EST, Weight Dosing Start Date: 04/29/23 Status: Ordered 1 mg dose 1.5 ml semaglutide 1.34 mg/ml pen injector (1 source) Start: 10-31-2022 inject 1 mg by subcutaneous injection every week Ozempic 2 mg/1.5 mL (1 mg dose) subcutaneous solution 1 mg, SubCutaneous, qWeek, 2 EA, Refill(s) 0, [facility]/pharmacy #[id number], 170, cm, 10/31/22 14:42:00 EDT, Height/Length [...] Discontinued 2 MG PO Three times daily 10 October 08, 2017 12:00am October 11, 2017 12:01am [...] sources) Seizure disorder 07-31-2013 Episodic Esophageal disorders (19 sources) Gastroesophageal reflux disease; Translations: [Gastroesophageal reflux disease without esophagitis] Onset: 04-28-2023 07-28-2020 Chronic Immunizations and screening for infectious disease (2 sources) Encounter for screening for human papillomavirus (HPV); Translations: [Vaccination given] Onset: 10-12-2021 Episodic Inflammatory diseases of female pelvic organs (2 sources) Abscess of labia; Translations: [Abscess of vulva] 09-30-2024 Episodic Menstrual disorders (18 sources) Secondary oligomenorrhea; Translations: [Secondary oligomenorrhea] Onset: 06-22-2023 11-11-2019 Chronic Miscellaneous mental health disorders (17 sources) Bruxism (teeth grinding) 06-26-2021 Chronic Nausea and vomiting (6 sources) Acute vomiting; Translations: [Vomiting, unspecified] Onset: 2024 2024 Episodic Other disorders of stomach and duodenum (1 source) Gastroparesis syndrome 09-08-2024 Episodic Other endocrine disorders (9 sources) Hypoglycemia; Translations: [Other hypoglycemia] Onset: 08-21-2022 Chronic Other endocrine disorders (17 sources) Hyperinsulinism 07-20-2020 Chronic Other female genital disorders (2 sources) Labial cyst; Translations: [Vulvar cyst] 09-30-2024 Episodic Other hematologic conditions (17 sources) Microcytosis 06-26-2021 Episodic Other non-traumatic joint [...] caused by energy imbalance 08-06-2023 Chronic Other nutritional; endocrine; and metabolic disorders (2 sources) Overweight; Translations: [Overweight] Onset: 11-22-2024 Episodic Other screening for suspected conditions (not mental disorders or infectious disease) (4 sources) Encounter for screening for malignant neoplasm of cervix; Translations: [ENC SCREENING MALIG NEOPLASM CERV] Onset: 10-09-2021 Episodic Other skin disorders (1 source) Non-scarring alopecia; Translations: [Nonscarring hair loss, unspecified] Onset: 04-29-2023 Episodic Other skin disorders (14 sources) Loss of hair 04-29-2023 Episodic Other [...] in left knee] Onset: 10-01-2022 Viral infection (17 sources) Verruca plantaris 05-04-2021 Episodic Past or Other Problems Problem Classification Problem Date Documented Da te Episodic/Chronic Unclassified (15 sources) Cancer cervix screening status 10-31-2022 Viral infection (17 sources) Disease caused by 2019-nCoV Resolved: 10-29-2021 10-29-2021 Results Test Name Value Interpretation Reference Range Facility IGP,APTIMA HPV,AGE GDLNon AGE GDLN ACOG TESTING Note . [facility] Comment on above: TESTS RESULT FLAG UN ITS REF RANGE LAB Clinician Provided Cytology Information Source.............Cervix No. of containers..01 ThinPrep Vial Age Angela LEY Dede... FLAG LEGEND: L-Low Normal,H-High Normal,LL-Alert Low,HH-Alert High <-Panic Low,>-Panic High,A-Abnormal,AA-Critical Abnormal Performed at: [address] [phone] Sally Carpenter MD, HPV APTIMA Negative Negative [facility] Comment on above: This nucleic acid am plification test detects fourteen high- risk HPV types (16,18,31,33,35,39,45,51,52,56,58,59,66,68) without differentiation. Performed at: =[address] [id number] Boardmarker: Sally Carpenter MD, Phone: [phone] Performed at: [address] [id number] Boardmarker: Sally Carpenter MD, Phone: [phone] IGP, APTIMA HPV, RFX 16/18,45 Note . [facility] Comment on above: TESTS RESULT FLAG UN ITS REF RANGE LAB DIAGNOSIS: 02 NEGATIVE FOR INTRAEPITHELIAL LESION OR MALIGNANCY. Specimen adequacy: 02 Satisfactory for evaluation. Endocervical and/or squamous metaplastic cells (endocervical component) are present. Performed by: 02 Enid Wilcox [employer] Teacher (ASCP) . 02 Note: Note 02 The Pap smear is a screening test designed to aid in the detection of premalignant and malignant conditions of the uterine cervix. It is not a diagnostic procedure and should not be used as the sole means of detecting cervical cancer. Both false-positive and false-negative reports do occur. Test Methodology: Note 02 This liquid based ThinPrep(R) pap test was screened with the use of an image guided system. HPV Genotype Reflex Note 02 Criteria not met, HPV Genotype not performed. FLAG LEGEND: L-Low Normal,H-High Normal,LL-Alert Low,HH-Alert High <-Panic Low,>-Panic High,A-Abnormal,AA-Critical Abnormal Performed at: [address] [id number] Sally Carpenter MD, BRUSH-SPATULA CERVIX [facility] Provider Letteron 09-24-2024 Provider Letter Provider Letter September 24, 2024 NATALY GARCIA [address] [facility] [address] [place] [address] : 1990 Dear Nataly Garcia , We have been trying to reach you with no success. It is important that you return our call regarding your referral upon receiving this letter. Also, at the time of your call, please provide us with your current information. Thank you for your prompt attention to this matter. Sincerely, [facility] [phone] Normal [facility] Ambulatory Visit Summaryon 0 09-09-2024 Ambulatory Visit Summary Ambulatory Visit Summary NATALY GARCIA :1990 Visit Date:09/09/2024 Ambulatory Visit Instructions Your Diagnosis Gastroparesis Overweight BMI 29.0-29.9,adult Your Care Team Attending Physician - ZAFAR Zuleta Tammy L. Primary Care Physician - ZAFAR Zuleta Tammy L. This Is Your Medications List [facility] Prescription (pen needles 31G x 3/16 , [...] Follow-Up Appointments Saturday 2:40 PM EDT With: ZAFAR Zuleta Tammy L. Where: [address] [address]- You Need to Schedule the Following Appointments Follow Up with Toy DOBBINS, Sarah STEPHEN When: Only if needed Comments: work excuse for August 31- return on September 14 Where: [address] [place] [address] Medications What How Much When Why Instructions Changed metoclopramide (metoclopramide 10 mg Tab) 1 Tablets By Mouth Every 6 hours as needed for Nausea/Vomiting Pickup at [facility]/pharmacy #[id number] Unchanged divalproex sodium (Depakote DR 500 mg [...] Capsules By Mouth Every day Pharmacy Information [facility]/pharmacy #[id number]: [address], [place] [id number] [phone] Allergies penicillins (Hives) Problems Ongoing - Any [...] loss of (more content not included)... Normal [facility] Family Medicine Office/Clini c Noteon 09-09-2024 Family Medicine Office/Clinic Note Family Medicine Office/Clinic Note Chief Complaint The patient presents with persistent vomiting and chest pain post-medication change. HPI Staff ER followup: Hospital: [facility] Visit date: 09-01-24 Symptoms the patient [...] Nausea/Vomiting, # 28 tab(s), Refills(s) 0, Pharmacy: [facility]/pharmacy #[id number], 170, cm, 09/09/24 12:01:00 EDT, Height/Length [...] Follow-up With When Contact Information Toy DOBBINS, DRUM LOADER AND UNLOADER-COLLAR SETTER, Sarah Pena Only if needed [address] [place] [phone] Additional Instructions: work excuse for August 31- [...] , 5mm (more content not included)... Normal [facility] Comment on above: Result Comment: Elec tronically Signed By: Toy DOBBINS, DRUM LOADER AND UNLOADER- COLLAR SETTER, Sarah Pena\.br\Date and Time Signed: 09/09/24 14:27 EDT Provider Letteron 09-09-2024 Provider Letter Provider Letter September 09, 2024 NATALY GARCIA [address] [address] : 1990 To Whom It May Concern, Please excuse above patient from work. Date of Illness: From: 2024 To: 09/11/2024 May Return to Work On: 09/14/2024 Sincerely, [facility] [address] [place], [place] [address] Normal [facility] CBC with Auto Differentialon 2024 Basophils (Bld) [#/Vol] 0 10*3/uL [facility] Basophils/100 WBC (Bld) 0 % 0 - 2 % [facility] Eosinophils (Bld) [#/Vol] 0 10*3/uL [facility] Eosinophils/100 WBC (Bld) 0 % 0 - 4 % [facility] Erythrocyte distribution width (RBC) [Ratio] 15.2 % High 11.5 - 14.9 % [facility] Hematocrit (Bld) [Volume fraction] 41.1 % 36 - 46 % [facility] Hemoglobin (Bld) [Mass/Vol] 13.6 g/dL 12.0 - 16.0 g/dL [facility] Interpretation and review of laboratory results Abnormal [facility] Lymphocytes/100 WBC (Bld) 11 % Low 24 - 44 % [facility] Lymphocytes/100 WBC (Bld) 0.9 % Low [facility] MCH (RBC) [Entitic mass] 28.2 pg 26 - 34 pg [facility] MCHC (RBC) [Mass/Vol] 33 g/dL 31 - 37 g/dL B [facility] MCV (RBC) [Entitic vol] 85.4 fL 80 - 100 fL [facility] Monocytes/100 WBC (Bld) 3 % 1 - 7 % [facility] Monocytes/100 WBC (Bld) 0.2 % [facility] Neutrophils/100 WBC (Bld) 86 % High 36 - 66 % [facility] Platelet mean volume (Bld) [Entitic vol] 9.7 fL 6.0 - 12.0 fL [facility] Platelets (Bld) [#/Vol] 224 10*3/uL [facility] RBC (Bld) [#/Vol] 4.82 10*6/uL 4.0 - 5.2 m/uL [facility] Segmented neutrophils/100 WBC (Bld) 7.1 % [facility] WBC other (Bld) [#/Vol] 8.2 [facility] CBC with Diffon 2024 Abs. Basophil 0.00 k/uL Normal 0.0-0.2 [facility] Comment on above: Performed By: #### C DP, FT4, CP, HCG, LIP, TSH #### [facility] [address] [place] [address] Boardmarker: Duane Pearl DO Abs.Neutrophil (Seg) 7.10 k/uL Normal 1.3-9.[address] [facility] Comment on above: Performed By: #### C DP, FT4, CP, HCG, LIP, TSH #### [facility] [address] [facility] [place] [address] Boardmarker: Duane Pearl DO Basophils/100 WBC (Bld) 0 % Normal 0-2 [facility] Comment on above: Performed By: #### C DP, FT4, CP, HCG, LIP, TSH #### [facility] [address] [place] [address]. [place] [address] Boardmarker: Duane Pearl DO Eosinophils (Bld) [#/Vol] 0.00 10*3/uL Normal 0.0-0.4 [facility] Comment on above: Performed By: #### C DP, FT4, CP, HCG, LIP, TSH #### [facility] [address] [place] [address] Boardmarker: Duane Pearl DO Eosinophils/100 WBC (Bld) 0 % Normal 0-4 [facility] Comment on above: Performed By: #### C DP, FT4, CP, HCG, LIP, TSH #### [facility] [address] [place] [address] Boardmarker: Duane Pearl DO Erythrocyte distribution width (RBC) [Ratio] 15.2 % High 11.5-14.9 [facility] Comment on above: Performed By: #### C DP, FT4, CP, HCG, LIP, TSH #### [facility] [address] [place] [address] Boardmarker: Duane Pearl DO Hematocrit (Bld) [Volume fraction] 41.1 % Normal 36-46 [facility] Comment on above: Performed By: #### C DP, FT4, CP, HCG, LIP, TSH #### [facility] [place] [address] Boardmarker: Duane Pearl DO Hemoglobin (Bld) [Mass/Vol] 13.6 g/dL Normal 12.0-16.0 [facility] Comment on above: Performed By: #### C DP, FT4, CP, HCG, LIP, TSH #### [facility] [address] [place] [address] Boardmarker: Duane Pearl DO Lymphocytes (Bld) [#/Vol] 0.90 10*3/uL Low 1.0-4.8 [facility] Comment on above: Performed By: #### C DP, FT4, CP, HCG, LIP, TSH #### [facility] [address] [place] [address] Boardmarker: Duane Pearl DO Lymphocytes/100 WBC (Bld) 11 % Low 24-44 [facility] Comment on above: Performed By: #### C DP, FT4, CP, HCG, LIP, TSH #### [facility] [address] [place] [address] Boardmarker: Duane Pearl DO MCH (RBC) [Entitic mass] 28.2 pg Normal 26-34 [facility] Comment on above: Performed By: #### C DP, FT4, CP, HCG, LIP, TSH #### [facility] [address] [place] [address] Boardmarker: Duane Pearl DO MCHC (RBC) [Mass/Vol] 33.0 g/dL Normal 31-37 [facility] Comment on above: Performed By: #### C DP, FT4, CP, HCG, LIP, TSH #### [facility] [address] [place] [address] Boardmarker: Duane Pearl DO MCV (RBC) [Entitic vol] 85.4 fL Normal 80-100 [facility] Comment on above: Performed By: #### C DP, FT4, CP, HCG, LIP, TSH #### [facility] [address] [place] [address] Boardmarker: Duane Pearl DO Monocytes (Bld) [#/Vol] 0.20 10*3/uL Normal 0.1-1.3 [facility] Comment on above: Performed By: #### C DP, FT4, CP, HCG, LIP, TSH #### [facility] [place] [facility] [place] [address] Boardmarker: Duane Pearl DO Monocytes/100 WBC (Bld) 3 % Normal 1-7 [facility] Comment on above: Performed By: #### C DP, FT4, CP, HCG, LIP, TSH #### [facility] [place] [address] Boardmarker: Duane Pearl DO Neutrophil (Seg) 86 % High 36-66 [facility] Comment on above: Performed By: #### C DP, FT4, CP, HCG, LIP, TSH #### [facility] [place] [address] Boardmarker: Duane Pearl DO Platelet mean volume (Bld) [Entitic vol] 9.7 fL Normal 6.0-12.0 [facility] Comment on above: Performed By: #### C DP, FT4, CP, HCG, LIP, TSH #### [facility] [place] [address] Boardmarker: Duane Pearl DO Platelets (Bld) [#/Vol] 224 10*3/uL Normal 150-450 [facility] Comment on above: Performed By: #### C DP, FT4, CP, HCG, LIP, TSH #### [facility] [address] [place] [address] Boardmarker: Duane Pearl DO RBC (Bld) [#/Vol] 4.82 10*6/uL Normal 4.0-5.2 [facility] Comment on above: Performed By: #### C DP, FT4, CP, HCG, LIP, TSH #### [facility] [address] [place] [address] Boardmarker: Duane Pearl DO WBC (Bld) [#/Vol] 8.2 10*3/uL Normal 3.5-11.0 [facility] Comment on above: Performed By: #### C DP, FT4, CP, HCG, LIP, TSH #### [facility] [address] [place] [address] Boardmarker: Duane Pearl DO Comp Metabolic Profon 2024 Albumin [Mass/Vol] 4.7 g/dL Normal 3.5-5.2 [facility] Comment on above: Performed By: #### C DP, FT4, CP, HCG, LIP, TSH #### [facility] [address] [place] [address] Boardmarker: Duane Pearl DO Alkaline Phos 49 U/L Normal 35-104 [facility] Comment on above: Performed By: #### C DP, FT4, CP, HCG, LIP, TSH #### [facility] [address] [place] [address] Boardmarker: Fanelly, Duane, DO ALT [Catalytic activity/Vol] 12 U/L Normal 10-35 [facility] Comment on above: Performed By: #### C DP, FT4, CP, HCG, LIP, TSH #### [facility] [address] [place] [address] Boardmarker: Duane Pearl DO Anion gap [Moles/Vol] 13 mmol/L Normal 9-16 [facility] Comment on above: Performed By: #### C DP, FT4, CP, HCG, LIP, TSH #### [facility] [address] [place] [address] Boardmarker: Duane Pearl, DO AST [Catalytic activity/Vol] 14 U/L Normal 10-35 [facility] Comment on above: Performed By: #### C DP, FT4, CP, HCG, LIP, TSH #### [facility] [place] [address] Boardmarker: Duane Pearl DO Bilirubin [Mass/Vol] 0.4 mg/dL Normal 0.0-1.[address] [facility] Comment on above: Performed By: #### C DP, FT4, CP, HCG, LIP, TSH #### [facility] [place] [address] Boardmarker: Duane Pearl DO Calcium [Mass/Vol] 9.5 mg/dL Normal 8.6-10.4 [facility] Comment on above: Performed By: #### C DP, FT4, CP, HCG, LIP, TSH #### [facility] [place] [facility] [place] [address] Boardmarker: Duane Pearl DO Chloride [Moles/Vol] 100 mmol/L Normal 98-[address] [facility] Comment on above: Performed By: #### C DP, FT4, CP, HCG, LIP, TSH #### [facility] [address] [facility] [place] [address] Boardmarker: Duane Pearl DO CO2 [Moles/Vol] 23 mmol/L Normal 20-31 [facility] Comment on above: Performed By: #### C DP, FT4, CP, HCG, LIP, TSH #### [facility] [address] [place] [address] Boardmarker: Duane Pearl DO Creatinine [Mass/Vol] 0.6 mg/dL Low 0.7-1.2 [facility] Comment on above: Performed By: #### C DP, FT4, CP, HCG, LIP, TSH #### [facility] [address] [place] [address]. [place] [address] Boardmarker: Duane Pearl DO GFR/1.73 sq M.predicted among non-blacks MDRD (S/P/Bld) [Vol rate/Area] mL/min/{1.73_m2} Normal >60 [facility] Comment on above: Result Comment: These results [...] DP, FT4, CP, HCG, LIP, TSH #### [facility] [address] [place] [address] Boardmarker: Duane Pearl DO Glucose [Mass/Vol] 110 mg/dL High 74-99 [facility] Comment on above: Performed By: #### C DP, FT4, CP, HCG, LIP, TSH #### [facility] [address] [place] [address] Boardmarker: Fanelly, Duane, DO Potassium [Moles/Vol] 3.8 mmol/L Normal 3.7-5.3 [facility] Comment on above: Performed By: #### C DP, FT4, CP, HCG, LIP, TSH #### [facility] [address] [place] [address] Boardmarker: Duane Pearl, Protein [Mass/Vol] 7.8 g/dL Normal 6.6-8.7 [facility] Comment on above: Performed By: #### C DP, FT4, CP, HCG, LIP, TSH #### [facility] [address] [place] [address] Boardmarker: Duane Pearl DO Sodium [Moles/Vol] 136 mmol/L Normal 136-145 [facility] Comment on above: Performed By: #### C DP, FT4, CP, HCG, LIP, TSH #### [facility] [address] [place] [address] Boardmarker: Duane Pearl DO Urea nitrogen [Mass/Vol] 6 mg/dL Normal 6-20 [facility] Comment on above: Performed By: #### C DP, FT4, CP, HCG, LIP, TSH #### [facility] [address] [place] [address] Boardmarker: Duane Pearl DO Comprehensive Metabolic Pane vernon 2024 Albumin [Mass/Vol] 4.7 g/dL 3.5 - 5.2 g/dL [facility] ALP [Catalytic activity/Vol] 49 U/L 35 - 104 U/L [facility] ALT [Catalytic activity/Vol] 12 U/L 10 - 35 U/L [facility] Anion gap [Moles/Vol] 13 mmol/L 9 - 16 mmol/L [facility] AST [Catalytic activity/Vol] 14 U/L 10 - 35 U/L [facility] Bilirubin [Mass/Vol] 0.4 mg/dL 0.0 - 1 .2 mg/dL [facility] Calcium [Mass/Vol] 9.5 mg/dL 8.6 - 10. 4 mg/dL [facility] Chloride [Moles/Vol] 100 mmol/L 98 - 10 7 mmol/L [facility] CO2 [Moles/Vol] 23 mmol/L 20 - 31 mmol/L [facility] Creatinine [Mass/Vol] 0.6 mg/dL Low 0.7 - 1.2 mg/dL [facility] Est, Glom Filt Rate - PINF [facility] Comment on above: These results are [...] 110 mg/dL High 74 - 99 mg/dL [facility] Interpretation and review of laboratory results Abnormal [facility] Potassium [Moles/Vol] 3.8 mmol/L 3.7 - 5.3 mmol/L [facility] Protein [Mass/Vol] 7.8 g/dL 6.6 - 8.7 g/dL [facility] Sodium [Moles/Vol] 136 mmol/L 136 - 145 mmol/L [facility] Urea nitrogen [Mass/Vol] 6 mg/dL 6 - 20 mg/dL [facility] HCG Qualitative, Serumon HCG ( test) Ql Negative NEGATIVE [facility] Comment on above: Specimens with hCG l evels near the threshold of the test (25 mIU/mL) may give a negative or indeterminate result. In such cases, another test should be performed with a new specimen in 48-72 hours. If early is suspected clinically in this setting, correlation with quantitative serum b-hCG level is suggested. [facility] HCG Screen, Bloodon 09-01-19 HCG Screen, Blood Negative Normal NEG [facility] Comment on above: Result Comment: Spec imens [...] DP, FT4, CP, HCG, LIP, TSH #### [facility] [address] [place] [address] Boardmarker: Duane Pearl DO Lipaseon 2024 Lipase [Catalytic activity/Vol] 26 U/L 13 - 60 U/L [facility] Lipase [Catalytic activity/Vol] 26 U/L Normal 13-60 [facility] Comment on above: Performed By: #### C DP, FT4, CP, HCG, LIP, TSH #### [facility] [address] [place] [address] Boardmarker: Duane Pearl DO No Panel Informationon 08-31 [facility] T4, Freeon 2024 Free T4 [Mass/Vol] 1.1 ng/dL 0.9 - 1.7 ng/dL [facility] TSHon 2024 TSH Qn 1.79 m[IU]/L [facility] Thyroid Stim. Horm.on 2024 Thyroid Stim. Horm. 1.79 uIU/mL Normal 0.27-4.[address] [facility] Comment on above: Performed By: #### C DP, FT4, CP, HCG, LIP, TSH #### [facility] [address] [place], [place] [address] Boardmarker: Duane Pearl DO Thyroxine, Freeon 2024 Thyroxine, Free 1.1 ng/dL Normal 0.9-1.7 [facility] Comment on above: Performed By: #### C DP, FT4, CP, HCG, LIP, TSH #### [facility] [address] [place] [address] Boardmarker: Duane Pearl DO US GALLBLADDER RUQon 025 [...] Tahir Donis MD 08/31/24 Final result Normal [facility] US Gallbladderon 2024 1. No acute abnormality. PN RIS CONSOLIDATED EXAMINATION: RIGHT UPPER QUADRANT ULTRASOUND [...] No evidence of right upper quadrant ascites. [facility] RIS CONSOLIDATED Tahir Donis MD - 2024 EXAMINATION: [...] quadrant ascites. IMPRESSION: 1. No acute abnormality. [facility] Radiology Study observation (narrative) [facility] US GallbladderOrdered By: Maximus Donis on 2024 [facility] Work Phone: Ambulatory Visit Summaryon 0 06-05-2024 [...] EDT With: Toy DOBBINS, Sarah STEPHEN Where: [address] [id number]- You Need to Schedule the Following Appointments Follow Up with Toy MSN, DRUM LOADER AND UNLOADER-COLLAR SETTER, Sarah Pena When: In 6 months Comments: chronic care Where: [address] [place] [phone] Medications What How Much When Why Instructions [...] more ab (more content not included)... Normal [facility] CBC w/ Auto Diffon 5 Basophils/100 WBC (Bld) 0.4 % Normal 0.0-2.0 [facility] Comment on above: Performed By: #### 2 [id number] #### [facility] [address] [place] [address] Basophils/Leukocytes Auto (Bld) [Pure # fraction] 0.0 E9/L Normal 0.0-0.2 [facility] Comment on above: Performed By: #### 2 [id number] #### [facility] [address] [place] [address] Eosinophils (Bld) [#/Vol] 0.2 E9/L Normal 0.0-0.5 [facility] Comment on above: Performed By: #### 2 [id number] #### [facility] [address] [place] [address] Eosinophils/100 WBC (Bld) 1.9 % Normal 0.0-8.0 [facility] Comment on above: Performed By: #### 2 [id number] #### [facility] [address] [place] [address] Erythrocyte distribution width (RBC) [Ratio] 15.3 % High 10.9-14.2 [facility] Comment on above: Performed By: #### 2 063651 #### [facility] [address] [place] [address] Hematocrit (Bld) [Volume fraction] 37.5 % Normal 34.0-46.0 [facility] Comment on above: Performed By: #### 2 727392 #### [facility] [address] [place] [address] Hemoglobin (Bld) [Mass/Vol] 12.5 g/dL Normal 12.0-16.0 [facility] Comment on above: Performed By: #### 2 [id number] #### [facility] [address] [place] [address] Lymphocytes (Bld) [#/Vol] 2.9 E9/L Normal 1.0-4.0 [facility] Comment on above: Performed By: #### 2 850390 #### [facility] [address] [place] [address] Lymphocytes/100 WBC (Bld) 27.7 % Normal 14.0-50.0 [facility] Comment on above: Performed By: #### 2 940138 #### [facility] [address] [place] [address] MCH (RBC) [Entitic mass] 28.1 pg Normal 27.0-34.0 [facility] Comment on above: Performed By: #### 2 444069 #### [facility] [address] [place] [address] MCHC (RBC) [Mass/Vol] 33.4 g/dL Normal 31.4-36.0 [facility] Comment on above: Performed By: #### 2 767449 #### [facility] [address] [place] [address] MCV (RBC) [Entitic vol] 84.0 fL Normal 80.0-100.0 [facility] Comment on above: Performed By: #### 2 886319 #### [facility] [address] [place] [address] Monocytes (Bld) [#/Vol] 0.7 E9/L Normal 0.2-1.0 [facility] Comment on above: Performed By: #### 2 [id number] #### [facility] [address] [place] [address] Neutrophils (Bld) [#/Vol] 6.6 E9/L Normal 2.0-7.5 [facility] Comment on above: Performed By: #### 2 698155 #### [facility] [address] [place] [address] Neutrophils/100 WBC (Bld) 63.5 % Normal 36.0-75.0 [facility] Comment on above: Performed By: #### 2 600547 #### [facility] [address] [place] [address] Platelet mean volume (Bld) [Entitic vol] 10.0 fL Normal 6.4-10.8 [facility] Comment on above: Performed By: #### 2 [id number] #### [facility] [address] [place] [address] Platelets (Bld) [#/Vol] 257.0 E9/L Normal 150.0-500.0 [facility] Comment on above: Performed By: #### 2 000747 #### [facility] [address] [place] [address] RBC (Bld) [#/Vol] 4.5 E12/L Normal 4.3-5.9 [facility] Comment on above: Performed By: #### 2 888400 #### [facility] [address] [place] [address] WBC corrected for nucl RBC Auto (Bld) [#/Vol] 10.3 E9/L Normal 4.0-11.0 [facility] Comment on above: Performed By: #### 2 122443 #### [facility] [address] [place] [address] CHEMISTRYOrdered By: SYSTEM SYSTEM on 06-05-2024 25-hydroxyvitamin [...] 06-05-2024 Albumin [Mass/Vol] 4.6 g/dL Normal 3.3-5.0 [facility] Comment on above: Performed By: #### 2 915085 #### [facility] [address] [place] [address] Albumin/Globulin (S) [Mass conc ratio] 1.6 Normal 1.1-2.2 [facility] Comment on above: Performed By: #### 2 270955 #### [facility] [address] [place] [address] ALP [Catalytic activity/Vol] 44 Int._Unit/L Normal 21-98 [facility] Comment on above: Performed By: #### 2 309983 #### [facility] [address] [place] [address] ALT No additional P-5'-P [Catalytic activity/Vol] 11 Int._Unit/L Normal 6-46 [facility] Comment on above: Performed By: #### 2 948264 #### [facility] [address] [place] [address] Anion gap [Moles/Vol] 11 mmol/L Normal 6-16 [facility] Comment on above: Performed By: #### 2 [id number] #### [facility] [address] [place] [address] AST [Catalytic activity/Vol] 13 Int._Unit/L Normal 5-43 [facility] Comment on above: Performed By: #### 2 262097 #### [facility] [address] [place] [address] Bilirubin [Mass/Vol] 0.4 mg/dL Normal 0.0-1.1 [facility] Comment on above: Performed By: #### 2 184361 #### [facility] [address] [place] [address] Calcium [Mass/Vol] 9.6 mg/dL Normal 8.9-11.1 [facility] Comment on above: Performed By: #### 2 319205 #### [facility] [address] [place] [address] Chloride [Moles/Vol] 101 mmol/L Normal 101-111 [facility] Comment on above: Performed By: #### 2 144679 #### [facility] [address] [place] [address] CO2 [Moles/Vol] 27 mmol/L Normal 21-31 [facility] Comment on above: Performed By: #### 2 723621 #### [facility] [address] [place] [address] Creatinine [Mass/Vol] 0.6 mg/dL Normal 0.5-1.3 [facility] Comment on above: Performed By: #### 2 494071 #### [facility] [address] [place] [address] Globulin (S) [Mass/Vol] 2.8 g/dL Normal 1.4-4.0 [facility] Comment on above: Performed By: #### 2 126356 #### [facility] [address] [place] [address] Glucose [Mass/Vol] 82 mg/dL Normal 55-199 [facility] Comment on above: Performed By: #### 2 591104 #### [facility] [address] [place] [address] Potassium [Moles/Vol] 3.6 mmol/L Normal 3.5-5.3 [facility] Comment on above: Performed By: #### 2 049834 #### [facility] [address] [place] [address] Protein [Mass/Vol] 7.4 g/dL Normal 6.0-7.8 [facility] Comment on above: Performed By: #### 2 722320 #### [facility] [address] [place] [address] Sodium [Moles/Vol] 135 mmol/L Normal 135-145 [facility] Comment on above: Performed By: #### 2 935042 #### [facility] [address] [place] [address] Urea nitrogen [Mass/Vol] 8 mg/dL Normal 5-21 [facility] Comment on above: Performed By: #### 2 273502 #### [facility] [address] [place] [address] Urea nitrogen/Creatinine [Mass ratio] 13 No Units Normal 10-20 [facility] Comment on above: Performed By: #### 2 193623 #### [facility] [address] [place] [address] Family Medicine Office/Clini c Noteon 06-05-2024 Family [...] List of Providers weight management: Desirae Rosales [facility] Cr/eGFR: eGFR: >60 (05/27/23 16:13:00) Creatinine: [...] precautions and care. Ordered: Lab Specimen Collect [id number] 2. Generalized anxiety disorder (F41.1: Generalized anxiety disorder) Discussed cessation of fluoxetine, noted stable mood without current occurrences of excessive anxiety. Emphasized the importance of stress management strategies and potential follow-up for medication reassessment if symptoms recur. Ordered: Lab Specimen Collect [id number] 3. Class 1 obesity due to excess [...] Toy DOBBINS, Sarah STEPHEN In [address] [place] [phone] Additional Instructions: chronic care Patient Education Managing Anxiety, Adult Seizure, Adult Problem List/Past Medic (more content not included)... Normal [facility] Comment on above: Result Comment: Elec [...] 06-05-2024 Cholesterol [Mass/Vol] 126 mg/dL Normal 120-200 [facility] Comment on above: Performed By: #### 2 329494 #### [facility] [address] [place] [address] Cholesterol in HDL [Mass/Vol] 46 mg/dL Invalid Interpretation Code [facility] Comment on above: Result Comment: '>= 60 LOW RISK' '<= 40 HIGH RISK' Performed By: #### 2 134278 #### [facility] [address] [place] [address] Cholesterol in LDL [Mass/Vol] 76 mg/dL Normal <=129 [facility] Comment on above: Performed By: #### 2 695456 #### [facility] [address] [place] [address] Cholesterol in VLDL [Mass/Vol] 15 mg/dL Normal 7-40 [facility] Comment on above: Performed By: #### 2 702160 #### [facility] [address] [place] [address] Triglyceride [Mass/Vol] 73 mg/dL Normal <=149 [facility] Comment on above: Performed By: #### 2 366366 #### [facility] [address] [place] [address] Valproic Acidon 06-05-2024 Valpro Acid Lvl 50 microgram/mL Normal 50-99 [facility] Comment on above: Performed By: #### 2 116469 #### [facility] [address] [place] [address] Vitamin D 25 Hydroxyon 06-05 25-hydroxyvitamin D3 [Mass/Vol] 26.9 ng/mL Low 30.0-100.0 [facility] Comment on above: Performed By: #### 5 [id number] #### [facility] [address] [place] [address] eGFRon 06-05-2024 eGFR 119 mL/min/1.73 m2 Normal >=59 [facility] Comment on above: Performed By: #### 1 [id number] #### [facility] [address] [place] [address] Ambulatory Visit Summaryon 05-31-2023 Ambulatory Visit Summary Ambulatory Visit Summary NATALY GARCIA :1990 Visit Date:03/31/2024 Ambulatory Visit Instructions Your Diagnosis CAP (community acquired pneumonia) Non-smoker BMI 35.0-35.9,adult Exogenous obesity Your Care Team Attending Physician - KHURRAM STEPHENS CNP Primary Care Physician - Toy MSN, DRUM LOADER AND UNLOADER-AFSANEH, Sarah Pena This Is Your Medications List [facility] Prescription (pen needles 31G x 3/16 , [...] acquired pneumonia) Duration: 10 Days Pickup at [facility]/pharmacy #[id number] Unchanged divalproex sodium (Depakote DR 500 mg [...] to excess calories in adult Pharmacy Information [facility]/pharmacy #[id number]: [address], [place] [phone] Medications and Immunizations Administered Given human papillomavirus [...] you for choosing us for your care. 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/pharmacy #[id number], 170, cm, 03/31/24 13:52:00 EST, Height/Length Dosing, 101.8, kg, 03/31/24 13:52:00 EST, Weight Dosing doxycycline, 100 mg = 1 tab(s), Oral, q12hr, X 10 day(s), # 20 tab(s), Refills(s) 0, Pharmacy: [facility]/pharmacy #[id number], 170, cm, 03/31/24 13:52:00 EST, Height/Length [...] metformin 500 (more content not included)... Normal [facility] Comment on above: Result Comment: Elec tronically Signed By: KHURRAM STEPHENS CNP\.br\Date and Time Signed: 03/31/24 14:18 EST Provider Letteron 03-31-2024 Provider Letter Provider Letter March 31, 2024 NATALY GARCIA [address] [address] : 1990 To Whom It May Concern, Please excuse above patient from work due to medical Date of Illness: From: _03-31-24 To: _04-01-24 May Return to Work On: 04-02-24 Restrictions: _ Comments: _ Sincerely, [facility] [place] [address] [place] [address] [facility] HCG ( test) Ql (U)O rdered By: Laurie Simmons on 01-08-2024 Interpretation and review of laboratory results Normal [facility] Preg Test, Ur Negative [facility] IUD Insertionon [...] given: yes Instructions and paperwork completed: yes [place] protocol: Patient states understanding of procedure being [...] in 4 weeks for a string check. [facility] IUD Removalon 01-08-2024 Vianney Valverde LPN 01/08/2024 4:41 PM IUD Removal Date/Time: 01/08/2024 4:32 PM Performed by: Wesley Yang DO Authorized by: Wesley Yang DO Consent: Consent obtained: Written Consent given by: Patient Procedure risks and benefits discussed: yes Patient questions answered: yes Patient agrees, verbalizes understanding, and wants to proceed: yes Educational handouts given: yes Instructions and paperwork completed: yes [place] protocol: Patient states understanding of procedure being [...] office for annual exam unless needed otherwise [facility] [place] e Cytology Cervical or vaginal smear or scraping studyon 12-25-2023 Interpretation and review of laboratory results Abnormal [facility] Interdisciplinary Note - Soc ial Workeron 12-25-2023 Interdisciplinary Note - Ux Ui Designer Interdisciplinary Note - Ux Ui Designer Consult for positive depression screen received. Per chart review, no documentation of discussion of concerns related to PHQ9. Patient answered several days when asked if she had thoughts that she would be better off or hurting herself. This has been referred on to [facility] for most appropriate follow up due to the severity of thoughts. Normal [facility] Ambulatory Visit Summaryon 0 12-24-2023 Ambulatory Visit Summary Ambulatory Visit Summary NATALY GARCIA :1990 Visit Date:12/24/2023 Ambulatory Visit Instructions Your Diagnosis Vomiting in adult BMI 36.0-36.9,adult Class 1 obesity due to excess calories in adult Nonsmoker Your Care Team Attending Physician - KHURRAM STEPHENS CNP Primary Care Physician - Toy MSN, DRUM LOADER AND UNLOADER-Sarah SHELBY This Is Your Medications List [facility] Prescription (pen needles 31G x 3/16 , [...] Saturday 5:40 PM EDT With: Toy DOBBINS, NATACHA-Sarah SHELBY Where: [facility] [address] [place] [address] 2023 3:20 PM EDT With: KHURRAM STEPHENS CNP Where: [address] [address]- Medications What How Much When Why Instructions [...] you for choosing us for your care. Erica Judge [facility] Family Medicine Office/Clini c Noteon 12-24-2023 Family [...] three times yesterday. She reports she ate [place] food on Saturday and she is not [...] day(s), # 9 tab(s), Refills(s) 0, Pharmacy: [facility]/pharmacy #[id number], 170, cm, 12/24/23 11:58:00 EDT, Height/Length [...] available Patient Education Nausea and Vomiting, Adult, [id number] Problem List/Past Medical History Ongoing Bruxism Chronic GERD Class 2 obesity due to excess calories in adult Encounter for weight management Generalized anxiety disorder Hair loss Hyperinsulinemia Medication monitoring encounter Microcytosis Plantar wart, left foot Secondary oligomenorrhea Tonic-clonic seizures Historical COVID-19 virus infection Screening for cervical cancer Procedure/Surgical History Colonoscopy (08/19/2020), EGD ( (more content not included)... [facility] Comment on above: Result Comment: Elec tronically Signed By: KHURRAM STEPHENS CNP\.br\Date and Time Signed: 12/24/23 15:04 EDT Provider Letteron 12-24-2023 Provider Letter Provider Letter December 24, 2023 NATALY GARCIA [address] [address] : 1990 To Whom It May Concern, Please excuse above patient from work, due to medical Date of Illness: From: _12-23-23 To: 12-25-23 May Return to Work On:12-26-23 Restrictions: _ Comments: _NONE Sincerely, [address] [address] [facility] Family Medicine Office/Clini c Noteon 12-08-2023 [...] paper prescri (more content not included)... Normal [facility] Comment on above: Result Comment: Elec tronically Signed By: Toy DOBBINS, Sarah CHANDLER CNP\.br\Date and Time Signed: 12/08/23 11:03 EDT\.br\Electronically Co-Signed [...] Zuleta Tammy L. Primary Care Physician - ZAFAR Zuleta Tammy L. This Is Your Medications List metformin (metformin [...] Appointments Saturday 5:40 PM EDT With: Toy MSN, DRUM LOADER AND UNLOADER-COLLAR SETTER, Sarah Pena Where: [facility] [place] Normal [facility] CHEMISTRYOrdered By: SYSTEM SYSTEM on 05-27-2023 Albumin [...] 6.9 E9/L Normal 2.0 - 7.5 E9/L [facility] HEMATOLOGYOrdered By: Jennifer Gaines on 05-27-2023 Erythrocyte distribution width (RBC) [Ratio] 16.6 % High 10.9 - 14.2 % [facility] Hematocrit (Bld) [Volume fraction] 37.4 % Normal 34.0 - 46.0 % [facility] Hemoglobin (Bld) [Mass/Vol] 12.4 g/dL Normal 12.0 - 16.0 gm/dL [facility] MCH (RBC) [Entitic mass] 26.6 pg Low 27.0 - 34.0 pg [facility] MCHC (RBC) [Mass/Vol] 33.1 g/dL Normal 31.4 - 36.0 gm/dL [facility] MCV (RBC) [Entitic vol] 80.4 fL Normal 80.0 - 100.0 fL [facility] Platelet mean volume (Bld) [Entitic vol] 9.2 fL Normal 6.4 - 10.8 fL [facility] Platelets (Bld) [#/Vol] 262.0 E9/L Normal 150.0 - 500.0 E9/L [facility] RBC (Bld) [#/Vol] 4.6 E12/L Normal 4.3 - 5.9 E12/L FT HemeAutoSS WBC corrected for nucl RBC Auto (Bld) [#/Vol] 10.3 E9/L Normal 4.0 - 11.0 E9/L [facility] HemeAutoSS Basic Metabolic Profon 03-02 Anion gap [Moles/Vol] 12 mmol/L Normal 9-17 [facility] Comment on above: Performed By: #### C DP, HCG, LIVP, LIP, BMP #### [facility] [address] [place] [address] Boardmarker: Rolando Burns MD Calcium [Mass/Vol] 9.8 mg/dL Normal 8.6-10.4 [facility] Comment on above: Performed By: #### C DP, HCG, LIVP, LIP, BMP #### [facility] [address] [place] [id number] Boardmarker: Rolando Burns MD Chloride [Moles/Vol] 101 mmol/L Normal 98-107 [facility] Comment on above: Performed By: #### C DP, HCG, LIVP, LIP, BMP #### [facility] [address] [place] [address] Boardmarker: Rolando Burns MD CO2 [Moles/Vol] 25 mmol/L Normal 20-31 [facility] Comment on above: Performed By: #### C DP, HCG, LIVP, LIP, BMP #### [facility] [address] [place] [address] Boardmarker: Rolando Burns MD Creatinine [Mass/Vol] 0.5 mg/dL Normal 0.5-0.9 [facility] Comment on above: Performed By: #### C DP, HCG, LIVP, LIP, BMP #### [facility] [address] [place] [address] Boardmarker: Rolando Burns MD GFR/1.73 sq M.predicted among non-blacks MDRD (S/P/Bld) [Vol rate/Area] mL/min/{1.73_m2} Normal >60 [facility] Comment on above: Result Comment: These results [...] C DP, HCG, LIVP, LIP, BMP #### [facility] [address] [place] [address] Boardmarker: Rolando Burns MD Glucose [Mass/Vol] 113 mg/dL High 70-99 [facility] Comment on above: Performed By: #### C DP, HCG, LIVP, LIP, BMP #### [facility] [address] [place] [address] Boardmarker: Rolando Bruns MD Potassium [Moles/Vol] 3.8 mmol/L Normal 3.7-5.3 [facility] Comment on above: Performed By: #### C DP, HCG, LIVP, LIP, BMP #### [facility] [address] [place] [address] Boardmarker: Rolando Burns MD Sodium [Moles/Vol] 138 mmol/L Normal 135-144 [facility] Comment on above: Performed By: #### C DP, HCG, LIVP, LIP, BMP #### [facility] [address] [place] [address] Boardmarker: Rolando Burns MD Urea nitrogen [Mass/Vol] 8 mg/dL Normal 6-20 [facility] Comment on above: Performed By: #### C DP, HCG, LIVP, LIP, BMP #### [facility] [address] [place] [address] Boardmarker: Rolando Burns MD CBC with Diffon 03-02-2023 Abs. Basophil 0.00 k/uL Normal 0.0-0.2 [facility] Comment on above: Performed By: #### C DP, HCG, LIVP, LIP, BMP #### [facility] [address] [place] [address] Boardmarker: Rolando Burns MD Abs.Neutrophil (Seg) 11.50 k/uL High 1.8-7.7 [facility] Comment on above: Performed By: #### C DP, HCG, LIVP, LIP, BMP #### [facility] [address] [place] [address] Boardmarker: Rolando Burns MD Basophils/100 WBC (Bld) 0 % Normal 0-2 [facility] Comment on above: Performed By: #### C DP, HCG, LIVP, LIP, BMP #### [facility] [address] [place] [address] Boardmarker: Rolando Burns MD Eosinophils (Bld) [#/Vol] 0.00 10*3/uL Normal 0.0-0.4 [facility] Comment on above: Performed By: #### C DP, HCG, LIVP, LIP, BMP #### [facility] [address] [place] [address] Boardmarker: Rolando Burns MD Eosinophils/100 WBC (Bld) 0 % Low 1-4 [facility] Comment on above: Performed By: #### C DP, HCG, LIVP, LIP, BMP #### [facility] [address] [place] [address] Boardmarker: Rolando Burns MD Erythrocyte distribution width (RBC) [Ratio] 16.3 % High 12.5-15.4 [facility] Comment on above: Performed By: #### C DP, HCG, LIVP, LIP, BMP #### [facility] [address] [place] [address] Boardmarker: Rolando Burns MD Hematocrit (Bld) [Volume fraction] 39.0 % Normal 36-46 [facility] Comment on above: Performed By: #### C DP, HCG, LIVP, LIP, BMP #### [facility] [address] [place] [address] Boardmarker: Rolando Burns MD Hemoglobin (Bld) [Mass/Vol] 13.0 g/dL Normal 12.0-16.0 [facility] Comment on above: Performed By: #### C DP, HCG, LIVP, LIP, BMP #### [facility] [address] [place] [address] Boardmarker: Rolando Burns MD Lymphocytes (Bld) [#/Vol] 1.40 10*3/uL Normal 1.0-4.8 [facility] Comment on above: Performed By: #### C DP, HCG, LIVP, LIP, BMP #### [facility] [address] [place] [address] Boardmarker: Rolando Burns MD Lymphocytes/100 WBC (Bld) 11 % Low 24-44 [facility] Comment on above: Performed By: #### C DP, HCG, LIVP, LIP, BMP #### [facility] [address] [place] [address] Boardmarker: Rolando Burns MD MCH (RBC) [Entitic mass] 26.6 pg Normal 26-34 [facility] Comment on above: Performed By: #### C DP, HCG, LIVP, LIP, BMP #### [facility] [address] [place] [address] Boardmarker: Rolando Burns MD MCHC (RBC) [Mass/Vol] 33.3 g/dL Normal 31-37 [facility] Comment on above: Performed By: #### C DP, HCG, LIVP, LIP, BMP #### [facility] [address] [place] [address] Boardmarker: Rolando Burns MD MCV (RBC) [Entitic vol] 80.1 fL Normal 80-100 [facility] Comment on above: Performed By: #### C DP, HCG, LIVP, LIP, BMP #### [facility] [address] [place] [address] Boardmarker: Rolando Burns MD Monocytes (Bld) [#/Vol] 0.40 10*3/uL Normal 0.1-1.2 [facility] Comment on above: Performed By: #### C DP, HCG, LIVP, LIP, BMP #### [facility] [address] [place] [address] Boardmarker: Rolando Burns MD Monocytes/100 WBC (Bld) 3 % Normal 2-11 [facility] Comment on above: Performed By: #### C DP, HCG, LIVP, LIP, BMP #### [facility] [address] [place] [address] Boardmarker: Rolando Burns MD Neutrophil (Seg) 86 % High 36-66 [facility] Comment on above: Performed By: #### C DP, HCG, LIVP, LIP, BMP #### [facility] [address] [place] [address] Boardmarker: Rolando Burns MD Platelet mean volume (Bld) [Entitic vol] 8.5 fL Normal 6.0-12.0 [facility] Comment on above: Performed By: #### C DP, HCG, LIVP, LIP, BMP #### [facility] [address] [place] [address] Boardmarker: Rolando Burns MD Platelets (Bld) [#/Vol] 308 10*3/uL Normal 140-450 [facility] Comment on above: Performed By: #### C DP, HCG, LIVP, LIP, BMP #### [facility] [address] [place] [address] Boardmarker: Rolando Burns MD RBC (Bld) [#/Vol] 4.86 10*6/uL Normal 4.0-5.2 [facility] Comment on above: Performed By: #### C DP, HCG, LIVP, LIP, BMP #### [facility] [address] [place] [address] Boardmarker: Rolando Burns MD WBC (Bld) [#/Vol] 13.4 10*3/uL High 3.5-11.0 [facility] Comment on above: Performed By: #### C DP, HCG, LIVP, LIP, BMP #### [facility] [address] [place] [address] Boardmarker: Rolando Burns MD CT ABDOMEN PELVIS WO [...] Dileep Frias DO 03/02/23 Final result Normal [facility] Drug Scr, Abuse, Uron 2022 Fentanyl, Urine Negative Normal NEG [facility] Comment on above: Result Comment: (Positive cutoff 5 ng/ml) Performed By: #### D AU #### [employer] [address] [place], [place] [id number] Boardmarker: Steve Malloy MD [facility] [address] [place] [address] Boardmarker: Rolando Burns MD Amphetamine(s),Ur Negative Normal NEG [facility] Comment on above: Result Comment: (Positive cutoff 1000 ng/mL) Performed By: #### D AU #### [facility] [address] [place] [address] Boardmarker: Steve Malloy MD [facility] [address] [place] [address] Boardmarker: Rolando Burns MD Barbiturate(s),Ur Negative Normal NEG [facility] Comment on above: Result Comment: (Positive cutoff 200 ng/mL) Performed By: #### D AU #### [address] [address] Boardmarker: Steve Malloy MD [facility] [address] [place] [address] Boardmarker: Rolando Burns MD Benzodiazepine(s) Negative Normal NEG [facility] Comment on above: Result Comment: (Positive cutoff 200 ng/mL) Performed By: #### D AU #### [address] [address] Boardmarker: Steve Malloy MD [facility] [address] [place] [address] Boardmarker: Rolando Burns MD Cannabinoid(s),Ur Negative Normal NEG [facility] Comment on above: Result Comment: (Positive cutoff 50 ng/mL) Performed By: #### D AU #### [facility] [address] [place] [address] Boardmarker: Steve Malloy MD [facility] [address] [place] [address] Boardmarker: Rolando Burns MD Cocaine Metabolite Negative Normal NEG [facility] Comment on above: Result Comment: (Positive cutoff 300 ng/mL) Performed By: #### D AU #### [facility] [employer] [address] [place] [address] Boardmarker: Steve Malloy MD [facility] [address] [place] [address] Boardmarker: Rolando Burns MD Interpretive Info Assay provides medical screening only. The absence of expected drug(s) and/or Normal [facility] Comment on above: Result Comment: meta bolite(s) may indicate diluted or adulterated urine, limitations of testing or timing of collection. Testing for legal purposes should be confirmed by another method. To request confirmation of test result, please call the lab within 7 days of sample submission. Performed By: #### D AU #### [address] [address] Boardmarker: Steve Malloy MD [facility] [address] [place] [address] Boardmarker: Rolando Burns MD Methadone Ql (U) Negative Normal NEG [facility] Comment on above: Result Comment: (Positive cutoff 300 ng/mL) Performed By: #### D AU #### [address] [address] Boardmarker: Steve Malloy MD [facility] [address] [place] [address] Boardmarker: Rolando Burns MD Opiate(s), Ur Negative Normal NEG [facility] Comment on above: Result Comment: (Positive cutoff 300 ng/mL) Performed By: #### D AU #### [facility] [employer] [address] [place] [address] Boardmarker: Steve Malloy MD [facility] [address] [place] [address] Boardmarker: Rolando Burns MD Oxycodone, Urine Negative Normal NEG [facility] Comment on above: Result Comment: (Positive cutoff 100 ng/mL) Performed By: #### D AU #### [facility] [employer] [address] [place] [address] Boardmarker: Steve Malloy MD [facility] [address] [place] [address] Boardmarker: Rolando Burns MD Phencyclidine, Ur Negative Normal NEG [facility] Comment on above: Result Comment: (Positive cutoff 25 ng/mL) Performed By: #### D AU #### [place] [address] [place] [address] Boardmarker: Steve Malloy MD [facility] [address] [place] [address] Boardmarker: Rolando Burns MD HCG Screen, Bloodon 03-02-20 HCG Screen, Blood Negative Normal NEG [facility] Comment on above: Result Comment: Spec imens with hCG levels near the threshold of the test (25 mIU/mL) may give a negative or indeterminate result. In such cases, another test should be performed with a new specimen in 48-72 hours. If early is suspected clinically in this setting, correlation with quantitative serum b-hCG level is suggested. [facility] has confirmed the use of plasma for this test. This has not been cleared or approved by the U.S. Food and Drug Administration. The FDA has determined that such clearance is not necessary. Performed By: #### C DP, HCG, LIVP, LIP, BMP #### [facility] [address] [place] [address] Boardmarker: Rolando Burns MD Lipaseon 03-02-2023 Lipase [Catalytic activity/Vol] 67 U/L High 13-60 [facility] Comment on above: Performed By: #### C DP, HCG, LIVP, LIP, BMP #### [facility] [address] [place] [address] Boardmarker: Rolando Burns MD Liver Profileon 03-02-2023 Albumin [Mass/Vol] 4.7 g/dL Normal 3.5-5.2 [facility] Comment on above: Performed By: #### C DP, HCG, LIVP, LIP, BMP #### [facility] [address] [place] [address] Boardmarker: Rolando Burns MD Albumin/Glob Ratio 1.4 Normal 1.0-2.5 [facility] Comment on above: Performed By: #### C DP, HCG, LIVP, LIP, BMP #### [facility] [address] [place] [address] Boardmarker: Rolando Burns MD Alkaline Phos 69 U/L Normal 35-104 [facility] Comment on above: Performed By: #### C DP, HCG, LIVP, LIP, BMP #### [facility] [address] [place] [address] Boardmarker: Rolando Burns MD ALT [Catalytic activity/Vol] 13 U/L Normal 5-33 [facility] Comment on above: Performed By: #### C DP, HCG, LIVP, LIP, BMP #### [facility] [address] [place] [address] Boardmarker: Rolando Burns MD AST [Catalytic activity/Vol] 11 U/L Normal <32 [facility] Comment on above: Performed By: #### C DP, HCG, LIVP, LIP, BMP #### [facility] [address] [place] [address] Boardmarker: Rolando Burns MD Bilirubin [Mass/Vol] 0.5 mg/dL Normal 0.3-1.2 [facility] Comment on above: Performed By: #### C DP, HCG, LIVP, LIP, BMP #### [facility] [address] [place] [address] Boardmarker: Rolando Burns MD Bilirubin, Indirect 0.4 mg/dL Normal 0.0-1.0 [facility] Comment on above: Performed By: #### C DP, HCG, LIVP, LIP, BMP #### [facility] [address] [place] [address] Boardmarker: Rolando Burns MD Bilirubin.indirect [Mass/Vol] 0.1 mg/dL Normal <0.3 [facility] Comment on above: Performed By: #### C DP, HCG, LIVP, LIP, BMP #### [facility] [address] [place] [address] Boardmarker: Rolando Burns MD Protein [Mass/Vol] 8.1 g/dL Normal 6.4-8.3 [facility] Comment on above: Performed By: #### C DP, HCG, LIVP, LIP, BMP #### [facility] [address] [place] [address] Boardmarker: Rolando Burns MD Urinalysis, Routineon 2022 Bilirubin, SemiQt,Ur Negative Normal NEG [facility] Comment on above: Performed By: #### U TYLER UA #### [facility] [address] [place] [address] Boardmarker: Rolando Burns MD Blood, Urine Negative Normal NEG [facility] Comment on above: Performed By: #### U TYLER UA #### [facility] [address] [place] [address] Boardmarker: Rolando Burns MD Clarity (U) Clear Normal CLEAR [facility] Comment on above: Performed By: #### U TYLER UA #### [facility] [address] [place] [address] Boardmarker: Rolando Burns MD Color (U) Yellow Normal YEL [facility] Comment on above: Performed By: #### U ANDREIO, UA #### [facility] [address] [place] [address] Boardmarker: Rolando Burns MD Glucose Ql (U) Negative Normal NEG [facility] Comment on above: Performed By: #### U ANDREIO, UA #### [facility] [address] [place] [address] Boardmarker: Rolando Burns MD Ketones Ql (U) LARGE Abnormal NEG [facility] Comment on above: Performed By: #### U ANDREIO, UA #### [facility] [address] [place] [address] Boardmarker: Rolando Burns MD Leukocyte esterase Test strip Ql (U) Negative Normal NEG [facility] Comment on above: Performed By: #### U ANDREIO, UA #### [facility] [address] [place] [address] Boardmarker: Rolando Burns MD Nitrite,Ur Negative Normal NEG [facility] Comment on above: Performed By: #### U ANDREIO, UA #### [facility] [address] [place] [address] Boardmarker: Rolando Burns MD PH,Ur >=9.0 Normal 5.0-8.0 [facility] Comment on above: Performed By: #### U MICAO, UA #### [facility] [address] [place] [address] Boardmarker: Rolando Burns MD Protein Ql (U) Negative Abnormal NEG [facility] Comment on above: Performed By: #### U MICAO, UA #### [facility] [address] [place] [address] Boardmarker: Rolando Burns MD Spec. Lamoni,Ur 1.020 Normal 1.005-1.030 [facility] Comment on above: Performed By: #### U TYLER, UA #### [facility] [address] [place] [address] Boardmarker: Rolando Burns MD Urobilinogen,Ur Normal Normal 0.0-1.0 [facility] Comment on above: Performed By: #### U TYLER, UA #### [facility] [address] [place] [address] Boardmarker: Rolando Bruns MD Urinalysis,Microon 3 Bacteria None Normal NONE [facility] Comment on above: Performed By: #### U TYLER, UA #### [facility] [address] [place] [address] Boardmarker: Rolando Burns MD Epithelial cells LM Ql (Urine sed) 2 TO 5 Normal 0-5 [facility] Comment on above: Performed By: #### Apurva SCOTT, UA #### [facility] [address] [place] [address] Boardmarker: Rolando Burns MD Mucus Strands 2+ Normal [facility] Comment on above: Performed By: #### U TYLER, UA #### [facility] [address] [place] [address] Boardmarker: Rolando Burns MD Other Observations Utilizing a urinalysis as the only screening method to exclude a potential Abnormal NREQ [facility] Comment on above: Result Comment: urop athogen can be unreliable in many patient populations. Rapid screening tests are less sensitive than culture and if UTI is a clinical possibility, culture should be considered despite a negative urinalysis. Performed By: #### U TYLER, UA #### [facility] [place] [address] Boardmarker: Rolando Burns MD Urine RBC's 0 TO 2 Normal 0-2 [facility] Comment on above: Performed By: #### U TYLER UA #### [facility] [address] [place], [place] [id number] Boardmarker: Rolando Burns MD Urine WBC's 2 TO 5 Normal 0-5 [facility] Comment on above: Performed By: #### Apurva SCOTT UA #### [facility] [address] [place], [place] [address] Boardmarker: Rolando Burns MD XR knee LT 4V*on 10-01-2022 XR knee LT 4V* [place] [address] XRay Report Signed Patient: Nataly Garcia MR#: [id number] : 1990 Acct:[id number] Age/Sex: 32 / F ADM Date: 10/01/22 Loc: XDUC Room: Type: [facility] Attending Dr: Cari VAUGHAN Copies to: ALEXUS [...] Ilia Crandall M.D.10/01/2022 5:59 PM Dictation Location: [place] [address] Transcribed By: [facility] 10/01/221758 Dictated By: Ilia Crandall DO 10/01/221708 Signed By: 10/01/221758 Normal [facility] XR knee LT 4V* [facility] [employer] Other XR knee LT 4V* [facility] [employer] Other XR knee LT 4V* [address] [facility] [employer] Other XR knee LT 4V* [place] [address] No rt [employer] Other XR knee LT 4V* XRay Report [employer] Other XR knee LT 4V* Signed [employer] Other XR knee LT 4V* Patient: Nataly Garcia MR#: [id number] [employer] Other XR knee LT 4V* : 1990 Acct:[id number] [employer] Other XR knee LT 4V* Age/Sex: 32 / F ADM Date: 10/01/22 [employer] Other XR knee LT 4V* Loc: XDUCLY Room: Type: REG CLI [place] [employer] Other XR knee LT 4V* Attending Dr: Cari VAUGHAN [employer] Other XR knee LT 4V* Copies to: ALEXUS Castellanos [employer] Other XR knee LT 4V* Ordering Provider: ALEXUS Castellanos [employer] Other XR knee LT 4V* Date of Service: 10/01/22 [employer] Other XR knee LT 4V* XR/XR knee LT 4V*: Acute pain of left knee [employer] Other XR knee LT 4V* 4 views left knee plain film [employer] Other XR knee LT 4V* COMPARISON: None [facility] [employer] Other XR knee LT 4V* HISTORY: Acute left knee pain [employer] Other XR knee LT 4V* ACUTE FINDINGS: None [employer] Other XR knee LT 4V* DEGENERATIVE CHANGE: Unremarkable [employer] Other XR knee LT 4V* SOFT TISSUE FINDINGS: Unremarkable [employer] Other XR knee LT 4V* JOINT EFFUSION: None [employer] Other XR knee LT 4V* POSTOP CHANGES: None [employer] Other XR knee LT 4V* BONE MINERALIZATION: Adequate [employer] Other XR knee LT 4V* XR/XR knee LT 4V* [employer] Other XR knee LT 4V* IMPRESSION: Unremarkable exam [employer] Other XR knee LT 4V* Impression dictated by: Ilia Crandall M.D.10/01/2022 5:59 PM [employer] Other XR knee LT 4V* Dictation Location: [place] [address] [employer] Other XR knee LT 4V* Transcribed By: [facility] 10/01/22 [employer] Other XR knee LT 4V* Dictated By: Ilia Crandall DO 10/01/22 1709 [employer] Other XR knee LT 4V* Signed By: [employer] Other XR knee LT 4V* 10/01/22 175 [employer] Other CHEMISTRYOrdered By: SYSTEM SYSTEM on 08-23-2022 [...] rate/Area] mL/min/1.73 m2 Normal >=59mL/min/1 .73 m2 [facility] S GFR/1.73 sq M.predicted among non-blacks MDRD (S/P/Bld) [Vol rate/Area] mL/min/1.73 m2 Normal >=59mL/min/1 .73 m2 [facility] Chem S Globulin (S) [Mass/Vol] 3.7 g/dL Normal 1.4 - 4.0 gm/dL [facility] Remisol Glucose [Mass/Vol] 97 mg/dL Normal 55 - 199 mg/dL [facility] Magnesium [Mass/Vol] 2.0 mg/dL Normal 1.3 - 2 .4 mg/dL [facility] Potassium [Moles/Vol] 4.4 mmol/L Normal 3.5 - 5.3 mmol/L [facility] Protein [Mass/Vol] 7.6 g/dL Normal 6.0 - 7.8 gm/dL [facility] Sodium [Moles/Vol] 134 mmol/L Low 135 - 145 mmol/L [facility] Triglyceride [Mass/Vol] 141 mg/dL Normal <=149mg/dL [facility] Urea nitrogen [Mass/Vol] 7 mg/dL Normal 5 - 21 mg/dL [facility] Urea nitrogen/Creatinine [Mass ratio] 10 mg/mg Normal 10 - 20 [facility] Valproate [Moles/Vol] 49 microgram/mL Low 50 - 99 mcg/mL [facility] CHEMISTRYOrdered By: Salo Wolfe on 08-23-2022 HbA1c (Bld) [Mass fraction] 5.3 % Normal <=5.9% [facility] ChemAutoSS HEMATOLOGYOrdered By: Quinton Hughes on 08-23-2022 Erythrocyte distribution width (RBC) [Ratio] 16.5 % High 10.9 - 14.2 % [facility] HemeAutoSS Hematocrit (Bld) [Volume fraction] 36.6 % Normal 34.0 - 46.0 % [facility] HemeAutoSS Hemoglobin (Bld) [Mass/Vol] 12.1 g/dL Normal 12.0 - 16.0 gm/dL [facility] HemeAutoSS MCH (RBC) [Entitic mass] 25.9 pg [...] 4.7 E12/L Normal 4.3 - 5.9 E12/L [facility] HemeAutoSS WBC corrected for nucl RBC Auto (Bld) [#/Vol] 11.3 E9/L High 4.0 - 11.0 E9/L [facility] [employer]eAutoSS Quick Strepon 08-10-2022 S. pyogenes Org specific cx Ql (Throat) Negative [employer] Other Quick Strep [employer] Other Quick Strepon 06-24-2022 S. pyogenes Org specific cx Ql (Throat) Negative [employer] Other Quick Strep [employer] Other PAP ACOG PANEL 2: 30 to 63on 10-13-[address] [facility] Comment on above: Result Comment: Perf ormed at: [facility] Performed By: #### 4 [id number] #### [facility] [address] [place] [address] Dr. Juanita Leone Age Gdln ACOG Testing 28[address] [facility] Comment on above: Performed By: #### [id number] #### [facility] [address] [place] [address] Dr. Juanita Leone DIAGNOSIS: Comment Normal [facility] Comment on above: Result Comment: NEGA TIVE FOR INTRAEPITHELIAL LESION OR MALIGNANCY. Performed at: BA Performed By: #### [id number] #### [facility] [address] [address] [address] Juanita Leone HPV Aptima Negative Normal Negative [facility] Comment on above: Result Comment: This nucleic acid amplification test detects fourteen high-risk HPV types (16,18,31,33,35,39,45,51,52,56,58,59,66,68) without differentiation. Performed at: =G Performed By: #### [id number] #### [facility] [address] [address] [address] Juanita Leone Methodology: Comment Normal [facility] Comment on above: Result Comment: This liquid based ThinPrep(R) pap test was screened with the use of an image guided system. Performed at: WB Performed By: #### [id number] #### [facility] [address] [place] [address] Dr. Juanita Leone Note: Comment [facility] Comment on above: Result Comment: The Pap smear is a screening test designed to aid in the detection of premalignant and malignant conditions of the uterine cervix. It is not a diagnostic procedure and should not be used as the sole means of detecting cervical cancer. Both false-positive and false-negative reports do occur. . Performed at: WB Performed By: #### [id number] #### [facility] [address] [address] [address] Juanita Leone Performed by: Comment Normal [facility] Comment on above: Result Comment: Mallika Mckeon, Certified Cytotechnologist (ASCP) Performed at: BA Performed By: #### [id number] #### [facility] [address] [place] [address] Dr. Juanita Leone Specimen adequacy: Comment Normal [facility] Comment on above: Result Comment: Sati sfactory for evaluation. Endocervical and/or squamous metaplastic cells (endocervical component) are present. Performed at: BA Performed By: #### [id number] #### [facility] [address] [place] [address] Dr. Juanita Leone Vital Signs Date Time Vital Sign Value Performing Clinician Facility 12-29-2024 08:38-0400 Body height 170.2 cm [employer] Work Phone: [facility] 12-29-2024 08:38-0400 Body mass index (BMI) [Ratio] 33.67 kg/m2 [employer] Work Phone: [facility] 12-29-2024 08:38-0400 Body weight 97.52 kg [employer] Work Phone: [facility] 12-29-2024 08:38-0400 Diastolic blood pressure 68 mm[Hg] [employer] Work Phone: [facility] 12-29-2024 08:38-0400 Systolic blood pressure 98 mm[Hg] Wesley Yang DO Work Phone: [facility] 09-30-2024 15:02-0400 Body height 170.2 cm Fernie Johnsonerly [employer] Work Phone: [facility] 09-30-2024 15:02-0400 Body mass index (BMI) [Ratio] 31.95 kg/m2 Fernie Komal [employer] Work Phone: [facility] 09-30-2024 15:02-0400 Body weight 92.53 kg Fernie Komal [employer] Work Phone: [facility] 09-30-2024 15:02-0400 Diastolic blood pressure 76 mm[Hg] Fernie Komal [employer] Work Phone: [facility] 09-30-2024 15:02-0400 Systolic blood pressure 118 mm[Hg] Fernie Komal [employer]PER[employer] Work Phone: [facility] 2024 10:05-0400 Body height 170.2 cm Cassie Hinojosa MD Work Phone: [facility] [employer] [facility] [employer] 2024 10:05-0400 Body mass index (BMI) [Ratio] 36.02 kg/m2 Cassie Hinojosa MD Work Phone: [facility] [employer] [facility] [employer] 2024 10:05-0400 Body temperature 97.3 [degF] Cassie Hinojosa MD Work Phone: [facility] [employer] [facility] [employer] 2024 10:05-0400 Body weight 104.33 kg Cassie Hinojosa MD Work Phone: [facility] [employer] [facility] [employer] 2024 10:05-0400 Diastolic blood pressure 56 mm[Hg] Cassie Hinojosa MD Work Phone: [facility] [employer] [facility] [employer] 2024 10:05-0400 Heart rate 104 /min Cassie Hinojosa MD Work Phone: [facility] 2024 10:05-0400 Respiratory rate 20 /min Cassie Hinojosa MD Work Phone: [facility] [employer] 2024 10:05-0400 SaO2% (BldA) [Mass fraction] 100 % Cassie Hinojosa MD Work Phone: [facility] [employer] 2024 10:05-0400 Systolic blood pressure 104 mm[Hg] Cassie Hinojosa MD Work Phone: [facility] [employer] 2024 08:55-0400 Body temperature 97.5 [degF] Ascencion Bruss PA-C Work Phone: [facility] 2024 08:55-0400 Diastolic blood pressure 69 mm[Hg] Ascencion Bruss PA-C Work Phone: [facility] 2024 08:55-0400 Heart rate 105 /min Ascencion Bruss PA-C [facility] 2024 08:55-0400 Respiratory rate 18 /min Ascencion Bruss PA-C Work Phone: [facility] 2024 08:55-0400 SaO2% (BldA) [Mass fraction] 100 % Ascencion Bruss PA-C Work Phone: [facility] 2024 08:55-0400 Systolic blood pressure 119 mm[Hg] Ascencion Bruss PA-C [facility] 06-05-2024 14:37-0500 Blood Pressure Location Sarah Toy [facility] 06-05-2024 14:37-0500 Body temperature 97.52 [degF] Sarah Yeager [facility] 06-05-2024 14:37-0500 Diastolic blood pressure 68 mm[Hg] Sarah Yeager [facility] 06-05-2024 14:37-0500 Heart rate 92 /min Sarah Yeager [facility] 06-05-2024 14:37-0500 Respiratory rate 18 /min Sarah Yeager [facility] 06-05-2024 14:37-0500 SaO2% (BldA) [Mass fraction] 98 % Sarah Yeager [facility] 06-05-2024 14:37-0500 Systolic blood pressure 104 mm[Hg] Sarah Yeager [facility] 02-05-2024 15:18-0400 Body mass index (BMI) [Ratio] 36.67 kg/m2 Wesley Celia DO Work Phone: [facility] 02-05-2024 15:18-0400 Body weight 106.2 kg Wesley Celia DO Work Phone: [facility] 02-05-2024 15:18-0400 Diastolic blood pressure 64 mm[Hg] Wesley Celia DO Work Phone: [facility] 02-05-2024 15:18-0400 Systolic blood pressure 110 mm[Hg] Wesley Celia DO Work Phone: [facility] 01-08-2024 16:02-0400 Body height 170.2 cm Wesley Celia DO Work Phone: [facility] 01-08-2024 16:02-0400 Body mass index (BMI) [Ratio] 37.75 kg/m2 Wesley Celia DO Work Phone: [facility] 01-08-2024 16:02-0400 Body weight 109.32 kg Wesley Celia DO Work Phone: [facility] 01-08-2024 16:02-0400 Diastolic blood pressure 72 mm[Hg] Wesley Celia DO Work Phone: [facility] 01-08-2024 16:02-0400 Systolic blood pressure 118 mm[Hg] Wesley Celia DO Work Phone: [facility] 12-06-2023 15:01-0400 Body temperature 97.16 [degF] Sarah Toy [facility] 12-06-2023 15:01-0400 Diastolic blood pressure 66 mm[Hg] Sarah Toy [facility] 12-06-2023 15:01-0400 Heart rate 94 /min Sarah Toy [facility] 12-06-2023 15:01-0400 Respiratory rate 14 /min Sarah Toy [facility] 12-06-2023 15:01-0400 SaO2% (BldA) [Mass fraction] 97 % Sarah Toy [facility] 12-06-2023 15:01-0400 Systolic blood pressure 100 mm[Hg] Sarah Toy [facility] 11-05-2023 14:37-0400 Blood Pressure Location Sarah Toy [facility] 11-05-2023 14:37-0400 Body temperature 97.88 [degF] Sarah Toy [facility] 11-05-2023 14:37-0400 Diastolic blood pressure 70 mm[Hg] Sarah Toy [facility] 11-05-2023 14:37-0400 Heart rate 98 /min Sarah Toy [facility] 11-05-2023 14:37-0400 Respiratory rate 14 /min Sarah Toy [facility] 11-05-2023 14:37-0400 SaO2% (BldA) [Mass fraction] 99 % Sarah Toy [facility] 11-05-2023 14:37-0400 Systolic blood pressure 112 mm[Hg] Sarah Toy [facility] 10-22-2023 15:05-0400 Blood Pressure Location Martina Harrison [facility] 10-22-2023 15:05-0400 Body temperature 97.88 [degF] Martina Harrison [facility] 10-22-2023 15:05-0400 Diastolic blood pressure 64 mm[Hg] Martina Harrison [facility] 10-22-2023 15:05-0400 Heart rate 78 /min Martina Harrison [facility] 10-22-2023 15:05-0400 Respiratory rate 18 /min [facility] 10-22-2023 15:05-0400 SaO2% (BldA) [Mass fraction] 99 % Martina Harrison [facility] 10-22-2023 15:05-0400 Systolic blood pressure 116 mm[Hg] Martina Harrison [facility] 08-06-2023 11:57-0400 Body temperature 98.06 [degF] Sarah Toy [facility] 08-06-2023 11:32-0400 Diastolic blood pressure 70 mm[Hg] Sarah Toy [facility] 08-06-2023 11:32-0400 Heart rate 110 /min Sarah Toy [facility] 08-06-2023 11:32-0400 SaO2% (BldA) [Mass fraction] 100 % Sarah Toy [facility] 08-06-2023 11:32-0400 Systolic blood pressure 110 mm[Hg] Sarah Toy [facility] 06-24-2023 17:57-0500 Blood Pressure Location Christfco BROWN [facility] 06-24-2023 17:57-0500 Diastolic blood pressure 74 mm[Hg] Christopher BROWN [facility] 06-24-2023 17:57-0500 Heart rate 96 /min Christopher BROWN [facility] 06-24-2023 17:57-0500 Respiratory rate 16 /min Christopher BROWN [facility] 06-24-2023 17:57-0500 SaO2% (BldA) [Mass fraction] 99 % Christopher [facility]OWN [facility] 06-24-2023 17:57-0500 Systolic blood pressure 112 mm[Hg] Christopher BROWN [facility] 04-29-2023 18:12-0500 Blood Pressure Location Shannon OLVERA [facility] 04-29-2023 18:12-0500 Diastolic blood pressure 60 mm[Hg] Shannon BROWN [facility] 04-29-2023 18:12-0500 Heart rate 98 /min Shannon BROWN [facility] 04-29-2023 18:12-0500 Respiratory rate 16 /min Shannon [facility]OWN [facility] 04-29-2023 18:12-0500 SaO2% (BldA) [Mass fraction] 98 % Shannon Ravel Law [facility] 04-29-2023 18:12-0500 Systolic blood pressure 100 mm[Hg] Shannon Ravel Law [facility] 10-31-2022 14:37-0400 Blood Pressure Location Shannon Ravel Law [facility] 10-31-2022 14:37-0400 Body temperature 97.7 [degF] Shannon Ravel [facility] 10-31-2022 14:37-0400 Diastolic blood pressure 72 mm[Hg] Shannon BROWN [facility] 10-31-2022 14:37-0400 Heart rate 98 /min Shannon BROWN [facility] 10-31-2022 14:37-0400 Respiratory rate 16 /min Shannon [facility]OWN [facility] 10-31-2022 14:37-0400 SaO2% (BldA) [Mass fraction] 95 % Shannon BROWN [facility] 10-31-2022 14:37-0400 Systolic blood pressure 126 mm[Hg] Shannon BROWN [facility] 10-01-2022 17:15-0400 Body height 170.18 cm Cari Marx Other [employer] Other 10-01-2022 17:15-0400 Body mass index (BMI) [Ratio] 39.78 kg/m2 Cari Marx Other [employer] Other 10-01-2022 17:15-0400 Body temperature 98.3 [degF] Cari Marx Other [employer] Other 10-01-2022 17:15-0400 Body weight 115.21 kg Cari Marx Other [employer] Other 10-01-2022 17:15-0400 Respiratory rate 18 /min Cari Marx Other [employer] Other 10-01-2022 17:15-0400 SaO2% (BldA) [Mass fraction] 97 % Cari Marx Other [employer] Other 08-22-2022 15:37-0400 Blood Pressure Location [employer] [facility] 08-22-2022 15:37-0400 Body temperature 96.98 [degF] [facility] 08-22-2022 15:37-0400 Diastolic blood pressure 78 mm[Hg] [facility] 08-22-2022 15:37-0400 Heart rate 69 /min [facility] 08-22-2022 15:37-0400 Respiratory rate 16 /min Shannon OLVERA [facility] 08-22-2022 15:37-0400 SaO2% (BldA) [Mass fraction] 97 % Shannon OLVERA [facility] 08-22-2022 15:37-0400 Systolic blood pressure 108 mm[Hg] Shannon OLVERA [facility] 08-10-2022 10:05-0400 Body height 170.18 cm Christie Hua Other [facility] [employer] Other 08-10-2022 10:05-0400 Body mass index (BMI) [Ratio] 38.84 kg/m2 Christie Hua Other [employer] Other 08-10-2022 10:05-0400 Body temperature 96.6 [degF] Christie Hua Other [employer] Other 08-10-2022 10:05-0400 Body weight 112.49 kg Christie Hua Other [employer] Other 08-10-2022 10:05-0400 Respiratory rate 18 /min Christie Hua Other [employer] Other 08-10-2022 10:05-0400 SaO2% (BldA) [Mass fraction] 98 % Christie Hua Other [employer] Other 06-24-2022 14:50-0500 Body height 170.18 cm Cari Marx Other [employer] Other 06-24-2022 14:50-0500 Body mass index (BMI) [Ratio] 39.62 kg/m2 Cari Marx Other [employer] Other 06-24-2022 14:50-0500 Body temperature 98.1 [degF] Cari Marx Other [employer] Other 06-24-2022 14:50-0500 Body weight 114.76 kg Cari Marx Other [employer] Other 06-24-2022 14:50-0500 Respiratory rate 18 /min Cari Marx Other [employer] Other 06-24-2022 14:50-0500 SaO2% (BldA) [Mass fraction] 95 % Cari Marx Other [employer] Other Encounters Encounter Date Encounter Type Care Provider Facility Start: 12-29-2024 End: 12-29-2024 Bamboo flowsheet Wesley Celia DO Work Phone: [facility] Start: 12-29-2024 End: 01-02-2025 Bamboo flowsheet Wesley Celia DO Work Phone: [facility] Start: 12-29-2024 End: 01-02-2025 Clinisync Result Encounter Wesley Celia DO Work Phone: [facility] Unsolicited Start: 12-29-2024 End: 12-29-2024 Patient encounter procedure Wesley Celia DO Work Phone: [facility] Start: 12-29-2024 End: 12-29-2024 Periodic preventive med est patient 18-39 yrs Wesley Celia DO Work Phone: [facility] [place] Comment on above: Well woman exam with routine gynecological exam Start: 12-29-2024 End: 12-29-2024 ambulatory WESLEY CELIA Not Available Start: 11-23-2024 End: 11-23-2024 ambulatory Sarah Yeager Facility:[facility] Start: 11-23-2024 End: 11-23-2024 Patient encounter procedure Sarah Yeager [facility] [place] Start: 09-30-2024 End: 09-30-2024 Office outpatient visit 25 minutes Fernie Sauceda [employer] Work Phone: [facility] Comment on above: Left genital labial abscess (Primary Dx); Labial cyst Start: 09-30-2024 End: 09-30-2024 ambulatory FERNIE SAUCEDA Not Available Start: 09-30-2024 End: 09-30-2024 Bamboo flowsheet Fernie Sauceda [employer] Work Phone: [facility] Start: 09-30-2024 End: 09-30-2024 Bamboo flowsheet Fernie Sauceda [employer] Work Phone: [facility] Start: 09-09-2024 End: 09-09-2024 ambulatory Sarah Yeager Facility:[facility] Start: 09-08-2024 ambulatory Sarah Yeager Facilit y:[facility] Start: 2024 End: 2024 Emergency department patient visit Cassie Hinojosa MD Work Phone: [facility] Comment on above: Abdominal pain, epig astric (Primary Dx); Nausea and vomiting, unspecified vomiting type Start: 2024 End: 2024 Patient encounter procedure Ascencion Jonathan Fanny PA-C Work Phone: [facility] [place] Comment on above: Acute vomiting (Prim torin Dx) Start: 2024 End: 2024 ambulatory [facility] Start: 06-05-2024 End: 06-05-2024 Lab Drop off Sarah Yeager [facility] Start: 06-05-2024 End: 06-05-2024 ambulatory Sarah Yeager Facility:[facility] Start: 06-05-2024 End: 06-05-2024 [facility] Start: 03-31-2024 End: 03-31-2024 ambulatory AFSANEH STEPHENS [facility] Start: 02-05-2024 End: 02-05-2024 Office outpatient visit [...] re moval and reinsertion Start: 01-02-2024 ambulatory AFSANEH STEPHENS Fa cility:[facility] Start: 01-01-2024 End: 01-01-2024 ambulatory Sarah PatelSang Toy Facility: [facility] Start: 01-01-2024 End: 01-01-2024 Patient encounter procedure [facility] Start: 12-24-2023 End: 12-24-2023 ambulatory AFSANEH STEPHENS Facility:[facility] Start: 12-23-2023 ambulatory COLLAR SETTER KHURRAM Medrano lity:[facility] [place] Start: 12-06-2023 End: 12-06-2023 ambulatory Sarah Yeager Facility:[facility] Start: 12-06-2023 End: 12-06-2023 Patient encounter procedure Sarah Yeager [facility] [place] Start: 11-05-2023 End: 11-05-2023 Patient encounter procedure Sarah Yeager [facility] [place] Start: 10-22-2023 End: 10-22-2023 Patient encounter procedure Martina Harrison [facility] [place] Start: 09-11-2023 End: 09-11-2023 Patient encounter procedure Sarah Yeager [facility] [place] Start: 08-14-2023 End: 08-14-2023 Patient encounter procedure Sarah Yeager [facility] [place] Start: 08-06-2023 End: 08-06-2023 Patient encounter procedure Sarah Yeager [facility] [place] Start: 06-24-2023 End: 06-24-2023 Patient encounter procedure Arvin OLVERA [facility] [place] Start: 05-27-2023 End: 05-27-2023 Patient encounter procedure Shannon OLVERA [facility] Start: 04-29-2023 End: 04-29-2023 Patient encounter procedure [facility] Start: 03-02-2023 End: 03-02-2023 Emergency department patient visit TYRA CID [facility] Start: 10-31-2022 End: 10-31-2022 Patient encounter procedure Shannon [facility] Start: 10-01-2022 End: 10-01-2022 ambulatory Cari Araseli Facility:[facility] Start: 10-01-2022 End: 10-01-2022 Patient encounter procedure MD Shannon Olvera Work Phone: [facility] Work Phone: Start: 10-01-2022 End: 10-01-2022 ambulatory MD Shannon Olvera Work Phone: [facility] Work Phone: Start: 10-01-2022 Office outpatient vi sit 15 minutes Cari Araseli [facility] Start: 08-23-2022 End: 08-23-2022 Patient encounter procedure Shannon OLVERA [facility] Start: 08-22-2022 End: 08-22-2022 Patient encounter procedure Shannon [facility] Start: 08-10-2022 End: 08-10-2022 ambulatory Christie Hua Other [employer] Other Start: 08-10-2022 Office outpatient vi sit 25 minutes Christie Hua [facility] Start: 06-24-2022 End: 06-24-2022 ambulatory Cari Araseli Other [employer] Other Start: 06-24-2022 Office outpatient ne w 20 minutes Cari Marx [facility] Start: 10-09-2021 End: 10-09-[address] IRENA DORANTES Facility:[facility] Procedures Date Procedure Procedure Detail Performing Clinician Start: 12-29-2024 IGP,APTIMA HPV,AGE GDLN Wesley Celia DO Work Phone: Start: 2024 Comprehensive metabolic panel Cassie pozo [...] observation [Identifier] in Cervix by Cyto stain Fernie Sauceda NP Work Phone: Start: 12-25-2023 Cytp cerv/vag auto thin layer prep mnl screen Mica CHANG Work Phone: Start: 10-01-2022 Radiologic examination of knee MD Shannon Olvera Work Phone: Start: 08-19-2020 Colonoscopy Shannon OLVERA Start: 08-19-2020 Esophagogastroduodenoscopy gastric outlet reduction Shannon OLVERA Plan of Treatment Date Care Activity Detail Author Start: 12-24-2028 Screening for malign ant neoplasm of cervix [facility] Start: 01-05-2026 End: 01-05-2026 Patient encounter procedure 01/05/2026 4:00 PM EDT Procedure Visit [facility] [address] [place] [id number] Wesley Yang DO [address] [place], [place] [id number] [facility] Start: 01-18-2025 Influenza vaccination [facility] Start: 12-29-2024 End: 12-29-2024 Patient encounter procedure [facility] Comment on above: Arrived Start: 09-30-2024 End: 09-30-2024 Patient encounter procedure 09/30/2024 3:00 PM EDT Office Visit [facility] [address] [place] [address] Fernie Sauceda, [employer]PER[employer] [address] [place] [id number] Arrived [facility] Comment on above: Arrived Start: 09-30-2024 End: 09-30-2025 Aerobic culture Aerobic culture Microbiology Routine Labial cyst Expected: 09/30/2024 (Approximate), Expires: 09/30/2025 [facility] Work Phone: Comment on above: Expected: 09/30/2024 (Approximate), Expires: 09/30/2025 Start: 09-30-2024 End: 09-30-2025 Anaerobic culture Anaerobic culture Microbiology Routine Labial cyst Expected: 09/30/2024 (Approximate), Expires: 09/30/2025 [facility] Comment on above: Expected: 09/30/2024 (Approximate), Expires: 09/30/2025 Start: 07-19-2024 HPV vaccine (3 - 3-d ose SCDM series) HPV vaccine (3 - 3-dose SCDM series) [facility] Start: 02-05-2024 End: 02-05-2024 Patient encounter procedure [facility] Comment on above: Arrived Start: 01-19-2024 Influenza vaccination Influenza Vacc ine (#1) [facility] Start: 09-01-2023 Diabetes screen Diabetes screen [facility] Start: 12-24-2021 DTaP,Tdap and Td Vaccines (6 - Td or Tdap) DTaP,Tdap and Td Vaccines (6 - Td or Tdap) [facility] Start: 12-24-2021 DTaP/Tdap/Td vaccine (6 - Td or Tdap) DTaP/Tdap/Td vaccine (6 - Td or Tdap) [facility] Start: 2018 Screening for malign ant neoplasm of cervix [facility] Start: 2009 Screening for malign ant neoplasm of cervix Pap Smear [facility] Start: 2006 Adult BMI Screening Adult BMI Screen ing [facility] Start: 2006 Hepatitis C screening Hepatitis C sc reen [facility] Start: 09-01-2003 HIV screening HIV screen [facility] Start: 2001 Varicella vaccine (1 of 2 - 13+ 2-dose series) Varicella vaccine (1 of 2 - 13+ 2-dose series) [facility] Start: 2000 Depression Screen Depression Screen [facility] Start: 2000 Depression Screening Depression Scre ening [facility] Start: 2000 Tobacco Screening Tobacco Screening [facility] Start: 1992 Polio vaccine (4 of 4 - 4-dose series) Polio vaccine (4 of 4 - 4-dose series) [facility] Cytology Cervical or vaginal smear or scraping study Pap Smear Pathology and Cytology Routine Well woman exam with routine gynecological exam Ordered: 12/29/2024 [facility] Work Phone: Comment on above: Ordered: 12/29/2024 Human papilloma viru s DNA [Presence] in Unspecified specimen by Probe with amplification HPV DNA probe, amplified Microbiology Routine Well woman exam with routine gynecological exam Ordered: 12/29/2024 [facility] Comment on above: Ordered: 12/29/2024 End: 2024 Urinalysis with Reflex to Culture Urinalysis with Reflex to Culture Lab Routine One Time for 1 Occurrences starting 2024 until 2024 [facility] Comment on above: One Time for 1 Occur rences starting 2024 until 2024 Immunizations Immunization Date Immunization Notes Care Provider Angelique garza 04-15-2024 HPV, unspecified formulation Sarahyimi Yeager [facility] 01-20-2024 HPV, unspecified formulation Sarah Yeager [facility] 01-20-2024 SARS-CoV-2 mRNA ([id number] ose) vaccine Sarah Yeager [facility] 01-20-2024 influenza virus vaccine, unspecified formulation Wesley Yang DO Work Phone: [facility] 04-12-[address]akinumab [address] [facility] Comment on above: Result Comment: Covi d-19, mRNA, LNP-S, PF, franco-sucrose, 30mcg/0.[address] [facility] 03-22-2023 influenza virus vaccine, unspecified formulation [facility] 03-22-2023 influenza, unspecifi ed formulation Sarah Yeager [facility] 08-22-2022 COVID-19, mRNA, LNP- S, bivalent, PF, 50 mcg/0.[address] [facility] 04-08-2021 SARS-CoV-2 (COVID-19 ) mRNA BNT-162b2 vax [facility] Comment on above: Result Comment: [facility] 03-28-2021 influenza virus vaccine, unspecified formulation [facility] Comment on above: Result Comment: [facility] 10-05-2020 SARS-CoV-2 (COVID-19 ) mRNA-1273 vaccine [facility] [facility] 08-26-2020 SARS-CoV-2 (COVID-19 ) mRNA BNT-162b2 vax [facility] 04-14-2014 influenza virus vaccine, unspecified formulation [facility] 04-30-2013 influenza virus vaccine, unspecified formulation [facility] 12-25-2011 tetanus toxoid, reduced diphtheria toxoid, and acellular pertussis vaccine, adsorbed [facility] Comment on above: Early/Late Reason: N Med Order 02-06-2001 hepatitis B vaccine, pediatric or pediatric/adolescent dosage [employer] [facility] 10-03-2000 hepatitis B vaccine, pediatric or pediatric/adolescent dosage [facility] 07-30-2000 hepatitis B vaccine, pediatric or pediatric/adolescent dosage [facility] [facility] 07-30-2000 measles, mumps and rubella virus vaccine [employer] [facility] 07-23-1990 DTaP, unspecified formulation [facility] 07-23-1990 poliovirus vaccine, unspecified formulation [facility] 12-18-1989 Hib, unspecified formulation [facility] 12-18-1989 measles, mumps and rubella virus vaccine [facility] 01-23-1989 poliovirus vaccine, unspecified formulation Shannon [facility] 1988 poliovirus vaccine, unspecified formulation Shannon OLVERA [facility] Christoph Joy NEGATED: Highlighted row has not occurred!07-20-2020 influenza virus vaccine, unspecified formulation Shannon OLVER[facility] Payers Date Payer Category Payer Managed Care Other (unspecified) [facility] [id number] 2023 Private Health Insurance [id number] 2023 Unknown [id number] 2022 [facility] [id number] 2022 Self-pay [id number] 1988 Unknown [id number] 2.16.840.1.599992.3.579. 2.593 1988 Unknown [id number] 2.16.840.1.798503.3.579. 2.177 1988 Unknown [id number] 2.16.840.1.755179.3.579. 2.1286 1988 Unknown [id number] 2.16.840.1.624809.3.579. 2.176 1988 Unknown [id number] 2.16.840.1.563709.3.579. 2. 1988 Unknown [id number] 2.16.840.1.500712.3.579. 2 1988 Unknown [id number] 2.16.840.1.521266.3.579. 2 1988 Unknown [id number] 2.16.840.1.055696.3.579. 2. 1988 Unknown [id number] 2.16.840.1.066806.3.579. 2 1988 Unknown [id number] 2.16.840.1.067047.3.579. 2 1988 Unknown [id number] 2.16.840.1.699453.3.579. 2 1988 Unknown [id number] 2.16.840.1.648844.3.579. 2 1988 Unknown [id number] 2.16.840.1.726898.3.579. 2 1988 Unknown [id number] 2.16.840.1.599487.3.579. 2 1988 Unknown [id number] 2.16.840.1.070611.3.579. 2 1988 Unknown [id number] 2.16.840.1.158379.3.579. 2.9 1988 Unknown [id number] 2.16.840.1.994686.3.579. 2.1258 1988 Unknown [id number] 2.16.840.1.973470.3.579. 2.9 1988 Unknown [id number] 2.16.840.1.309583.3.579. 2.1259 1961 Medicare [id number] Unknown Regular Auto/Liability [id number] Unknown [id number] 2.16.840.1.551350.3.579. 2.531 Social History Date Type Detail Facility Start: 12-25-2023 End: 12-29-2024 Sex Assigned At [facility] Start: 08-22-2022 End: 10-13-2022 Tobacco smoking status Never smoked tobacco (finding) [facility] 1990 Sex Assigned At Female F [facility] Start: 10-13-2022 End: 03-02-2023 Tobacco use and exposure Smokeless tobacco non-user [facility] Start: 01-08-2024 End: 12-29-2024 Alcoholic beverage intake Current drinker of alcohol (finding) [facility] Start: 12-25-2023 End: 12-29-2024 History of Social function Hello [facility] Start: 12-07-2022 Alcohol Comment 1-2 drinks les s than monthly in the past year [facility] Start: 12-09-2022 Gender identity Identifies as female gender (finding) [facility] Start: 12-25-2023 Sexual orientation Bisexual (finding ) [facility] Tobacco smoking stat [facility] Tobacco smoking consumption unknown [facility] Start: 1990 Sex assigned at Not on file [facility] Start: 08-07-2018 End: 2024 Sex Female (finding) [facility] Start: 03-02-2023 Alcoholic beverage intake Ex-drinker (finding) Hello [facility] How often to you hav e a drink containing alcohol? Never Hello [facility] Sexual Orientation [facility] [place] Medical Equipment Procedure Code Equipment Code Equipment [...] Assessment Result Facility 06-05-2024 Functional Status N/A [facility] 12-06-2023 Functional Status N/A [facility] 11-05-2023 Functional Status N/A [facility] 10-22-2023 Functional Status N/A [facility] 08-06-2023 Functional Status N/A [facility] 06-24-2023 Functional Status N/A [facility] 04-29-2023 Functional Status N/A [facility] 10-31-2022 Functional Status N/A [facility] 08-22-2022 Functional Status N/A [facility]-24-2022 to 12-29-2024 Vianney Valverde LPN - 12/29/2024 8:30 AM Nelson Sauceda NP - 09/30/2024 3:00 PM Constantin Escobedo PA-C - 2024 8:50 AM Valentino Valverde LPN - 02/05/2024 3:10 PM EDT Note Date & Type Note Facility 12-29-2024 History of Present illness Narrative Reason for Appointment: Patient ID: Nataly Garcia is a 34 y.o. female who presents for Gynecologic Exam Patient presents today for Annual Exam. MEDICATIONS Current Outpatient Medications Medication Instructions Depakote 500 mg, Oral, 2 times daily FLUoxetine (PROZAC) 40 mg, Oral, Daily Levonorgestrel (Mirena, 52 MG,) 20 MCG/DAY intrauterine device metFORMIN (GLUCOPHAGE) 500 mg, Oral, 2 times daily omeprazole (PRILOSEC) 40 mg, Oral, Daily before breakfast ALLERGIES Allergies Allergen Reactions Penicillin G Sodium Penicillins Hives Other Reaction(s): Hives, Unknown Other Reaction(s): Hives PROBLEMS Active Ambulatory Problems Diagnosis Date Noted No Active Ambulatory Problems Resolved Ambulatory Problems Diagnosis Date Noted No Resolved Ambulatory Problems Past Medical History: Diagnosis Date Epilepsy (HCC) Manic depression (HCC) Pre-diabetes Seizure (HCC) HISTORY PAST MEDICAL HISTORY SOCIAL HISTORY Past Medical History: Diagnosis Date Epilepsy (HCC) Manic depression (HCC) Pre-diabetes Seizure (HCC) Social History Tobacco Use Smoking status: Never [...] appearance. She is well-developed. Genitourinary: Vulva normal. Breasts: Breasts are soft. Right: Normal. Left: Normal. Cardiovascular: Rate and Rhythm: Normal rate and [...] nursing note reviewed. Exam conducted with a grooving lathe tender present. Vitals: Estimated body mass index is 33.67 kg/m as calculated from the following: Height as of this encounter: 5' 7 . Weight as of this encounter: 215 lb. BP: 98/68 No LMP recorded (lmp unknown). (Menstrual status: IUD). ASSESSMENT & PLAN ICD-10-CM 1. Well woman exam with routine gynecological exam Z01.419 Pap Smear HPV DNA probe, amplified Orders Placed This Encounter Procedures HPV DNA probe, amplified Annual Wellness Exam: Patient presents today for routine annual exam. Patient states she has no current complaints. Patients vitals were reviewed and within normal limits. Growth and development is noted to be appropriate for age. Menstrual history is noted to be regular with no concerns reported. No mental health concerns was expressed. Pap Smear: Speculum was inserted into the vagina and pap was obtained without difficulty. HPV testing was performed per age guideline. Patient was advised that pap results could take anywhere from 7 to 10 days to receive and our office will reach out to the patient with those once we have them. Patient can also view results via [employer]. I reinforced importance of condom use for STI prevention. Patient declined cultures to be performed with today's visit. Breast Exam: Upon examination, clinical breast exam was noted to be normal. Patient was counseled on breast self-awareness, including the importance of knowing what is normal for her own breasts and promptly reporting any changes such as new lumps, skin dimpling, nipple discharge, or pain. Screening mammogram recommended annually beginning at age 40 or earlier if risk factors are present. Discussed signs and symptoms of breast cancer and when to seek medical attention. Answered all patient questions. Contraceptive Counseling (if applicable): Patient is currently using IUD as a form of contraceptive. Follow Up: Patient is to return to our office in one year for annual exam unless needed otherwise. Documented by Vianney Valverde LPN on behalf of: Wesley Yang DO documented in this encounter [facility] 11-22-2024 Hospital Discharge instructions Patient Education 11/22/2024 11:35:48 Seizure, Adult Seizure, Adult A seizure is [...] Follow these instructions at home: Medicines Take wuzh-xiu-fyxidmj and prescription medicines only as told by [...] medicines are used to treat seizures. Take gebt-voo-wkwwgrt and prescription medicines only as told by your health care provider. This information is not intended to replace advice given to you by your health care provider. Make sure you discuss any questions you have with your health care provider. Document Revised: 11/11/2020 Document Reviewed: 11/11/2020 [employer] Patient Education 2022 [employer]cer. 11/22/2024 11:35:41 Managing Anxiety, Adult Managing Anxiety, Adult After [...] your provider. Avoid caffeine, alcohol, and certain gapp-xoo-icuzycy cold medicines. These may make you feel worse. Ask your pharmacist which medicines to avoid. General instructions Take teky-gjx-jnsijwc and prescription medicines only as told by [...] Depression Association of [place] (ADAA): adaa.org National [place] on Mental Illness (MICHELLE): michelle.org Contact a [...] the National Suicide Prevention Lifeline at or 624. This is open 24 hours a day. Text the Crisis Text Line at 574824. This information is not intended to replace advice given to you by your health care provider. Make sure you discuss any questions you have with your health care provider. Document Revised: 02/12/2023 Document Reviewed: 08/27/2021 Elsevier Patient Education 2023 [employer] Follow Up Care 06/05/2024 15:19:18 With:Toy DOBBINS, DRUM LOADER AND UNLOADER-COLLAR SETTER, Sarah Pena Address: [address] [place] [phone] When:Within 6 Month(s) Comments:chronic care [facility] [place] 11-22-2024 Note Patient Education Mental and Behavioral Health [...] use any products (more content not included)... [facility] 09-30-2024 History of Present illness Narrative Images [...] nursing note reviewed. Exam conducted with a grooving lathe tender present. Vitals: Estimated body mass index is [...] any further symptoms or concerns. Documented by Fernie Sauceda NP on behalf of: Fernie Sauceda NP documented in this encounter [facility] 09-09-2024 Note Patient Education [...] Follow these instructions at home: ??? Take uhql-pay-tyyalpb and prescription medicines only as told by [...] loss of appetite. (more content not included)... [facility] 2024 History of Present illness Narrative Subjective: [...] PA-C 08/31/24 0958 [facility] Hospital Discharge instructions Patient Education 06/05/2024 [...] your provider. Avoid caffeine, alcohol, and certain ixey-qqx-tlovhfl cold medicines. These may make you feel worse. Ask your pharmacist which medicines to avoid. General instructions Take fmim-brq-vfxqyvf and prescription medicines only as told by [...] Depression Association of [place] (ADAA): adaa.org National [place] on Mental Illness (MICHELLE): michelle.org Contact a [...] the National Suicide Prevention Lifeline at or 408. This is open 24 hours a day. Text the Crisis Text Line at 324705. This information is not intended to replace advice given to you by your health care provider. Make sure you discuss any questions you have with your health care provider. Document Revised: 02/12/2023 Document Reviewed: 08/27/2021 [employer] Patient Education 2023 [employer]. 06/05/2024 06:34:57 Seizure, Adult Seizure, Adult A [...] surroundings are moving when they are not. D laura vu. This is a feeling of having seen [...] Follow these instructions at home: Medicines Take hwnj-chn-mxhbfjm and prescription medicines only as told by [...] medicines are used to treat seizures. Take atpa-bmu-aflocyi and prescription medicines only as told by your health care provider. This information is not intended to replace advice given to you by your health care provider. Make sure you discuss any questions you have with your health care provider. Document Revised: 11/11/2020 Document Reviewed: 11/11/2020 [employer] Patient Education 2022 Vdancer. Follow Up Care 05/10/2024 13:51:39 With:Toy DOBBINS, DRUM LOADER AND UNLOADER-COLLAR SETTER, Sarah Pena Address: [address] [place] [phone] When:Within 6 Month(s) Comments:chronic care [facility] [place] 06-05-2024 Note Patient Education Mental and Behavioral [...] use any products (more content not included)... [facility] 02-05-2024 History of Present illness Narrative Reason [...] nursing note reviewed. Exam conducted with a grooving lathe tender present. Vitals: Estimated body mass index is [...] Wesley Yang DO documented in this encounter [facility] 01-08-2024 History of Present [...] nursing note reviewed. Exam conducted with a grooving lathe tender present. Vitals: Estimated body mass index is [...] given: yes Instructions and paperwork completed: yes [place] protocol: Patient states understanding of procedure being [...] given: yes Instructions and paperwork completed: yes [place] protocol: Patient states understanding of procedure being [...] Wesley Yang DO documented in this encounter [facility] 12-24-2023 Note Patient Education [...] ? Low-calorie sports drinks. ? Eat bland, cnkt-se-oltall foods in small amounts as you are able, such as: ? Bananas. ? Applesauce. ? Rice. ? Low-fat (lean) meats. ? [place]. ? Crackers. ? Avoid drinking fluids that have a lot of sugar or caffeine in them. This includes energy drinks, sports drinks, and soda. ? Avoid alcohol. ? Avoid spicy or fatty foods. General instructions ? Take evgz-ili-ewaqdem and prescription medicines only as told by your doctor. ? Drink enough fluid to keep your pee (urine) pale yellow. ? Wash your hands often with soap and water for at least 20 seconds. If you cannot use soap and water, use hand supervisor specialty plant. ? Make sure that everyone in your [...] doctor about eating and drinking. ? Take azps-kvh-rbkhoun and prescription medicines only as told by your doctor. ? Contact your doctor if your symptoms get worse or you have new symptoms. ? Keep all follow-up visits. This information is not intended to replace advice given to you by your health care provider. Make sure you discuss any questions you have with your health care provider. Document Revised: 11/10/2021 Document Reviewed: 11/10/2021 [employer] Patient Education ? 2022 [employer]dancer. [facility] 12-04-2023 Hospital Discharge instructions Patient Education 12/04/2023 [...] care provider. Avoid caffeine, alcohol, and certain xmiz-plp-teuoypa cold medicines. These may make you feel worse. Ask your pharmacist which medicines to avoid. General instructions Take kjfy-qmb-tdjtnda and prescription medicines only as told by [...] Depression Association of [place] (ADAA): www.adaa.org National [place] on Mental Illness (MICHELLE): www.michelle.org Contact a [...] department or: Call your local emergency services (750 in the [place] Call a suicide crisis helpline, such as the National Suicide Prevention Lifeline at or 475 in the [place] This is open 24 hours a day in the [place] Text the Crisis Text Line at 791107 (in the [place] Summary Taking steps to [...] provider. Document Revised: 11/29/2021 Document Reviewed: 08/27/2021 [employer] Patient Education 2022 [employer]. 12/04/2023 18:33:16 Exercising to Lose Weight Exercising [...] your health care provider or diet and nutrition teacher (dietitian). This may include: ?Eating fewer calories. [...] provider. Document Revised: 07/02/2021 Document Reviewed: 07/02/2021 [employer] Patient Education 2022 [employer] Follow Up Care 11/05/2023 15:20:48 With:Toy DOBBINS, DRUM LOADER AND UNLOADER-COLLAR SETTER, Sarah Pena Address: [address] [place] [phone] When:Within 1 Month(s) Comments:weight loss [facility] 12-04-2023 Note Patient Education Mental and [...] (Inserted Image. Michelle (more content not included)... [facility] 11-05-2023 Hospital Discharge instructions Patient Education 11/05/2023 [...] your health care provider or diet and nutrition teacher (dietitian). This may include: ?Eating fewer calories. [...] provider. Document Revised: 07/02/2021 Document Reviewed: 07/02/2021 [employer] Patient Education 2022 [employer]dancer. 11/05/2023 15:02:07 Mediterranean Diet Mediterranean Diet A [...] in common dishes like chili or lasagna. [place] with different cooking methods. Try roasting, broiling, [...] available, such as: ?Vegetable sticks with hummus. ?Syrian yogurt. ?Fruit and nut trail mix. Eat [...] Quinoa. Meats and other proteins Beans. Almonds. Boyle seeds. Parker nuts. Peanuts. Cod. Ringgold. Scallops. Shrimp. Tuna. Tilapia. Clams. Oysters. Eggs. Poultry without skin. Dairy Low-fat milk. Cheese. Syrian yogurt. Fats and oils Extra-virgin olive oil. Avocado oil. Grapeseed oil. Beverages Water. Red wine. Herbal tea. Sweets and desserts Syrian yogurt with honey. Baked apples. Poached pears. [place] mix. Seasonings and condiments Basil. Cilantro. Coriander. [...] Fruit canned in syrup. Vegetables Deep-fried potatoes (egyptian fries). Grains Prepackaged pasta or rice dishes. [...] provider. Document Revised: 06/10/2020 Document Reviewed: 04/07/2020 [employer] Patient Education 2022 Vdancer. Follow Up Care 10/30/2023 12:05:25 With:Toy DOBBINS, DRUM LOADER AND UNLOADER-AFSANEH, Sarah Pean Address: [address] [place] [phone] When:Within 1 Month(s) Comments:weight loss, 40 minute initial [facility] [place] 08-06-2023 Hospital Discharge [...] Follow these instructions at home: Medicines Take zkuw-xbl-anfngcw and prescription medicines only as told by [...] and water are not available, use hand supervisor specialty plant. Do not touch your eyes, nose, or [...] provider. Document Revised: 08/02/2021 Document Reviewed: 08/02/2021 [employer] Patient Education 2022 [employer]. 08/06/2023 20:49:53 Upper Respiratory Infection, Adult [...] medicines to help relieve symptoms, such as: Cmma-eon-pxgdfiy cold medicines. Cough suppressants. Coughing is a [...] and other clear broths. General instructions Take gedf-scn-cpuambq and prescription medicines only as told by [...] and water are not available, use hand supervisor specialty plant. Avoid touching your mouth, face, eyes, or [...] provider. Document Revised: 12/06/2021 Document Reviewed: 12/06/2021 [employer] Patient Education 2022 Vdancer. Follow Up Care 08/06/2023 09:11:55 With:Toy DOBBINS, NATACHA-Sarah SHELBY Address: [address] [place] [phone] When: only if needed Comments:work note for today [facility] 06-22-2023 Hospital Discharge instructions Patient Education 06/22/2023 [...] Follow these instructions at home: Medicines Take dqvf-xgb-sdlejqb and prescription medicines only as told by [...] department or: Call your local emergency services (911 in the [place] Call a suicide crisis helpline, such as the National Suicide Prevention Lifeline at or 153 in the [place] This is open 24 hours a day in the [place] Text the Crisis Text Line at 070818 (in the [place] Summary Epilepsy is a condition in which a person has repeated seizures over time. Some types of epilepsy will need lifelong treatment, and some types go away in time. Seizures can cause many symptoms, such as brief staring and uncontrollable shaking or fast movements of the arms or legs. Treatment can control seizures. Take bqxw-jtx-ezgwqdg and prescription medicines only as told by [...] provider. Document Revised: 11/29/2021 Document Reviewed: 11/07/2020 [employer] Patient Education 2022 Vdancer. Follow Up Care 05/27/2023 11:49:32 With:ROSELYN RUIZ, GILBERT Sheridan Address: When: only if needed [facility] [place] 04-29-2023 Hospital Discharge instructions Patient Education 04/29/2023 [...] your hypoglycemia. Where to find more information [place] Diabetes Association: www.diabetes.org National [place] of Diabetes and Digestive and Kidney Diseases: [...] provider. Document Revised: 04/06/2021 Document Reviewed: 04/06/2021 [employer] Patient Education 2022 Vdancer. Follow Up Care 10/31/2022 15:27:38 With:ROSELYN RUIZ FAAFP, GILBERT Pedraza Address: When: Unknown Comments:see provider darrel [facility] [place] 10-31-2022 Hospital Discharge instructions Patient Education 10/31/2022 [...] sitting or lying down. General instructions Take jlfs-iaa-jctshrf and prescription medicines only as told by [...] compression, and elevation. You may be given lzfv-dee-ggabgep medicines for pain. Contact a health care [...] provider. Document Revised: 03/20/2022 Document Reviewed: 03/01/2022 [employer] Patient Education 2022 Vdancer. Follow Up Care 10/25/2022 11:37:19 With:ROSELYN RUIZ FAAFP, GILBERT Pedraza Address: When: Unknown Comments:[facility] [place] [facility]2022 Evaluation note Encounter Date Diagnosis Assessment [...] days September, Other Contusion material was printed [employer] Other 04-06-2023 Evaluation + Plan note Diagnostic Tests Pending * Insulin Level Total 08/23/22 [facility] Hospital Discharge instructions Patient Education 08/22/2022 16:25:08 [...] these instructions at home: General instructions Take cbft-fsb-nbdcxhe and prescription medicines only as told by [...] 05/06/2006 Document Revised: 10/27/2018 Document Reviewed: 06/08/2016 [employer] Patient Education 2020 [employer]cer. Follow Up Care 08/01/2022 11:27:21 With:ROSELYN RUIZ FAAFP, GILBERT Pedraza Address: When: Unknown Comments:telephone result to patient [facility] 04-05-2023 Evaluation + Plan note Future Scheduled Tests Laboratory* HgbA1c 08/22/22 * Insulin Level Total 08/22/22 * CBC w/ Indices 08/22/22 * Comprehensive Metabolic Panel 08/22/22 * Lipid Panel 08/22/22 * Magnesium Level 08/22/22 * Valproic Acid Level 08/22/22 * Vitamin B12 Level 08/22/22 [facility] 03-24-2023 Evaluation note* Encounter Date Diagnosis Assessment [...] treatment plan. Patient left in stable condition [employer] Other 02-05-2023 Evaluation note* Encounter Date Diagnosis [...] no improvement in 2 to 3 days. [facility] [employer] Other Evaluation + Plan note Future Appointments Appointment Date:04/29/2023 06:20:00 PM Scheduled Provider:Shannon OLVERA MD, FAAFP Location:[facility] Appointment Type: [facility] Evaluation + Plan note Future Appointments Appointment Date:08/14/2023 06:00:00 PM Scheduled Provider:ZAFAR Zuleta Tammy L. Location:[facility] Appointment Type: Open Diagnostic Tests Pending * Insulin Level Total 04/29/23 * Comprehensive Metabolic Panel 04/29/23 * TSH With T4fr Reflex 04/29/23 * CBC w/ Auto Diff 04/29/23 * Valproic Acid Level 04/29/23 [facility] Evaluation + Plan note Future Appointments Appointment Date:06/25/2023 06:00:00 PM Scheduled Provider:Arvin OLVERA MD Location:[facility] Appointment Type: Open Appointment Date:08/14/2023 06:00:00 PM Scheduled Provider:ZAFAR Zuleta Tammy L. Location:[facility] Appointment Type: Open Diagnostic Tests Pending * [facility]ments Appointment Date:08/14/2023 06:00:00 PM Scheduled Provider:ZAFAR Zuleta Tammy L. Location:[facility] Appointment Type: [facility] Evaluation + Plan note Future Appointments Appointment Date:12/06/2023 03:00:00 PM Scheduled Provider:ZAFAR Zuleta Tammy L. Location:[facility] Appointment Type: [facility] Evaluation + Plan note Future Appointments Appointment Date:01/01/2024 05:40:00 PM Scheduled Provider:ZAFAR Zuleta Tammy L. [facility] Appointment Type:[facility] Evaluation + Plan note Future Appointments Appointment Date:11/23/2024 02:40:00 PM Scheduled Provider:ZAFAR Zuleta Tammy L. [facility] noteNo assessment information available [facility] Work Phone: Evcctwndvy note* Diagnosis Encounter for IUD removal and reinsertion documented in this encounter [facility] HealthcareEvaluation note* Diagnosis Encounter for routine checking of intrauterine contraceptive device (IUD) documented in this encounter [facility] HealthcareEvaluation note* Diagnosis Acute vomiting- Primary [facility]* Diagnosis Abdominal pain, epigastric- Primary Nausea and vomiting, unspecified vomiting type documented in this encounter [facility] [employer] [facility] [place] [facility]* Diagnosis Left genital labial abscess- Primary Labial cyst Other specified noninflammatory disorder of vulva and perineum documented in this encounter [facility] HealthcareEvaluation note* Diagnosis Well woman exam with routine gynecological exam Routine gynecological examination documented in this encounter [facility] HealthcareHistory general Narrative - Reported* Type Description Date Medical History Esophageal reflux Medical History epilepsy Medical History Depression Medical History anxiety [employer] Other Hospital course Narrative No data available for this section [facility] instructions No data available for this section [facility] Attachments The following attachments cannot be sent through Care Everywhere. * Nausea and Vomiting (Armenian) * Abdominal Pain (Armenian) documented in this encounterBon AdaptivityInstructionsNot on file [facility] No data available for this section [facility] Purpose Family History No Family History [...] this section No Family History Records Found Advance Directives Advance Directive Response Recorded Date/ Time Advance Directives No October 08 8 4:56pm Additional Source Comments INFORMATION SOURCE (unrecogn ized section and content) DATE CREATED AUTHOR 10/13/2021 [facility] DATE CREATED AUTHOR AUTHOR'S ORGANIZ ATION 12/27/2022 [facility] DATE CREATED AUTHOR AUTHOR'S ORGANIZ ATION 03/04/2023 [facility] DATE CREATED AUTHOR AUTHOR'S ORGANIZ ATION 06/08/2024 Judge Johnie [facility] DATE CREATED AUTHOR AUTHOR'S ORGANIZ ATION 2024 [facility] DATE CREATED AUTHOR AUTHOR'S ORGANIZ ATION 2024 [facility] DATE CREATED AUTHOR AUTHOR'S ORGANIZ ATION 09/11/2024 [place] [facility] DATE CREATED AUTHOR AUTHOR'S ORGANIZ ATION 11/25/2024 [place] Johnie [facility] DATE CREATED AUTHOR AUTHOR'S ORGANIZ ATION 12/30/2024 [facility] EPIC REASON FOR VISIT (unrecogniz ed section and content) Reason Comments Contraception Reason Comments Contraception String check Reason Comments Vomiting Sx started last nigh t. Reason Comments Abdominal Pain Vomiting Reason Comments Cyst Cyst on left inside part of patients inner labia. Patient states cyst has been there for 5 weeks. Reason Comments Gynecologic Exam Patient Care team informatio n (unrecognized section and content) Team Status: Active Member Role Status Dates Shannon Olvera MD Primary Care Provider Active Team Status: Inactive Member Role Status Dates Shannon Olvera MD Primary Care Provider Active Cari Araseli , SOLDER MAKING SUPERVISOR-C Attending Provider Active Ticket Marker Relationship Specialty Start Date End Date Shannon Olvera MD [address] [place], [place] [id number] PCP - General 12/09/22 Ticket Marker Relationship Specialty Start Date End Date Shannon Olvera MD [address] [place], [place] [id number] PCP - General 12/09/22 Ticket Marker Relationship Specialty Start Date End Date Shannon Olvera MD [address] [place], [place] [id number] PCP - General 12/09/22 Ticket Marker Relationship Specialty Start Date End Date Shannon Olvera MD [address] [place], [place] [id number] PCP - General 12/09/22 Ticket Marker Relationship Specialty Start Date End Date Shannon Olvera MD [address] [place], [place] [id number] PCP - General 12/09/22 Ticket Marker Relationship Specialty Start Date End Date Shannon Olvera MD [address] [place], [place] [id number] PCP - General 12/09/22 Goals (unrecognized section [...] as needed (Bowel spasms) 20 capsule 2024 Scheduled Active and Recently Administ ered Medications [...] BE BASED ON THE PRIMARY CLINICAL RECORDS. [facility] [employer] [facility] provides no warranty or guarantee of the accuracy or completeness of information in this document.
[2025-02-11 21:49] VITALS: BP 129/83; PULSE 81; TEMP 36.8; O2SAT 99; BMI 33.2
[2025-02-11 22:41] VITALS: BP 115/71; PULSE 88; TEMP 36.9
--- NOTE | 2025-02-11 22:51 | ED.ANIMALBI1 ---
HPI - Animal Bite General Chief Complaint: Animal Bite Stated Complaint: BIT BY A CAT ON THE CHIN Time Seen by Provider: 02/11/25 22:42 Source: patient Mode of arrival: walk-in Limitations: no limitations History of Present Illness HPI narrative: bitten right chin by her cat just [employer]. she cleaned the site and applied steri strip. Now presents for evaluation. denies other complaint Related Data Home Medications ?Medication ?Instructions ?Recorded ?Confirmed fluoxetine 20 mg capsule mg 09/01/24 metoclopramide HCl 10 mg tablet mg 09/01/24 tirzepatide (weight loss) 12.5 mg subcut 09/01/24 mg/0.5 mL subcutaneous pen injector (Zepbound) Allergies Allergy/AdvReac Type Severity Reaction Status Date / Time Penicillins Allergy Severe Rash Verified 02/11/25 21:47 Review of Systems ROS Status of ROS 10 or more systems reviewed and unremarkable except as noted in history and below PFSH PFS Social History Little interest or pleasure in doing things: not at all Feeling down, depressed, or hopeless: not at all Exam Constitutional Vital Signs, click to edit/add: Last Vital Signs Temp 98.5 F 02/11/25 22:41 Pulse 88 02/11/25 22:41 Resp 18 02/11/25 21:49 BP 115/71 02/11/25 22:41 Pulse Ox 99 02/11/25 21:49 O2 Del Method Room Air 02/11/25 21:49 Common normals: no apparent distress, average body habitus, oriented x3, no limitations, healthy appearing, alert and well nourished [facility] Common normals: normocephalic and head/scalp atraumatic Face and sinus images:  1. small 3mm lac Eye Common normals: PERRL, EOMs intact bilaterally and conjunctivae normal Respiratory Common normals: normal respiratory effort, no retractions, no use of accessory muscles and clear to auscultation bilaterally Cardio Common normals: regular rate, regular rhythm, S1 normal heart sound and S2 normal heart sound Extremity Common normals: normal to inspection and full ROM Neuro Common normals: oriented x3, CN's II-XII intact bilaterally and moves all extremities Psych Appearance: grossly normal Course Vital Signs Vital signs: Vital Signs Temperature 98.3 F 02/11/25 21:49 Pulse Rate 81 02/11/25 21:49 Respiratory Rate 18 02/11/25 21:49 Blood Pressure 129/83 02/11/25 21:49 Pulse Oximetry 99 02/11/25 21:49 Oxygen Delivery Method Room Air 02/11/25 21:49 Temperature 98.5 F 02/11/25 22:41 Pulse Rate 88 02/11/25 22:41 Respiratory Rate 18 02/11/25 21:49 Blood Pressure 115/71 02/11/25 22:41 Pulse Oximetry 99 02/11/25 21:49 Oxygen Delivery Method Room Air 02/11/25 21:49 MDM - Animal Bite MDM Narrative Medical decision making narrative: presents with small cat bite to her right chin. she cleaned the site and applied steri strip and repair looks good. small 3mm cut. no swelling. I don't feel any additional intervention is required on than antibiotics. She has allergy to PCN discharged home with a prescription for doxycycline and flagyl and is to follow up with her doctor Discharge Plan Discharge Chief Complaint: Animal Bite Clinical Impression: Cat bite Patient Disposition: Home, Self-Care Prescriptions / Home Meds: No Action fluoxetine 20 mg capsule metoclopramide HCl 10 mg tablet Zepbound 12.5 mg/0.5 mL pen injector SUBCUT Print Language: Egyptian Instructions: Animal Bite (ED) Additional Instructions: follow up with your doctor next week for recheck Referrals: Sarah Yeager, RN [Primary Care Provider] - 1 week
[2025-02-11] MEDS: DOXYCYCLINE MONOHYDRATE 100 MG CAPSULE PO (23:00)
[2025-02-11] MEDS: METRONIDAZOLE 250 MG TABLET 500 MG PO (23:01)
--- NOTE | 2025-02-11 23:19 | PC.NURSE ---
i gave this patient verbal and written discharge orders along with 2 Rx and this patient voices yes to understanding these discharge orders and Rx. at timme of discharge this patient voices no concerns,needs and shows no signs of distress
== END 2025-02-11 23:18 | disposition home or self-care (01) ==
PROVIDERS: Emergency Provider Internal Medicine
DX: S01.85XA Open bite of other part of head, initial encounter (principal); W55.01XA Bitten by cat, initial encounter
CPT/HCPCS: 99283

== ENCOUNTER 2025-02-19 07:01 | Emergency (ER) | payer OTHER, SELFPAY ==
[2025-02-19 07:08] VITALS: BP 113/69; PULSE 80; TEMP 36.4; O2SAT 98; BMI 32.9
--- OUTSIDE RECORDS SUMMARY | 2025-02-19 07:16 | XMS_ITS | CCD ---
Author Organization [facility] Care Team Providers Care Toys Inspector Name Role Phone DR IRENA DORANTES Attending Unavailable JAYNA, DR OSBORN Consulting Unavailable JAYNA, DR OSBORN Admitting Unavailable Cari Marx Unavailable Christie Hua Unavailable Shannon OLVERA Primary Care Physician [phone] MD Shannon Olvera Primary Care Provider [phone] ALEXUS Marx Attending Provider [phone] Cari Marx Attending Unavailable Cari Marx Admitting Unavailable Shannon Olvera Primary Care Unavailable TYRA CID Attending Unavailable Toy, Sarah L. Primary Care Physician Shannon Olvera MD Primary Care Provider [phone] Unavailable Primary Care Provider Unavailabl e Unavailable Primary Care Provider Unavailabl ASCENCION Ford Attending Unavailable CASSIE HINOJOSA Attending Unavailable Toy Sarah LSang Attending Unavailable Toy, Sarah LSang Attending Unavailable Toy, Sarah LSang Attending Unavailable Toy, Sarah L. Admitting Unavailable ANGELOAFSANEH KHURRAM A Attending Unavailabl e ANGELO FOUNTAIN CLERK KHURRAM A Attending Unavailabl e ANGELO FOUNTAIN CLERK KHURRAM A Attending Unavailabl e Toy, Sarah [...] Penicillins; Translations: [penicillins] Drug Allergy Weal (disorder) [facility] (6 sources) Penicillin; Translations: [Penicillin] Drug Allergy hives, Weal (disorder) [facility] (20 sources) Penicillins; Translations: [penicillins] Drug allergy 8 Weal (disorder), Hives [facility] (11 sources) Penicillin G sodium Propensity [...] sites, # 4 EA, Refills(s) 0, Pharmacy: [facility], 170, cm, 11/05/23 14:44:00 EDT, [...] 20 cap(s), Refills(s) 0, Pharmacy: [facility] 1155, 170, cm, 08/06/23 11:38:00 EDT, [...] Start: 11-10-2019 take 1 capsule by mo [facility] in the morning FLUoxetine (PROzac) 40 MG capsule Take 40 mg by mouth in the morning. 11/10/2019 Active Fluoxetine Activ e levonorgestrel 0.055399 mg/hr intrauterine system (20 sources) Progestin, Progestin-containing [...] Nausea/Vomiting, # 28 tab(s), Refills(s) 0, Pharmacy: [facility]/pharmacy #[id number], 170, cm, 09/09/24 12:01:00 EDT, [...] 32.65, # 30 tab(s), Refills(s) 0, Pharmacy: [facility]5, 170, cm, 06/24/23 18:03:00 EST, Height/Length Dosing, 96.5, kg, 06/24/23 18:03:00 EST, Weight Dosing Start Date: 07/25/23 Status: Ordered Start: 06-24-2023 phentermine 37 .5 mg Tab 37.5 mg = 1 tab(s), Oral, Daily, 30 day supply DX E66.09 BMI 33.36, # 30 tab(s), Refills(s) 0, Pharmacy: [facility], 170, cm, 06/24/23 18:03:00 EST, Height/Length Dosing, 96.5, kg, 06/24/23 18:03:00 EST, Weight Dosing Start Date: 06/24/23 Status: Ordered Start: 05-27-2023 phentermine 37 .5 mg Tab 37.5 mg = 1 tab(s), Oral, Daily, 30 day supply DX E66.09 BMI 34.1, # 30 tab(s), Refills(s) 0, Pharmacy: [facility] 1155, 170, cm, 05/27/23 7:44:00 EST, Height/Length Dosing, 98.6, kg, 05/27/23 7:44:00 EST, Weight Dosing Start Date: 05/27/23 Status: Ordered Start: 04-29-2023 take 1 tablet by earnest th once daily phentermine 37.5 mg Tab 37.5 mg = 1 tab(s), Oral, Daily, 30 day supply, # 30 tab(s), Refills(s) 0, Pharmacy: [facility] 1155, 170, cm, 04/29/23 18:18:00 EST, Height/Length Dosing, 104.3, kg, 04/29/23 18:18:00 EST, Weight Dosing Start Date: 04/29/23 Status: Ordered 1 mg dose 1.5 ml semaglutide 1.34 mg/ml pen injector (1 source) Start: 10-31-2022 inject 1 mg by subcutaneous injection every week Ozempic 2 mg/1.5 mL (1 mg dose) subcutaneous solution 1 mg, SubCutaneous, qWeek, 2 EA, Refill(s) 0, [facility]/pharmacy #[id number], 170, cm, 10/31/22 14:42:00 EDT, [...] <-Panic Low,>-Panic High,A-Abnormal,AA-Critical Abnormal Performed at: 01 =[address] [phone] Sally Carpenter MD, HPV APTIMA Negative Negative [facility] Comment on above: This nucleic acid am plification test detects fourteen high- risk HPV types (16,18,31,33,35,39,45,51,52,56,58,59,66,68) without differentiation. Performed at: =[address] [id number] Delivery Person: Sally Carpenter MD, Phone: [phone] Performed at: [address] [id number] Delivery Person: Sally Carpenter MD, Phone: [phone] IGP, APTIMA HPV, RFX 16/18,45 Note . [facility] Comment on above: TESTS RESULT FLAG UN ITS REF RANGE LAB DIAGNOSIS: 02 NEGATIVE FOR INTRAEPITHELIAL LESION OR MALIGNANCY. Specimen adequacy: 02 Satisfactory for evaluation. Endocervical and/or squamous metaplastic cells (endocervical component) are present. Performed by: 02 Enid Wilcox Dog Hair Clipper (ASCP) . 02 Note: Note 02 The [...] <-Panic Low,>-Panic High,A-Abnormal,AA-Critical Abnormal Performed at: [address] [phone] Sally Carpenter MD, [facility] Provider Letteron 09-24-2024 Provider Letter Provider Letter September 24, 2024 NATALY GARCIA [address] [facility] [address] [place] [address] : 1990 Dear Nataly Garcia , We have been trying to reach you with no success. It is important that you return our call regarding your referral upon receiving this letter. Also, at the time of your call, please provide us with your current information. Thank you for your prompt attention to this matter. Sincerely, [facility] [phone] Normal [facility] Ambulatory Visit Summaryon 0 09-09-2024 Ambulatory Visit Summary Ambulatory Visit Summary NATALY GARCIA :1990 Visit Date:09/09/2024 Ambulatory Visit Instructions Your Diagnosis Gastroparesis Overweight BMI 29.0-29.9,adult Your Care Team Attending Physician - ZAFAR Zuleta Tammy L. Primary Care Physician - ZAFAR Zuleta Tammy L. This Is Your Medications List [facility] Prescription (pen needles 31G x 3/16 , [...] EDT With: ZAFAR Zuleta Tammy L. Where: [address] [address]- You Need to Schedule the Following Appointments Follow Up with Toy DOBBINS, Sarah STEPHEN When: Only if needed Comments: work excuse for August 31- return on September 14 Where: [address] [place] [address] Medications What How Much When Why Instructions Changed metoclopramide (metoclopramide 10 mg Tab) 1 Tablets By Mouth Every 6 hours as needed for Nausea/Vomiting Pickup at [facility]/pharmacy #[id number] Unchanged divalproex sodium (Depakote DR 500 mg [...] Capsules By Mouth Every day Pharmacy Information [facility]/pharmacy #[id number]: [address] [place] [address], [place] [id number] [phone] Allergies penicillins (Hives) Problems Ongoing - Any [...] post-medication change. HPI Staff ER followup: Hospital: [facility] Visit date: 09-01-24 Symptoms the patient presented [...] Nausea/Vomiting, # 28 tab(s), Refills(s) 0, Pharmacy: [facility]/pharmacy #[id number], 170, cm, 09/09/24 12:01:00 EDT, [...] Follow-up With When Contact Information Toy DOBBINS, MACHINE HEEL SEAT LASTER-FOUNTAIN CLERK, Sarah Pena Only if needed [address] [place] [phone] Additional Instructions: work excuse for August 31- [...] Comment: Elec tronically Signed By: Toy DOBBINS, MACHINE HEEL SEAT LASTER- FOUNTAIN CLERK, Sarah Pena\.br\Date and Time Signed: 09/09/24 14:27 EDT Provider Letteron 09-09-2024 Provider Letter Provider Letter September 09, 2024 NATALY GARCIA [address] [address] : 1990 To Whom It May Concern, Please excuse above patient from work. Date of Illness: From: 2024 To: 09/11/2024 May Return to Work On: 09/14/2024 Sincerely, [facility] [address] [place], [place] [address] Normal [facility] CBC with Auto Differentialon 2024 Basophils (Bld) [#/Vol] 0 10*3/uL [facility] Basophils/100 WBC (Bld) 0 % 0 - 2 % [facility] Eosinophils (Bld) [#/Vol] 0 10*3/uL [facility] Eosinophils/100 WBC (Bld) 0 % 0 - 4 % [facility] Erythrocyte distribution width (RBC) [Ratio] 15.2 % High 11.5 - 14.9 % [facility] Hematocrit (Bld) [Volume fraction] 41.1 % 36 - 46 % [facility] Hemoglobin (Bld) [Mass/Vol] 13.6 g/dL 12.0 - 16.0 g/dL [facility] Interpretation and review of laboratory results Abnormal [facility] Lymphocytes/100 WBC (Bld) 11 % Low 24 - 44 % [facility] Lymphocytes/100 WBC (Bld) 0.9 % Low [facility] MCH (RBC) [Entitic mass] 28.2 pg 26 - 34 pg [facility] MCHC (RBC) [Mass/Vol] 33 g/dL 31 - 37 g/dL B [facility] MCV (RBC) [Entitic vol] 85.4 fL 80 - 100 fL [facility] Monocytes/100 WBC (Bld) 3 % 1 - 7 % [facility] Monocytes/100 WBC (Bld) 0.2 % [facility] Neutrophils/100 WBC (Bld) 86 % High 36 - 66 % [facility] Platelet mean volume (Bld) [Entitic vol] 9.7 fL 6.0 - 12.0 fL [facility] Platelets (Bld) [#/Vol] 224 10*3/uL [facility] RBC (Bld) [#/Vol] 4.82 10*6/uL 4.0 - 5.2 m/uL [facility] Segmented neutrophils/100 WBC (Bld) 7.1 % [facility] WBC other (Bld) [#/Vol] 8.2 [facility] CBC with Diffon 2024 Abs. Basophil 0.00 k/uL Normal 0.0-0.2 [place] Comment on above: Performed By: #### C DP, FT4, CP, HCG, LIP, TSH #### [facility] [address] [place] [address] Delivery Person: Duane Pearl DO Abs.Neutrophil (Seg) 7.10 k/uL Normal 1.3-9.1 [facility] Comment on above: Performed By: #### C DP, FT4, CP, HCG, LIP, TSH #### [facility] [address] [facility] [place] [address] Delivery Person: Duane Pearl DO Basophils/100 WBC (Bld) 0 % Normal 0-2 [place] Comment on above: Performed By: #### C DP, FT4, CP, HCG, LIP, TSH #### [facility] [address] [place] [address]. [place] [address] Delivery Person: Duane Pearl DO Eosinophils (Bld) [#/Vol] 0.00 10*3/uL Normal 0.0-0.4 [place] Comment on above: Performed By: #### C DP, FT4, CP, HCG, LIP, TSH #### [facility] [address] [place] [address] Delivery Person: Duane Pearl DO Eosinophils/100 WBC (Bld) 0 % Normal 0-4 [place] Comment on above: Performed By: #### C DP, FT4, CP, HCG, LIP, TSH #### [facility] [address] [place] [address] Delivery Person: Duane Pearl DO Erythrocyte distribution width (RBC) [Ratio] 15.2 % High 11.5-14.9 [place] Comment on above: Performed By: #### C DP, FT4, CP, HCG, LIP, TSH #### [facility] [address] [place] [address] Delivery Person: Duane Pearl DO Hematocrit (Bld) [Volume fraction] 41.1 % Normal 36-46 [place] Comment on above: Performed By: #### C DP, FT4, CP, HCG, LIP, TSH #### [facility] [place] [address] Delivery Person: Duane Pearl DO Hemoglobin (Bld) [Mass/Vol] 13.6 g/dL Normal 12.0-16.0 [place] Comment on above: Performed By: #### C DP, FT4, CP, HCG, LIP, TSH #### [facility] [address] [place] [address] Delivery Person: Duane Pearl DO Lymphocytes (Bld) [#/Vol] 0.90 10*3/uL Low 1.0-4.8 [place] Comment on above: Performed By: #### C DP, FT4, CP, HCG, LIP, TSH #### [facility] [address] [place] [address] Delivery Person: Duane Pearl DO Lymphocytes/100 WBC (Bld) 11 % Low 24-44 [place] Comment on above: Performed By: #### C DP, FT4, CP, HCG, LIP, TSH #### [facility] [address] [place] [address] Delivery Person: Duane Pearl DO MCH (RBC) [Entitic mass] 28.2 pg Normal 26-34 [place] Comment on above: Performed By: #### C DP, FT4, CP, HCG, LIP, TSH #### [facility] [address] [place] [address] Delivery Person: Duane Pearl DO MCHC (RBC) [Mass/Vol] 33.0 g/dL Normal 31-37 [facility] Comment on above: Performed By: #### C DP, FT4, CP, HCG, LIP, TSH #### [facility] [address] [place] [address] Delivery Person: Duane Pearl DO MCV (RBC) [Entitic vol] 85.4 fL Normal 80-100 [place] Comment on above: Performed By: #### C DP, FT4, CP, HCG, LIP, TSH #### [facility] [address] [place] [address] Delivery Person: Duane Pearl DO Monocytes (Bld) [#/Vol] 0.20 10*3/uL Normal 0.1-1.3 [place] Comment on above: Performed By: #### C DP, FT4, CP, HCG, LIP, TSH #### [facility] [place] [address] Delivery Person: Duane Pearl DO Monocytes/100 WBC (Bld) 3 % Normal 1-7 [place] Comment on above: Performed By: #### C DP, FT4, CP, HCG, LIP, TSH #### [facility] [place] [address] Delivery Person: Duane Pearl DO Neutrophil (Seg) 86 % High 36-66 [facility] Comment on above: Performed By: #### C DP, FT4, CP, HCG, LIP, TSH #### [facility] [place] [address] Delivery Person: Duane Pearl DO Platelet mean volume (Bld) [Entitic vol] 9.7 fL Normal 6.0-12.0 [place] Comment on above: Performed By: #### C DP, FT4, CP, HCG, LIP, TSH #### [facility] [place] [address] Delivery Person: Duane Peral DO Platelets (Bld) [#/Vol] 224 10*3/uL Normal 150-450 [place] Comment on above: Performed By: #### C DP, FT4, CP, HCG, LIP, TSH #### [facility] [address] [place] [address] Delivery Person: Duane Pearl DO RBC (Bld) [#/Vol] 4.82 10*6/uL Normal 4.0-5.2 [place] Comment on above: Performed By: #### C DP, FT4, CP, HCG, LIP, TSH #### [facility] [address] [place] [address] Delivery Person: Duane Pearl DO WBC (Bld) [#/Vol] 8.2 10*3/uL Normal 3.5-11.0 [place] Comment on above: Performed By: #### C DP, FT4, CP, HCG, LIP, TSH #### [facility] [address] [place] [address] Delivery Person: Duane Pearl DO Comp Metabolic Profon 2024 Albumin [Mass/Vol] 4.7 g/dL Normal 3.5-5.2 [place] Comment on above: Performed By: #### C DP, FT4, CP, HCG, LIP, TSH #### [facility] [address] [place] [address] Delivery Person: Duane Pearl DO Alkaline Phos 49 U/L Normal 35-104 [place] Comment on above: Performed By: #### C DP, FT4, CP, HCG, LIP, TSH #### [facility] [address] [place] [address] Delivery Person: Fanelly, Duane, DO ALT [Catalytic activity/Vol] 12 U/L Normal 10-35 [place] Comment on above: Performed By: #### C DP, FT4, CP, HCG, LIP, TSH #### [facility] [address] [place] [address] Delivery Person: Duane Pearl DO Anion gap [Moles/Vol] 13 mmol/L Normal 9-16 [facility] Comment on above: Performed By: #### C DP, FT4, CP, HCG, LIP, TSH #### [facility] [address] [place] [address] Delivery Person: Duane Pearl, DO AST [Catalytic activity/Vol] 14 U/L Normal 10-35 [place] Comment on above: Performed By: #### C DP, FT4, CP, HCG, LIP, TSH #### [facility] [place] [address] Delivery Person: Duane Pearl DO Bilirubin [Mass/Vol] 0.4 mg/dL Normal 0.0-1.2 [facility] Comment on above: Performed By: #### C DP, FT4, CP, HCG, LIP, TSH #### [facility] [place] [address] Delivery Person: Duane Pearl DO Calcium [Mass/Vol] 9.5 mg/dL Normal 8.6-10.4 [place] Comment on above: Performed By: #### C DP, FT4, CP, HCG, LIP, TSH #### [facility] [place] [address] Delivery Person: Duane Pearl DO Chloride [Moles/Vol] 100 mmol/L Normal 98-107 [facility] Comment on above: Performed By: #### C DP, FT4, CP, HCG, LIP, TSH #### [facility] [address] [facility] [place] [address] Delivery Person: Duane Pearl DO CO2 [Moles/Vol] 23 mmol/L Normal 20-31 [place] Comment on above: Performed By: #### C DP, FT4, CP, HCG, LIP, TSH #### [facility] [address] [facility] [place] [address] Delivery Person: Duane Pearl DO Creatinine [Mass/Vol] 0.6 mg/dL Low 0.7-1.2 [facility] Comment on above: Performed By: #### C DP, FT4, CP, HCG, LIP, TSH #### [facility] [address] [place] [address]. [place] [address] Delivery Person: Duane Pearl DO GFR/1.73 sq M.predicted among non-blacks MDRD (S/P/Bld) [Vol rate/Area] mL/min/{1.73_m2} Normal >60 [place] Comment on above: Result Comment: These results [...] DP, FT4, CP, HCG, LIP, TSH #### [facility] [place] [address] Delivery Person: Duane Pearl DO Glucose [Mass/Vol] 110 mg/dL High 74-99 [place] Comment on above: Performed By: #### C DP, FT4, CP, HCG, LIP, TSH #### [facility] [address] [facility] [place] [address] Delivery Person: Fanelly, Duane, DO Potassium [Moles/Vol] 3.8 mmol/L Normal 3.7-5.3 [facility] Comment on above: Performed By: #### C DP, FT4, CP, HCG, LIP, TSH #### [facility] [address] [place] [address] Delivery Person: Duane Pearl, Protein [Mass/Vol] 7.8 g/dL Normal 6.6-8.7 [place] Comment on above: Performed By: #### C DP, FT4, CP, HCG, LIP, TSH #### [facility] [address] [place] [address] Delivery Person: Duane Pearl DO Sodium [Moles/Vol] 136 mmol/L Normal 136-145 [place] Comment on above: Performed By: #### C DP, FT4, CP, HCG, LIP, TSH #### [facility] [address] [place] [address] Delivery Person: Duane Pearl DO Urea nitrogen [Mass/Vol] 6 mg/dL Normal 6-20 [place] Comment on above: Performed By: #### C DP, FT4, CP, HCG, LIP, TSH #### [facility] [address] [facility] [place] [address] Delivery Person: Duane Pearl DO Comprehensive Metabolic Pane vernon 2024 Albumin [Mass/Vol] 4.7 g/dL 3.5 - 5.2 g/dL [facility] ALP [Catalytic activity/Vol] 49 U/L 35 - 104 U/L [facility] ALT [Catalytic activity/Vol] 12 U/L 10 - 35 U/L [facility] Anion gap [Moles/Vol] 13 mmol/L 9 - 16 mmol/L [facility] AST [Catalytic activity/Vol] 14 U/L 10 - 35 U/L [facility] Bilirubin [Mass/Vol] 0.4 mg/dL 0.0 - 1 .2 mg/dL [facility] Calcium [Mass/Vol] 9.5 mg/dL 8.6 - 10. 4 mg/dL [facility] Chloride [Moles/Vol] 100 mmol/L 98 - 10 7 mmol/L [facility] CO2 [Moles/Vol] 23 mmol/L 20 - 31 mmol/L [facility] Creatinine [Mass/Vol] 0.6 mg/dL Low 0.7 - 1.2 mg/dL [facility] Est, Glom Filt Rate - PINF [facility] Comment on above: These results are [...] 110 mg/dL High 74 - 99 mg/dL [facility] Interpretation and review of laboratory results Abnormal [facility] Potassium [Moles/Vol] 3.8 mmol/L 3.7 - 5.3 mmol/L [facility] Protein [Mass/Vol] 7.8 g/dL 6.6 - 8.7 g/dL [facility] Sodium [Moles/Vol] 136 mmol/L 136 - 145 mmol/L [facility] Urea nitrogen [Mass/Vol] 6 mg/dL 6 - 20 mg/dL [facility] HCG Qualitative, Serumon HCG ( test) Ql Negative NEGATIVE [facility] Comment on above: Specimens with hCG l evels near the threshold of the test (25 mIU/mL) may give a negative or indeterminate result. In such cases, another test should be performed with a new specimen in 48-72 hours. If early is suspected clinically in this setting, correlation with quantitative serum b-hCG level is suggested. [facility] HCG Screen, Bloodon 09-01-19 HCG Screen, Blood Negative Normal [facility]G [facility] Comment on above: Result Comment: Spec [...] DP, FT4, CP, HCG, LIP, TSH #### [facility] [address] [facility] [place] [address] Delivery Person: Duane Pearl DO Lipaseon 2024 Lipase [Catalytic activity/Vol] 26 U/L 13 - 60 U/L [facility] Lipase [Catalytic activity/Vol] 26 U/L Normal 13-60 [place] Comment on above: Performed By: #### C DP, FT4, CP, HCG, LIP, TSH #### [facility] [address] [facility] [place] [address] Delivery Person: Duane Pearl DO No Panel Informationon 08-31 [facility] T4, Freeon 2024 Free T4 [Mass/Vol] 1.1 ng/dL 0.9 - 1.7 ng/dL [facility] TSHon 2024 TSH Qn 1.79 m[IU]/L [facility] Thyroid Stim. Horm.on 2024 Thyroid Stim. Horm. 1.79 uIU/mL Normal 0.27-4.20 [facility] Comment on above: Performed By: #### C DP, FT4, CP, HCG, LIP, TSH #### [facility] [address] [facility] [place], [place] [id number] Delivery Person: Duane Pearl DO Thyroxine, Freeon 2024 Thyroxine, Free 1.1 ng/dL Normal 0.9-1.7 [place] Comment on above: Performed By: #### C DP, FT4, CP, HCG, LIP, TSH #### [facility] [address] [place] [address] Delivery Person: Duane Pearl DO US GALLBLADDER RUQon 025 [...] Tahir Donis MD 08/31/24 Final result Normal [place] US Gallbladderon 2024 1. No acute abnormality. [...] No evidence of right upper quadrant ascites. [facility] RIS CONSOLIDATED Tahir Donis MD - 2024 [...] quadrant ascites. IMPRESSION: 1. No acute abnormality. [facility] Radiology Study observation (narrative) [facility] US GallbladderOrdered By: Maximus Donis on 2024 [facility] Work Phone: Ambulatory Visit Summaryon [...] EDT With: Toy DOBBINS, Sarah STEPHEN Where: [address] [address]- You Need to Schedule the Following Appointments Follow Up with Toy MSN, MACHINE HEEL SEAT LASTER-FOUNTAIN CLERK, Sarah Pena When: In 6 months Comments: chronic care Where: [address] [place] [phone] Medications What How Much When Why Instructions [...] Comment on above: Performed By: #### 2 [id number] #### [facility] [address] [place] [address] Basophils/Leukocytes Auto (Bld) [Pure # fraction] 0.0 E9/L Normal 0.0-0.2 [facility] Comment on above: Performed By: #### 2 [id number] #### [facility] [address] [place] [address] Eosinophils (Bld) [#/Vol] 0.2 E9/L Normal 0.0-0.5 [facility] Comment on above: Performed By: #### 2 [id number] #### [facility] [address] [place] [address] Eosinophils/100 WBC (Bld) 1.9 % Normal 0.0-8.0 [facility] Comment on above: Performed By: #### 2 [id number] #### [facility] [address] [place] [address] Erythrocyte distribution width (RBC) [Ratio] 15.3 % High 10.9-14.2 [facility] Comment on above: Performed By: #### 2 [id number] #### [facility] [address] [place] [address] Hematocrit (Bld) [Volume fraction] 37.5 % Normal 34.0-46.0 [facility] Comment on above: Performed By: #### 2 [id number] #### [facility] [address] [place] [address] Hemoglobin (Bld) [Mass/Vol] 12.5 g/dL Normal 12.0-16.0 [facility] Comment on above: Performed By: #### 2 [id number] #### [facility] [address] [place] [address] Lymphocytes (Bld) [#/Vol] 2.9 E9/L Normal 1.0-4.0 [facility] Comment on above: Performed By: #### 2 [id number] #### [facility] [address] [place] [address] Lymphocytes/100 WBC (Bld) 27.7 % Normal 14.0-50.0 [facility] Comment on above: Performed By: #### 2 [id number] #### [facility] [address] [place] [address] MCH (RBC) [Entitic mass] 28.1 pg Normal 27.0-34.0 [facility] Comment on above: Performed By: #### 2 [id number] #### [facility] [address] [place] [address] MCHC (RBC) [Mass/Vol] 33.4 g/dL Normal 31.4-36.0 [facility] Comment on above: Performed By: #### 2 [id number] #### [facility] [address] [place] [address] MCV (RBC) [Entitic vol] 84.0 fL Normal 80.0-100.0 [facility] Comment on above: Performed By: #### 2 [id number] #### [facility] [address] [place] [address] Monocytes (Bld) [#/Vol] 0.7 E9/L Normal 0.2-1.0 [facility] Comment on above: Performed By: #### 2 [id number] #### [facility] [address] [place] [address] Neutrophils (Bld) [#/Vol] 6.6 E9/L Normal 2.0-7.5 [facility] Comment on above: Performed By: #### 2 306198 #### [facility] [address] [place] [address] Neutrophils/100 WBC (Bld) 63.5 % Normal 36.0-75.0 [facility] Comment on above: Performed By: #### 2 [id number] #### [facility] [address] [place] [address] Platelet mean volume (Bld) [Entitic vol] 10.0 fL Normal 6.4-10.8 [facility] Comment on above: Performed By: #### 2 414339 #### [facility] [address] [place] [address] Platelets (Bld) [#/Vol] 257.0 E9/L Normal 150.0-500.0 [facility] Comment on above: Performed By: #### 2 107101 #### [facility] [address] [place] [address] RBC (Bld) [#/Vol] 4.5 E12/L Normal 4.3-5.9 [facility] Comment on above: Performed By: #### 2 [id number] #### [facility] [address] [place] [address] WBC corrected for nucl RBC Auto (Bld) [#/Vol] 10.3 E9/L Normal 4.0-11.0 [facility] Comment on above: Performed By: #### 2 365460 #### [facility] [address] [place] [address] CHEMISTRYOrdered By: SYSTEM SYSTEM on 06-05-2024 25-hydroxyvitamin [...] Comment on above: Performed By: #### 2 [id number] #### [facility] [address] [place] [address] Albumin/Globulin (S) [Mass conc ratio] 1.6 Normal 1.1-2.2 [facility] Comment on above: Performed By: #### 2 812855 #### [facility] [address] [place] [address] ALP [Catalytic activity/Vol] 44 Int._Unit/L Normal 21-98 [facility] Comment on above: Performed By: #### 2 608101 #### [facility] [address] [place] [address] ALT No additional P-5'-P [Catalytic activity/Vol] 11 Int._Unit/L Normal 6-46 [facility] Comment on above: Performed By: #### 2 245354 #### [facility] [address] [place] [address] Anion gap [Moles/Vol] 11 mmol/L Normal 6-16 [facility] Comment on above: Performed By: #### 2 608852 #### [facility] [address] [place] [address] AST [Catalytic activity/Vol] 13 Int._Unit/L Normal 5-43 [facility] Comment on above: Performed By: #### 2 038246 #### [facility] [address] [place] [address] Bilirubin [Mass/Vol] 0.4 mg/dL Normal 0.0-1.1 [facility] Comment on above: Performed By: #### 2 000525 #### [facility] [address] [place] [address] Calcium [Mass/Vol] 9.6 mg/dL Normal 8.9-11.1 [facility] Comment on above: Performed By: #### 2 337923 #### [facility] [address] [place] [address] Chloride [Moles/Vol] 101 mmol/L Normal 101-111 [facility] Comment on above: Performed By: #### 2 288628 #### [facility] [address] [place] [address] CO2 [Moles/Vol] 27 mmol/L Normal 21-31 [facility] Comment on above: Performed By: #### 2 990802 #### [facility] [address] [place] [address] Creatinine [Mass/Vol] 0.6 mg/dL Normal 0.5-1.3 [facility] Comment on above: Performed By: #### 2 542665 #### [facility] [address] [place] [address] Globulin (S) [Mass/Vol] 2.8 g/dL Normal 1.4-4.0 [facility] Comment on above: Performed By: #### 2 326072 #### [facility] [address] [place] [address] Glucose [Mass/Vol] 82 mg/dL Normal 55-199 [facility] Comment on above: Performed By: #### 2 927891 #### [facility] [address] [place] [address] Potassium [Moles/Vol] 3.6 mmol/L Normal 3.5-5.3 [facility] Comment on above: Performed By: #### 2 608694 #### [facility] [address] [place] [address] Protein [Mass/Vol] 7.4 g/dL Normal 6.0-7.8 [facility] Comment on above: Performed By: #### 2 117628 #### [facility] [address] [place] [address] Sodium [Moles/Vol] 135 mmol/L Normal 135-145 [facility] Comment on above: Performed By: #### 2 131825 #### [facility] [address] [place] [address] Urea nitrogen [Mass/Vol] 8 mg/dL Normal 5-21 [facility] Comment on above: Performed By: #### 2 733555 #### [facility] [address] [place] [address] Urea nitrogen/Creatinine [Mass ratio] 13 No Units Normal 10-20 [facility] Comment on above: Performed By: #### 2 094874 #### [facility] [address] [place] [address] Family Medicine Office/Clini c Noteon 06-05-2024 Family [...] List of Providers weight management: Desirae Rosales [facility] Cr/eGFR: eGFR: >60 (05/27/23 16:13:00) [...] precautions and care. Ordered: Lab Specimen Collect 72077 2. Generalized anxiety disorder (F41.1: Generalized anxiety disorder) Discussed cessation of fluoxetine, noted stable mood without current occurrences of excessive anxiety. Emphasized the importance of stress management strategies and potential follow-up for medication reassessment if symptoms recur. Ordered: Lab Specimen Collect [id number] 3. Class 1 obesity due to excess [...] Toy DOBBINS, Sarah STEPHEN In [address] [place] [phone] Additional Instructions: chronic care Patient Education Managing [...] Comment on above: Performed By: #### 2 335152 #### [facility] [address] [place] [address] Cholesterol in HDL [Mass/Vol] 46 mg/dL Invalid Interpretation Code [facility] Comment on above: Result Comment: '>= 60 LOW RISK' '<= 40 HIGH RISK' Performed By: #### 2 699846 #### [facility] [address] [place] [address] Cholesterol in LDL [Mass/Vol] 76 mg/dL Normal <=129 [facility] Comment on above: Performed By: #### 2 213208 #### [facility] [address] [place] [address] Cholesterol in VLDL [Mass/Vol] 15 mg/dL Normal 7-40 [facility] Comment on above: Performed By: #### 2 051648 #### [facility] [address] [place] [address] Triglyceride [Mass/Vol] 73 mg/dL Normal <=149 [facility] Comment on above: Performed By: #### 2 135267 #### [facility] [address] [place] [address] Valproic Acidon 06-05-2024 Valpro Acid Lvl 50 microgram/mL Normal 50-99 [facility] Comment on above: Performed By: #### 2 672614 #### [facility] [address] [place] [address] Vitamin D 25 Hydroxyon 06-05 25-hydroxyvitamin D3 [Mass/Vol] 26.9 ng/mL Low 30.0-100.0 [facility] Comment on above: Performed By: #### 5 [id number] #### [facility] [address] [place] [address] eGFRon 06-05-2024 eGFR 119 mL/min/1.73 m2 Normal >=59 [facility] Comment on above: Performed By: #### 1 [id number] #### [facility] [address] [place] [address] Ambulatory Visit Summaryon 05-31-2023 Ambulatory Visit Summary Ambulatory Visit Summary NATALY GARCIA :1990 Visit Date:03/31/2024 Ambulatory Visit Instructions Your Diagnosis CAP (community acquired pneumonia) Non-smoker BMI 35.0-35.9,adult Exogenous obesity Your Care Team Attending Physician - KHURRAM STEPHENS CNP Primary Care Physician - Toy MSN, MACHINE HEEL SEAT LASTER-AFSANEH, Sarah Pena This Is Your Medications List [facility] Prescription (pen needles 31G x 3/16 , [...] acquired pneumonia) Duration: 10 Days Pickup at [facility]/pharmacy #[id number] Unchanged divalproex sodium (Depakote DR 500 mg [...] to excess calories in adult Pharmacy Information [facility]/pharmacy #[id number]: [address], [place] [id number] [phone] Medications and Immunizations Administered Given human papillomavirus [...] choosing us for your care. 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 and there has been a great deal [...] day(s), # 30 cap(s), Refills(s) 0, Pharmacy: [facility]/pharmacy #[id number], 170, cm, 03/31/24 13:52:00 EST, Height/Length Dosing, 101.8, kg, 03/31/24 13:52:00 EST, Weight Dosing doxycycline, 100 mg = 1 tab(s), Oral, q12hr, X 10 day(s), # 20 tab(s), Refills(s) 0, Pharmacy: [facility]/pharmacy #[id number], 170, cm, 03/31/24 13:52:00 EST, [...] Letter March 31, 2024 NATALY GARCIA [address] [address] : 1990 To Whom It May Concern, Please excuse above patient from work due to medical Date of Illness: From: _03-31-24 To: _04-01-24 May Return to Work On: 04-02-24 Restrictions: _ Comments: _ Sincerely, [facility] [address] [place] [address] [facility] HCG ( test) Ql (U)O rdered By: [...] given: yes Instructions and paperwork completed: yes [place] protocol: Patient states understanding of procedure being [...] in 4 weeks for a string check. [facility] e IUD Removalon 01-08-2024 Vianney Valverde LPN 01/08/2024 4:41 PM IUD Removal Date/Time: 01/08/2024 4:32 PM Performed by: Wesley Yang DO Authorized by: Wesley Yang DO Consent: Consent obtained: Written Consent given by: Patient Procedure risks and benefits discussed: yes Patient questions answered: yes Patient agrees, verbalizes understanding, and wants to proceed: yes Educational handouts given: yes Instructions and paperwork completed: yes [place] protocol: Patient states understanding of procedure being [...] office for annual exam unless needed otherwise [facility] e Cytology Cervical or vaginal smear or scraping studyon 12-25-2023 Interpretation and review of laboratory results Abnormal [facility] Inter[facility] Note - Soc ial Workeron 12-25-2023 Interdisciplinary Note - Upholstery Parts Sorter Interdisciplinary Note - Upholstery Parts Sorter Consult for positive depression screen received. Per chart review, no documentation of discussion of concerns related to PHQ9. Patient answered several days when asked if she had thoughts that she would be better off or hurting herself. This has been referred on to [facility] for most appropriate follow up [...] CNP Primary Care Physician - Toy MSN, MACHINE HEEL SEAT LASTER-Sarah SHELBY This Is Your Medications List [facility] Prescription (pen needles 31G x 3/16 , [...] EDT With: Toy DOBBINS, NATACHA-Sarah SHELBY Where: [facility] [address] [place] [address] 2023 3:20 PM EDT With: KHURRAM STEPHENS CNP Where: [address] [address]- Medications What How Much When Why Instructions [...] choosing us for your care. Erica Judge [facility] Family Medicine Office/Clini c Noteon 12-24-2023 Family [...] three times yesterday. She reports she ate Yoruba food on Saturday and she is not [...] day(s), # 9 tab(s), Refills(s) 0, Pharmacy: [facility]/pharmacy #[id number], 170, cm, 12/24/23 11:58:00 EDT, [...] available Patient Education Nausea and Vomiting, Adult, [id number] Problem List/Past Medical History Ongoing Bruxism Chronic GERD Class 2 obesity due to excess calories in adult Encounter for weight management Generalized anxiety disorder Hair loss Hyperinsulinemia Medication monitoring encounter Microcytosis Plantar wart, left foot Secondary oligomenorrhea Tonic-clonic seizures Historical COVID-19 virus infection Screening for cervical cancer Procedure/Surgical History Colonoscopy (08/19/2020), EGD ( (more content not included)... [facility] Comment on above: Result Comment: Elec tronically Signed By: KHURRAM STEPHENS CNP\.br\Date and Time Signed: 12/24/23 15:04 EDT Provider Letteron 12-24-2023 Provider Letter Provider Letter December 24, 2023 NATALY GARCIA [address] [address] : 1990 To Whom It May Concern, Please excuse above patient from work, due to medical Date of Illness: From: _12-23-23 To: 12-25-23 May Return to Work On:12-26-23 Restrictions: _ Comments: _NONE Sincerely, [address] [address] [facility] Family Medicine Office/Clini c Noteon 12-08-2023 Family [...] Saturday 5:40 PM EDT With: Toy MSN, MACHINE HEEL SEAT LASTER-FOUNTAIN CLERK, Sarah Pena Where: [facility] [place] Normal [facility] CHEMISTRYOrdered [...] 10.3 E9/L Normal 4.0 - 11.0 E9/L [facility] HemeAutoSS Basic Metabolic Profon 03-02 Anion gap [Moles/Vol] 12 mmol/L Normal 9-17 [facility] Comment on above: Performed By: #### C DP, HCG, LIVP, LIP, BMP #### [facility] [address] [place] [address] Delivery Person: Rolando Burns MD Calcium [Mass/Vol] 9.8 mg/dL Normal 8.6-10.4 [facility] Comment on above: Performed By: #### C DP, HCG, LIVP, LIP, BMP #### [facility] [address] [place] [id number] Delivery Person: Rolando Burns MD Chloride [Moles/Vol] 101 mmol/L Normal 98-107 [facility] Comment on above: Performed By: #### C DP, HCG, LIVP, LIP, BMP #### [facility] [address] [place] [address] Delivery Person: Rolando Burns MD CO2 [Moles/Vol] 25 mmol/L Normal 20-31 [facility] Comment on above: Performed By: #### C DP, HCG, LIVP, LIP, BMP #### [facility] [address] [place] [address] Delivery Person: Rolando Burns MD Creatinine [Mass/Vol] 0.5 mg/dL Normal 0.5-0.9 [facility] Comment on above: Performed By: #### C DP, HCG, LIVP, LIP, BMP #### [facility] [address] [place] [address] Delivery Person: Rolando Burns MD GFR/1.73 sq M.predicted among non-blacks MDRD (S/P/Bld) [Vol rate/Area] mL/min/{1.73_m2} Normal >60 [facility] Comment on above: Result Comment: These [...] C DP, HCG, LIVP, LIP, BMP #### [facility] [address] [place] [address] Delivery Person: Rolando Burns MD Glucose [Mass/Vol] 113 mg/dL High 70-99 [facility] Comment on above: Performed By: #### C DP, HCG, LIVP, LIP, BMP #### [facility] [address] [place] [address] Delivery Person: Rolando Burns MD Potassium [Moles/Vol] 3.8 mmol/L Normal 3.7-5.3 [facility] Comment on above: Performed By: #### C DP, HCG, LIVP, LIP, BMP #### [facility] [address] [place] [address] Delivery Person: Rolando Burns MD Sodium [Moles/Vol] 138 mmol/L Normal 135-144 [facility] Comment on above: Performed By: #### C DP, HCG, LIVP, LIP, BMP #### [facility] [address] [place] [address] Delivery Person: Rolando Burns MD Urea nitrogen [Mass/Vol] 8 mg/dL Normal 6-20 [facility] Comment on above: Performed By: #### C DP, HCG, LIVP, LIP, BMP #### [facility] [address] [place] [address] Delivery Person: Rolando Burns MD CBC with Diffon 03-02-2023 Abs. Basophil 0.00 k/uL Normal 0.0-0.2 [facility] Comment on above: Performed By: #### C DP, HCG, LIVP, LIP, BMP #### [facility] [address] [place] [address] Delivery Person: Rolanod Burns MD Abs.Neutrophil (Seg) 11.50 k/uL High 1.8-7.7 [facility] Comment on above: Performed By: #### C DP, HCG, LIVP, LIP, BMP #### [facility] [address] [place] [address] Delivery Person: Rolando Burns MD Basophils/100 WBC (Bld) 0 % Normal 0-2 [facility] Comment on above: Performed By: #### C DP, HCG, LIVP, LIP, BMP #### [facility] [address] [place] [address] Delivery Person: Rolando Burns MD Eosinophils (Bld) [#/Vol] 0.00 10*3/uL Normal 0.0-0.4 [facility] Comment on above: Performed By: #### C DP, HCG, LIVP, LIP, BMP #### [facility] [address] [place] [address] Delivery Person: Rolando Burns MD Eosinophils/100 WBC (Bld) 0 % Low 1-4 [facility] Comment on above: Performed By: #### C DP, HCG, LIVP, LIP, BMP #### [facility] [address] [place] [address] Delivery Person: Rolando Burns MD Erythrocyte distribution width (RBC) [Ratio] 16.3 % High 12.5-15.4 [facility] Comment on above: Performed By: #### C DP, HCG, LIVP, LIP, BMP #### [facility] [address] [place] [address] Delivery Person: Rolando Burns MD Hematocrit (Bld) [Volume fraction] 39.0 % Normal 36-46 [facility] Comment on above: Performed By: #### C DP, HCG, LIVP, LIP, BMP #### [facility] [address] [place] [address] Delivery Person: Rolando Burns MD Hemoglobin (Bld) [Mass/Vol] 13.0 g/dL Normal 12.0-16.0 [facility] Comment on above: Performed By: #### C DP, HCG, LIVP, LIP, BMP #### [facility] [address] [place] [address] Delivery Person: Rolando Burns MD Lymphocytes (Bld) [#/Vol] 1.40 10*3/uL Normal 1.0-4.8 [facility] Comment on above: Performed By: #### C DP, HCG, LIVP, LIP, BMP #### [facility] [address] [place] [address] Delivery Person: Rolando Burns MD Lymphocytes/100 WBC (Bld) 11 % Low 24-44 [facility] Comment on above: Performed By: #### C DP, HCG, LIVP, LIP, BMP #### [facility] [address] [place] [address] Delivery Person: Rolando Burns MD MCH (RBC) [Entitic mass] 26.6 pg Normal 26-34 [facility] Comment on above: Performed By: #### C DP, HCG, LIVP, LIP, BMP #### [facility] [address] [place] [address] Delivery Person: Rolando Burns MD MCHC (RBC) [Mass/Vol] 33.3 g/dL Normal 31-37 [facility] Comment on above: Performed By: #### C DP, HCG, LIVP, LIP, BMP #### [facility] [address] [place] [address] Delivery Person: Rolando Burns MD MCV (RBC) [Entitic vol] 80.1 fL Normal 80-100 [facility] Comment on above: Performed By: #### C DP, HCG, LIVP, LIP, BMP #### [facility] [address] [place] [address] Delivery Person: Rolando Burns MD Monocytes (Bld) [#/Vol] 0.40 10*3/uL Normal 0.1-1.2 [facility] Comment on above: Performed By: #### C DP, HCG, LIVP, LIP, BMP #### [facility] [address] [place] [address] Delivery Person: Rolando Burns MD Monocytes/100 WBC (Bld) 3 % Normal 2-11 [facility] Comment on above: Performed By: #### C DP, HCG, LIVP, LIP, BMP #### [facility] [address] [place] [address] Delivery Person: Rolando Burns MD Neutrophil (Seg) 86 % High 36-66 [facility] Comment on above: Performed By: #### C DP, HCG, LIVP, LIP, BMP #### [facility] [address] [place] [address] Delivery Person: Rolando Burns MD Platelet mean volume (Bld) [Entitic vol] 8.5 fL Normal 6.0-12.0 [facility] Comment on above: Performed By: #### C DP, HCG, LIVP, LIP, BMP #### [facility] [address] [place] [address] Delivery Person: Rolando Burns MD Platelets (Bld) [#/Vol] 308 10*3/uL Normal 140-450 [facility] Comment on above: Performed By: #### C DP, HCG, LIVP, LIP, BMP #### [facility] [address] [place] [address] Delivery Person: Rolando Burns MD RBC (Bld) [#/Vol] 4.86 10*6/uL Normal 4.0-5.2 [facility] Comment on above: Performed By: #### C DP, HCG, LIVP, LIP, BMP #### [facility] [address] [place] [address] Delivery Person: Rolando Bruns MD WBC (Bld) [#/Vol] 13.4 10*3/uL High 3.5-11.0 [facility] Comment on above: Performed By: #### C DP, HCG, LIVP, LIP, BMP #### [facility] [address] [place] [address] Delivery Person: Rolando Burns MD CT ABDOMEN PELVIS WO [...] Dileep Frias DO 03/02/23 Final result Normal [facility] Drug Scr, Abuse, Uron 2022 Fentanyl, Urine Negative Normal NEG [facility] Comment on above: Result Comment: (Positive cutoff 5 ng/ml) Performed By: #### D AU #### [facility] [address] [place], [place] [id number] Delivery Person: Steve Malloy MD [facility] [address] [place] [address] Delivery Person: Rolando Burns MD Amphetamine(s),Ur Negative Normal NEG [facility] Comment on above: Result Comment: (Positive cutoff 1000 ng/mL) Performed By: #### D AU #### [facility] [address] [place] [address] Delivery Person: Steve Malloy MD [facility] [address] [place] [address] Delivery Person: Rolando Burns MD Barbiturate(s),Ur Negative Normal NEG [facility] Comment on above: Result Comment: (Positive cutoff 200 ng/mL) Performed By: #### D AU #### [address] [address] Delivery Person: Steve Malloy MD [facility] [address] [place] [address] Delivery Person: Rolando Burns MD Benzodiazepine(s) Negative Normal NEG [facility] Comment on above: Result Comment: (Positive cutoff 200 ng/mL) Performed By: #### D AU #### [address] [address] Delivery Person: Steve Malloy MD [facility] [address] [place] [address] Delivery Person: Rolando Burns MD Cannabinoid(s),Ur Negative Normal NEG [facility] Comment on above: Result Comment: (Positive cutoff 50 ng/mL) Performed By: #### D AU #### [facility] [address] [place] [address] Delivery Person: Steve Malloy MD [facility] [address] [place] [address] Delivery Person: Rolando Burns MD Cocaine Metabolite Negative Normal NEG [facility] Comment on above: Result Comment: (Positive cutoff 300 ng/mL) Performed By: #### D AU #### [facility] [employer] [address] [place] [address] Delivery Person: Steve Malloy MD [facility] [address] [place] [address] Delivery Person: Rolando Burns MD Interpretive Info Assay provides medical screening only. The absence of expected drug(s) and/or Normal [facility] Comment on above: Result Comment: meta bolite(s) may indicate diluted or adulterated urine, limitations of testing or timing of collection. Testing for legal purposes should be confirmed by another method. To request confirmation of test result, please call the lab within 7 days of sample submission. Performed By: #### D AU #### [address] [address] Delivery Person: Steve Malloy MD [facility] [address] [place] [address] Delivery Person: Rolando Burns MD Methadone Ql (U) Negative Normal NEG [facility] Comment on above: Result Comment: (Positive cutoff 300 ng/mL) Performed By: #### D AU #### [address] [address] Delivery Person: Steve Malloy MD [facility] [address] [place] [address] Delivery Person: Rolando Burns MD Opiate(s), Ur Negative Normal NEG [facility] Comment on above: Result Comment: (Positive cutoff 300 ng/mL) Performed By: #### D AU #### [facility] [employer] [address] [place] [address] Delivery Person: Steve Malloy MD [facility] [address] [place] [address] Delivery Person: Rolando Burns MD Oxycodone, Urine Negative Normal NEG [facility] Comment on above: Result Comment: (Positive cutoff 100 ng/mL) Performed By: #### D AU #### [facility] [employer] [address] [place] [address] Delivery Person: Steve Malloy MD [facility] [address] [place] [address] Delivery Person: Rolando Burns MD Phencyclidine, Ur Negative Normal NEG [facility] Comment on above: Result Comment: (Positive cutoff 25 ng/mL) Performed By: #### D AU #### [place] [address] [place] [address] Delivery Person: Steve Malloy MD [facility] [address] [place] [address] Delivery Person: Rolando Burns MD HCG Screen, Bloodon 03-02-20 HCG Screen, Blood Negative Normal NEG [facility] Comment on above: Result Comment: Spec imens with hCG levels near the threshold of the test (25 mIU/mL) may give a negative or indeterminate result. In such cases, another test should be performed with a new specimen in 48-72 hours. If early is suspected clinically in this setting, correlation with quantitative serum b-hCG level is suggested. [facility] has confirmed the use of plasma for this test. This has not been cleared or approved by the U.S. Food and Drug Administration. The FDA has determined that such clearance is not necessary. Performed By: #### C DP, HCG, LIVP, LIP, BMP #### [facility] [address] [place] [address] Delivery Person: Rolando Burns MD Lipaseon 03-02-2023 Lipase [Catalytic activity/Vol] 67 U/L High 13-60 [facility] Comment on above: Performed By: #### C DP, HCG, LIVP, LIP, BMP #### [facility] [address] [place] [address] Delivery Person: Rolando Burns MD Liver Profileon 03-02-2023 Albumin [Mass/Vol] 4.7 g/dL Normal 3.5-5.2 [facility] Comment on above: Performed By: #### C DP, HCG, LIVP, LIP, BMP #### [facility] [address] [place] [address] Delivery Person: Rolando Burns MD Albumin/Glob Ratio 1.4 Normal 1.0-2.5 [facility] Comment on above: Performed By: #### C DP, HCG, LIVP, LIP, BMP #### [facility] [address] [place] [address] Delivery Person: Rolando Burns MD Alkaline Phos 69 U/L Normal 35-104 [facility] Comment on above: Performed By: #### C DP, HCG, LIVP, LIP, BMP #### [facility] [address] [place] [address] Delivery Person: Rolando Burns MD ALT [Catalytic activity/Vol] 13 U/L Normal 5-33 [facility] Comment on above: Performed By: #### C DP, HCG, LIVP, LIP, BMP #### [facility] [address] [place] [address] Delivery Person: Rolando Burns MD AST [Catalytic activity/Vol] 11 U/L Normal <32 [facility] Comment on above: Performed By: #### C DP, HCG, LIVP, LIP, BMP #### [facility] [address] [place] [address] Delivery Person: Rolando Burns MD Bilirubin [Mass/Vol] 0.5 mg/dL Normal 0.3-1.2 [facility] Comment on above: Performed By: #### C DP, HCG, LIVP, LIP, BMP #### [facility] [address] [place] [address] Delivery Person: Rolando Burns MD Bilirubin, Indirect 0.4 mg/dL Normal 0.0-1.0 [facility] Comment on above: Performed By: #### C DP, HCG, LIVP, LIP, BMP #### [facility] [address] [place] [address] Delivery Person: Rolando Burns MD Bilirubin.indirect [Mass/Vol] 0.1 mg/dL Normal <0.3 [facility] Comment on above: Performed By: #### C DP, HCG, LIVP, LIP, BMP #### [facility] [address] [place] [address] Delivery Person: Rolando Burns MD Protein [Mass/Vol] 8.1 g/dL Normal 6.4-8.3 [facility] Comment on above: Performed By: #### C DP, HCG, LIVP, LIP, BMP #### [facility] [address] [place] [address] Delivery Person: Rolando Burns MD Urinalysis, Routineon 2022 Bilirubin, SemiQt,Ur Negative Normal NEG [facility] Comment on above: Performed By: #### U TYLER UA #### [facility] [address] [place] [address] Delivery Person: Rolando Burns MD Blood, Urine Negative Normal NEG [facility] Comment on above: Performed By: #### U TYLER UA #### [facility] [address] [place] [address] Delivery Person: Rolando Burns MD Clarity (U) Clear Normal CLEAR [facility] Comment on above: Performed By: #### U TYLER UA #### [facility] [address] [place] [address] Delivery Person: Rolando Burns MD Color (U) Yellow Normal YEL [facility] Comment on above: Performed By: #### U ANDREIO, UA #### [facility] [address] [place] [address] Delivery Person: Rolando Burns MD Glucose Ql (U) Negative Normal NEG [facility] Comment on above: Performed By: #### U ANDREIO, UA #### [facility] [address] [place] [address] Delivery Person: Rolando Burns MD Ketones Ql (U) LARGE Abnormal NEG [facility] Comment on above: Performed By: #### U ANDREIO, UA #### [facility] [address] [place] [address] Delivery Person: Rolando Burns MD Leukocyte esterase Test strip Ql (U) Negative Normal NEG [facility] Comment on above: Performed By: #### U ANDREIO, UA #### [facility] [address] [place] [address] Delivery Person: Rolando Burns MD Nitrite,Ur Negative Normal NEG [facility] Comment on above: Performed By: #### U ANDREIO, UA #### [facility] [address] [place] [address] Delivery Person: Rolando Burns MD PH,Ur >=9.0 Normal 5.0-8.0 [facility] Comment on above: Performed By: #### U MICAO, UA #### [facility] [address] [place] [address] Delivery Person: Rolando Burns MD Protein Ql (U) Negative Abnormal NEG [facility] Comment on above: Performed By: #### U MICAO, UA #### [facility] [address] [place] [address] Delivery Person: Rolando Burns MD Spec. [place],Ur 1.020 Normal 1.005-1.030 [facility] Comment on above: Performed By: #### U TYLER, UA #### [facility] [address] [place] [address] Delivery Person: Rolando Burns MD Urobilinogen,Ur Normal Normal 0.0-1.0 [facility] Comment on above: Performed By: #### U TYLER, UA #### [facility] [address] [place] [address] Delivery Person: Rolando Burns MD Urinalysis,Microon 3 Bacteria None Normal NONE [facility] Comment on above: Performed By: #### U TYLER, UA #### [facility] [address] [place] [address] Delivery Person: Rolando Burns MD Epithelial cells LM Ql (Urine sed) 2 TO 5 Normal 0-5 [facility] Comment on above: Performed By: #### Apurva SCOTT, UA #### [facility] [address] [place] [address] Delivery Person: Rolando Burns MD Mucus Strands 2+ Normal [facility] Comment on above: Performed By: #### U TYLER, UA #### [facility] [address] [place] [address] Delivery Person: Rolando Burns MD Other Observations Utilizing a urinalysis as the only screening method to exclude a potential Abnormal NREQ [facility] Comment on above: Result Comment: urop athogen can be unreliable in many patient populations. Rapid screening tests are less sensitive than culture and if UTI is a clinical possibility, culture should be considered despite a negative urinalysis. Performed By: #### U TYLER, UA #### [facility] [place] [address] Delivery Person: Rolando Burns MD Urine RBC's 0 TO 2 Normal 0-2 [facility] Comment on above: Performed By: #### U TYLER UA #### [facility] [address] [place], [place] [phone] Delivery Person: Rolando Burns MD Urine WBC's 2 TO 5 Normal 0-5 [facility] Comment on above: Performed By: #### Apurva SCOTT UA #### [facility] [address] [place], [place] [phone] Delivery Person: Rolando Burns MD XR knee LT 4V*on 10-01-2022 XR knee LT 4V* [place] [address] XRay Report Signed Patient: Nataly Garcia MR#: [id number] : 1990 Acct:[id number] Age/Sex: 32 / F ADM Date: 10/01/22 Loc: XDUC Room: Type: [facility] Attending Dr: Cari VAUGHAN Copies to: ALEXUS [...] Ilia Crandall M.D.10/01/2022 5:59 PM Dictation Location: [place] [address] Transcribed By: [facility] 10/01/221758 Dictated By: Ilia Crandall DO 10/01/221708 Signed By: 10/01/221758 Normal [facility] XR knee LT 4V* [facility] [employer] Other XR knee LT 4V* [facility] [employer] Other XR knee LT 4V* [address] [facility] [employer] Other XR knee LT 4V* [place] [address] No rt [employer] Other XR knee LT 4V* XRay Report [employer] Other XR knee LT 4V* Signed [place] [employer] Other XR knee LT 4V* Patient: Nataly Garcia MR#: [id number] [place] [employer] Other XR knee LT 4V* : 1990 Acct:[id number] [place] [employer] Other XR knee LT 4V* Age/Sex: 32 / F ADM Date: 10/01/22 [place] [employer] Other XR knee LT 4V* Loc: XDUCLY Room: Type: REG CLI [place] [employer] Other XR knee LT 4V* Attending Dr: Cari VAUGHAN [employer] Other XR knee LT 4V* Copies to: ALEXUS Castellanos [employer] Other XR knee LT 4V* Ordering Provider: ALEXUS Castellanos [employer] Other XR knee LT 4V* Date of Service: 10/01/22 [employer] Other XR knee LT 4V* XR/XR knee LT 4V*: Acute pain of left knee [employer] Other XR knee LT 4V* 4 views left knee plain film [employer] Other XR knee LT 4V* COMPARISON: None [facility] [employer] Other XR knee LT 4V* HISTORY: Acute left knee pain [employer] Other XR knee LT 4V* ACUTE FINDINGS: None [employer] Other XR knee LT 4V* DEGENERATIVE CHANGE: Unremarkable [employer] Other XR knee LT 4V* SOFT TISSUE FINDINGS: Unremarkable [employer] Other XR knee LT 4V* JOINT EFFUSION: None [employer] Other XR knee LT 4V* POSTOP CHANGES: None [employer] Other XR knee LT 4V* BONE MINERALIZATION: Adequate [employer] Other XR knee LT 4V* XR/XR knee LT 4V* [employer] Other XR knee LT 4V* IMPRESSION: Unremarkable exam [employer] Other XR knee LT 4V* Impression dictated by: Ilia Crandall M.D.10/01/2022 5:59 PM [employer] Other XR knee LT 4V* Dictation Location: [place] [address] [employer] Other XR knee LT 4V* Transcribed By: [facility] 10/01/22 [employer] Other XR knee LT 4V* Dictated By: Ilia Crandall DO 10/01/22 1709 [employer] Other XR knee LT 4V* Signed By: [employer] Other XR knee LT 4V* 10/01/22 175 [employer] Other CHEMISTRYOrdered By: SYSTEM SYSTEM on 08-23-2022 [...] 4.7 E12/L Normal 4.3 - 5.9 E12/L [facility] [employer] WBC corrected for nucl RBC Auto (Bld) [#/Vol] 11.3 E9/L High 4.0 - 11.0 E9/L [facility] [employer] Quick Strepon 08-10-2022 S. pyogenes Org specific cx Ql (Throat) Negative [employer] Other Quick Strep [employer] Other Quick Strepon 06-24-2022 S. pyogenes Org specific cx Ql (Throat) Negative [employer] Other Quick Strep [employer] Other PAP ACOG PANEL 2: 30 to 65on 10-13-2021 . . Normal [facility] Comment on above: Result Comment: Perf ormed at: BA Performed By: #### [id number] #### [facility] [address] [place] [address] Dr. Juanita Leone Age Gdln ACOG Testing 30-65 Normal [facility] Comment on above: Performed By: #### [id number] #### [facility] [address] [place] [address] Dr. Juanita Leone DIAGNOSIS: Comment Normal [facility] Comment on above: Result Comment: NEGA TIVE FOR INTRAEPITHELIAL LESION OR MALIGNANCY. Performed at: BA Performed By: #### [id number] #### [facility] [address] [address] [address] Juanita Leone HPV Aptima Negative Normal Negative [facility] Comment on above: Result Comment: This nucleic acid amplification test detects fourteen high-risk HPV types (16,18,31,33,35,39,45,51,52,56,58,59,66,68) without differentiation. Performed at: =G Performed By: #### [id number] #### [facility] [address] [address] [address] Juanita Leone Methodology: Comment Normal [facility] Comment on above: Result Comment: This liquid based ThinPrep(R) pap test was screened with the use of an image guided system. Performed at: WB Performed By: #### [id number] #### [facility] [address] [place] [address] Dr. Juanita Leone Note: Comment [facility] Comment on above: Result Comment: The Pap smear is a screening test designed to aid in the detection of premalignant and malignant conditions of the uterine cervix. It is not a diagnostic procedure and should not be used as the sole means of detecting cervical cancer. Both false-positive and false-negative reports do occur. . Performed at: WB Performed By: #### [id number] #### [facility] [address] [address] [address] Juanita Leone Performed by: Comment Normal [facility] Comment on above: Result Comment: Mallika Mckeon, Child Development Instructor (ASCP) Performed at: BA Performed By: #### [id number] #### [facility] [address] [place] [address] Dr. Juanita Leone Specimen adequacy: Comment Normal [facility] Comment on above: Result Comment: Sati sfactory for evaluation. Endocervical and/or squamous metaplastic cells (endocervical component) are present. Performed at: BA Performed By: #### [id number] #### [facility] [address] [place] [address] Dr. Juanita Leone Vital Signs Date Time Vital Sign Value Performing Clinician Facility 12-29-2024 08:38-0400 Body height 170.2 cm [employer] Work Phone: [facility] 12-29-2024 08:38-0400 Body mass index (BMI) [Ratio] 33.67 kg/m2 [employer] Work Phone: [facility] 12-29-2024 08:38-0400 Body weight 97.52 kg [employer] Work Phone: [facility] 12-29-2024 08:38-0400 Diastolic blood pressure 68 mm[Hg] [employer] Work Phone: [facility] 12-29-2024 08:38-0400 Systolic blood pressure 98 mm[Hg] Wesley Yang DO Work Phone: [facility] 09-30-2024 15:02-0400 Body height 170.2 cm Fernie Johnsonerly [employer] Work Phone: [facility] 09-30-2024 15:02-0400 Body mass index (BMI) [Ratio] 31.95 kg/m2 Fernie Komal [employer] Work Phone: [facility] 09-30-2024 15:02-0400 Body weight 92.53 kg Fernie Komal [employer] Work Phone: [facility] 09-30-2024 15:02-0400 Diastolic blood pressure 76 mm[Hg] Fernie Komal [employer] Work Phone: [facility] 09-30-2024 15:02-0400 Systolic blood pressure 118 mm[Hg] Fernie Komal [employer] Work Phone: [facility] 2024 10:05-0400 Body height 170.2 cm Cassie Hinojosa MD [facility] [employer] 2024 10:05-0400 Body mass index (BMI) [Ratio] 36.02 kg/m2 Cassie Hinojosa MD Work Phone: [facility] [employer] 2024 10:05-0400 Body temperature 97.3 [degF] Cassie Hinojosa MD Work Phone: [facility] [employer] 2024 10:05-0400 Body weight 104.33 kg Cassie Hinojosa MD Work Phone: [facility] [employer] 2024 10:05-0400 Diastolic blood pressure 56 mm[Hg] Cassie Hinojosa MD Work Phone: [facility] [employer] 2024 10:05-0400 Heart rate 104 /min Cassie Hinojosa MD Work Phone: [facility] 2024 10:05-0400 Respiratory rate 20 /min Cassie Hinojosa MD Work Phone: [facility] [employer] 2024 10:05-0400 SaO2% (BldA) [Mass fraction] 100 % Cassie Hinojosa MD Work Phone: [facility] [employer] 2024 10:05-0400 Systolic blood pressure 104 mm[Hg] Cassie Hinojosa MD Work Phone: [facility] [employer] 2024 08:55-0400 Body temperature 97.5 [degF] Ascencion Bruss PA-C Work Phone: [employer] 2024 08:55-0400 Diastolic blood pressure 69 mm[Hg] Ascencion Bruss PA-C Work Phone: [employer] 2024 08:55-0400 Heart rate 105 /min Ascencion Bruss PA-C [facility] 2024 08:55-0400 Respiratory rate 18 /min Ascencion Bruss PA-C Work Phone: [employer] 2024 08:55-0400 SaO2% (BldA) [Mass fraction] 100 % Ascencion Bruss PA-C Work Phone: [employer] 2024 08:55-0400 Systolic blood pressure 119 mm[Hg] Ascencion Bruss PA-C [facility] 06-05-2024 14:37-0500 Blood Pressure Location Sarah Toy [facility] 06-05-2024 14:37-0500 Body temperature 97.52 [degF] Sarah Yeager [facility] 06-05-2024 14:37-0500 Diastolic blood pressure 68 mm[Hg] Sarah Yeager [facility] 06-05-2024 14:37-0500 Heart rate 92 /min Sarah Yeager [facility] 06-05-2024 14:37-0500 Respiratory rate 18 /min Sarah Yeager [facility] 06-05-2024 14:37-0500 SaO2% (BldA) [Mass fraction] 98 % Sarah Yeager [facility] 06-05-2024 14:37-0500 Systolic blood pressure 104 mm[Hg] Sarah Yeager [facility] 02-05-2024 15:18-0400 Body mass index (BMI) [Ratio] 36.67 kg/m2 Wesley Celia DO Work Phone: [facility] 02-05-2024 15:18-0400 Body weight 106.2 kg Wesley Celia DO Work Phone: [facility] 02-05-2024 15:18-0400 Diastolic blood pressure 64 mm[Hg] Wesley Celia DO Work Phone: [facility] 02-05-2024 15:18-0400 Systolic blood pressure 110 mm[Hg] Wesley Celia DO Work Phone: [facility] 01-08-2024 16:02-0400 Body height 170.2 cm Wesley Celia DO Work Phone: [facility] 01-08-2024 16:02-0400 Body mass index (BMI) [Ratio] 37.75 kg/m2 Wesley Celia DO Work Phone: [facility] 01-08-2024 16:02-0400 Body weight 109.32 kg Wesley Celia DO Work Phone: [facility] 01-08-2024 16:02-0400 Diastolic blood pressure 72 mm[Hg] Wesley Celia DO Work Phone: [facility] 01-08-2024 16:02-0400 Systolic blood pressure 118 mm[Hg] Wesley Celia DO Work Phone: [facility] 12-06-2023 15:01-0400 Body temperature 97.16 [degF] Sarah Toy [facility] 12-06-2023 15:01-0400 Diastolic blood pressure 66 mm[Hg] Sarah Toy [facility] 12-06-2023 15:01-0400 Heart rate 94 /min Sarah Toy [facility] 12-06-2023 15:01-0400 Respiratory rate 14 /min Sarah Toy [facility] 12-06-2023 15:01-0400 SaO2% (BldA) [Mass fraction] 97 % Sarah Toy [facility] 12-06-2023 15:01-0400 Systolic blood pressure 100 mm[Hg] Sarah Toy [facility] 11-05-2023 14:37-0400 Blood Pressure Location Sarah Toy [facility] 11-05-2023 14:37-0400 Body temperature 97.88 [degF] Sarah Toy [facility] 11-05-2023 14:37-0400 Diastolic blood pressure 70 mm[Hg] Sarah Toy [facility] 11-05-2023 14:37-0400 Heart rate 98 /min Asrah Toy [facility] 11-05-2023 14:37-0400 Respiratory rate 14 /min Sarah Toy [facility] 11-05-2023 14:37-0400 SaO2% (BldA) [Mass fraction] 99 % Sarah Toy [facility] 11-05-2023 14:37-0400 Systolic blood pressure 112 mm[Hg] Sarah Toy [facility] 10-22-2023 15:05-0400 Blood Pressure Location Martina Harrison [facility] 10-22-2023 15:05-0400 Body temperature 97.88 [degF] Martina Harrison [facility] 10-22-2023 15:05-0400 Diastolic blood pressure 64 mm[Hg] Martina Harrison [facility] 10-22-2023 15:05-0400 Heart rate 78 /min Martina Harrison [facility] 10-22-2023 15:05-0400 Respiratory rate 18 /min Martina Harrison [facility] 10-22-2023 15:05-0400 SaO2% (BldA) [Mass fraction] 99 % Martina Harrison [facility] 10-22-2023 15:05-0400 Systolic blood pressure 116 mm[Hg] Martina Harrison [facility] 08-06-2023 11:57-0400 Body temperature 98.06 [degF] Sarah Toy [facility] 08-06-2023 11:32-0400 Diastolic blood pressure 70 mm[Hg] Sarah Toy [facility] 08-06-2023 11:32-0400 Heart rate 110 /min Sarah Toy [facility] 08-06-2023 11:32-0400 SaO2% (BldA) [Mass fraction] 100 % Sarah Toy [facility] 08-06-2023 11:32-0400 Systolic blood pressure 110 mm[Hg] Sarah Toy [facility] 06-24-2023 17:57-0500 Blood Pressure Location Christfco BROWN [facility] 06-24-2023 17:57-0500 Diastolic blood pressure 74 mm[Hg] Christopher BROWN [facility] 06-24-2023 17:57-0500 Heart rate 96 /min Christopher BROWN [facility] 06-24-2023 17:57-0500 Respiratory rate 16 /min Christopher BROWN [facility] 06-24-2023 17:57-0500 SaO2% (BldA) [Mass fraction] 99 % Christopher BROWN [facility] 06-24-2023 17:57-0500 Systolic blood pressure 112 mm[Hg] Christopher BROWN [facility] 04-29-2023 18:12-0500 Blood Pressure Location Shannon OLVERA [facility] 04-29-2023 18:12-0500 Diastolic blood pressure 60 mm[Hg] Shannon BROWN [facility] 04-29-2023 18:12-0500 Heart rate 98 /min Shannon BROWN [facility] 04-29-2023 18:12-0500 Respiratory rate 16 /min Shannon BROWN [facility] 04-29-2023 18:12-0500 SaO2% (BldA) [Mass fraction] 98 % Shannon [employer] [facility] 04-29-2023 18:12-0500 Systolic blood pressure 100 mm[Hg] Shannon [employer] [facility] 10-31-2022 14:37-0400 Blood Pressure Location [employer] [facility] 10-31-2022 14:37-0400 Body temperature 97.7 [degF] [employer] [facility] 10-31-2022 14:37-0400 Diastolic blood pressure 72 mm[Hg] Shannon BROWN [facility] 10-31-2022 14:37-0400 Heart rate 98 /min Shannon BROWN [facility] 10-31-2022 14:37-0400 Respiratory rate 16 /min Shannon BROWN [facility] 10-31-2022 14:37-0400 SaO2% (BldA) [Mass fraction] 95 % Shannon BROWN [facility] 10-31-2022 14:37-0400 Systolic blood pressure 126 mm[Hg] Shannon BROWN [facility] 10-01-2022 17:15-0400 Body height 170.18 cm Cari Marx Other [employer] Other 10-01-2022 17:15-0400 Body mass index (BMI) [Ratio] 39.78 kg/m2 Cari Marx Other [employer] Other 10-01-2022 17:15-0400 Body temperature 98.3 [degF] Cari Marx Other [employer] Other 10-01-2022 17:15-0400 Body weight 115.21 kg Cari Marx Other [employer] Other 10-01-2022 17:15-0400 Respiratory rate 18 /min Cari Marx Other [employer] Other 10-01-2022 17:15-0400 SaO2% (BldA) [Mass fraction] 97 % Cari Marx Other [employer] Other 08-22-2022 15:37-0400 Blood Pressure Location Kollabor[facility] 08-22-2022 15:37-0400 Body temperature 96.98 [degF] [facility] 08-22-2022 15:37-0400 Diastolic blood pressure 78 mm[Hg] [facility] 08-22-2022 15:37-0400 Heart rate 69 /min [facility] 08-22-2022 15:37-0400 Respiratory rate 16 /min Shannon OLVERA [facility] 08-22-2022 15:37-0400 SaO2% (BldA) [Mass fraction] 97 % Shannon OLVERA [facility] 08-22-2022 15:37-0400 Systolic blood pressure 108 mm[Hg] Shannon OLVERA [facility] 08-10-2022 10:05-0400 Body height 170.18 cm Christie Hua Other [facility] [employer] Other 08-10-2022 10:05-0400 Body mass index (BMI) [Ratio] 38.84 kg/m2 Christie Hua Other [employer] Other 08-10-2022 10:05-0400 Body temperature 96.6 [degF] Christie Hua Other [employer] Other 08-10-2022 10:05-0400 Body weight 112.49 kg Christie Hua Other [employer] Other 08-10-2022 10:05-0400 Respiratory rate 18 /min Christie Hua Other [employer] Other 08-10-2022 10:05-0400 SaO2% (BldA) [Mass fraction] 98 % Christie Hua Other [employer] Other 06-24-2022 14:50-0500 Body height 170.18 cm Cari Marx Other [employer] Other 06-24-2022 14:50-0500 Body mass index (BMI) [Ratio] 39.62 kg/m2 Cari Marx Other [employer] Other 06-24-2022 14:50-0500 Body temperature 98.1 [degF] Cari Marx Other [employer] Other 06-24-2022 14:50-0500 Body weight 114.76 kg Cari Marx Other [employer] Other 06-24-2022 14:50-0500 Respiratory rate 18 /min Cari Marx Other [employer] Other 06-24-2022 14:50-0500 SaO2% (BldA) [Mass fraction] 95 % Cari Marx Other [employer] Other Encounters Encounter Date Encounter Type Care [...] End: 11-23-2024 Patient encounter procedure Sarah Yeager [facility] Start: 09-30-2024 End: 09-30-2024 Office outpatient visit 25 minutes Fernie Sauceda COUTURE DRESSMAKER Work Phone: [facility] Comment on above: Left genital labial abscess (Primary Dx); Labial cyst Start: 09-30-2024 End: 09-30-2024 ambulatory FERNIE SAUCEDA Not Available Start: 09-30-2024 End: 09-30-2024 Bamboo flowsheet Fernie Sauceda COUTURE DRESSMAKER Work Phone: [facility] Start: 09-30-2024 End: 09-30-2024 Bamboo flowsheet Fernie Sauceda COUTURE DRESSMAKER Work Phone: [facility] Start: 09-09-2024 End: 09-09-2024 ambulatory Sarah Yeager Facility:[facility] Start: 09-08-2024 ambulatory Sarah Yeager Facilit y:[facility] Start: 2024 End: 2024 Emergency department patient visit Cassie Hinojosa MD Work Phone: [facility] Comment on above: Abdominal pain, epig astric (Primary Dx); Nausea and vomiting, unspecified vomiting type Start: 2024 End: 2024 Patient encounter procedure Ascencion Jonathan Fanny PA-C Work Phone: [facility] [place] Comment on above: Acute vomiting (Prim torin Dx) Start: 2024 End: 2024 ambulatory [facility] Start: 06-05-2024 End: 06-05-2024 Lab Drop off Sarah Yeager [facility] Start: 06-05-2024 End: 06-05-2024 ambulatory Sarah Yeager Facility: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 CLERK KHURRAM Medrano lity:[facility] Start: 12-06-2023 End: 12-06-2023 ambulatory Sarah Yeager Facility:[facility] Start: 12-06-2023 End: 12-06-2023 Patient encounter procedure Sarah Yeager [facility] Start: 11-05-2023 End: 11-05-2023 Patient encounter procedure Sarah Yeager [facility] [place] Start: 10-22-2023 End: 10-22-2023 Patient encounter procedure Martina Harrison [facility] [place] Start: 09-11-2023 End: 09-11-2023 Patient encounter procedure Sarah Yeager [facility] [place] Start: 08-14-2023 End: 08-14-2023 Patient encounter procedure Sarah Yeager [facility] Start: 08-06-2023 End: 08-06-2023 Patient encounter procedure Sarah Yeager [facility] Start: 06-24-2023 End: 06-24-2023 Patient encounter procedure Arvin OLVERA [facility] Start: 05-27-2023 End: 05-27-2023 Patient encounter procedure Shannon OLVERA [facility] Start: 04-29-2023 End: 04-29-2023 Patient encounter procedure Shannon OLVERA [facility] Start: 03-02-2023 End: 03-02-2023 Emergency department patient visit TYRA CID [facility] Start: 10-31-2022 End: 10-31-2022 Patient encounter procedure Shannon OLVERA [facility] Start: 10-01-2022 End: 10-01-2022 ambulatory Cari Araseli Facility:[facility] Start: 10-01-2022 End: 10-01-2022 Patient encounter procedure MD Shannon Olvera Work Phone: [facility] Work Phone: Start: 10-01-2022 End: 10-01-2022 ambulatory MD Shannon Olvrea Work Phone: [facility] Work Phone: Start: 10-01-2022 Office outpatient vi sit 15 minutes Cari Araseli [facility] Start: 08-23-2022 End: 08-23-2022 Patient encounter procedure Shannon OLVERA [facility] Start: 08-22-2022 End: 08-22-2022 Patient encounter procedure Shannon OLVERA [facility] Start: 08-10-2022 End: 08-10-2022 ambulatory Christie Hua Other [employer] Other Start: 08-10-2022 Office outpatient vi sit 25 minutes Christie Hua [facility] Start: 06-24-2022 End: 06-24-2022 ambulatory Cari Araseli Other [place] [employer] Other Start: 06-24-2022 Office outpatient ne w 20 minutes Cari Maxr [facility] Start: 10-09-2021 End: [...] EDT Procedure Visit [facility] [address] [place] [id number] Wesley Yang DO [address] [place], [place] [id number] [facility] [place] [facility] Start: 01-18-2025 Influenza vaccination [facility] Start: 12-29-2024 End: 12-29-2024 Patient encounter procedure [facility] Comment on above: Arrived Start: 09-30-2024 End: 09-30-2024 Patient encounter procedure 09/30/2024 3:00 PM EDT Office Visit [facility] [address] [place] [address] Fernie Sauceda, COUTURE DRESSMAKER [address] [place] [id number] Arrived [facility] Comment on above: Arrived Start: 09-30-2024 End: 09-30-2025 Aerobic culture Aerobic culture Microbiology Routine Labial cyst Expected: 09/30/2024 (Approximate), Expires: 09/30/2025 [facility] Work Phone: Comment on above: Expected: 09/30/2024 (Approximate), Expires: 09/30/2025 Start: 09-30-2024 End: 09-30-2025 Anaerobic culture Anaerobic culture Microbiology Routine Labial cyst Expected: 09/30/2024 (Approximate), Expires: 09/30/2025 [facility] Comment on above: Expected: 09/30/2024 (Approximate), Expires: 09/30/2025 Start: 07-19-2024 HPV vaccine (3 - 3-d ose SCDM series) HPV vaccine (3 - 3-dose SCDM series) [facility] [place] [facility] Start: 02-05-2024 End: 02-05-2024 Patient encounter procedure [facility] Comment on above: Arrived Start: 01-19-2024 Influenza vaccination Influenza Vacc ine (#1) [facility] Start: 09-01-2023 Diabetes screen Diabetes screen [facility] [place] [facility] Start: 12-24-2021 DTaP,Tdap and Td Vaccines (6 - Td or Tdap) DTaP,Tdap and Td Vaccines (6 - Td or Tdap) [facility] Start: 12-24-2021 DTaP/Tdap/Td vaccine (6 - Td or Tdap) DTaP/Tdap/Td vaccine (6 - Td or Tdap) [facility] Start: 2018 Screening for malign ant neoplasm of cervix [facility] Start: 2009 Screening for malign ant neoplasm of cervix Pap Smear [facility] Start: 2006 Adult BMI Screening Adult BMI Screen ing [facility] Start: 2006 Hepatitis C screening Hepatitis C sc reen [facility] Start: 09-01-2003 HIV screening HIV screen [facility] Start: 2001 Varicella vaccine (1 of 2 - 13+ 2-dose series) Varicella vaccine (1 of 2 - 13+ 2-dose series) [facility] Start: 2000 Depression Screen Depression Screen [facility] Start: 2000 Depression Screening Depression Scre ening [facility] Start: 2000 Tobacco Screening Tobacco Screening [facility] Start: 1992 Polio vaccine (4 of 4 - 4-dose series) Polio vaccine (4 of 4 - 4-dose series) [facility] Cytology Cervical or vaginal smear or scraping study Pap Smear Pathology and Cytology Routine Well woman exam with routine gynecological exam Ordered: 12/29/2024 [facility] Work Phone: Comment on above: Ordered: 12/29/2024 Human papilloma viru s DNA [Presence] in Unspecified specimen by Probe with amplification HPV DNA probe, amplified Microbiology Routine Well woman exam with routine gynecological exam Ordered: 12/29/2024 [facility] Comment on above: Ordered: 12/29/2024 End: 2024 Urinalysis with Reflex to Culture Urinalysis with Reflex to Culture Lab Routine One Time for 1 Occurrences starting 2024 until 2024 [facility] Comment on above: One Time for 1 Occur rences starting 2024 until 2024 Immunizations Immunization Date Immunization Notes Care Provider Angelique garza 04-15-2024 HPV, unspecified formulation Sarahyimi Yeager [facility] 01-20-2024 HPV, unspecified formulation Sarah Yeager [facility] 01-20-2024 SARS-CoV-2 mRNA (agbgskbijej-mgan-wuam ose) vaccine Sarah Yeager [facility] 01-20-2024 influenza virus vaccine, unspecified formulation Wesley Yang DO Work Phone: [facility] 04-12-2023 canakinumab Shannon [employer] [facility] Comment on above: Result Comment: Covi d-19, mRNA, LNP-S, PF, franco-sucrose, 30mcg/0.3 [facility] 03-22-2023 influenza virus vaccine, unspecified formulation [facility] 03-22-2023 influenza, unspecifi ed formulation Sarah Yeager [facility] 08-22-2022 COVID-19, mRNA, LNP- S, bivalent, PF, 50 mcg/0.5 mL dose [facility] 04-08-2021 SARS-CoV-2 (COVID-19 ) mRNA BNT-162b2 vax [facility] Comment on above: Result Comment: [facility] 03-28-2021 influenza virus vaccine, unspecified formulation Pro[facility] Comment on above: Result Comment: [facility] 10-05-2020 SARS-CoV-2 (COVID-19 ) mRNA-1273 vaccine Proberry [facility] 08-26-2020 SARS-CoV-2 (COVID-19 ) mRNA BNT-162b2 vax Pro[facility] 04-14-2014 influenza virus vaccine, unspecified formulation [facility] 04-30-2013 influenza virus vaccine, unspecified formulation [facility] 12-25-2011 tetanus toxoid, reduced diphtheria toxoid, and acellular pertussis vaccine, adsorbed [facility] Comment on above: Early/Late Reason: N Med Order 02-06-2001 hepatitis B vaccine, pediatric or pediatric/adolescent dosage Koll[facility] 10-03-2000 hepatitis B vaccine, pediatric or pediatric/adolescent dosage [facility] 07-30-2000 hepatitis B vaccine, pediatric or pediatric/adolescent dosage Kollabora [facility] 07-30-2000 measles, mumps and rubella virus vaccine Kollabora [facility] 07-23-1990 DTaP, unspecified formulation [facility] 07-23-1990 poliovirus vaccine, unspecified formulation [facility] 12-18-1989 Hib, unspecified formulation [facility] 12-18-1989 measles, mumps and rubella virus vaccine Pro[facility] 01-23-1989 poliovirus vaccine, unspecified formulation Shannon OLVERA [facility] 1988 poliovirus vaccine, unspecified formulation Shannon OLVERA [facility] NEGATED: Highlighted row has not occurred!07-20-2020 influenza virus vaccine, unspecified formulation Shannon OLVERA [facility] Payers Date Payer Category Payer Managed Care Other (unspecified) [facility] [id number] 2023 Private Health Insurance [id number] 2023 Unknown [id number] 2022 [facility] [id number] 2022 Self-pay [id number] 1988 Unknown [id number] 2.16.840.1.052462.3.579. 2.593 1988 Unknown [id number] 2.16.840.1.835976.3.579. 2.177 1988 Unknown [id number] 2.16.840.1.210275.3.579. 2.1286 1988 Unknown [id number] 2.16.840.1.931857.3.579. 2.176 1988 Unknown [id number] 2.16.840.1.345071.3.579. 2. 1988 Unknown [id number] 2.16.840.1.689145.3.579. 2 1988 Unknown [id number] 2.16.840.1.229757.3.579. 2 1988 Unknown [id number] 2.16.840.1.852138.3.579. 2. 1988 Unknown [id number] 2.16.840.1.470459.3.579. 2 1988 Unknown [id number] 2.16.840.1.748734.3.579. 2 1988 Unknown [id number] 2.16.840.1.363830.3.579. 2 1988 Unknown [id number] 2.16.840.1.695317.3.579. 2 1988 Unknown [id number] 2.16.840.1.655905.3.579. 2 1988 Unknown [id number] 2.16.840.1.236838.3.579. 2 1988 Unknown [id number] 2.16.840.1.899026.3.579. 2 1988 Unknown [id number] 2.16.840.1.597127.3.579. 2.9 1988 Unknown [id number] 2.16.840.1.785818.3.579. 2.1258 1988 Unknown [id number] 2.16.840.1.991788.3.579. 2.9 1988 Unknown [id number] 2.16.840.1.799529.3.579. 2.1259 1961 Medicare [id number] Unknown Regular Auto/Liability [id number] Unknown [id number] 2.16.840.1.397594.3.579. 2.531 Social History Date Type Detail Facility Start: 12-25-2023 End: 12-29-2024 Sex Assigned At [facility] Start: 08-22-2022 End: 10-13-2022 Tobacco smoking status Never smoked tobacco (finding) [facility] Start[facility] 1990 Sex Assigned At Female [facility] Start: 10-13-2022 End: 03-02-2023 Tobacco use and exposure Smokeless tobacco non-user [facility] Start: 01-08-2024 End: 12-29-2024 Alcoholic beverage intake Current drinker of alcohol (finding) [facility] Start: 12-25-2023 End: 12-29-2024 History of Social function [employer] Start: 12-07-2022 Alcohol Comment 1-2 drinks les s than monthly in the past year [facility] Start: 12-09-2022 Gender identity Identifies as female gender (finding) [facility] Start: 12-25-2023 Sexual orientation Bisexual (finding ) [facility] Tobacco smoking stat [facility] Tobacco smoking consumption unknown [facility] Start: 1990 Sex assigned at Not on file [facility] Start: 08-07-2018 End: 2024 Sex Female (finding) [facility] Start: 03-02-2023 Alcoholic beverage intake Ex-drinker (finding) [employer] How often to you hav e a drink containing alcohol? Never [employer] Sexual Orientation [facility] Medical Equipment Procedure Code [...] Assessment Result Facility 06-05-2024 Functional Status N/A [facility] 12-06-2023 Functional Status N/A [facility] 11-05-2023 Functional Status N/A [facility] 10-22-2023 Functional Status N/A [facility] 08-06-2023 Functional Status N/A [facility] 06-24-2023 Functional Status N/A [facility] 04-29-2023 Functional Status N/A [facility] 10-31-2022 Functional Status N/A [facility] 08-22-2022 Functional Status N/A [facility] 06-24-2022 to 12-29-2024 Vianney [...] nursing note reviewed. Exam conducted with a child protective investigator present. Vitals: Estimated body mass index is [...] them. Patient can also view results via [employer]. I reinforced importance of condom use for [...] Wesley Yang DO documented in this encounter [facility] 11-22-2024 Hospital Discharge instructions Patient Education 11/22/2024 [...] Follow these instructions at home: Medicines Take wofz-ire-epnchky and prescription medicines only as told by [...] medicines are used to treat seizures. Take xyzb-spy-luktqbw and prescription medicines only as told by your health care provider. This information is not intended to replace advice given to you by your health care provider. Make sure you discuss any questions you have with your health care provider. Document Revised: 11/11/2020 Document Reviewed: 11/11/2020 [employer] Patient Education 2022 [employer]. 11/22/2024 11:35:41 Managing Anxiety, Adult Managing Anxiety, [...] your provider. Avoid caffeine, alcohol, and certain gslk-acf-xfcejmf cold medicines. These may make you feel worse. Ask your pharmacist which medicines to avoid. General instructions Take kvod-wsg-ddvowey and prescription medicines only as told by [...] [place]: mentalhealthamerica.net Anxiety and Depression Association of [place] (ADAA): adaa.org National [place] on Mental Illness (MICHELLE): michelle.org Contact a [...] the National Suicide Prevention Lifeline at or 234. This is open 24 hours a day. Text the Crisis Text Line at 667106. This information is not intended to replace advice given to you by your health care provider. Make sure you discuss any questions you have with your health care provider. Document Revised: 02/12/2023 Document Reviewed: 08/27/2021 Elsevier Patient Education 2023 [employer] Follow Up Care 06/05/2024 15:19:18 With:Toy DOBBINS, MACHINE HEEL SEAT LASTER-FOUNTAIN CLERK, Sarah Pena Address: [address] [place] [phone] When:Within 6 Month(s) Comments:chronic care [facility] 11-22-2024 Note Patient Education Mental and Behavioral [...] not included)... [facility] 09-30-2024 History of Present illness Narrative Images [...] nursing note reviewed. Exam conducted with a child protective investigator present. Vitals: Estimated body mass index is [...] Fernie Sauceda NP documented in this encounter [facility] 09-09-2024 Note Patient Education Gastroenterology Gastroparesis Gastroparesis [...] Follow these instructions at home: ??? Take pcqa-zeo-dzqplej and prescription medicines only as told by [...] PA-C 08/31/24 [id number] [facility] Discharge instructions Patient Education 06/05/2024 [...] your provider. Avoid caffeine, alcohol, and certain geym-oif-lzemmxh cold medicines. These may make you feel worse. Ask your pharmacist which medicines to avoid. General instructions Take rbpl-ump-axxaxrr and prescription medicines only as told by [...] Depression Association of [place] (ADAA): adaa.org National [place] on Mental Illness (MICHELLE): michelle.org Contact a [...] the National Suicide Prevention Lifeline at or 061. This is open 24 hours a day. Text the Crisis Text Line at 965078. This information is not intended to replace advice given to you by your health care provider. Make sure you discuss any questions you have with your health care provider. Document Revised: 02/12/2023 Document Reviewed: 08/27/2021 [employer] Patient Education 2023 [employer] Inc[employer] 06/05/2024 06:34:57 Seizure, Adult Seizure, Adult [...] Follow these instructions at home: Medicines Take qsbq-cjp-yocyzjl and prescription medicines only as told by [...] medicines are used to treat seizures. Take vige-nqw-sctnvlz and prescription medicines only as told by your health care provider. This information is not intended to replace advice given to you by your health care provider. Make sure you discuss any questions you have with your health care provider. Document Revised: 11/11/2020 Document Reviewed: 11/11/2020 [employer] Patient Education 2022 Sova. Follow Up Care 05/10/2024 13:51:39 With:Toy DOBBINS, MACHINE HEEL SEAT LASTER-FOUNTAIN CLERK, Sarah Pena Address: [address] [place] [phone] When:Within 6 Month(s) Comments:chronic care [facility] 06-05-2024 Note Patient Education Mental and Behavioral [...] nursing note reviewed. Exam conducted with a child protective investigator present. Vitals: Estimated body mass index is [...] Wesley Yang DO documented in this encounter [facility] 01-08-2024 History of Present illness Narrative Associated [...] nursing note reviewed. Exam conducted with a child protective investigator present. Vitals: Estimated body mass index is [...] given: yes Instructions and paperwork completed: yes [place] protocol: Patient states understanding of procedure being [...] given: yes Instructions and paperwork completed: yes [place] protocol: Patient states understanding of procedure being [...] Wesley Yang DO documented in this encounter [facility] 12-24-2023 Note Patient Education Gastroenterology Nausea and [...] ? Low-calorie sports drinks. ? Eat bland, cznv-ms-wiedhs foods in small amounts as you are able, such as: ? Bananas. ? Applesauce. ? Rice. ? Low-fat (lean) meats. ? [place]. ? Crackers. ? Avoid drinking fluids that have a lot of sugar or caffeine in them. This includes energy drinks, sports drinks, and soda. ? Avoid alcohol. ? Avoid spicy or fatty foods. General instructions ? Take xjlg-snz-loxwxnu and prescription medicines only as told by your doctor. ? Drink enough fluid to keep your pee (urine) pale yellow. ? Wash your hands often with soap and water for at least 20 seconds. If you cannot use soap and water, use hand mexican food machine tender. ? Make sure that everyone in your [...] doctor about eating and drinking. ? Take sbrm-tje-lkhvoxk and prescription medicines only as told by your doctor. ? Contact your doctor if your symptoms get worse or you have new symptoms. ? Keep all follow-up visits. This information is not intended to replace advice given to you by your health care provider. Make sure you discuss any questions you have with your health care provider. Document Revised: 11/10/2021 Document Reviewed: 11/10/2021 [employer] Patient Education ? 2022 Sova. [facility] 12-04-2023 Hospital [...] care provider. Avoid caffeine, alcohol, and certain btxy-dul-ooiabti cold medicines. These may make you feel worse. Ask your pharmacist which medicines to avoid. General instructions Take ncpt-yes-slcwaqt and prescription medicines only as told by [...] Depression Association of [place] (ADAA): www.adaa.org National [place] on Mental Illness (MICHELLE): www.michelle.org Contact a [...] department or: Call your local emergency services (408 in the [place] Call a suicide crisis helpline, such as the National Suicide Prevention Lifeline at or 735 in the [place] This is open 24 hours a day in the [place] Text the Crisis Text Line at 275734 (in the [place] Summary Taking steps to [...] provider. Document Revised: 11/29/2021 Document Reviewed: 08/27/2021 [employer] Patient Education 2022 [employer] 12/04/2023 18:33:16 Exercising to Lose Weight [...] health care provider or diet and nutrition intern (dietitian). This may include: ?Eating fewer calories. [...] provider. Document Revised: 07/02/2021 Document Reviewed: 07/02/2021 [employer] Patient Education 2022 [employer] Follow Up Care 11/05/2023 15:20:48 With:Toy DOBBINS, MACHINE HEEL SEAT LASTER-FOUNTAIN CLERK, Sarah Pena Address: [address] [place] [phone] When:Within 1 Month(s) Comments:weight loss [facility] 12-04-2023 Note Patient Education Mental and [...] health care provider or diet and nutrition intern (dietitian). This may include: ?Eating fewer calories. [...] provider. Document Revised: 07/02/2021 Document Reviewed: 07/02/2021 [employer] Patient Education 2022 [employer]. 11/05/2023 15:02:07 Mediterranean Diet Mediterranean Diet A [...] in common dishes like chili or lasagna. [place] with different cooking methods. Try roasting, broiling, [...] available, such as: ?Vegetable sticks with hummus. ?South Korean yogurt. ?Fruit and nut trail mix. Eat [...] Quinoa. Meats and other proteins Beans. Almonds. [place] seeds. [place] nuts. Peanuts. Cod. [place]. Scallops. Shrimp. Tuna. Tilapia. Clams. Oysters. Eggs. Poultry without skin. Dairy Low-fat milk. Cheese. [place] yogurt. Fats and oils Extra-virgin olive oil. Avocado oil. Grapeseed oil. Beverages Water. Red wine. Herbal tea. Sweets and desserts [place] yogurt with honey. Baked apples. Poached pears. [place] mix. Seasonings and condiments Basil. Cilantro. Coriander. [...] Fruit canned in syrup. Vegetables Deep-fried potatoes (serbian fries). Grains Prepackaged pasta or rice dishes. [...] provider. Document Revised: 06/10/2020 Document Reviewed: 04/07/2020 [employer] Patient Education 2022 [employer]. Follow Up Care 10/30/2023 12:05:25 With:Toy DOBBINS, MACHINE HEEL SEAT LASTER-AFSANEH, Sarah Pena Address: [address] [place] [phone] When:Within 1 Month(s) Comments:weight loss, 40 minute initial [facility] 08-06-2023 Hospital Discharge instructions Patient Education 08/06/2023 [...] Follow these instructions at home: Medicines Take guyg-cmy-johmnvo and prescription medicines only as told by [...] and water are not available, use hand mexican food machine tender. Do not touch your eyes, nose, or [...] provider. Document Revised: 08/02/2021 Document Reviewed: 08/02/2021 [employer] Patient Education 2022 [employer]. 08/06/2023 20:49:53 Upper Respiratory Infection, Adult [...] medicines to help relieve symptoms, such as: Yrdk-vaz-yzaaxsq cold medicines. Cough suppressants. Coughing is a [...] and other clear broths. General instructions Take womr-xox-msmlpwj and prescription medicines only as told by [...] and water are not available, use hand mexican food machine tender. Avoid touching your mouth, face, eyes, or [...] provider. Document Revised: 12/06/2021 Document Reviewed: 12/06/2021 [employer] Patient Education 2022 [employer]. Follow Up Care 08/06/2023 09:11:55 With:Toy DOBBINS, NATACHA-Sarah SHELBY Address: [address] [place] [phone] When: only if needed Comments:work note for today [facility] 06-22-2023 Hospital Discharge instructions Patient Education [...] Follow these instructions at home: Medicines Take xpmd-ktf-bfsdcng and prescription medicines only as told by [...] the National Suicide Prevention Lifeline at or 688 in the [place].S. This is open 24 hours a day in the [place] Text the Crisis Text Line at 307469 (in the [place] Summary Epilepsy is a condition in which a person has repeated seizures over time. Some types of epilepsy will need lifelong treatment, and some types go away in time. Seizures can cause many symptoms, such as brief staring and uncontrollable shaking or fast movements of the arms or legs. Treatment can control seizures. Take jaow-caw-gapxvfh and prescription medicines only as told by [...] provider. Document Revised: 11/29/2021 Document Reviewed: 11/07/2020 [employer] Patient Education 2022 [employer]. Follow Up Care 05/27/2023 11:49:32 With:ROSELYN RUIZ, GILBERT Sheridan Address: When: only if needed [facility] 04-29-2023 Hospital Discharge instructions Patient Education 04/29/2023 [...] your hypoglycemia. Where to find more information [place] Diabetes Association: www.diabetes.org National [place] of Diabetes and Digestive and Kidney Diseases: [...] provider. Document Revised: 04/06/2021 Document Reviewed: 04/06/2021 [employer] Patient Education 2022 [employer]. Follow Up Care 10/31/2022 15:27:38 With:ROSELYN RUIZ FAAFP, GILBERT Pedraza Address: When: Unknown Comments:see provider darrel [facility] 10-31-2022 Hospital Discharge instructions Patient Education 10/31/2022 [...] sitting or lying down. General instructions Take dcde-kiy-xcpvgwi and prescription medicines only as told by [...] compression, and elevation. You may be given shgt-jjq-hstzzdu medicines for pain. Contact a health care [...] provider. Document Revised: 03/20/2022 Document Reviewed: 03/01/2022 [employer] Patient Education 2022 [employer]. Follow Up Care 10/25/2022 11:37:19 With:ROSELYN RUIZ FAAFP, GILBERT Pedraza Address: When: Unknown Comments:[facility] Evaluation note [...] days September, Other Contusion material was printed [facility] Other 04-06-2023 Evaluation + Plan note Diagnostic Tests Pending * Insulin Level Total 08/23/22 [facility]04-05[facility]2023 Hospital Discharge instructions Patient Education 08/22/2022 [...] these instructions at home: General instructions Take owcz-fuj-faqsicl and prescription medicines only as told by [...] 05/06/2006 Document Revised: 10/27/2018 Document Reviewed: 06/08/2016 [employer] Patient Education 2020 [employer]. Follow Up Care 08/01/2022 11:27:21 With:ROSELYN RUIZ FAAFP, GILBERT Pedraza Address: When: Unknown Comments:telephone result to patient [facility] 04-05-2023 Evaluation + Plan note Future Scheduled Tests Laboratory* HgbA1c 08/22/22 * Insulin Level Total 08/22/22 * CBC w/ Indices 08/22/22 * Comprehensive Metabolic Panel 08/22/22 * Lipid Panel 08/22/22 * Magnesium Level 08/22/22 * Valproic Acid Level 08/22/22 * Vitamin B12 Level 08/22/22 [facility] 03-24-2023 Evaluation note* Encounter Date Diagnosis Assessment [...] treatment plan. Patient left in stable condition [facility] Other 02-05-2023 Evaluation note* Encounter Date Diagnosis [...] no improvement in 2 to 3 days. [facility] Other Evaluation + Plan note Future Appointments Appointment Date:04/29/2023 06:20:00 PM Scheduled Provider:Shannon OLVERA MD, FAAFP Location:[facility] Appointment Type: Open [facility] Evaluation + Plan note Future Appointments Appointment Date:08/14/2023 06:00:00 PM Scheduled Provider:ZAFAR Zuleta Tammy L. Location:[facility] Appointment Type: Open Diagnostic Tests Pending * Insulin Level Total 04/29/23 * Comprehensive Metabolic Panel 04/29/23 * TSH With T4fr Reflex 04/29/23 * CBC w/ Auto Diff 04/29/23 * Valproic Acid Level 04/29/[address] [facility] Evaluation + Plan note Future Appointments Appointment Date:06/25/2023 06:00:00 PM Scheduled Provider:Arvin OLVERA MD Location:[facility] Appointment Type: Open Appointment Date:08/14/2023 06:00:00 PM Scheduled Provider:ZAFAR Zuleta Tammy L. Location:[facility] Appointment Type: Open Diagnostic Tests Pending * Insulin Level Total [facility]23 [facility]ments Appointment Date:08/14/2023 06:00:00 PM Scheduled Provider:ZAFAR Zuleta Tammy L. Location:[facility] Appointment Type: Open [facility] Evaluation + Plan note Future Appointments Appointment Date:12/06/2023 03:00:00 PM Scheduled Provider:ZAFAR Zuleta Tammy L. Location:[facility] Appointment Type: Open [facility] Evaluation + Plan note Future Appointments Appointment Date:01/01/2024 05:40:00 PM Scheduled Provider:ZAFAR [facility]uleta [facility]my L. [facility] Evaluation + Plan note Future Appointments Appointment Date:11/23/2024 02:40:00 PM Scheduled Provider:ZAFAR Zuleta Tammy L. [facility] noteNo assessment information available [facility] Work Phone: Evijdsxzgw note* Diagnosis Encounter for IUD removal and reinsertion documented in this encounter [facility] HealthcareEvaluation note* Diagnosis Encounter for routine checking of intrauterine contraceptive device (IUD) documented in this encounter [facility] HealthcareEvaluation note* Diagnosis Acute vomiting- Primary [facility] Diagnosis Abdominal pain, epigastric- Primary Nausea and vomiting, unspecified vomiting type documented in this encounter [facility] Diagnosis Left genital labial abscess- Primary Labial cyst Other specified noninflammatory disorder of vulva and perineum documented in this encounter [facility] HealthcareEvaluation note* Diagnosis Well woman exam with routine gynecological exam Routine gynecological examination documented in this encounter [facility] HealthcareHistory general Narrative - Reported* Type Description Date Medical History Esophageal reflux Medical History epilepsy Medical History Depression Medical History anxiety [facility] Other Hospital course Narrative No data available for this section [facility] No data available for this section [facility] Attachments The following attachments cannot be sent through Care Everywhere. * Nausea and Vomiting ([place]) * Abdominal Pain ([place]) documented in this encounterBon [place] ResidencesInstructionsNot on file documented [facility] No data available for this section [facility] Summary Purpose Family History No Family [...] DATE CREATED AUTHOR AUTHOR'S ORGANIZ ATION 12/27/2022 [facility] DATE CREATED AUTHOR AUTHOR'S ORGANIZ ATION 03/04/2023 [facility] DATE CREATED AUTHOR AUTHOR'S ORGANIZ ATION 06/08/2024 [facility] DATE CREATED AUTHOR AUTHOR'S ORGANIZ ATION 2024 [facility] DATE CREATED AUTHOR AUTHOR'S ORGANIZ ATION 2024 [facility] DATE CREATED AUTHOR AUTHOR'S ORGANIZ ATION 09/11/2024 [place] [facility] DATE CREATED AUTHOR AUTHOR'S ORGANIZ ATION 11/25/2024 [place] [facility] DATE CREATED AUTHOR AUTHOR'S ORGANIZ ATION 12/30/2024 [facility] EPIC REASON FOR VISIT (unrecogniz [...] Primary Care Provider Active Cari Araseli , COUTURE DRESSMAKER-C Attending Provider Active Toys Inspector Relationship Specialty Start Date End Date Shannon Olvera MD [address] [place], [place] [id number] PCP - General 12/09/22 Toys Inspector Relationship Specialty Start Date End Date Shannon Olvera MD [address] [place], [place] [id number] PCP - General 12/09/22 Toys Inspector Relationship Specialty Start Date End Date Shannon Olvera MD [address] [place], [place] [id number] PCP - General 12/09/22 Toys Inspector Relationship Specialty Start Date End Date Shannon Olvera MD [address] [place], [place] [id number] PCP - General 12/09/22 Toys Inspector Relationship Specialty Start Date End Date Shannon Olvera MD [address] [place], [place] [id number] PCP - General 12/09/22 Toys Inspector Relationship Specialty Start Date End Date Shannon Olvera MD [address] [place], [place] [id number] PCP - General 12/09/22 Goals (unrecognized section [...] BE BASED ON THE PRIMARY CLINICAL RECORDS. [facility] [facility]. provides no warranty or guarantee of the accuracy or completeness of information in this document.
--- NOTE | 2025-02-19 07:20 | ECG_ITS ---
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 Measurements Intervals [place] Rate: 73 P: 1 MN: 132 QRS: 48 QRSD: 94 T: 43 QT: 388 QTc: 415 Interpretive Statements [address]-T wave abnormality Abnormal ECG Compared to ECG 09/01/2024 14:09:25 Sinus arrhythmia no longer present Electronically Signed On 02-19-2025 18:44:34 EDT by ALIZE GILLIAM M.D.
[2025-02-19] MEDS: 0.9 % SODIUM CHLORIDE 1,000 ML 1000 ML IV (07:43)
[2025-02-19 07:46] LABS: Hematocrit 38.4 % (36.0-48.0); Hemoglobin 13.0 g/dL (12.0-16.0); Immature Granulocytes Abs Auto 0.01 10^3/uL (0.00-0.03); Immature Granulocytes Pct Auto 0.2 % (0.0-0.5); Lymphocytes Absolute Auto 1.7 10^3/uL (1.2-3.8); Mean Corpuscular HGB Conc 33.9 g/dL (29.9-35.2); Mean Corpuscular Hemoglobin 28.9 pg (26.7-34.0); Mean Corpuscular Volume 85.3 fL (81.0-99.0); Platelet Count 227 10^3/uL (150-450); Red Blood Count 4.50 10^6/uL (4.20-5.40); White Blood Count 6.1 10^3/uL (4.0-11.0)
--- NOTE | 2025-02-19 07:55 | ED.GENADUL1 ---
HPI HPI - General Adult General Chief complaint: Recheck/Abnormal Lab/Rx Stated complaint: SOMETHING DOES NOT FEEL RIGHT W MUSCLES Time Seen by Provider: 02/19/25 07:13 Source: patient Mode of arrival: walk-in Limitations: no limitations History of Present Illness HPI narrative: The patient is a 34-year-old female with history of seizure disorder she has been taking Depakote since the age of 17, patient mentioned that for the last couple days she missed the evening doses and apparently today she is feeling something off, she did not specifically describe what going on but she felt that she was staring yesterday and maybe had a focal seizure in her arm. The patient right now does not have any complaint that is specific no pain in his chest stomach or head The patient denies any other complaints and she mentioned that it is hard to explain but she just feels that there is something wrong regarding her medication that she missed couple doses of Related Data Home Medications ?Medication ?Instructions ?Recorded ?Confirmed fluoxetine 20 mg capsule 20 mg PO DAILY 09/01/24 02/19/25 divalproex 500 mg tablet,delayed 500 mg PO Q12H 02/19/25 02/19/25 release (Depakote) metformin 500 mg tablet 500 mg PO BID 02/19/25 02/19/25 omeprazole 40 mg capsule,delayed 40 mg PO DAILY 02/19/25 02/19/25 release Allergies Allergy/AdvReac Type Severity Reaction Status Date / Time Penicillins Allergy Severe Rash Verified 02/19/25 07:08 Opioid HPI Opioid Management Most Recent Opioid Data: Last Pain Scale 1 02/11/25, 22:42 Review of Systems ROS Status of ROS 10 or more systems reviewed and unremarkable except as noted in history and below PFSH PFS Social History Little interest or pleasure in doing things: not at all Feeling down, depressed, or hopeless: not at all Exam Narrative Exam Narrative: Nurses notes and vital signs reviewed and patient is not hypoxic. General: Well-appearing and in no apparent distress. Skin: Warm, dry, no pallor noted. No rash. Head: Normocephalic, atraumatic. Neck: Supple, non-tender. Cardiovascular: Regular Rate and Rhythm without murmur, gallop or rub. Respiratory: No accessory muscle use or respiratory distress. Lungs are clear to auscultation, no wheezing, rales or rhonchi Chest Wall: no tenderness Back: No midline thoracic or lumbar vertebral tenderness. No CVA tenderness Musculoskeletal: normal ROM, no calf or popliteal tenderness, no lower extremity edema/swelling GI: Abdomen is soft, non-distended. Normal bowel sounds. No masses appreciated. No tenderness to palpation. No rebound, guarding, or rigidity noted. Neurological: A&O x4. No cranial nerve dysfunction observed. No truncal ataxia. Moves all extremities. Sensation intact. Psychiatric: Cooperative and interactive. Normal mood and affect. Constitutional Vital Signs, click to edit/add: Last Vital Signs Temp 97.6 F 02/19/25 07:08 Pulse 80 02/19/25 07:08 Resp 18 02/19/25 07:08 BP 113/69 02/19/25 07:08 Pulse Ox 98 02/19/25 07:08 O2 Del Method Room Air 02/19/25 07:08 Course Vital Signs Vital signs: Vital Signs Temperature 97.6 F 02/19/25 07:08 Pulse Rate 80 02/19/25 07:08 Respiratory Rate 18 02/19/25 07:08 Blood Pressure 113/69 02/19/25 07:08 Pulse Oximetry 98 02/19/25 07:08 Oxygen Delivery Method Room Air 02/19/25 07:08 Temperature 97.6 F 02/19/25 07:08 Pulse Rate 80 02/19/25 07:08 Respiratory Rate 18 02/19/25 07:08 Blood Pressure 113/69 02/19/25 07:08 Pulse Oximetry 98 02/19/25 07:08 Oxygen Delivery Method Room Air 02/19/25 07:08 Medical Decision Making [facility] Narrative Medical decision making narrative: The patient EKG in the ER showing sinus rhythm with a heart rate of [address] elevation or depression The patient CBC and chemistry showed no acute pathology and the Depakote level was 16 the normal level is between 50 and 100 Right now the patient Depakote level is subtherapeutic and she will be provided with an extra dose of Depakote here in the ER and she have to make sure that she is taking her dose every night as well and she follow-up with her primary care The patient instructed about the importance of taking her medication on time and the fact that she have to follow-up with the primary care for another level within the week The patient is to follow up with primary care physician in next 2-3 days or to return to the emergency department should any of the signs or symptoms worsen or new symptoms develop. The patient agrees with the following Diagnosis and Treatment plan and the patient will be discharged home. Lab Data Labs: Lab Results 02/19/25 Range/Units 07:39 WBC 6.1 (4.0-11.0) 10^3/uL RBC 4.50 (4.20-5.40) 10^6/uL Hgb 13.0 (12.0-16.0) g/dL Hct 38.4 (36.0-48.0) % MCV 85.3 (81.0-99.0) fL MCH 28.9 (26.7-34.0) pg MCHC 33.9 (29.9-35.2) g/dL RDW 14.1 (11.0-15.0) % Plt Count 227 (150-450) 10^3/uL MPV 10.6 (9.5-13.5) fL Neut % (Auto) 63.3 (43.0-75.0) % Lymph % (Auto) 27.7 (20.5-60.0) % [place] % (Auto) 7.0 (1.7-12.0) % Eos % (Auto) 1.5 (0.9-7.0) % Baso % (Auto) 0.3 (0.2-2.0) % Neut # (Auto) 3.9 (1.4-6.5) 10^3/uL Lymph # (Auto) 1.7 (1.2-3.8) 10^3/uL [place] # (Auto) 0.4 (0.3-0.8) 10^3/uL Eos # (Auto) 0.1 (0.0-0.7) 10^3/uL Baso # (Auto) 0.0 (0.0-0.1) 10^3/uL Abs Immat Gran (auto) 0.01 (0.00-0.03) 10^3/uL Imm/Tot Granulo (auto) 0.2 (0.0-0.5) % Sodium 141 (136-145) mmol/L Potassium 3.9 (3.5-5.1) mmol/L Chloride 105 (98-107) mmol/L Carbon Dioxide 24.6 (21.0-32.0) mmol/L Anion Gap 15.3 BUN 5.0 L (7.0-18.0) mg/dL Creatinine 0.55 (0.55-1.02) mg/dL Est GFR ( Amer) >60 (>=60 mL/min/1.73m^2) Est GFR (Non-Af Amer) >60 (>=60 mL/min/1.73m^2) BUN/Creatinine Ratio 9.1 Glucose 101 (74-106) mg/dL Calcium 9.2 (8.5-10.1) mg/dL Magnesium 2.3 (1.8-2.4) mg/dL Total Bilirubin 0.5 (0.2-1.0) mg/dL AST 12 L (15-37) U/L ALT <6 L (14-59) U/L Alkaline Phosphatase 46 (46-116) U/L Troponin I High Sens <4.0 L (4.0-51.3) pg/mL Total Protein 7.6 (6.4-8.2) g/dL Albumin 3.8 (3.4-5.0) g/dL Globulin 3.8 g/dL Albumin/Globulin Ratio 1.0 Serum HCG, Qual Negative (NEGATIVE) Valproic Acid 16.2 L (50.0-100.0) ug/mL Discharge Plan Discharge Chief Complaint: Recheck/Abnormal Lab/Rx Clinical Impression: Seizure disorder, On valproic acid therapy Patient Disposition: Home, Self-Care Time of Disposition Decision: 09:03 Condition: Good Prescriptions / Home Meds: No Action fluoxetine 20 mg capsule 20 mg PO DAILY divalproex [Depakote] 500 mg tablet,delayed release (DR/EC) 500 mg PO Q12H omeprazole 40 mg capsule,delayed release(DR/EC) 40 mg PO DAILY metformin 500 mg tablet 500 mg PO BID Print Language: Romanian Instructions: Epilepsy (DC) Additional Instructions: Please make sure that you take your medication on time and you do not miss any further doses in the future And also make sure that you follow-up with your primary care for another valproic acid level within a week The patient is to follow up with primary care physician in next 2-3 days or to return to the emergency department should any of the signs or symptoms worsen or new symptoms develop. The patient agrees with the following Diagnosis and Treatment plan and the patient will be discharged home. Referrals: Sarah Yeager RN [Primary Care Provider] - 1 week
[2025-02-19 07:59] LABS: Magnesium 2.3 mg/dL (1.8-2.4)
[2025-02-19 08:08] LABS: Alanine Aminotransferase <6 U/L (14-59); Albumin Globulin Ratio 1.0; Albumin Level 3.8 g/dL (3.4-5.0); Alkaline Phosphatase 46 U/L (46-116); Anion Gap 15.3; Aspartate Amino Transferase 12 U/L (15-37); Blood Urea Nitrogen 5.0 mg/dL (7.0-18.0); Calcium 9.2 mg/dL (8.5-10.1); Carbon Dioxide 24.6 mmol/L (21.0-32.0); Chloride 105 mmol/L (98-107); Estimated GFR (African America >60 (>=60 mL/min/1.73m^2); Estimated GFR (Non-African Ame >60 (>=60 mL/min/1.73m^2); Globulin 3.8 g/dL; Glucose 101 mg/dL (74-106); Potassium 3.9 mmol/L (3.5-5.1); Sodium 141 mmol/L (136-145); Total Protein 7.6 g/dL (6.4-8.2)
[2025-02-19] MEDS: DIVALPROEX SODIUM 500 MG TABLET.DR PO (09:01)
== END 2025-02-19 09:10 | disposition home or self-care (01) ==
PROVIDERS: Emergency Provider Emergency Medicine
DX: G40.909 Epilepsy, unspecified, not intractable, without status epilepticus (principal); Z79.899 Other long term (current) drug therapy
CPT/HCPCS: 36415; 80053; 80164; 83735; 84484; 84703; 85025; 93005; 99284